=== PATIENT | female | born 1940 | race Caucasian/White ===

== ENCOUNTER 2016-10-17 13:23 | Emergency (ER) | payer MEDICARE, OTHER ==
[2016-10-17] MEDS ORDERED: RX INFO: IV CONTRAST WAS GIVEN 1 EACH MISC MISCELLANE PRN (13:43)
[2016-10-17] MEDS ORDERED: SODIUM CHLORIDE 0.9% 1,000 ML IV STA (13:43)
[2016-10-17] MEDS ORDERED: DIPH,PERTUS(ACELL)TETVAC-LF 0.5 ML VIAL IM ONE (13:45)
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
[2016-10-17 14:47] LABS: Basophils # (A) 0.1 k/uL (0-0.2); Basophils % (A) 0 %; CH 29.1; CHCM 31.1; Eosinophils # (A) 0.1 k/uL (0-0.7); Eosinophils % (A) 1 %; HCT 42.9 % (34.0-46.0); HDW 2.35; Hypochromasia Slight; Luc # (Auto) 0.22; Luc % (Auto) 2; Lymphocytes # (A) 0.8 k/uL (1.0-4.8); Lymphocytes % (A) 8 %; MCH 30.8 pg (25.0-35.0); MCHC 32.7 g/dL (31.0-37.0); MCV 94.1 fL (80.0-100.0); Mean Platelet Volume 8.3; Monocytes # (A) 0.6 k/uL (0-1.0); Monocytes % (A) 6 %; Neutrophils # (A) 8.4 k/uL (1.3-7.7); Neutrophils % (A) 82 %; RBC 4.56 m/uL (3.80-5.40); RDW 12.5 % (11.5-15.5); WBC 10.2 k/uL (3.8-10.6); WBC (Perox) 10.82
[2016-10-17 14:53] LABS: Anion Gap 12 mmol/L; Calcium 8.6 mg/dL (8.4-10.2); Carbon Dioxide 21 mmol/L (22-30); Chloride 106 mmol/L (98-107); Glucose 320 mg/dL (74-99); Non-African American GFR(MDRD) >60 (>60 ml/min/1.73 sqM); Sodium 139 mmol/L (137-145); Total Bilirubin 0.5 mg/dL (0.2-1.3); Total Protein 6.8 g/dL (6.3-8.2)
[2016-10-17 14:54] LABS: Blood Urea Nitrogen 18 mg/dL (7-17); Potassium 4.8 mmol/L (3.5-5.1)
[2016-10-17 14:55] LABS: ALT 37 U/L (9-52); AST 38 U/L (14-36); Alkaline Phosphatase 126 U/L (38-126)
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
[2016-10-17 15:59] VITALS: RESP 16; TEMP 97.7
[2016-10-17 16:06] LABS: Glucose,Whole Blood 219 mg/dL (75-99)
[2016-10-17] MEDS ORDERED: AMOXIC-POT CLAV 875MG STARTER 2 EACH TABLET PO STA (16:55)
[2016-10-17 17:04] VITALS: BP 142/60; PULSE 102
== END 2016-10-17 17:03 | disposition home or self-care (01) ==
LOC: EC 13:23
DX: S61.412A Laceration without foreign body of left hand, initial encounter (principal); S61.411A Laceration without foreign body of right hand, initial encounter; V89.2XXA Person injured in unspecified motor-vehicle accident, traffic, initial encounter; J18.9 Pneumonia, unspecified organism; J01.00 Acute maxillary sinusitis, unspecified; E11.9 Type 2 diabetes mellitus without complications; Z79.4 Long term (current) use of insulin; Z79.82 Long term (current) use of aspirin; Z79.899 Other long term (current) drug therapy; Z23 Encounter for immunization
CPT/HCPCS: 99285; 96360; 12011; 96361 ×2; 36415; 93005; 80053; 85025; 72125; 70486; 70450; 71260; 74177; 90715; Q9967; 90471

== ENCOUNTER → 2017-04-23 | Outpatient (CLI) | payer MEDICARE ==
[2017-04-23 10:33] LABS: ALT 22 U/L (9-52); AST 16 U/L (14-36); Alkaline Phosphatase 134 U/L (38-126); Anion Gap 8 mmol/L; Blood Urea Nitrogen 17 mg/dL (7-17); Carbon Dioxide 28 mmol/L (22-30); Chloride 103 mmol/L (98-107); Cholesterol 188 mg/dL (<200); Glucose 221 mg/dL (74-99); HDL Cholesterol 52 mg/dL (40-60); Non-African American GFR(MDRD) >60 (>60 ml/min/1.73 sqM); Potassium 4.9 mmol/L (3.5-5.1); Sodium 139 mmol/L (137-145); Total Bilirubin 0.6 mg/dL (0.2-1.3); Total Protein 6.8 g/dL (6.3-8.2); Triglycerides 172 mg/dL (<150)
[2017-04-23 17:15] LABS: Urine Creatinine 88.3 mg/dL
== END | disposition home or self-care (01) ==
LOC: LABWHC1 09:57
PROVIDERS: ATTEND Internal Medicine Endocrinology, Diabetes & Metabolism
DX: E11.65 Type 2 diabetes mellitus with hyperglycemia (principal)
CPT/HCPCS: 36415; 80053; 80061; 82043; 82570

== ENCOUNTER → 2017-09-12 | Outpatient (CLI) | payer MEDICARE ==
[2017-09-12 10:48] LABS: ALT 23 U/L (9-52); AST 17 U/L (14-36); Alkaline Phosphatase 109 U/L (38-126); Anion Gap 7 mmol/L; Blood Urea Nitrogen 17 mg/dL (7-17); Calcium 9.6 mg/dL (8.4-10.2); Carbon Dioxide 32 mmol/L (22-30); Chloride 105 mmol/L (98-107); Cholesterol 179 mg/dL (<200); Glucose 100 mg/dL (74-99); HDL Cholesterol 57 mg/dL (40-60); Non-African American GFR(MDRD) >60 (>60 ml/min/1.73 sqM); Sodium 144 mmol/L (137-145); Total Bilirubin 0.4 mg/dL (0.2-1.3); Total Protein 7.1 g/dL (6.3-8.2)
[2017-09-12 17:51] LABS: Urine Creatinine 135.8 mg/dL
== END | disposition home or self-care (01) ==
LOC: LABWHC1 09:55
PROVIDERS: ATTEND Internal Medicine Endocrinology, Diabetes & Metabolism
DX: E11.65 Type 2 diabetes mellitus with hyperglycemia (principal)
CPT/HCPCS: 36415; 80053; 80061; 82043; 82570; 83036

== ENCOUNTER → 2018-04-04 | Outpatient (CLI) | payer MEDICARE ==
[2018-04-04 09:54] LABS: Anion Gap 13 mmol/L; Calcium 9.7 mg/dL (8.4-10.2); Carbon Dioxide 28 mmol/L (22-30); Chloride 103 mmol/L (98-107); Cholesterol 162 mg/dL (<200); Glucose 94 mg/dL (74-99); HDL Cholesterol 54 mg/dL (40-60); LDL Cholesterol,Calculated 82 mg/dL (0-99); Sodium 144 mmol/L (137-145); Total Bilirubin 0.7 mg/dL (0.2-1.3); Total Protein 7.4 g/dL (6.3-8.2); Triglycerides 130 mg/dL (<150)
[2018-04-04 10:01] LABS: ALT 23 U/L (9-52); AST 29 U/L (14-36); Alkaline Phosphatase 134 U/L (38-126); Blood Urea Nitrogen 9 mg/dL (7-17)
[2018-04-04 17:33] LABS: Hemoglobin A1C 10.5 % (4.0-6.0)
== END | disposition home or self-care (01) ==
LOC: LABWHC1 08:38
PROVIDERS: ATTEND Internal Medicine Endocrinology, Diabetes & Metabolism
DX: E11.65 Type 2 diabetes mellitus with hyperglycemia (principal)
CPT/HCPCS: 36415; 80053; 80061; 82043; 82570; 83036

== ENCOUNTER 2018-12-01 12:18 | Inpatient (IN) | payer MEDICARE ==
[2018-12-01 12:42] LABS: Glucose,Whole Blood 278 mg/dL (75-99)
[2018-12-01 12:42] LABS: Glucose,Whole Blood 236 mg/dL (75-99)
--- NOTE | 2018-12-01 13:30 | XR ---
EXAMINATION TYPE: XR chest 1V DATE OF EXAM: 12/01/2018 COMPARISON: 04/09/2016 HISTORY: Preoperative evaluation for shoulder fracture TECHNIQUE: Single frontal view of the chest is obtained. FINDINGS: Cardiomediastinal silhouette is mildly enlarged. Minimal pulmonary vascular prominence is new from the prior. Mild retrocardiac left basilar linear atelectasis is also seen. No sizable pleura l effusion or pneumothorax. Right humeral fracture appears acute and displaced. IMPRESSION: Minimal pulmonary vascular congestion and left basilar subsegmental atelectasis. Partial ly visualized right humeral fracture.
--- NOTE | 2018-12-01 13:37 | XR ---
EXAMINATION TYPE: XR Hip RT and AP Pelvis DATE OF EXAM: 12/01/2018 COMPARISON: None HISTORY: Fall, pain TECHNIQUE: AP pelvis with 2 view right hip FINDINGS: There is a subtle nondisplaced fracture extending from the greater trochanter to the proxim al diaphysis of the femur just below the lesser trochanter. A fracture appears nondisplaced. Vascular calcifications present. Femoral head articulates with the acetabulum. Some joint space narro wing is present. No additional fractures are evident. IMPRESSION: 1. Subtle nondisplaced fracture from the distal portion of the greater trochanter to the distal port ion of the lesser trochanter and proximal diaphysis of the right femur.
[2018-12-01 13:38] LABS: Basophils % (A) 0 %; Eosinophils # (A) 0.2 k/uL (0-0.7); Eosinophils % (A) 2 %; HCT 45.3 % (34.0-46.0); HGB 14.6 gm/dL (11.4-16.0); Lymphocytes # (A) 1.2 k/uL (1.0-4.8); Lymphocytes % (A) 15 %; MCH 29.7 pg (25.0-35.0); MCHC 32.3 g/dL (31.0-37.0); MCV 92.1 fL (80.0-100.0); Mean Platelet Volume 8.6; Monocytes # (A) 0.5 k/uL (0-1.0); Monocytes % (A) 6 %; Neutrophils # (A) 6.3 k/uL (1.3-7.7); Neutrophils % (A) 74 %; Platelet Count 204 k/uL (150-450); RBC 4.92 m/uL (3.80-5.40); RDW 12.7 % (11.5-15.5); WBC 8.4 k/uL (3.8-10.6)
--- NOTE | 2018-12-01 13:40 | XR ---
EXAMINATION TYPE: XR shoulder limited RT DATE OF EXAM: 12/01/2018 COMPARISON: None HISTORY: Fall, pain TECHNIQUE: 2 view right humerus FINDINGS: There is a fracture of the right humeral neck. This is slightly displaced from the shaft. H umeral head articulates with the glenoid. No additional fractures are within the [id number]. IMPRESSION: 1. Fracture of the proximal right humerus.
[2018-12-01] MEDS ORDERED: ONDANSETRON 4 MG/2 ML VIAL IVP PRN (13:53)
[2018-12-01] MEDS ORDERED: NALOXONE 0.4 MG/ML 1 ML VIAL IV PRN (13:53)
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
[2018-12-01 13:55] LABS: ALT 22 U/L (9-52); AST 20 U/L (14-36); Albumin 3.6 g/dL (3.5-5.0); Alkaline Phosphatase 111 U/L (38-126); Anion Gap 7 mmol/L; Blood Urea Nitrogen 17 mg/dL (7-17); Calcium 9.1 mg/dL (8.4-10.2); Carbon Dioxide 27 mmol/L (22-30); Chloride 105 mmol/L (98-107); Glucose 315 mg/dL (74-99); Potassium 5.1 mmol/L (3.5-5.1); Sodium 139 mmol/L (137-145); Total Bilirubin 0.6 mg/dL (0.2-1.3)
[2018-12-01 14:03] LABS: INR 0.9 (<1.2); Prothrombin Time 10.1 sec (9.0-12.0)
[2018-12-01 14:06] LABS: Partial Thromboplastin Time 20.6 sec (22.0-30.0)
[2018-12-01] MEDS: MORPHINE SULFATE 4 MG/ML SYRINGE IV PRN ×2 (14:39→20:58)
[2018-12-01 14:54] LABS: Appearance,Urine Clear (Clear); Bacteria,Urine Many /hpf; Bilirubin,Urine Negative (Negative); Blood,Urine Negative (Negative); Color,Urine Light Yellow; Glucose,Urine (UA) 4+ (Negative); Ketones,Urine 1+ (Negative); Leukocyte Esterase,Urine Small (Negative); Nitrite,Urine Positive (Negative); Protein,Urine Trace (Negative); RBC,Urine 1 /hpf (0-5); Specific Gravity,Urine 1.022 (1.001-1.035); Squamous Epithelial Cell,Urine <1 /hpf (0-4); Urobilinogen,Urine <2.0 mg/dL (<2.0); WBC,Urine 70 /hpf (0-5)
[2018-12-01 15:03] VITALS: BMI 38.2
[2018-12-01] MEDS ORDERED: LEVOFLOXACIN 250 MG TAB PO STA (16:35)
--- NOTE | 2018-12-01 16:50 | P.PN ---
Subjective Progress Note Date: 12/01/18 Principal diagnosis: This is a history of physical and 78-year-old white female who essentially fell on the ice today fracturing proximal humerus and hip fracture. The patient is seemingly in fairly good spirits today with nominal pain control. The patient has an underlying history diabetes which has been fairly well controlled. No significant fever or chills stated. UTIs noted on initial urinalysis. She does have a left finger wound from a fall 3 weeks ago and it does seem somewhat cellulitic. Again, no diarrhea The patient is now stable in her bed with good family support. No significant nausea, vomiting or diarrhea. No fever or chills are stated. Objective - Vital Signs Vital signs: Vital Signs Temp 98.0 F 12/01/18 14:55 Pulse 77 12/01/18 15:26 Resp 18 12/01/18 14:55 BP 132/76 12/01/18 15:26 Pulse Ox 92 L 12/01/18 15:26 Intake & Output 11/30/18 12/01/18 12/01/18 18:59 06:59 18:59 Output Total 300 Balance -300 Weight 88.904 kg Output: Urine 300 Uretheral (Mustafa) 300 - Constitutional General appearance: Present: average body habitus - EENT Eyes: Absent: abnormal pupil - Neck Neck: Absent: lymphadenopathy - Respiratory Respiratory: bilateral: CTA - Cardiovascular Rhythm: regular Heart sounds: normal: S1, S2 Abnormal Heart Sounds: Present: systolic murmur. Absent: S3 Gallop - Gastrointestinal General gastrointestinal: Present: soft. Absent: tenderness - Integumentary Integumentary Comment(s): There is cellulitis element somewhat superficial cut which has had redness of the left dorsum of the fifth digit. Integumentary: Present: cellulitis - Neurologic Neurologic: Present: CNII-XII intact. Absent: focal deficits - Musculoskeletal Musculoskeletal: Present: right sided weakness - Psychiatric Psychiatric: Present: A&O x's 3. Absent: appropriate affect - Labs CBC & Chem 7: 12/01/18 12:39 12/01/18 12:39 Labs: Abnormal Lab Results - Last 24 Hours (Table) 12/01/18 12/01/18 12/01/18 Range/Units 12:37 12:38 12:39 APTT (22.0-30.0) sec Creatinine 0.50 L (0.52-1.04) mg/dL Glucose 315 H (74-99) mg/dL POC Glucose (mg/dL) 236 H 278 H (75-99) mg/dL Urine Protein (Negative) Urine Glucose (UA) (Negative) Urine Ketones (Negative) Urine Nitrite (Negative) Ur Leukocyte Esterase (Negative) Urine WBC (0-5) /hpf Urine WBC Clumps (None) /hpf Urine Bacteria (None) /hpf 12/01/18 12/01/18 Range/Units 12:39 14:44 APTT 20.6 L (22.0-30.0) sec Creatinine (0.52-1.04) mg/dL Glucose (74-99) mg/dL POC Glucose (mg/dL) (75-99) mg/dL Urine Protein Trace H (Negative) Urine Glucose (UA) 4+ H (Negative) Urine Ketones 1+ H (Negative) Urine Nitrite Positive H (Negative) Ur Leukocyte Esterase Small H (Negative) Urine WBC 70 H (0-5) /hpf Urine WBC Clumps Few H (None) /hpf Urine Bacteria Many H (None) /hpf Assessment and Plan (1) Diabetes Current Visit: Yes Status: Acute Code(s): E11.9 - TYPE 2 DIABETES MELLITUS WITHOUT COMPLICATIONS SNOMED Code(s): 94941028 (2) UTI (urinary tract infection) Current Visit: Yes Status: Acute Code(s): N39.0 - URINARY TRACT INFECTION, SITE NOT SPECIFIED SNOMED Code(s): 54373861 (3) Closed right hip fracture Current Visit: Yes Status: Acute Code(s): S72.001A - FRACTURE OF UNSP PART OF NECK OF RIGHT FEMUR, INIT SNOMED Code(s): 017332362 (4) Fall Current Visit: Yes Status: Acute Code(s): W19.XXXA - UNSPECIFIED FALL, INITIAL ENCOUNTER SNOMED Code(s): 8419230 (5) Right humeral fracture Current Visit: Yes Status: Acute Code(s): S42.301A - UNSP FRACTURE OF SHAFT OF HUMERUS, RIGHT ARM, INIT SNOMED Code(s): 82414338 (6) Cellulitis and abscess of finger, unspecified Current Visit: Yes Status: Acute Code(s): L03.019 - CELLULITIS OF UNSPECIFIED FINGER; L02.519 - CUTANEOUS ABSCESS OF UNSPECIFIED HAND SNOMED Code(s): 807267264 (7) Cellulitis of finger of left hand Current Visit: Yes Status: Acute Code(s): L03.012 - CELLULITIS OF LEFT FINGER SNOMED Code(s): 42992288 Plan: Urinary tract infection with cellulitis we will go ahead and start Antibiotics with Levaquin. Reconcile home medications. We'll give half the dose of her Levemir tonight as we will be keeping her nothing by mouth in a.m. for her surgery. Appreciate consultation. Check CBC and CMP in a.m. The patient is medically cleared for her surgery. Time with Patient: Greater than 30
[2018-12-01 17:04] LABS: Glucose,Whole Blood 269 mg/dL (75-99)
[2018-12-01] MEDS: INSULIN ASPART (NovoLOG) 100 UNIT/ML VIAL SQ SCH ×2 (17:22→20:58)
[2018-12-01] MEDS ORDERED: INSULIN LISPRO 10 UNIT SQ SCH (17:30)
[2018-12-01] MEDS: BACITRACIN 500 UNIT/GM OINT 28.4 GM TUBE TOPICAL SCH (18:18)
[2018-12-01 20:38] LABS: Glucose,Whole Blood 280 mg/dL (75-99)
[2018-12-01] MEDS: ATORVASTATIN 40 MG TAB PO SCH (20:58)
[2018-12-01] MEDS ORDERED: INSULIN DETEMIR (LEVEMIR) 100 UNIT/ML SYR SQ SCH (21:00)
[2018-12-02] MEDS: MORPHINE SULFATE 4 MG/ML SYRINGE IV PRN ×2 (03:24→16:32)
[2018-12-02 06:44] LABS: Glucose,Whole Blood 236 mg/dL (75-99)
--- NOTE | 2018-12-02 08:12 | P.HPOR ---
<Maria Elena Sidhu L - Last Filed: 12/02/18 08:07> History of Present Illness H&P Date: 12/02/18 This is an 78-year-old female who is admitted after a fall for right hip fracture. Patient states that on 12/01/2018 around 10:30 AM she slipped on ice and fell. Patient states that she was unable to get up and walk and was taken to the emergency room for evaluation. X-rays in the emergency room show evidence for subtrochanteric fracture of the right femur and a displaced right humeral neck fracture. Patient states that she also has a cut on the left little finger from a previous fall. Patient states that she cut the finger on a car door. 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 Patient states that her pain is under control today and she denies any neck pain, back pain, numbness, weakness or tingling. Review of Systems See HPI. Past Medical History Past Medical History: CVA/TIA, Diabetes Mellitus, Deep Vein Thrombosis (DVT) Additional Past Medical History / Comment(s): IDDM type II, CVA with some vision changes and difficulty swallowing, DVT to L arm with vein grafting, murmur, pt has had a couple falls lately and has a wound on L hand little finger that son is worried about. History of Any Multi-Drug Resistant Organisms: None Reported Past Surgical History: Tonsillectomy Additional Past Surgical History / Comment(s): Esophageal surgery 2003; Venous graft leg to left arm. Smoking Status: Never smoker - Past Family History Mother Family Medical History: No Reported History father Family Medical History: Diabetes Mellitus Medications and Allergies Home Medications Medication Instructions Recorded Confirmed Type Insulin Detemir [Levemir Flextouch] 24 units SQ QAM 04/09/16 12/01/18 History Aspirin EC [Ecotrin Low Dose] 81 mg PO DAILY 10/17/16 12/01/18 History Insulin Lispro [humaLOG Kwikpen] 10 unit SQ W/SUPPER 10/17/16 12/01/18 History Atorvastatin [Lipitor] 40 mg PO HS 12/01/18 12/01/18 History Allergies Allergy/AdvReac Type Severity Reaction Status Date / Time No Known Allergies Allergy Verified 12/01/18 13:04 Physical Examination On exam patient is alert and oriented 3. Patient is lying comfortably in bed in no acute distress. There is tenderness to palpation over the right hip. There is no deformity of the right lower extremity. There is no erythema or ecchymosis and skin is intact. Patient has full bilateral foot and ankle motion. Dorsalis pedis pulses 2+ bilaterally. Calves are soft and nontender to palpation. There is tenderness to palpation over the right shoulder along with moderate swelling. There is no erythema and skin is intact. Patient has full range of motion of the right wrist and hand. Radial pulse is 2+. Sensation is intact. There is a small superficial wound to the left little finger. The wound is located over the PIP joint. Patient has full extension of the left little finger but limited flexion due to pain. There is minimal surrounding erythema. No active drainage. Capillary refill is normal at less than 2 seconds. Sensation is intact. Neurovascular status and circulatory status are intact. Head is atraumatic and normocephalic. Patient has good range of motion of the neck. Results X-rays of the right hip and pelvis show a nondisplaced subtrochanteric fracture of the right femur. X-rays of the right shoulder show a displaced right humeral neck fracture. - Labs Labs: Abnormal Lab Results - Last 24 Hours (Table) 12/01/18 12/01/18 12/01/18 Range/Units 12:37 12:38 12:39 APTT (22.0-30.0) sec Creatinine 0.50 L (0.52-1.04) mg/dL Glucose 315 H (74-99) mg/dL POC Glucose (mg/dL) 236 H 278 H (75-99) mg/dL Urine Protein (Negative) Urine Glucose (UA) (Negative) Urine Ketones (Negative) Urine Nitrite (Negative) Ur Leukocyte Esterase (Negative) Urine WBC (0-5) /hpf Urine WBC Clumps (None) /hpf Urine Bacteria (None) /hpf 12/01/18 12/01/18 12/01/18 Range/Units 12:39 14:44 17:02 APTT 20.6 L (22.0-30.0) sec Creatinine (0.52-1.04) mg/dL Glucose (74-99) mg/dL POC Glucose (mg/dL) 269 H (75-99) mg/dL Urine Protein Trace H (Negative) Urine Glucose (UA) 4+ H (Negative) Urine Ketones 1+ H (Negative) Urine Nitrite Positive H (Negative) Ur Leukocyte Esterase Small H (Negative) Urine WBC 70 H (0-5) /hpf Urine WBC Clumps Few H (None) /hpf Urine Bacteria Many H (None) /hpf 12/01/18 12/02/18 Range/Units 20:37 06:42 APTT (22.0-30.0) sec Creatinine (0.52-1.04) mg/dL Glucose (74-99) mg/dL POC Glucose (mg/dL) 280 H 236 H (75-99) mg/dL Urine Protein (Negative) Urine Glucose (UA) (Negative) Urine Ketones (Negative) Urine Nitrite (Negative) Ur Leukocyte Esterase (Negative) Urine WBC (0-5) /hpf Urine WBC Clumps (None) /hpf Urine Bacteria (None) /hpf H & H 12/01/18 Range/Units 12:39 Hgb 14.6 (11.4-16.0) gm/dL Hct 45.3 (34.0-46.0) % Coagulation 12/01/18 Range/Units 12:39 INR 0.9 (<1.2) Result Diagrams: 12/01/18 12:39 12/01/18 12:39 Assessment and Plan Assessment: History of CVA History of left arm DVT Heart murmur (1) Abrasion of left little finger with infection Current Visit: Yes Status: Acute Code(s): S60.417A - ABRASION OF LEFT LITTLE FINGER, INITIAL ENCOUNTER; L08.9 - LOCAL INFECTION OF THE SKIN AND SUBCUTANEOUS TISSUE, UNSP SNOMED Code(s): 434941624 (2) Closed right hip fracture Current Visit: Yes Status: Acute Code(s): S72.001A - FRACTURE OF UNSP PART OF NECK OF RIGHT FEMUR, INIT SNOMED Code(s): 526507609 (3) Diabetes Current Visit: Yes Status: Acute Code(s): E11.9 - TYPE 2 DIABETES MELLITUS WITHOUT COMPLICATIONS SNOMED Code(s): 29073882 (4) Fall Current Visit: Yes Status: Acute Code(s): W19.XXXA - UNSPECIFIED FALL, INITIAL ENCOUNTER SNOMED Code(s): 1055534 (5) Right humeral fracture Current Visit: Yes Status: Acute Code(s): S42.301A - UNSP FRACTURE OF SHAFT OF HUMERUS, RIGHT ARM, INIT SNOMED Code(s): 33713759 (6) UTI (urinary tract infection) Current Visit: Yes Status: Acute Code(s): N39.0 - URINARY TRACT INFECTION, SITE NOT SPECIFIED SNOMED Code(s): 36289022 Plan: 1. Patient is NPO. 2. Continue pain control. 3. X-rays are reviewed and show evidence for subtrochanteric fracture of the right femur and displaced right humeral neck fracture. 4. Patient is to be nonweightbearing to the right lower extremity and right upper extremity. 5. Maintain sling to the right upper extremity. 6. Appreciate input from medicine. 7. Patient is scheduled for closed reduction and intramedullary hip screw fixation of the right hip by Dr. Graves, pending patient consent. Patient has been medically cleared. All patient questions have been answered to the best of my ability. No family was present in the room. <Carl Graves - Last Filed: 12/02/18 09:06> Results - Labs Labs: Abnormal Lab Results - Last 24 Hours (Table) 12/01/18 12/01/18 12/01/18 Range/Units 12:37 12:38 12:39 APTT (22.0-30.0) sec Creatinine 0.50 L (0.52-1.04) mg/dL Glucose 315 H (74-99) mg/dL POC Glucose (mg/dL) 236 H 278 H (75-99) mg/dL Urine Protein (Negative) Urine Glucose (UA) (Negative) Urine Ketones (Negative) Urine Nitrite (Negative) Ur Leukocyte Esterase (Negative) Urine WBC (0-5) /hpf Urine WBC Clumps (None) /hpf Urine Bacteria (None) /hpf 12/01/18 12/01/18 12/01/18 Range/Units 12:39 14:44 17:02 APTT 20.6 L (22.0-30.0) sec Creatinine (0.52-1.04) mg/dL Glucose (74-99) mg/dL POC Glucose (mg/dL) 269 H (75-99) mg/dL Urine Protein Trace H (Negative) Urine Glucose (UA) 4+ H (Negative) Urine Ketones 1+ H (Negative) Urine Nitrite Positive H (Negative) Ur Leukocyte Esterase Small H (Negative) Urine WBC 70 H (0-5) /hpf Urine WBC Clumps Few H (None) /hpf Urine Bacteria Many H (None) /hpf 12/01/18 12/02/18 Range/Units 20:37 06:42 APTT (22.0-30.0) sec Creatinine (0.52-1.04) mg/dL Glucose (74-99) mg/dL POC Glucose (mg/dL) 280 H 236 H (75-99) mg/dL Urine Protein (Negative) Urine Glucose (UA) (Negative) Urine Ketones (Negative) Urine Nitrite (Negative) Ur Leukocyte Esterase (Negative) Urine WBC (0-5) /hpf Urine WBC Clumps (None) /hpf Urine Bacteria (None) /hpf H & H 12/01/18 Range/Units 12:39 Hgb 14.6 (11.4-16.0) gm/dL Hct 45.3 (34.0-46.0) % Coagulation 12/01/18 Range/Units 12:39 INR 0.9 (<1.2) Result Diagrams: 12/01/18 12:39 12/01/18 12:39 Assessment and Plan Plan: This case was discussed with KRIS Sidhu. I reviewed the above findings and agree with the assessment and plan. The patient was seen and examined by myself as well. The patient slipped on the ice in her driveway yesterday morning and laid on the ground for a short time and found by her daughter. The patient local localizes the pain to her right hip and shoulder. X-rays revealed fractures of the proximal humerus and right proximal femur. She states she's had a previous fracture of the right shoulder. She normally ambulates without use of assistive devices. We discussed the hip fracture, the pertinent anatomy and need for surgery. Risks and benefits were reviewed including (but not limited to) the risks of infection, bleeding, blood clots and anesthesia related complications. She expressed understanding and wishes to proceed with surgery. Surgical site was marked. Plan will be for cephalo-medullary fixation of the right IT fracture. We will obtain additional images of the right shoulder postoperatively and then make a definitive treatment plan for the shoulder. Carl Graves D.O. [facility]
[2018-12-02] MEDS: BACITRACIN 500 UNIT/GM OINT 28.4 GM TUBE TOPICAL SCH ×2 (08:41→21:56)
[2018-12-02] MEDS: INSULIN ASPART (NovoLOG) 100 UNIT/ML VIAL SQ SCH ×4 (08:41→21:56)
[2018-12-02 08:57] LABS: HCT 43.6 % (34.0-46.0); HGB 13.8 gm/dL (11.4-16.0); Hypochromasia Slight; MCH 29.7 pg (25.0-35.0); MCHC 31.6 g/dL (31.0-37.0); MCV 93.9 fL (80.0-100.0); Platelet Count 192 k/uL (150-450); RBC 4.65 m/uL (3.80-5.40); RDW 12.8 % (11.5-15.5); WBC 9.9 k/uL (3.8-10.6)
[2018-12-02] MEDS ORDERED: PROPOFOL 10 MG/ML 20 ML VIAL IV ONE (08:59)
[2018-12-02] MEDS ORDERED: PHENYLEPHRINE-0.9% NACL SYG 1 MG/10 ML SYRINGE ONE (08:59)
[2018-12-02] MEDS ORDERED: KETAMINE 10 MG/ML 20 ML VIAL ONE (08:59)
[2018-12-02] MEDS ORDERED: MIDAZOLAM 2 MG/2 ML VIAL ONE (08:59)
[2018-12-02] MEDS ORDERED: fentaNYL (PF) 50 MCG/ML 2 ML AMP ONE (08:59)
[2018-12-02] MEDS ORDERED: ePHEDrine SULFATE/0.9% NACL/PF 50 MG/5 ML SYRINGE IV ONE (08:59)
[2018-12-02] MEDS ORDERED: IV FLUID CONTINUATION 1,000 ML IV ONE (09:02)
[2018-12-02 09:17] LABS: ALT 26 U/L (9-52); AST 16 U/L (14-36); Albumin 3.2 g/dL (3.5-5.0); Alkaline Phosphatase 103 U/L (38-126); Anion Gap 7 mmol/L; Blood Urea Nitrogen 18 mg/dL (7-17); Carbon Dioxide 26 mmol/L (22-30); Chloride 105 mmol/L (98-107); Glucose 262 mg/dL (74-99); Sodium 138 mmol/L (137-145); Total Bilirubin 0.7 mg/dL (0.2-1.3); Total Protein 6.5 g/dL (6.3-8.2)
[2018-12-02] MEDS ORDERED: LACTATED RINGERS 1,000 ML IV ONE ×3 (10:00→12:07)
[2018-12-02] MEDS ORDERED: SODIUM CHLORIDE 0.9% 50 ML with ceFAZolin 2,000 MG IV ONE ×2 (10:00)
[2018-12-02] MEDS ORDERED: BUPIVACAIN-EPI 0.5%-1:200,000 30 ML VIAL SQ ONE (10:53)
--- NOTE | 2018-12-02 11:15 | XR ---
Fluoroscopy History: RIGHT HIP IT NAIL 1 min 17 sec fluoro
[2018-12-02] MEDS ORDERED: HYDROmorphone 1 MG/ML 1 ML SYRINGE IVP ONE ×2 (12:00→12:10)
[2018-12-02 12:14] LABS: Glucose,Whole Blood 259 mg/dL (75-99)
--- NOTE | 2018-12-02 12:29 | XR ---
EXAMINATION TYPE: XR Hip Complete RT DATE OF EXAM: 12/02/2018 CLINICAL HISTORY: Right hip pain and osteoarthritis. TECHNIQUE: Single AP portable view of right hip is obtained immediately postoperatively. COMPARISON: None. FINDINGS: Metallic hardware from right hip arthroplasty is seen and appears satisfactory in alignment and position. There is evidence of recent surgery with subcutaneous gas noted laterally. IMPRESSION: Metallic hardware from right hip arthroplasty is satisfactory in position.
[2018-12-02 12:57] LABS: Glucose,Whole Blood 250 mg/dL (75-99)
[2018-12-02] MEDS ORDERED: INSULIN DETEMIR (LEVEMIR) 100 UNIT/ML SYR SQ ONE (14:28)
[2018-12-02 14:45] LABS: Basophils % (A) 0 %; Eosinophils % (A) 0 %; HCT 38.5 % (34.0-46.0); HGB 12.5 gm/dL (11.4-16.0); Lymphocytes # (A) 0.9 k/uL (1.0-4.8); Lymphocytes % (A) 7 %; MCH 30.1 pg (25.0-35.0); MCHC 32.6 g/dL (31.0-37.0); MCV 92.3 fL (80.0-100.0); Mean Platelet Volume 9.9; Monocytes # (A) 0.9 k/uL (0-1.0); Monocytes % (A) 7 %; Neutrophils # (A) 10.6 k/uL (1.3-7.7); Neutrophils % (A) 84 %; Platelet Count 121 k/uL (150-450); RBC 4.17 m/uL (3.80-5.40); RDW 12.8 % (11.5-15.5); WBC 12.6 k/uL (3.8-10.6)
--- NOTE | 2018-12-02 15:06 | XR ---
Left Little finger 3 views. History infection. Comparison none. Findings There is narrowing and spurring at the IP joints. I see no focal bone destruction. I see no fracture. There is no dislocation. IMPRESSION: Osteoarthritis. No evidence of osteomyelitis.
[2018-12-02 16:34] LABS: Glucose,Whole Blood 260 mg/dL (75-99)
[2018-12-02] MEDS: ceFAZolin IN SWFI 2 GM/20 ML SYRINGE IVP SCH (16:58)
--- NOTE | 2018-12-02 19:18 | P.PN ---
Subjective On-call hospitalist covering for Dr. Rodriguez over the weekend. Dr. Rodriguez will resume the care of the patient on Tuesday This is a pleasant 78 years old female with past medical history of diabetes mellitus, CVA/TIA, DVT, and recent one to her left little finger. She presents because of fall and fracture of her right hip and right shoulder antonio. She is status post closed reduction and intramedullary right hip screw fixation,. Patient is going to have another surgery to fix her right humeral fracture. Patient was lying in bed not in distress. She was already on cefazolin for today, we extended for 4 more days of cefazolin for wound with surrounding cellulitis for about half an inch in his left little finger. X-ray of the little finger shows no evidence of osteomyelitis. Objective - Vital Signs Vital signs: Vital Signs Temp 97.6 F 12/02/18 12:40 Pulse 103 H 12/02/18 16:00 Resp 16 12/02/18 16:00 BP 152/81 12/02/18 14:37 Pulse Ox 97 12/02/18 12:40 Intake & Output 12/02/18 12/02/18 12/03/18 06:59 18:59 06:59 Intake Total 1550 Output Total 850 775 Balance -850 775 Intake: IV 1550 Output: Urine 850 750 Estimated Blood Loss 25 Other: Voiding Method Indwelling Catheter Indwelling Catheter - Exam GENERAL: The patient is alert and oriented x3, not in any acute distress. Well developed, well nourished. HEENT: Pupils are round and equally reacting to light. EOMI. No scleral icterus. No conjunctival pallor. Normocephalic, atraumatic. No pharyngeal erythema. No thyromegaly. CARDIOVASCULAR: S1 and S2 present. No murmurs, rubs, or gallops. PULMONARY: Chest is clear to auscultation, no wheezing or crackles. ABDOMEN: Soft, nontender, nondistended, normoactive bowel sounds. No palpable organomegaly. MUSCULOSKELETAL: No joint swelling or deformity. EXTREMITIES: No cyanosis, clubbing, or pedal edema. Right hip wound looks a close and clean. Right upper extremity is tender and held close to the body and in semi-pronated position, with limitation of movement. Few millimeters of not completely closed wound in her left little finger with surrounding cellulitis NEUROLOGICAL: Gross neurological examination did not reveal any focal deficits. SKIN: No rashes. - Labs CBC & Chem 7: 12/02/18 13:59 12/02/18 07:47 Labs: Abnormal Lab Results - Last 24 Hours (Table) 12/01/18 12/02/18 12/02/18 Range/Units 20:37 06:42 07:47 WBC (3.8-10.6) k/uL Plt Count (150-450) k/uL Neutrophils # (1.3-7.7) k/uL Lymphocytes # (1.0-4.8) k/uL BUN 18 H (7-17) mg/dL Glucose 262 H (74-99) mg/dL POC Glucose (mg/dL) 280 H 236 H (75-99) mg/dL Albumin 3.2 L (3.5-5.0) g/dL 12/02/18 12/02/18 12/02/18 Range/Units 12:10 12:55 13:59 WBC 12.6 H (3.8-10.6) k/uL Plt Count 121 L (150-450) k/uL Neutrophils # 10.6 H (1.3-7.7) k/uL Lymphocytes # 0.9 L (1.0-4.8) k/uL BUN (7-17) mg/dL Glucose (74-99) mg/dL POC Glucose (mg/dL) 259 H 250 H (75-99) mg/dL Albumin (3.5-5.0) g/dL 12/02/18 Range/Units 16:32 WBC (3.8-10.6) k/uL Plt Count (150-450) k/uL Neutrophils # (1.3-7.7) k/uL Lymphocytes # (1.0-4.8) k/uL BUN (7-17) mg/dL Glucose (74-99) mg/dL POC Glucose (mg/dL) 260 H (75-99) mg/dL Albumin (3.5-5.0) g/dL Assessment and Plan Assessment: Fall, Right hip fracture, status post She is status post closed reduction and intramedullary right hip screw fixation Right shoulder fracture, Cellulitis and known completely healed within THE little finger Diabetes mellitus, History of DVT History of CVA/TIA Obesity Plan: This is a pleasant 78 years old female who presents because of right hip and shoulder fractures secondary to fall. She is a status post right hip fixation and closed reduction. The primary orthopedic team are following the patient and managing her DVT prophylaxis and pain management. Patient is not in distress. She'll need surgery for her right shoulder fracture. She has cellulitis of the left little finger, with continue with cefazolin for now.Labs and medication were reviewed.. Continue same treatment. Continue with symptomatic treatment. Resume home medication. Monitor lytes and vitals. DVT and GI prophylaxis. Further recommendations of the clinical course of the patient Prognosis is guarded
[2018-12-02 19:56] LABS: Glucose,Whole Blood 225 mg/dL (75-99)
--- NOTE | 2018-12-02 21:26 | P.OP ---
Date of Procedure: 12/02/18 Preoperative Diagnosis: Right intertrochanteric femur fracture Postoperative Diagnosis: Right intertrochanteric femur fracture Procedure(s) Performed: Surgical stabilization of right intertrochanteric femur fracture with cephalomedullary nail Implants: [employer] TTFN, 12 mm short nail, 130 degree with 85 mm spiral blade and 5.0 mm locking screw Anesthesia: spinal Surgeon: Carl Graves Estimated Blood Loss (ml): 25 Pathology: none sent Condition: stable Disposition: PACU Indications for Procedure: The patient is an 78 year-old female who experienced a ground-level fall on the ice and sustained a right IT fracture. We discussed the diagnosis, pertinent anatomy & fracture characteristics. Operative treatment was recommended. Risks & benefits were discussed including (but not limited to) the risk of infection, bleeding, injury to vessels/nerves/adjacent structures, blood clots and possible need for additional surgery. The patient expressed understanding and wished to proceed with surgery. The consents were signed. The operative site was confirmed and marked preoperatively. Description of Procedure: The patient was brought to the operative suite by the anesthesia team and spinal anesthesia was administered. The patient was transferred to a fracture table and positioned supine. The operative limb was placed in a well-padded boot , secured with coban; the contralateral limb was scissored/semi-extended and secured with padding to the frame of the table with coban and tape. All bony prominences were padded in the typical fashion. A time-out was performed to confirm patient identifiers, side, site and procedure. All team members expressed agreement. The fracture was visualized with intraoperative imaging. It was essentially nondisplaced and manual reduction was not necessary. Preoperative antibiotics were given. At this point, the right lower extremity was prepped and draped in a standard, sterile fashion. A small stab incision was made proximal to the greater trochanter and a guidewire was inserted. Fluoroscopy was used to localize the starting point at the tip of the greater trochanter and the wire was advanced into the proximal femur. The skin incision was extended to accommodate the entry reamer. Superficial bleeders were controlled with electrocautery. The reamer was inserted through a tissue protector and advanced to the level of the lesser trochanter under fluoroscopic guidance. The reamer and guidewire were removed. Based on the patient's anatomy and fracture pattern, an 12 mm short nail was selected. This was attached to the insertion handle and passed down the medullary canal. An incision was made laterally along the proximal thigh for placement of the cephalomedullary spiral blade. A drill sleeve was inserted down to the lateral femoral cortex. A guidewire was advanced through the nail and into the femoral head. Position of the wire was confirmed on orthogonal views and adjusted to a satisfactory position. Measuring off the guidewire, an 85 mm spiral blade was selected. A cannulated drill was used and the spiral blade was inserted over the guidewire to the appropriate depth. The set screw was tightened to lock the blade in place, then slightly loosened to allow for dynamic compression. The drill sleeve for the distal locking screw was inserted through the distal incision. This was advanced to the lateral femoral cortex. The bone was drilled, measured and 5 mm distal cortical screw was inserted. The jig was removed. Final x-rays were taken to confirm fracture reduction and implant position. All wounds were irrigated thoroughly. The wounds were closed in layers: the fascia and deep subcutaneous tissues with #1 Vicryl, the subcutaneous tissue with 2-0 Vicryl and the skin was closed interrupted and running subcuticular 3-0 Monocryl. The incision sites were injected with local anaesthetic with epinephrine for postoperative pain control and hemostasis. Sterile dressings were applied. All sponge & needle counts were correct at the end of the procedure. The patient tolerated the procedure well. She was transferred to a hospital bed and transported to the PACU in stable condition.
[2018-12-02] MEDS: ENOXAPARIN 40 MG/0.4 ML SYRINGE SQ SCH (21:56)
[2018-12-02] MEDS: INSULIN DETEMIR (LEVEMIR) 100 UNIT/ML SYR SQ SCH (21:56)
[2018-12-02] MEDS: ATORVASTATIN 40 MG TAB PO SCH (21:56)
[2018-12-03] MEDS: ceFAZolin IN SWFI 2 GM/20 ML SYRINGE IVP SCH (02:47)
[2018-12-03 06:37] LABS: Glucose,Whole Blood 219 mg/dL (75-99)
[2018-12-03] MEDS: INSULIN ASPART (NovoLOG) 100 UNIT/ML VIAL SQ SCH ×4 (07:58→20:45)
[2018-12-03] MEDS: ENOXAPARIN 40 MG/0.4 ML SYRINGE SQ SCH (07:58)
[2018-12-03] MEDS: ceFAZolin 1,000 MG in DEXTROSE/WATER 1 50ML.BAG IVPB SCH ×2 (07:58→20:45)
--- NOTE | 2018-12-03 08:13 | P.PN ---
<Maria Elena Sidhu L - Last Filed: 12/03/18 08:07> Subjective Progress Note Date: 12/03/18 This is an 78-year-old female who is status post ORIF of the right hip. This is postoperative day #1. Patient states that her pain is well controlled. Per nursing staff the patient has seemed a bit confused overnight. Otherwise no events overnight. Patient denies any new symptoms or complaints. Patient denies any fever/chills, numbness, weakness, tingling, abdominal pain, shortness of breath or chest pain. Objective - Vital Signs Vital signs: Vital Signs Temp 97.1 F L 12/03/18 01:01 Pulse 109 H 12/03/18 01:01 Resp 16 12/03/18 03:09 BP 111/69 12/03/18 01:01 Pulse Ox 93 L 12/03/18 01:01 Intake & Output 12/02/18 12/03/18 12/03/18 18:59 06:59 18:59 Intake Total 1550 590 Output Total 775 450 Balance 775 140 Intake: IV 1550 Oral 590 Output: Urine 750 450 Estimated Blood Loss 25 Other: Voiding Method Indwelling Catheter Indwelling Catheter - Exam On exam patient is sitting up comfortably in bed in no acute distress. Surgical dressing is clean, dry and intact. There is minimal soft tissue swelling. Calf is soft and nontender to palpation. Patient has full foot and ankle motion without pain or difficulty. Neurovascular status and circulatory status are intact. On exam of the right upper extremity there is swelling over the right shoulder. There is ecchymosis to the medial aspect of the right upper arm. Skin is intact. Patient has full range of motion of the right wrist and hand. Sensation is intact. Neurovascular status circulatory status are intact. - Labs CBC & Chem 7: 12/02/18 13:59 12/02/18 07:47 Labs: Abnormal Lab Results - Last 24 Hours (Table) 12/02/18 12/02/18 12/02/18 Range/Units 07:47 12:10 12:55 WBC (3.8-10.6) k/uL Plt Count (150-450) k/uL Neutrophils # (1.3-7.7) k/uL Lymphocytes # (1.0-4.8) k/uL BUN 18 H (7-17) mg/dL Glucose 262 H (74-99) mg/dL POC Glucose (mg/dL) 259 H 250 H (75-99) mg/dL Albumin 3.2 L (3.5-5.0) g/dL 12/02/18 12/02/18 12/02/18 Range/Units 13:59 16:32 19:54 WBC 12.6 H (3.8-10.6) k/uL Plt Count 121 L (150-450) k/uL Neutrophils # 10.6 H (1.3-7.7) k/uL Lymphocytes # 0.9 L (1.0-4.8) k/uL BUN (7-17) mg/dL Glucose (74-99) mg/dL POC Glucose (mg/dL) 260 H 225 H (75-99) mg/dL Albumin (3.5-5.0) g/dL 12/03/18 Range/Units 06:35 WBC (3.8-10.6) k/uL Plt Count (150-450) k/uL Neutrophils # (1.3-7.7) k/uL Lymphocytes # (1.0-4.8) k/uL BUN (7-17) mg/dL Glucose (74-99) mg/dL POC Glucose (mg/dL) 219 H (75-99) mg/dL Albumin (3.5-5.0) g/dL Assessment and Plan Assessment: History of CVA History of left arm DVT Heart murmur (1) Abrasion of left little finger with infection Current Visit: Yes Status: Acute Code(s): S60.417A - ABRASION OF LEFT LITTLE FINGER, INITIAL ENCOUNTER; L08.9 - LOCAL INFECTION OF THE SKIN AND SUBCUTANEOUS TISSUE, UNSP SNOMED Code(s): 119130797 (2) Closed right hip fracture Current Visit: Yes Status: Acute Code(s): S72.001A - FRACTURE OF UNSP PART OF NECK OF RIGHT FEMUR, INIT SNOMED Code(s): 673409139 (3) Diabetes Current Visit: Yes Status: Acute Code(s): E11.9 - TYPE 2 DIABETES MELLITUS WITHOUT COMPLICATIONS SNOMED Code(s): 59802118 (4) Fall Current Visit: Yes Status: Acute Code(s): W19.XXXA - UNSPECIFIED FALL, INITIAL ENCOUNTER SNOMED Code(s): 7115951 (5) Right humeral fracture Current Visit: Yes Status: Acute Code(s): S42.301A - UNSP FRACTURE OF SHAFT OF HUMERUS, RIGHT ARM, INIT SNOMED Code(s): 89616938 (6) UTI (urinary tract infection) Current Visit: Yes Status: Acute Code(s): N39.0 - URINARY TRACT INFECTION, SITE NOT SPECIFIED SNOMED Code(s): 06387145 Plan: 1. Continue routine postoperative care and pain control. 2. Lovenox for DVT prophylaxis. 3. Weightbearing as tolerated to the right lower extremity. Nonweightbearing to the right upper extremity. 4. Maintain sling to right upper extremity. May prop the right arm with pillows while in bed. 5. Physical therapy for mobilization with walker. 6. Appreciate input from medicine. 7. Likely discharge to rehab in the next 1-2 days. <Carl Graves - Last Filed: 12/03/18 13:35> Objective - Vital Signs Vital signs: Vital Signs Temp 98.4 F 12/03/18 07:37 Pulse 99 12/03/18 07:58 Resp 18 12/03/18 07:58 BP 101/64 12/03/18 07:37 Pulse Ox 92 L 12/03/18 07:37 Intake & Output 12/02/18 12/03/18 12/03/18 18:59 06:59 18:59 Intake Total 1550 590 50 Output Total 775 450 Balance 775 140 50 Intake: IV 1550 Intake, IV Titration 50 Amount ceFAZolin 1,000 mg In 50 Dextrose/Water 1 50ml.bag @ 100 mls/hr IVPB Q12HR [facility] Rx#:[id number] Oral 590 Output: Urine 750 450 Estimated Blood Loss 25 Other: Voiding Method Indwelling Catheter Indwelling Catheter Indwelling Catheter - Labs CBC & Chem 7: 12/02/18 13:59 12/03/18 08:07 Labs: Abnormal Lab Results - Last 24 Hours (Table) 12/02/18 12/02/18 12/02/18 Range/Units 13:59 16:32 19:54 WBC 12.6 H (3.8-10.6) k/uL Plt Count 121 L (150-450) k/uL Neutrophils # 10.6 H (1.3-7.7) k/uL Lymphocytes # 0.9 L (1.0-4.8) k/uL Sodium (137-145) mmol/L Creatinine (0.52-1.04) mg/dL Glucose (74-99) mg/dL POC Glucose (mg/dL) 260 H 225 H (75-99) mg/dL Calcium (8.4-10.2) mg/dL 12/03/18 12/03/18 12/03/18 Range/Units 06:35 08:07 11:12 WBC (3.8-10.6) k/uL Plt Count (150-450) k/uL Neutrophils # (1.3-7.7) k/uL Lymphocytes # (1.0-4.8) k/uL Sodium 136 L (137-145) mmol/L Creatinine 0.47 L (0.52-1.04) mg/dL Glucose 221 H (74-99) mg/dL POC Glucose (mg/dL) 219 H 271 H (75-99) mg/dL Calcium 8.3 L (8.4-10.2) mg/dL Microbiology - Last 24 Hours (Table) 12/03/18 05:00 Urine Culture - Preliminary Urine,Catheterized Assessment and Plan Plan: Reviewed and agree with above (amendments/corrections noted below). The patient was subsequently seen and examined by me as well. S: Recent events reviewed with RN. The patient states pain is well well- controlled. She seems mildly irritable. She was told she was in hospital but does not know in which city. Can recall year, month and . She recalls falling but not why she is here or having had surgery. O: Right hip: Dressings are clean, dry without shadowing. No pain with logroll. Intact sensation and gross motor distally. Right shoulder: Sling in place. No visible or palpable gross bony deformity. Mild and appropriate tenderness to palpation. Left hand: Transverse healing laceration over the dorsal aspect of the index finger middle phalanx. Mild surrounding hyperemia, appropriate for the stage of healing. No drainage. Not malodorous. No tenderness to palpation or pain with passive motion. A: POD #1 s/p IM nail - right IT fracture Altered mental status - postop delirium vs metabolic encephalopathy (secondary to UTI) vs opioid reaction or a combination of these Right humeral neck fracture Healing left index finger laceration - no infection P: Continue plan as outlined above. May loosen or remove sling while in bed or seated. We will obtain right shoulder x-rays when appropriate. Appreciate contributions from internal medicine We will monitor the patient's mental status and response to treatment of the UTI. Continue physical therapy as able. Carl Graves D.O. [facility]
[2018-12-03 08:50] LABS: Anion Gap 6 mmol/L; Blood Urea Nitrogen 14 mg/dL (7-17); Calcium 8.3 mg/dL (8.4-10.2); Carbon Dioxide 25 mmol/L (22-30); Chloride 105 mmol/L (98-107); Glucose 221 mg/dL (74-99); Potassium 4.3 mmol/L (3.5-5.1); Sodium 136 mmol/L (137-145)
[2018-12-03] MEDS ORDERED: ceFAZolin IN SWFI 2 GM/20 ML SYRINGE IVP SCH (09:00)
[2018-12-03 11:14] LABS: Glucose,Whole Blood 271 mg/dL (75-99)
[2018-12-03] MEDS: BACITRACIN 500 UNIT/GM OINT 28.4 GM TUBE TOPICAL SCH ×2 (11:51→20:45)
[2018-12-03] MEDS: HYDROcodone/APAP 5-325MG 1 EACH TAB PO PRN ×2 (12:01→16:30)
--- NOTE | 2018-12-03 13:19 | XR ---
EXAMINATION TYPE: XR shoulder complete RT DATE OF EXAM: 12/03/2018 COMPARISON: 12/01/2018 HISTORY: 78-year-old female evaluate humeral neck fracture. TECHNIQUE: 4 views FINDINGS: Redemonstrated surgical neck fracture of the proximal right humerus with medial and anterior displace ment of up to 1.6 cm. Overall similar appearance. Fracture is mildly impacted. Mild degenerative santana ge at the AC joint with capsular swelling and mild degenerative spurring. Glenohumeral joint appears intact. IMPRESSION: Unchanged appearance to the 2 part proximal humeral fracture involving the surgical neck with displac ement of up to 1.6 cm.
--- NOTE | 2018-12-03 15:59 | P.PN ---
Subjective On-call hospitalist covering for Dr. Rodriguez over the weekend. Dr. Rodriguez will resume the care of the patient on Tuesday This is a pleasant 78 years old female with past medical history of diabetes mellitus, CVA/TIA, DVT, and recent one to her left little finger. She presents because of fall and fracture of her right hip and right shoulder antonio. She is status post closed reduction and intramedullary right hip screw fixation,. Patient is going to have another surgery to fix her right humeral fracture. Patient was lying in bed not in distress. She was already on cefazolin for today, we extended for 4 more days of cefazolin for wound with surrounding cellulitis for about half an inch in his left little finger. X-ray of the little finger shows no evidence of osteomyelitis. 12/03/2018 Patient lying in bed, not in distress, clinically looks the same compared to yesterday, she status post close reduction of her right hip fracture. Possible will be evaluated tomorrow for right shoulder surgery and fixation of her humeral fracture. Her left little finger wound about 1 inch in diameter is improving with this. Discharge, x-ray shows no cellulitis, patient to continue on cefazolin. Urine analysis is abnormal, UA is suspicious for infection and patient is already on antibiotic. Urine culture is sent and the result is pending. Shoulder x-ray, and change in appearance. And 1.6 cm displacement, orthopedic surgery R following the case. And their input is appreciated. Follow-up WBC level Vitas is stable. Dr. Rodriguez will resume the care of the patient tomorrow Objective - Vital Signs Vital signs: Vital Signs Temp 98.5 F 12/03/18 14:17 Pulse 90 12/03/18 14:17 Resp 18 12/03/18 14:17 BP 122/73 12/03/18 14:17 Pulse Ox 92 L 12/03/18 14:17 Intake & Output 12/02/18 12/03/18 12/03/18 18:59 06:59 18:59 Intake Total 1550 590 50 Output Total 775 450 Balance 775 140 50 Intake: IV 1550 Intake, IV Titration 50 Amount ceFAZolin 1,000 mg In 50 Dextrose/Water 1 50ml.bag @ 100 mls/hr IVPB Q12HR [facility] Rx#:[id number] Oral 590 Output: Urine 750 450 Estimated Blood Loss 25 Other: Voiding Method Indwelling Catheter Indwelling Catheter Indwelling Catheter - Exam GENERAL: The patient is alert and oriented x3, not in any acute distress. Well developed, well nourished. HEENT: Pupils are round and equally reacting to light. EOMI. No scleral icterus. No conjunctival pallor. Normocephalic, atraumatic. No pharyngeal erythema. No thyromegaly. CARDIOVASCULAR: S1 and S2 present. No murmurs, rubs, or gallops. PULMONARY: Chest is clear to auscultation, no wheezing or crackles. ABDOMEN: Soft, nontender, nondistended, normoactive bowel sounds. No palpable organomegaly. MUSCULOSKELETAL: No joint swelling or deformity. EXTREMITIES: No cyanosis, clubbing, or pedal edema. Right hip wound looks a close and clean. Right upper extremity is tender and held close to the body and in semi-pronated position, with limitation of movement. Few millimeters of not completely closed wound in her left little finger with surrounding cellulitis NEUROLOGICAL: Gross neurological examination did not reveal any focal deficits. SKIN: No rashes. - Labs CBC & Chem 7: 12/02/18 13:59 12/03/18 08:07 Labs: Abnormal Lab Results - Last 24 Hours (Table) 12/02/18 12/02/18 12/03/18 Range/Units 16:32 19:54 06:35 Sodium (137-145) mmol/L Creatinine (0.52-1.04) mg/dL Glucose (74-99) mg/dL POC Glucose (mg/dL) 260 H 225 H 219 H (75-99) mg/dL Calcium (8.4-10.2) mg/dL 12/03/18 12/03/18 Range/Units 08:07 11:12 Sodium 136 L (137-145) mmol/L Creatinine 0.47 L (0.52-1.04) mg/dL Glucose 221 H (74-99) mg/dL POC Glucose (mg/dL) 271 H (75-99) mg/dL Calcium 8.3 L (8.4-10.2) mg/dL Microbiology - Last 24 Hours (Table) 12/03/18 05:00 Urine Culture - Preliminary Urine,Catheterized Assessment and Plan Assessment: Fall, Right hip fracture, status post She is status post closed reduction and intramedullary right hip screw fixation Right shoulder fracture, with 1.6 cm displaced fracture. Orthopedic team are following the case Possible urinary tract infection, please follow-up urine culture results. Cellulitis and known completely healed within THE little finger Diabetes mellitus, History of DVT History of CVA/TIA Obesity Plan: This is a pleasant 78 years old female who presents because of right hip and shoulder fractures secondary to fall. She is a status post right hip fixation and closed reduction. The primary orthopedic team are following the patient and managing her DVT prophylaxis and pain management. Patient is not in distress. She'll need surgery for her right shoulder fracture. She has cellulitis of the left little finger, with continue with cefazolin for now.patient possible has UTI, follow-up urine culture, in the meantime continue with antibiotic total final results. Labs and medication were reviewed.. Continue same treatment. Continue with symptomatic treatment. Resume home medication. Monitor lytes and vitals. DVT and GI prophylaxis. Further recommendations of the clinical course of the patient Dr. Rodriguez will resume the care of the patient on Tuesday, tomorrow Prognosis is guarded
[2018-12-03 16:33] LABS: Glucose,Whole Blood 276 mg/dL (75-99)
[2018-12-03 20:30] LABS: Glucose,Whole Blood 277 mg/dL (75-99)
[2018-12-03] MEDS: INSULIN DETEMIR (LEVEMIR) 100 UNIT/ML SYR SQ SCH (20:45)
[2018-12-03] MEDS: ATORVASTATIN 40 MG TAB PO SCH (20:45)
[2018-12-03 21:44] LABS: Glucose,Whole Blood 246 mg/dL (75-99)
[2018-12-04 07:00] LABS: Glucose,Whole Blood 104 mg/dL (75-99)
[2018-12-04] MEDS: INSULIN ASPART (NovoLOG) 100 UNIT/ML VIAL SQ SCH ×4 (07:25→20:13)
[2018-12-04 08:03] LABS: Anion Gap 3 mmol/L; Blood Urea Nitrogen 10 mg/dL (7-17); Calcium 8.5 mg/dL (8.4-10.2); Carbon Dioxide 29 mmol/L (22-30); Chloride 105 mmol/L (98-107); Glucose 115 mg/dL (74-99); Potassium 4.2 mmol/L (3.5-5.1); Sodium 137 mmol/L (137-145)
[2018-12-04] MEDS: HYDROcodone/APAP 5-325MG 1 EACH TAB PO PRN ×2 (08:46→20:46)
[2018-12-04] MEDS: ENOXAPARIN 40 MG/0.4 ML SYRINGE SQ SCH (08:46)
[2018-12-04 08:48] LABS: Basophils % (A) 0 %; Eosinophils # (A) 0.3 k/uL (0-0.7); Eosinophils % (A) 2 %; HCT 35.8 % (34.0-46.0); HGB 11.8 gm/dL (11.4-16.0); Lymphocytes # (A) 1.3 k/uL (1.0-4.8); Lymphocytes % (A) 11 %; MCHC 32.8 g/dL (31.0-37.0); MCV 91.5 fL (80.0-100.0); Mean Platelet Volume 8.7; Monocytes % (A) 9 %; Neutrophils # (A) 8.9 k/uL (1.3-7.7); Neutrophils % (A) 76 %; RBC 3.91 m/uL (3.80-5.40); RDW 12.7 % (11.5-15.5); WBC 11.6 k/uL (3.8-10.6)
[2018-12-04 08:50] LABS: Platelet Count 184 k/uL (150-450)
[2018-12-04] MEDS: BACITRACIN 500 UNIT/GM OINT 28.4 GM TUBE TOPICAL SCH ×2 (08:50→20:13)
--- NOTE | 2018-12-04 09:27 | P.PN ---
Subjective Principal diagnosis: This is a history of physical and 78-year-old white female who essentially fell on the ice today fracturing proximal humerus and hip fracture. The patient is seemingly in fairly good spirits today with nominal pain control. The patient has an underlying history diabetes which has been fairly well controlled. No significant fever or chills stated. UTIs noted on initial urinalysis. She does have a left finger wound from a fall 3 weeks ago and it does seem somewhat cellulitic. Again, no diarrhea The patient is was stepping #2 for right hip fracture. Status post fall with right shoulder fracture. X-rays pending of the right shoulder. Otherwise minimal pain is noted. No significant nausea, vomiting or diarrhea. Objective - Vital Signs Vital signs: Vital Signs Temp 99.0 F 12/04/18 07:23 Pulse 96 12/04/18 07:23 Resp 18 12/04/18 07:23 BP 124/74 12/04/18 07:23 Pulse Ox 93 L 12/04/18 07:23 Intake & Output 12/03/18 12/04/18 12/04/18 18:59 06:59 18:59 Intake Total 50 50 Output Total 950 Balance 50 -900 Intake: Intake, IV Titration 50 50 Amount ceFAZolin 1,000 mg In 50 50 Dextrose/Water 1 50ml.bag @ 100 mls/hr IVPB Q12HR [facility] Rx#:[id number] Output: Urine 950 Other: Voiding Method Indwelling Catheter Indwelling Catheter - Constitutional General appearance: Present: obese. Absent: no acute distress - EENT Eyes: Absent: abnormal pupil - Respiratory Respiratory: bilateral: CTA - Cardiovascular Rhythm: regular Heart sounds: normal: S1, S2 Abnormal Heart Sounds: Absent: S3 Gallop - Gastrointestinal General gastrointestinal: Present: soft. Absent: tenderness - Integumentary Integumentary: Present: normal turgor. Absent: cellulitis - Neurologic Neurologic: Present: CNII-XII intact - Psychiatric Psychiatric: Present: A&O x's 3 - Labs CBC & Chem 7: 12/04/18 06:51 12/04/18 06:51 Labs: Abnormal Lab Results - Last 24 Hours (Table) 12/03/18 12/03/18 12/03/18 Range/Units 11:12 16:31 20:28 WBC (3.8-10.6) k/uL Neutrophils # (1.3-7.7) k/uL Creatinine (0.52-1.04) mg/dL Glucose (74-99) mg/dL POC Glucose (mg/dL) 271 H 276 H 277 H (75-99) mg/dL 12/03/18 12/04/18 12/04/18 Range/Units 21:43 06:51 06:51 WBC 11.6 H (3.8-10.6) k/uL Neutrophils # 8.9 H (1.3-7.7) k/uL Creatinine 0.46 L (0.52-1.04) mg/dL Glucose 115 H (74-99) mg/dL POC Glucose (mg/dL) 246 H (75-99) mg/dL 12/04/18 Range/Units 06:58 WBC (3.8-10.6) k/uL Neutrophils # (1.3-7.7) k/uL Creatinine (0.52-1.04) mg/dL Glucose (74-99) mg/dL POC Glucose (mg/dL) 104 H (75-99) mg/dL Microbiology - Last 24 Hours (Table) 12/03/18 05:00 Urine Culture - Preliminary Urine,Catheterized Assessment and Plan (1) Diabetes Current Visit: Yes Status: Acute Code(s): E11.9 - TYPE 2 DIABETES MELLITUS WITHOUT COMPLICATIONS SNOMED Code(s): 67359548 (2) UTI (urinary tract infection) Current Visit: Yes Status: Acute Code(s): N39.0 - URINARY TRACT INFECTION, SITE NOT SPECIFIED SNOMED Code(s): 47662144 (3) Closed right hip fracture Current Visit: Yes Status: Acute Code(s): S72.001A - FRACTURE OF UNSP PART OF NECK OF RIGHT FEMUR, INIT SNOMED Code(s): 954807303 (4) Fall Current Visit: Yes Status: Acute Code(s): W19.XXXA - UNSPECIFIED FALL, INITIAL ENCOUNTER SNOMED Code(s): 2603113 (5) Right humeral fracture Current Visit: Yes Status: Acute Code(s): S42.301A - UNSP FRACTURE OF SHAFT OF HUMERUS, RIGHT ARM, INIT SNOMED Code(s): 89572274 (6) Cellulitis and abscess of finger, unspecified Current Visit: No Status: Acute Code(s): L03.019 - CELLULITIS OF UNSPECIFIED FINGER; L02.519 - CUTANEOUS ABSCESS OF UNSPECIFIED HAND SNOMED Code(s): 231827967 (7) Cellulitis of finger of left hand Current Visit: No Status: Acute Code(s): L03.012 - CELLULITIS OF LEFT FINGER SNOMED Code(s): 86141364 Plan: \ Continue current regimen of treatment. Await evaluation for right shoulder fracture also. Most likely transfer to rehab when stable for orthopedics. Continue pain control. See orders otherwise. Time with Patient: Less than 30
[2018-12-04] MEDS: ceFAZolin 1,000 MG in DEXTROSE/WATER 1 50ML.BAG IVPB SCH ×2 (11:00→20:15)
[2018-12-04 11:22] LABS: Glucose,Whole Blood 170 mg/dL (75-99)
--- NOTE | 2018-12-04 14:37 | CT ---
EXAMINATION TYPE: CT brain wo con DATE OF EXAM: 12/04/2018 COMPARISON: None INDICATION: blurred vision DLP: 1099.4 mGycm, Automated exposure control for dose reduction was used. CONTRAST: None CT of the brain is performed utilizing 3 mm thick sections through the posterior fossa and 3 mm thick sections through the remaining calvarium. Study is performed within 24 hours of arrival to the hosp ital. No abnormal hyperdensity is present to suggest an acute intracranial hemorrhage. No mass lesion is evident. No acute infarcts are evident. Periventricular white matter hypodensity is present, likely on the bas is of chronic white matter ischemic changes. Old occipital lobe infarcts are present bilaterally. Ventricles and sulci are appropriate for the patient age. Paranasal sinuses and mastoid air cells within the [id number] are clear. IMPRESSIONS: 1. Old occipital lobe infarcts.
[2018-12-04 16:28] LABS: Glucose,Whole Blood 154 mg/dL (75-99)
--- NOTE | 2018-12-04 17:24 | P.PN ---
Subjective Progress Note Date: 12/04/18 Ms. Arnold reports pain controlled at rest, tolerable with movement. Was able to participate with PT. More interactive today and better recall of recent events. She feels finger is improving. Denies new issues or concerns. Objective - Vital Signs Vital signs: Vital Signs Temp 98.2 F 12/04/18 15:14 Pulse 89 12/04/18 15:14 Resp 18 12/04/18 07:23 BP 156/67 12/04/18 15:14 Pulse Ox 93 L 12/04/18 15:14 Intake & Output 12/03/18 12/04/18 12/04/18 18:59 06:59 18:59 Intake Total 50 50 400 Output Total 950 400 Balance 50 -900 0 Intake: Intake, IV Titration 50 50 400 Amount Sodium Chloride 0.9% 50 400 ml @ 0 mls/hr IV .STK-MED ONE with ceFAZolin 2,000 mg Rx#:[id number] ceFAZolin 1,000 mg In 50 50 Dextrose/Water 1 50ml.bag @ 100 mls/hr IVPB Q12HR [facility] Rx#:[id number] Output: Urine 950 400 Other: Voiding Method Indwelling Catheter Indwelling Catheter Indwelling Catheter - Exam General: resting supine in bed. Answers questions and interacts appropriately. Right hip: Dressings are clean & dry - no strike through. Appropriate TTP around incisions. Intact sensation and gross motor distally. Calf soft/NT Right shoulder: Evolving ecchymosis along proximal third of humeral shaft. No gross deformity. Left hand: Laceration over dorsal small finger middle phalanx stable. Mild hyperemia at wound edges (appropriate for the stage of healing). No drainage - Labs CBC & Chem 7: 12/04/18 06:51 12/04/18 06:51 Labs: Abnormal Lab Results - Last 24 Hours (Table) 12/03/18 12/03/18 12/04/18 Range/Units 20:28 21:43 06:51 WBC 11.6 H (3.8-10.6) k/uL Neutrophils # 8.9 H (1.3-7.7) k/uL Creatinine (0.52-1.04) mg/dL Glucose (74-99) mg/dL POC Glucose (mg/dL) 277 H 246 H (75-99) mg/dL 12/04/18 12/04/18 12/04/18 Range/Units 06:51 06:58 11:19 WBC (3.8-10.6) k/uL Neutrophils # (1.3-7.7) k/uL Creatinine 0.46 L (0.52-1.04) mg/dL Glucose 115 H (74-99) mg/dL POC Glucose (mg/dL) 104 H 170 H (75-99) mg/dL 12/04/18 Range/Units 16:26 WBC (3.8-10.6) k/uL Neutrophils # (1.3-7.7) k/uL Creatinine (0.52-1.04) mg/dL Glucose (74-99) mg/dL POC Glucose (mg/dL) 154 H (75-99) mg/dL Microbiology - Last 24 Hours (Table) 12/03/18 05:00 Urine Culture - Final Urine,Catheterized Assessment and Plan Assessment: A: POD #2 s/p IM nail - right IT fracture Right 2-part proximal humerus (neck) fracture - nonoperative treatment Altered mental status - resolved UTI Healing left small finger laceration - no infection or cellulitis (1) Closed right hip fracture Current Visit: Yes Status: Acute Code(s): S72.001A - FRACTURE OF UNSP PART OF NECK OF RIGHT FEMUR, INIT SNOMED Code(s): 860413054 (2) Diabetes Current Visit: Yes Status: Acute Code(s): E11.9 - TYPE 2 DIABETES MELLITUS WITHOUT COMPLICATIONS SNOMED Code(s): 66539991 (3) Fall Current Visit: Yes Status: Acute Code(s): W19.XXXA - UNSPECIFIED FALL, INITIAL ENCOUNTER SNOMED Code(s): 8684005 (4) Right humeral fracture Current Visit: Yes Status: Acute Code(s): S42.301A - UNSP FRACTURE OF SHAFT OF HUMERUS, RIGHT ARM, INIT SNOMED Code(s): 12637197 (5) UTI (urinary tract infection) Current Visit: Yes Status: Acute Code(s): N39.0 - URINARY TRACT INFECTION, SITE NOT SPECIFIED SNOMED Code(s): 20893384 Plan: P: Discussed xray findings with pt and daughter - recommend nonsurgical treatment initially for right proximal humerus fracture. Sling for comfort - may DC at pt request. Begin gentle pendulums daily. Encourage elbow ROM with arm at side several times daily. Appreciate contributions from internal medicine Continue physical therapy as able - WBAT on RLE with rolling walker and assist. Stable for DC from ortho standpoint. If ok with medicine, we will transfer to rehab when arrangements finalized - likely tomorrow. Carl Graves D.O. [facility]
[2018-12-04 19:33] VITALS: RESP 16
[2018-12-04 20:01] LABS: Glucose,Whole Blood 158 mg/dL (75-99)
[2018-12-04] MEDS: ATORVASTATIN 40 MG TAB PO SCH (20:12)
[2018-12-04] MEDS: INSULIN DETEMIR (LEVEMIR) 100 UNIT/ML SYR SQ SCH (20:13)
[2018-12-05 06:57] LABS: Glucose,Whole Blood 51 mg/dL (75-99)
[2018-12-05 07:15] LABS: Glucose,Whole Blood 50 mg/dL (75-99)
--- NOTE | 2018-12-05 07:16 | P.DS ---
Providers Date of admission: 12/01/18 14:09 Expected date of discharge: 12/05/18 Attending physician: Carl Graves DO Consults: 12/01/18 13:53 Consult Physician Stat Consulting Provider: Mick Rodriguez Consult Reason/Comments: Surgical clearance, medical management Do you want consulting provider notified?: Yes Primary care physician: Mick Rodriguez - Discharge Diagnosis(es) (1) Diabetes Current Visit: Yes Status: Acute (2) UTI (urinary tract infection) Current Visit: Yes Status: Acute (3) Closed right hip fracture Current Visit: No Status: Acute (4) Fall Current Visit: Yes Status: Acute (5) Right humeral fracture Current Visit: No Status: Acute (6) Cellulitis and abscess of finger, unspecified Current Visit: No Status: Acute (7) Cellulitis of finger of left hand Current Visit: No Status: Acute Hospital Course: This discharge summary 78-year-old white female who had status post fall with resulting from shoulder fracture. Hip was repaired. The patient has an underlying history diabetes. She has been cleared from orthopedic standpoint shoulder will be treated nonsurgically at this time. She becomes a guarded rehab candidate due to this but will be discharged in stable condition and follow-up with me in about a week. Patient Condition at Discharge: Stable Plan - Discharge Summary Discharge Rx Participant: No New Discharge Prescriptions: New Bacitracin Oint 1 applic TOPICAL BID applic HYDROcodone/APAP 5-325MG [[place] 5-325] 1 each PO Q4HR PRN #120 tab PRN Reason: Moderate Pain Continue Insulin Detemir [Levemir Flextouch] 24 units SQ QAM Aspirin EC [Ecotrin Low Dose] 81 mg PO DAILY Insulin Lispro [humaLOG Kwikpen] 10 unit SQ W/SUPPER Atorvastatin [Lipitor] 40 mg PO HS Discharge Medication List Insulin Detemir [Levemir Flextouch] 24 units SQ QAM 04/09/16 [History] Aspirin EC [Ecotrin Low Dose] 81 mg PO DAILY 10/17/16 [History] Insulin Lispro [humaLOG Kwikpen] 10 unit SQ W/SUPPER 10/17/16 [History] Atorvastatin [Lipitor] 40 mg PO HS 12/01/18 [History] Bacitracin Oint 1 applic TOPICAL BID applic 12/05/18 [Rx] HYDROcodone/APAP 5-325MG [[place] 5-325] 1 each PO Q4HR PRN #120 tab 12/05/18 [Rx] Follow up Appointment(s)/Referral(s): Mick Rodriguez MD [Primary Care Provider] - 1 Week Discharge Disposition: TRANSFER TO SNF/ECF
[2018-12-05 07:33] LABS: HCT 36.3 % (34.0-46.0); HGB 11.8 gm/dL (11.4-16.0); MCHC 32.5 g/dL (31.0-37.0); MCV 92.3 fL (80.0-100.0); Mean Platelet Volume 8.5; Platelet Count 192 k/uL (150-450); RBC 3.93 m/uL (3.80-5.40); WBC 11.3 k/uL (3.8-10.6)
[2018-12-05 07:35] LABS: Glucose,Whole Blood 55 mg/dL (75-99)
[2018-12-05 07:38] VITALS: BP 154/96; PULSE 88; TEMP 97.6
[2018-12-05 07:47] LABS: ALT 18 U/L (9-52); AST 22 U/L (14-36); Albumin 2.5 g/dL (3.5-5.0); Alkaline Phosphatase 85 U/L (38-126); Anion Gap 5 mmol/L; Blood Urea Nitrogen 11 mg/dL (7-17); Calcium 8.5 mg/dL (8.4-10.2); Carbon Dioxide 29 mmol/L (22-30); Chloride 106 mmol/L (98-107); Potassium 3.8 mmol/L (3.5-5.1); Sodium 140 mmol/L (137-145); Total Bilirubin 0.7 mg/dL (0.2-1.3); Total Protein 5.5 g/dL (6.3-8.2)
[2018-12-05 07:52] LABS: Glucose 50 mg/dL (74-99)
[2018-12-05 08:06] LABS: Glucose,Whole Blood 65 mg/dL (75-99)
[2018-12-05] MEDS: INSULIN ASPART (NovoLOG) 100 UNIT/ML VIAL SQ SCH ×2 (08:16→12:15)
[2018-12-05] MEDS: ENOXAPARIN 40 MG/0.4 ML SYRINGE SQ SCH (09:20)
[2018-12-05] MEDS: ceFAZolin 1,000 MG in DEXTROSE/WATER 1 50ML.BAG IVPB SCH (09:20)
[2018-12-05 09:29] LABS: Glucose,Whole Blood 101 mg/dL (75-99)
[2018-12-05 11:58] LABS: Glucose,Whole Blood 181 mg/dL (75-99)
[2018-12-05] MEDS: HYDROcodone/APAP 5-325MG 1 EACH TAB PO PRN (13:40)
== END 2018-12-05 15:52 | DRG 481 ==
LOC: EC 12:18 → 4SSUR 14:09
PROVIDERS: ADMIT Orthopaedic Surgery; ATTEND Orthopaedic Surgery
PROC: 0QH634Z Insertion of Internal Fixation Device into Right Upper Femur, Percutaneous Approach (ICD-10-PCS; principal; 2018-12-02 09:00)
DX: S72.24XA Nondisplaced subtrochanteric fracture of right femur, initial encounter for closed fracture (principal); S42.211A Unspecified displaced fracture of surgical neck of right humerus, initial encounter for closed fracture; N39.0 Urinary tract infection, site not specified; R13.10 Dysphagia, unspecified; Z68.38 Body mass index [BMI] 38.0-38.9, adult; E11.9 Type 2 diabetes mellitus without complications; I69.391 Dysphagia following cerebral infarction; I69.398 Other sequelae of cerebral infarction; R01.1 Cardiac murmur, unspecified; S60.417A Abrasion of left little finger, initial encounter; L03.012 Cellulitis of left finger; R41.82 Altered mental status, unspecified; E66.9 Obesity, unspecified; H53.9 Unspecified visual disturbance; W00.0XXA Fall on same level due to ice and snow, initial encounter; Y93.89 Activity, other specified; Y92.017 Garden or yard in single-family (private) house as the place of occurrence of the external cause; Z79.4 Long term (current) use of insulin; Z79.82 Long term (current) use of aspirin; Z79.899 Other long term (current) drug therapy; Z86.718 Personal history of other venous thrombosis and embolism; Z91.81 History of falling; Z83.3 Family history of diabetes mellitus
CPT/HCPCS: 36415; 70450; 71045; 73502; 80048; 80053; 81001; 85025; 85027; 85610; 85730; 87086; 93005; 96374; 99285

== ENCOUNTER → 2019-04-27 | Outpatient (CLI) | payer MEDICARE ==
[2019-04-27 16:20] LABS: African American GFR (CKD) 94.2 (60.0-200.0); Albumin 3.8 g/dL (3.80-4.90); Albumin/Globulin Ratio 1.52 (1.60-3.17); Anion Gap 7.9 mmol/L (4.00-12.00); Calcium 9.3 mg/dL (8.7-10.3); Carbon Dioxide 29.1 mmol/L (21.6-31.8); Globulin 2.5 g/dL (1.6-3.3); LDL Cholesterol,Calculated 100.6 mg/dL (0.0-131.0); Total Bilirubin 0.3 mg/dL (0.2-1.2); Total Protein 6.3 g/dL (6.2-8.2); VLDL Calculation 20.4 mg/dL (5.00-40.00)
[2019-04-27 19:13] LABS: Hemoglobin A1C 8.6 % (4.0-6.0)
== END | disposition home or self-care (01) ==
LOC: LABWHC1 08:10
PROVIDERS: ATTEND Internal Medicine Endocrinology, Diabetes & Metabolism
DX: E11.65 Type 2 diabetes mellitus with hyperglycemia (principal)
CPT/HCPCS: 36415; 80053; 80061; 82043; 82570; 83036; 84443

== ENCOUNTER → 2020-03-21 | Outpatient (CLI) | payer MEDICARE ==
[2020-03-21 16:09] LABS: African American GFR (CKD) 93.5 (60.0-200.0); Albumin/Globulin Ratio 1.38 (1.60-3.17); Anion Gap 7.7 mmol/L (4.00-12.00); Calcium 9.2 mg/dL (8.7-10.3); Carbon Dioxide 29.3 mmol/L (21.6-31.8); Chol/HDL Ratio 2.65; Globulin 2.9 g/dL (1.6-3.3); LDL Cholesterol,Calculated 81.4 mg/dL (0.0-131.0); Non-African American GFR(CKD) 80.7 (60.0-200.0); Potassium 4.9 mmol/L (3.5-5.5); Total Bilirubin 0.5 mg/dL (0.2-1.2); Total Protein 6.9 g/dL (6.2-8.2); VLDL Calculation 17.6 mg/dL (5.00-40.00)
[2020-03-21 17:22] LABS: Urine Creatinine 61.9 mg/dL
[2020-03-21 20:41] LABS: Hemoglobin A1C 7.7 % (4.0-6.0)
== END | disposition home or self-care (01) ==
LOC: LABWHC1 08:06
PROVIDERS: ATTEND Internal Medicine Endocrinology, Diabetes & Metabolism
DX: E11.65 Type 2 diabetes mellitus with hyperglycemia (principal)
CPT/HCPCS: 36415; 80053; 80061; 82043; 82570; 83036; 84443

== ENCOUNTER 2020-04-13 22:38 | Emergency (ER) | payer MEDICARE ==
[2020-04-13] MEDS ORDERED: MORPHINE SULFATE 4 MG/ML SYRINGE IM STA (23:10)
--- NOTE | 2020-04-13 23:56 | ED ---
Fall HPI - General Chief Complaint: Fall Stated Complaint: Fall, wrist injury Time Seen by Provider: 04/13/20 22:49 Source: patient, EMS Mode of arrival: EMS - History of Present Illness Initial Comments: Patient is an 80-year-old female presenting to the emergency department via EMS with complaints of a fall that happened at approximately 10 hours prior to arrival. Patient states she was in her laundry room, lost her balance and fell towards her right side. Patient states she did not hit her head, no LOC. She is not take blood thinners. Complaining of right arm pain extending from her right shoulder down to her right wrist. EMS did place her in a splint. She refused any pain medicine while in the EMS. She denies any lower extremity pain, abdominal pain, neck pain, chest pain. She denies any nausea or vomiting. She states she has had a fracture to her right humerus recently. She has no further complaints at this time. Upon arrival to the ER, her vitals are stable. - Related Data Home Medications Medication Instructions Recorded Confirmed Insulin Detemir [Levemir Flextouch] 24 units SQ QAM 04/09/16 12/01/18 Aspirin EC [Ecotrin Low Dose] 81 mg PO DAILY 10/17/16 12/01/18 Insulin Lispro [humaLOG Kwikpen] 10 unit SQ W/SUPPER 10/17/16 12/01/18 Atorvastatin [Lipitor] 40 mg PO HS 12/01/18 12/01/18 Previous Rx's Medication Instructions Recorded Bacitracin Oint 1 applic TOPICAL BID applic 12/05/18 HYDROcodone/APAP 5-325MG [[place] 1 each PO Q4HR PRN #120 tab 12/05/18 5-325] Allergies Allergy/AdvReac Type Severity Reaction Status Date / Time No Known Allergies Allergy Verified 12/01/18 13:04 Review of Systems ROS Statement: Those systems with pertinent positive or pertinent negative responses have been documented in the HPI. ROS Other: All systems not noted in ROS Statement are negative. Past Medical History Past Medical History: CVA/TIA, Diabetes Mellitus, Deep Vein Thrombosis (DVT) Additional Past Medical History / Comment(s): IDDM type II, CVA with some vision changes and difficulty swallowing, DVT to L arm with vein grafting, murmur, pt has had a couple falls lately and has a wound on L hand little finger that son is worried about. History of Any Multi-Drug Resistant Organisms: None Reported Past Surgical History: Tonsillectomy Additional Past Surgical History / Comment(s): Esophageal surgery 2003; Venous graft leg to left arm. Past Psychological History: No Psychological Hx Reported Smoking Status: Never smoker Past Alcohol Use History: None Reported Past Drug Use History: Marijuana - Past Family History Mother Family Medical History: No Reported History father Family Medical History: Diabetes Mellitus General Exam - General Exam Comments Initial Comments: GENERAL: Well-appearing, well-nourished and in no acute distress. HEAD: Atraumatic, normocephalic. No hematomas felt or seen. EYES: Pupils equal round and reactive to light, extraocular movements intact, sclera anicteric, conjunctiva are normal. ENT: TMs normal, nares patent, oropharynx clear without exudates. Moist mucous membranes. NECK: Normal range of motion, supple without lymphadenopathy or JVD. No midline tenderness. LUNGS: Breath sounds clear to auscultation bilaterally and equal. No wheezes rales or rhonchi. HEART: Regular rate and rhythm without murmurs, rubs or gallops. ABDOMEN: Soft, nontender, normoactive bowel sounds. No guarding, no rebound. No masses appreciated. : Deferred EXTREMITIES: Patient has pain to palpation of her right shoulder, right lateral elbow as well as into her right wrist. She has pain with elbow extension. She has significant bruising to her right wrist, moderate swelling. She is neurovascular intact. No pain in her lower extremities. No clubbing or cya nosis. NEUROLOGICAL: Cranial nerves II through XII grossly intact. Normal speech, normal gait. PSYCH: Normal mood, normal affect. SKIN: Warm, Dry, normal turgor, no rashes or lesions noted. Limitations: no limitations Course Vital Signs 04/13/20 22:40 Temperature 97.1 F L Pulse Rate 92 Respiratory 16 Rate Blood Pressure 124/75 O2 Sat by Pulse 94 L Oximetry Procedures - Orthopedic Fracture Reduction Fracture #1 Consent Obtained: verbal consent Side: right Fracture Reduction Location: radius, ulna Analgesia: hematoma block, other (Morphine) Technique: direct manipulation Post-Reduction Neuro Exam: intact Post-Reduction Vascular Exam: intact Splint Applied: Yes Patient Tolerated Procedure: well - Orthopedic Splinting/Casting Injury #1 Side: right Upper Extremity Injury Location: wrist Upper Extremity Immobilizer: posterior splint, Keny wrap, synthetic pre-padded splint Medical Decision Making - Medical Decision Making Patient is an 80-year-old female here after a fall earlier today. She is complaining of right upper extremity pain, mostly in her right wrist. She does have a recent history of a right humerus fracture. She did not hit her head, no LOC. She is not thinners. X-rays of the right shoulder reveal an old healed humeral neck fracture that is unchanged from previous x-ray. X-ray of the right wrist reveals an impacted acute displaced distal radius fracture as well as a displaced distal ulnar fracture. There is no fracture seen in the elbow. Patient was given pain medicine, I did also a hematoma block. Patient was placed in a posterior splint along with direct manipulation/traction of the fracture site which has a better alignment. She remains neurovascularly intact. Patient tolerated procedure well. She will follow up with orthopedics tomorrow. She is in agreement with this plan of care. Return parameters were discussed with the patient and her son and they both verbalized understanding. We did discuss icing to the area as well as elevation. Case discussed with Dr. Herman. Disposition Clinical Impression: Closed fracture of right distal radius and ulna Disposition: HOME SELF-CARE Condition: Stable Instructions (If sedation given, give patient instructions): Wrist Fracture in Adults (ED) Additional Instructions: Please return to the Emergency Department if symptoms worsen or any other concerns. Keep splint in place until follow-up with orthopedics. May take Tylenol or Motrin for discomfort, elevate, ice the area. Is patient prescribed a controlled substance at d/c from ED?: No Referrals: Mick Rodriguez MD [Primary Care Provider] - 1-2 days Carl Graves DO [Medical Doctor] - 1-2 days
--- NOTE | 2020-04-14 00:19 | XR ---
EXAMINATION TYPE: XR shoulder complete RT DATE OF EXAM: 04/13/2020 COMPARISON: 12/03/2018 HISTORY: Fall. Pain. TECHNIQUE: 3 views FINDINGS: There is deformity of the right shoulder related to old humeral neck displaced fracture. Th ere is bridging callus. There is no dislocation. I see no acute fracture. The clavicle is intact. IMPRESSION: Old healed humeral neck fracture. No change in position compared to old exam. No evidence of acute fracture.
--- NOTE | 2020-04-14 00:21 | XR ---
EXAMINATION TYPE: XR wrist complete RT DATE OF EXAM: 04/13/2020 COMPARISON: NONE HISTORY: Pain TECHNIQUE: 3 views FINDINGS: There is acute impacted comminuted transverse fracture distal radial metaphysis. There is p osterior displacement of the distal major fragment 1.5 cm. There is approximate 2 cm of impaction. Th ere is displaced fracture of the shaft of the distal ulna. The carpal bones are intact. Metacarpals a re intact. IMPRESSION: Impacted acute displaced distal radius fracture. Displaced distal ulnar fracture.
--- NOTE | 2020-04-14 00:22 | XR ---
EXAMINATION TYPE: XR elbow limited RT DATE OF EXAM: 04/13/2020 COMPARISON: NONE HISTORY: Pain. Fall. TECHNIQUE: 2 views FINDINGS: I see no fracture nor dislocation. There is no sign of elbow joint effusion. Radial head ap pears intact. IMPRESSION: No fracture seen.
[2020-04-14] MEDS ORDERED: LIDOCAINE 1% INJ 10MG/ML (20 ML MDV) SQ ONE (00:36)
[2020-04-14] MEDS ORDERED: traMADol 50 MG STARTER PACK 3 TAB BTL PO STA (01:41)
[2020-04-14 01:59] VITALS: BP 105/54; PULSE 90; RESP 20; TEMP 97.7
== END 2020-04-14 02:00 | disposition home or self-care (01) ==
LOC: EC 22:38
DX: S52.501A Unspecified fracture of the lower end of right radius, initial encounter for closed fracture (principal); S52.601A Unspecified fracture of lower end of right ulna, initial encounter for closed fracture; E11.9 Type 2 diabetes mellitus without complications; Z79.82 Long term (current) use of aspirin; Z79.4 Long term (current) use of insulin; Z86.718 Personal history of other venous thrombosis and embolism; Z86.73 Personal history of transient ischemic attack (TIA), and cerebral infarction without residual deficits; W18.30XA Fall on same level, unspecified, initial encounter; Y92.009 Unspecified place in unspecified non-institutional (private) residence as the place of occurrence of the external cause
CPT/HCPCS: 73030; 73070; 73110; 99284; 25605; 96372; J2270

== ENCOUNTER → 2020-04-22 | Outpatient (CLI) | payer MEDICARE ==
[2020-04-22 12:48] LABS: African American GFR (CKD) >90 (>60 ml/min/1.73 sqM); Blood Urea Nitrogen 21 mg/dL (7-17); Non-African American GFR(CKD) 86 (>60 ml/min/1.73 sqM); Potassium 5.1 mmol/L (3.5-5.1)
== END | disposition home or self-care (01) ==
LOC: LABPAT 10:53
PROVIDERS: ATTEND Orthopaedic Surgery
DX: Z01.810 Encounter for preprocedural cardiovascular examination (principal); Z01.818 Encounter for other preprocedural examination
CPT/HCPCS: 36415; 82565; 84132; 84520; 93005

== ENCOUNTER 2020-04-25 12:31 | Day surgery (SDC) | payer MEDICARE ==
[2020-04-21 10:27] VITALS: BMI 37.0
[2020-04-25] MEDS ORDERED: DEXAMETHASONE SOD PHOSPHATE 10 MG/ML 1 ML VIAL IV ONE (12:37)
[2020-04-25] MEDS ORDERED: LACTATED RINGERS 1,000 ML IV SCH (12:37)
[2020-04-25] MEDS ORDERED: MIDAZOLAM 2 MG/2 ML VIAL IV PRN (12:37)
[2020-04-25] MEDS ORDERED: ONDANSETRON 4 MG/2 ML VIAL IVP ONE (12:37)
[2020-04-25] MEDS ORDERED: LIDOCAINE 1% (10MG/ML) FOR IV START INTRADERMA PRN (12:37)
[2020-04-25] MEDS ORDERED: HYDROmorphone 0.5 MG/0.5 ML SYRINGE IVP PRN (12:37)
[2020-04-25] MEDS ORDERED: fentaNYL (PF) 50 MCG/ML 2 ML AMP IV PRN (12:37)
[2020-04-25] MEDS ORDERED: ONDANSETRON 4 MG/2 ML VIAL ONE (13:17)
[2020-04-25] MEDS ORDERED: fentaNYL (PF) 50 MCG/ML 2 ML AMP IV ONE (13:21)
--- NOTE | 2020-04-25 13:43 | P.ANPRN ---
Procedure Note - Anesthesia - Nerve Block Performed Right Supraclavicular Single Time Out Performed: Yes Date of Procedure: 04/25/20 Procedure Start Time: : Procedure Stop Time: : Location of Patient: PreOp Indication: Acute Post-Operative Pain, Dx/Pain Location, Requested by Surgeon Sedation Type: Sedate with meaningful contact maintained Preparation: Sterile Prep Position: Sitting Catheter: Indwelling Needle Types: Pajunk Needle Gauge: 21 Ultrasound used to visualize needle placement: Yes Ultrasound used to observe medication spread: Yes Injectate: 0.5% Ropivacaine (see comment for volume) Blood Aspirated: No Pain Paresthesia on Injection Noted: No Resistance on Injection: Normal Image Stored and Saved: Yes Events: Uneventful and Well Tolerated
[2020-04-25] MEDS ORDERED: LIDOCAINE 1% INJ 10MG/ML (20 ML MDV) ONE (13:48)
[2020-04-25] MEDS ORDERED: fentaNYL (PF) 50 MCG/ML 2 ML AMP ONE (13:48)
[2020-04-25] MEDS ORDERED: PHENYLEPHRINE-0.9% NACL SYG 1 MG/10 ML SYRINGE ONE (13:48)
[2020-04-25] MEDS ORDERED: PROPOFOL 10 MG/ML 20 ML VIAL IV ONE (13:48)
[2020-04-25] MEDS ORDERED: ROPIVACAINE 5 MG/ML 30 ML VIAL ONE (13:48)
[2020-04-25 14:06] LABS: Glucose,Whole Blood 161 mg/dL (75-99)
[2020-04-25] MEDS ORDERED: LIDOCAINE 1%-EPI 1:100,000 20 ML VIAL SQ ONE ×3 (18:12)
[2020-04-25] MEDS ORDERED: ROPIVACAINE 5 MG/ML 30 ML VIAL MISCELLANE ONE (18:13)
[2020-04-25 19:20] LABS: Glucose,Whole Blood 206 mg/dL (75-99)
[2020-04-25 20:50] VITALS: BP 125/60; PULSE 79; RESP 18; TEMP 97.6
--- NOTE | 2020-04-26 07:23 | FL ---
Fluoroscopy History: RT RADIUS AND ULNA FX 2 min 22 sec fl
--- NOTE | 2020-05-05 13:09 | P.OP ---
Date of Procedure: 04/25/20 Preoperative Diagnosis: 1. Comminuted, displaced right distal radius (intra-articular) and distal ulna fractures 2. Healed right proximal humerus malunion 3. Morbid obesity 4. Insulin-dependent diabetes mellitus Postoperative Diagnosis: 1. Comminuted, displaced right distal radius (intra-articular) and distal ulna fractures 2. Healed right proximal humerus malunion 3. Morbid obesity 4. Insulin-dependent diabetes mellitus Procedure(s) Performed: 1. Open reduction and internal fixation of displaced intra-articular right distal radius fracture (>3 fragments) 2. Open reduction and internal fixation of displaced right distal ulna fracture Implants: Acumed Acu-Loc 2 volar distal radius plate (narrow, right) with standard locking, variable angle locking and cortical screws. Biomet Crosslock distal ulna plate with locking and cortical screws. K wires: Three 0.062 and one 0.054. Demineralized bone matrix (2-3 cc). Anesthesia: [facility], [facility] Surgeon: Carl Graves Industrial Ecology Technician #1: Kim Dennison (Skilled assistant womens volleyball coach required for patient positioning, surgical exposure and retraction, fracture reduction, wound closure and splint application) Estimated Blood Loss (ml): 30 Condition: stable Disposition: PACU Indications for Procedure: The patient is very pleasant 80-year-old female with a history of previous fragility fractures secondary to a fall. She experienced a ground-level fall, landing on an outstretched right wrist. X-rays revealed displaced fractures of the distal radius and ulna. Treatment options (and their associated risks and benefits) were discussed in the office. Given the unstable fracture pattern and amount of displacement, surgical stabilization was recommended in the form of open reduction and internal fixation of both fractures. The patient expressed understanding and agreed with operative intervention. In preop, additional questions were addressed and the patient wished to proceed with surgery. Consent forms were signed. The surgical sites were confirmed and marked preoperatively. Description of Procedure: The patient was administered a regional nerve block by the anesthesia team and was then brought to the operating suite and positioned supine with the operative limb on an arm board. All bony prominences were well-padded. General anesthesia and prophylactic antibiotics were administered uneventfully. A tourniquet was placed on the operative arm, which was then prepped and draped in standard, sterile fashion. A time-out was performed, confirming patient identifiers, the operative side, sites and the procedures to be performed: all team members expressed agreement. The fractures were initially evaluated with intraoperative fluoroscopy. The patients ipsilateral proximal humeral malunion resulted in significantly compromised shoulder abduction and external rotation, making it extremely challenging to obtain adequate imaging. The fracture patterns and location of the fracture fragments were confirmed with fluoroscopy. The limb was exsanguinated with an Esmarch and the tourniquet was inflated. The radius was addressed first. A volar FCR approach was utilized. The skin was incised sharply incised. The subcutaneous tissues were spread, coagulating superficial vessels as needed. The radial artery was identified and protected throughout the case. The FCR sheath was released and the tendon was mobilized. The floor of the sheath was incised. Blunt & spreading dissection was used to expose the pronator quadratus. The muscle belly was disrupted at the fracture site and was substantially traumatized. The remaining fibers were sharply released along the radial border & subperiosteally elevated ulnarly. The fracture site was visualized. There was extensive comminution and metaphyseal bone loss with multiple fracture fragments, including 3 separate articular fragments of the volar rim (styloid, scaphoid fossa and volar ulnar corner) as well as a large separate metaphyseal fragment proximal to the sigmoid notch. The radial styloid was also quite comminuted, with at least three large fragments. The fracture site was opened, irrigated and cleaned of hematoma and fibrous tissue. The fracture fragments were mobilized with a Johnson and dental pick. The dorsal impaction was carefully released through the fracture site with an elevator, taking care to protect the extensor tendons. A combination of axial traction, ulnar deviation and palmar translation was applied. A 0.062 K-wire was introduced percutaneously through the radial styloid and driven across the fracture site and into the metaphysis. A second wire was added for additional stability. Full amish of radial height was not achieved. The brachioradialis tendon insertion was released to alleviate its deforming force. Of note, the patient's body habitus with abundant subcutaneous fat around the wrist made exposure and fracture reduction even more difficult. The percutaneous K wires were backed out across the fracture site. Ulnar deviation was applied and a Johnson was inserted through the fracture site to manually elevate the styloid fragments. Held in this position, the K wires were readvanced. The metaphyseal fragment of the intermediate column was reduced with a dental pick and secured with a reduction clamp. A 0.054 K wire was inserted percutaneously through the radial styloid to provisionally stabilize this fragment. Multiple attempts to reduce the articular fragment of the lunate fossa/sigmoid notch proved unsuccessful. The decision was made to provisionally reduce and stabilize the ulna. The radial wound was irrigated and covered with a moist sponge. A longitudinal incision was marked over the distal ulna. The skin was sharply incised and subcutaneous tissue spread, taking care to protect the dorsal cutaneous branch which was identified crossing the distal aspect of the incision. The interval between the ECU and FCU was identified and developed. The periosteum of the distal ulna was incised and elevated to expose the fractur e site. The ulnar neck fracture was oblique with some metaphyseal comminution as well. Hematoma was removed with curettes and the fracture site was irrigated. The fracture was manually reduced and provisionally stabilized with a 0.062 K-wire advanced retrograde down the ulnar styloid. A locking distal ulna plate was selected and pinned in place, reestablishing ulnar length. Returning to the radius, interval loss of reduction was noted along the radial column. A plate was selected (based on the patients anatomy and fracture pattern) and positioned on the volar radius. It was provisionally secured with a reduction clamp. The percutaneous wires in the radial styloid were backed out. Using the plate as a reduction tool, the fracture was remanipulated and the wires were readvanced. Plate position was adjusted and confirmed on imaging; it was then provisionally secured K wires. A cortical screw was drilled, measured and inserted into the oblong hole of the shaft. The central distal locking screws were drilled, measured and inserted. Recurrent loss of reduction and rotation of the radial styloid fragments was noted. A large pointed reduction clamp was inserted through the wound and placed at the tip of the styloid and around the proximal metaphysis. It was difficulty to control the fragments, given the extensive metaphyseal comminution and her extremely poor bone quality. With the clamp held lightly and manually rotated, combined with levering on the percutaneous K-wires and additional reduction pressure with a dental pick, the styloid fragments were reduced. Held in this position, the styloid locking screws were drilled, measured and inserted, confirming length and trajectory on imaging. The remaining distal locking screws were sequentially inserted. The reduction clamps were removed. The percutaneous K wires were left in place for adjunct fixation. Returning to the ulna, fracture alignment and plate position were adjusted and confirmed on imaging. A cortical screw was drilled, measured and inserted to secure the plate proximally. Two locking screws were drilled, measured and inserted distally to secure the head fragment. An additional cortical screw was inserted to further secure the plate to the shaft. Though this afforded decent stability, given her poor bone quality, the K wire and the ulnar styloid was left in place for additional support. Final x-rays were obtained, including a 20 inclined lateral view, confirming extra-articular screw placement. The wrist was then ranged and stressed under live fluoroscopy: there was no gross motion of the fracture fragments or fixation construct. Passive flexion, extension and rotation of the wrist revealed a smooth articulation without crepitus or focal restriction. The K wires in both the radial and ulnar styloids were cut short and covered with Silvio balls. The tourniquet was released after 119 minutes at 200 mmHg and was not used for the remainder of the case. Hemostasis was obtained with manual pressure and electrocautery. The wounds were copiously irrigated with normal saline. Given the paucity of metaphyseal cancellous bone, demineralized bone matrix was inserted and packed into the radial metaphysis through residual cortical defects. The transitional fiber zone and distal portion of the pronator were repaired over the plate with interrupted 2-0 Vicryl sutures. The subcutaneous tissues were reapproximated with interrupted 2-0 and 3-0 Vicryl sutures. The periosteum and fascia were repaired over the ulnar plate with interrupted 2-0 Vicryl sutures. The subcutaneous tissues were reapproximated with interrupted 3-0 Vicryl sutures. The incisions were closed with alternating running horizontal mattress stitches using 4-0 nylon suture. Local anesthetic with epinephrine was injected into the perioperative subcutaneous tissues for adjunct postoperative pain control and hemostasis. Her tissue quality throughout was quite poor. In the process of manipulating and re ducing the fractures, two large degloving superficial skin tears occurred dorsally. These wounds were irrigated and the skin flaps were reduced in place and covered with petrolatum gauze. Sterile dressings were applied, followed by a well-padded resting volar plaster splint. All sponge, needle and instrument counts were correct at the end of the case. The patient tolerated the procedure well and was taken to the recovery room in stable condition.
== END 2020-04-25 21:55 | disposition home or self-care (01) ==
LOC: OR 12:31 → 1SOBS 19:07 → OR 21:55
PROVIDERS: ATTEND Orthopaedic Surgery
DX: S52.571A Other intraarticular fracture of lower end of right radius, initial encounter for closed fracture (principal); S52.691A Other fracture of lower end of right ulna, initial encounter for closed fracture; W18.30XA Fall on same level, unspecified, initial encounter; I25.10 Atherosclerotic heart disease of native coronary artery without angina pectoris; E11.9 Type 2 diabetes mellitus without complications; E78.5 Hyperlipidemia, unspecified; F17.200 Nicotine dependence, unspecified, uncomplicated; E66.01 Morbid (severe) obesity due to excess calories; Z86.73 Personal history of transient ischemic attack (TIA), and cerebral infarction without residual deficits; Z79.4 Long term (current) use of insulin; Z79.899 Other long term (current) drug therapy; Z97.3 Presence of spectacles and contact lenses; Z83.3 Family history of diabetes mellitus; Z68.39 Body mass index [BMI] 39.0-39.9, adult
CPT/HCPCS: 64415; 76942; 84132; 73110; 25609; 25652; C1713; J2250; J1100; J0690; J2405; J2001; J3010; J2795; J2370; J2704

== ENCOUNTER → 2020-08-28 | Outpatient (CLI) | payer MEDICARE | END | disposition home or self-care (01) | LOC: LABWHC1 13:55 | PROVIDERS: ATTEND Family Medicine | DX: R05 Cough (principal) | CPT/HCPCS: U0003; C9803 ==

== ENCOUNTER → 2020-11-05 | Outpatient (CLI) | payer MEDICARE ==
[2020-11-05 15:55] LABS: African American GFR (CKD) 79.6 (60.0-200.0); Albumin 3.9 g/dL (3.80-4.90); Albumin/Globulin Ratio 1.34 (1.60-3.17); Anion Gap 5.5 mmol/L (4.00-12.00); BUN/Creat Ratio 23.75 Ratio (12.00-20.00); Calcium 9.2 mg/dL (8.7-10.3); Carbon Dioxide 29.5 mmol/L (21.6-31.8); Chol/HDL Ratio 2.62; Globulin 2.9 g/dL (1.6-3.3); LDL Cholesterol,Calculated 83.2 mg/dL (0.0-131.0); Non-African American GFR(CKD) 68.7 (60.0-200.0); Potassium 4.4 mmol/L (3.5-5.5); Total Bilirubin 0.4 mg/dL (0.2-1.2); Total Protein 6.8 g/dL (6.2-8.2); VLDL Calculation 21.8 mg/dL (5.00-40.00)
[2020-11-05 17:56] LABS: Hemoglobin A1C 7.3 % (4.0-6.0)
[2020-11-05 23:44] LABS: Urine Creatinine 101.4 mg/dL
== END | disposition home or self-care (01) ==
LOC: LABWHC1 07:52
PROVIDERS: ATTEND Internal Medicine Endocrinology, Diabetes & Metabolism
DX: E11.65 Type 2 diabetes mellitus with hyperglycemia (principal)
CPT/HCPCS: 36415; 80053; 80061; 82043; 82570; 83036; 84443

== ENCOUNTER 2021-06-10 21:02 | Inpatient (IN) | payer MEDICARE ==
[2021-06-10 21:23] LABS: Glucose,Whole Blood 76 mg/dL (75-99)
[2021-06-10] MEDS ORDERED: DEXTROSE 50% SYRINGE 50 ML IVP STA (21:26)
--- NOTE | 2021-06-10 21:26 | ED ---
Recheck HPI - General Source: patient, EMS Mode of arrival: EMS <Johnathon Morrison - Last Filed: 06/10/21 22:53> <Marcos Herman - Last Filed: 06/11/21 00:17> - General Chief Complaint: Recheck/Abnormal Lab/Rx Stated Complaint: Diabetic Issue Time Seen by Provider: 06/10/21 21:08 - History of Present Illness Initial Comments: This is an 81-year-old female to history of diabetes on insulin who presents or urgency department for an episode of hypoglycemia. The patient does take Levemir 12 units at night and also insulin aspart 10 units at night. She states she checked her sugar this prior to giving herself both nighttime doses and it was 80. She went to drink some juice however then became nauseated and vomited and then became unresponsive. EMS was called and she was found have a sugar in the 40s. They gave her an amp of D50 and the patient returned back to normal. Patient is currently states that she feels fine and feels at her baseline. She states that she had no chest pain or shortness of breath prior to these episode s. She states that she's been eating and drinking normal amounts. Has not been ill. No nausea or vomiting prior to the episode. She denies any complaints (Johnathon Morrison) - Related Data Home Medications Medication Instructions Recorded Confirmed Insulin Detemir [Levemir Flextouch 12 units SQ AC-SUPPER 04/09/16 06/10/21 Pen] Insulin Aspart (Niacinamide) 8 units SQ AC-LUNCH 04/21/20 06/10/21 [Fiasp 100 Unit/ml Flextouch] Insulin Aspart (Niacinamide) 10 units SQ AC-BRKFST 04/21/20 06/10/21 [Fiasp 100 Unit/ml Flextouch] Insulin Aspart (Niacinamide) 10 units SQ AC-SUPPER 04/21/20 06/10/21 [Fiasp 100 Unit/ml Flextouch] Allergies Allergy/AdvReac Type Severity Reaction Status Date / Time No Known Allergies Allergy Verified 06/10/21 22:17 Review of Systems ROS Other: All systems not noted in ROS Statement are negative. <Johnathon Morrison - Last Filed: 06/10/21 22:53> ROS Other: All systems not noted in ROS Statement are negative. <Marcos Herman - Last Filed: 06/11/21 00:17> ROS Statement: Those systems with pertinent positive or pertinent negative responses have been documented in the HPI. Past Medical History Past Medical History: CVA/TIA, Diabetes Mellitus, Deep Vein Thrombosis (DVT) Additional Past Medical History / Comment(s): IDDM type II, CVA with some vision changes and difficulty swallowing (eat soft foods)., DVT to L arm with vein grafting, murmur., states fall April 13 with wrist fx & has splint on & arm sling. History of Any Multi-Drug Resistant Organisms: None Reported Past Surgical History: Orthopedic Surgery, Tonsillectomy Additional Past Surgical History / Comment(s): Esophageal surgery 2003 pt thinks this was dilation ; Venous graft leg to left arm., right hip fx surgery (11/2018) Past Anesthesia/Blood Transfusion Reactions: No Reported Reaction Past Psychological History: No Psychological Hx Reported Smoking Status: Never smoker Past Alcohol Use History: None Reported Past Drug Use History: None Reported - Past Family History Mother Family Medical History: No Reported History father Family Medical History: Diabetes Mellitus <Prince,Johnathon - Last Filed: 06/10/21 22:53> General Exam <PrinceJohnathon - Last Filed: 06/10/21 22:53> General appearance: alert, in no apparent distress Head exam: Present: atraumatic, normocephalic, normal inspection Eye exam: Present: normal appearance, PERRL, EOMI. Absent: scleral icterus, conjunctival injection, periorbital swelling ENT exam: Present: normal exam, mucous membranes moist Neck exam: Present: normal inspection. Absent: tenderness, meningismus, lymphadenopathy Respiratory exam: Present: normal lung sounds bilaterally. Absent: respiratory distress, wheezes, rales, rhonchi, stridor Cardiovascular Exam: Present: regular rate, normal rhythm, normal heart sounds. Absent: systolic murmur, diastolic murmur, rubs, gallop, clicks GI/Abdominal exam: Present: soft, normal bowel sounds. Absent: distended, tenderness, guarding, rebound, rigid Extremities exam: Present: normal inspection, full ROM, normal capillary refill. Absent: tenderness, pedal edema, joint swelling, calf tenderness Back exam: Present: normal inspection Neurological exam: Present: alert, oriented X3, CN II-XII intact Psychiatric exam: Present: normal affect, normal mood Skin exam: Present: warm, dry, intact, normal color. Absent: rash <Marcos Herman - Last Filed: 06/11/21 00:17> - General Exam Comments Initial Comments: Constitutional: Awake alert Appears comfortable Head: Normocephalic atraumatic Eyes: no conjunctival injection No scleral icterus EOMI Neck: No JVD Supple Heart: Regular rate rhythm normal S1-S2 no murmurs Lungs: Clear to auscultation bilaterally No wheezing No rales Abdomen: Soft nondistended nontender Extremities: Non edematous DP pulses intact Radial pulses intact Neuro: A&Ox3 No focal neurologic deficits Psych: Appropriate mood and affect (Johnathon Morrison) Course <Johnathon Morrison - Last Filed: 06/10/21 22:53> <Marcos Herman - Last Filed: 06/11/21 00:17> Vital Signs 06/10/21 06/10/21 06/10/21 21:05 21:31 23:00 Temperature 97.9 F Pulse Rate 83 99 101 H Respiratory 18 18 18 Rate Blood Pressure 120/65 115/68 108/57 O2 Sat by Pulse 94 L Oximetry 06/11/21 00:14 Temperature Pulse Rate 104 H Respiratory 18 Rate Blood Pressure 94/48 O2 Sat by Pulse 92 L Oximetry - Reevaluation(s) Reevaluation #1: 06/10/21 21:41 Pt was given juice and crackers. I was called shortly after that the patient had started to vomit and that her sugar had dropped to 67. Given another amp of d50 and her symptoms improved and she started drinking juice again. Unfortunately again vomited. Pt will be given zofran and see if she can tolerate PO. Will consider d545 if not improving and sugar keeps dropping. (Johnathon Morrison) Reevaluation #2: This is an 81-year-old female presents emergency department for hypoglycemic episode. She did have another episode here and went down to 67. She was given an amp of D50 here with improvement in her symptoms. The patient has been attempting to eat however having a little bit of difficulty. She states that she does not feel nauseated or have any abdominal pain however occasionally will gag and throw up a little bit. The patient adamantly states that she does not want to stay in the hospital. The last 3 blood sugars have been pretty steady. The patient has been keeping down to crackers and some applesauce currently. Plan is to continue to monitor sugars for a few more hours and make sure the patient is keeping down some food. Patient's care transition to Dr. Herman. 06/10/21 22:54 (Johnathon Morrison) Reevaluation #3: 06/11/21 00:17 Medical record is reviewed (Marcos Herman) Reevaluation #4: 06/11/21 00:17 Sugars trending upwards, patient encouraged not taken since ninth of is able tolerate eating (Marcos Herman) Medical Decision Making - Lab Data Result diagrams: 06/10/21 21:42 06/10/21 21:42 <Johnathon Morrison - Last Filed: 06/10/21 22:53> - Lab Data Result diagrams: 06/10/21 21:42 06/10/21 21:42 <Marcos Herman - Last Filed: 06/11/21 00:17> - Medical Decision Making 81 female to the ER for evaluation patient sounded patient persistent hypoglycemia but is able to eat not taking insulin, encouraged not to take anymore and/home blood sugar is increasing currently is having nausea vomiting that is improving. Patient can be discharged home (Marcos Herman) - Lab Data Lab Results 06/10/21 06/10/21 06/10/21 Range/Units 21:11 21:25 21:42 WBC 7.6 (3.8-10.6) k/uL RBC 4.17 (3.80-5.40) m/uL Hgb 12.4 (11.4-16.0) gm/dL Hct 42.4 (34.0-46.0) % MCV 101.6 H (80.0-100.0) fL MCH 29.8 (25.0-35.0) pg MCHC 29.3 L (31.0-37.0) g/dL RDW 13.3 (11.5-15.5) % Plt Count 173 (150-450) k/uL MPV 10.8 Neutrophils % 81 % Lymphocytes % 9 % Monocytes % 6 % Eosinophils % 1 % Basophils % 0 % Neutrophils # 6.2 (1.3-7.7) k/uL Lymphocytes # 0.7 L (1.0-4.8) k/uL Monocytes # 0.5 (0-1.0) k/uL Eosinophils # 0.1 (0-0.7) k/uL Basophils # 0.0 (0-0.2) k/uL Hypochromasia Marked Macrocytosis Slight Sodium (137-145) mmol/L Potassium (3.5-5.1) mmol/L Chloride (98-107) mmol/L Carbon Dioxide (22-30) mmol/L Anion Gap mmol/L BUN (7-17) mg/dL Creatinine (0.52-1.04) mg/dL Est GFR (CKD-EPI)AfAm (>60 ml/min/1.73 sqM) Est GFR (CKD-EPI)NonAf (>60 ml/min/1.73 sqM) Glucose (74-99) mg/dL POC Glucose (mg/dL) 76 67 L (75-99) mg/dL POC Glu Drilling Engineer ID Jesusita Khalil Samantha Calcium (8.4-10.2) mg/dL Total Bilirubin (0.2-1.3) mg/dL AST (14-36) U/L ALT (4-34) U/L Alkaline Phosphatase (38-126) U/L Total Protein (6.3-8.2) g/dL Albumin (3.5-5.0) g/dL 06/10/21 06/10/21 06/10/21 Range/Units 21:42 21:44 21:55 WBC (3.8-10.6) k/uL RBC (3.80-5.40) m/uL Hgb (11.4-16.0) gm/dL Hct (34.0-46.0) % MCV (80.0-100.0) fL MCH (25.0-35.0) pg MCHC (31.0-37.0) g/dL RDW (11.5-15.5) % Plt Count (150-450) k/uL MPV Neutrophils % % Lymphocytes % % Monocytes % % Eosinophils % % Basophils % % Neutrophils # (1.3-7.7) k/uL Lymphocytes # (1.0-4.8) k/uL Monocytes # (0-1.0) k/uL Eosinophils # (0-0.7) k/uL Basophils # (0-0.2) k/uL Hypochromasia Macrocytosis Sodium 137 (137-145) mmol/L Potassium 4.7 (3.5-5.1) mmol/L Chloride 105 (98-107) mmol/L Carbon Dioxide 24 (22-30) mmol/L Anion Gap 8 mmol/L BUN 16 (7-17) mg/dL Creatinine 0.57 (0.52-1.04) mg/dL Est GFR (CKD-EPI)AfAm >90 (>60 ml/min/1.73 sqM) Est GFR (CKD-EPI)NonAf 86 (>60 ml/min/1.73 sqM) Glucose (74-99) mg/dL POC Glucose (mg/dL) 151 H 139 H (75-99) mg/dL POC Glu Drilling Engineer ID Khalil, Jesusita Khalil, Jesusita Calcium 8.8 (8.4-10.2) mg/dL Total Bilirubin 0.5 (0.2-1.3) mg/dL AST 28 (14-36) U/L ALT 11 (4-34) U/L Alkaline Phosphatase 103 (38-126) U/L Total Protein 6.6 (6.3-8.2) g/dL Albumin 3.3 L (3.5-5.0) g/dL 06/10/21 06/10/21 06/10/21 Range/Units 22:16 22:35 22:52 WBC (3.8-10.6) k/uL RBC (3.80-5.40) m/uL Hgb (11.4-16.0) gm/dL Hct (34.0-46.0) % MCV (80.0-100.0) fL MCH (25.0-35.0) pg MCHC (31.0-37.0) g/dL RDW (11.5-15.5) % Plt Count (150-450) k/uL MPV Neutrophils % % Lymphocytes % % Monocytes % % Eosinophils % % Basophils % % Neutrophils # (1.3-7.7) k/uL Lymphocytes # (1.0-4.8) k/uL Monocytes # (0-1.0) k/uL Eosinophils # (0-0.7) k/uL Basophils # (0-0.2) k/uL Hypochromasia Macrocytosis Sodium (137-145) mmol/L Potassium (3.5-5.1) mmol/L Chloride (98-107) mmol/L Carbon Dioxide (22-30) mmol/L Anion Gap mmol/L BUN (7-17) mg/dL Creatinine (0.52-1.04) mg/dL Est GFR (CKD-EPI)AfAm (>60 ml/min/1.73 sqM) Est GFR (CKD-EPI)NonAf (>60 ml/min/1.73 sqM) Glucose (74-99) mg/dL POC Glucose (mg/dL) 126 H 115 H 116 H (75-99) mg/dL POC Glu Drilling Engineer ID Khalil, Jesusita Khalil, Jesusita Khalil, Jesusita Calcium (8.4-10.2) mg/dL Total Bilirubin (0.2-1.3) mg/dL AST (14-36) U/L ALT (4-34) U/L Alkaline Phosphatase (38-126) U/L Total Protein (6.3-8.2) g/dL Albumin (3.5-5.0) g/dL 06/10/21 06/10/21 06/11/21 Range/Units 23:12 23:43 00:12 WBC (3.8-10.6) k/uL RBC (3.80-5.40) m/uL Hgb (11.4-16.0) gm/dL Hct (34.0-46.0) % MCV (80.0-100.0) fL MCH (25.0-35.0) pg MCHC (31.0-37.0) g/dL RDW (11.5-15.5) % Plt Count (150-450) k/uL MPV Neutrophils % % Lymphocytes % % Monocytes % % Eosinophils % % Basophils % % Neutrophils # (1.3-7.7) k/uL Lymphocytes # (1.0-4.8) k/uL Monocytes # (0-1.0) k/uL Eosinophils # (0-0.7) k/uL Basophils # (0-0.2) k/uL Hypochromasia Macrocytosis Sodium (137-145) mmol/L Potassium (3.5-5.1) mmol/L Chloride (98-107) mmol/L Carbon Dioxide (22-30) mmol/L Anion Gap mmol/L BUN (7-17) mg/dL Creatinine (0.52-1.04) mg/dL Est GFR (CKD-EPI)AfAm (>60 ml/min/1.73 sqM) Est GFR (CKD-EPI)NonAf (>60 ml/min/1.73 sqM) Glucose (74-99) mg/dL POC Glucose (mg/dL) 107 H 106 H 93 (75-99) mg/dL POC Glu Drilling Engineer ID Khalil, Jesusita Khalil, Jesusita Khalil, Jesusita Calcium (8.4-10.2) mg/dL Total Bilirubin (0.2-1.3) mg/dL AST (14-36) U/L ALT (4-34) U/L Alkaline Phosphatase (38-126) U/L Total Protein (6.3-8.2) g/dL Albumin (3.5-5.0) g/dL Disposition <Johnathon Morrison - Last Filed: 06/10/21 22:53> Is patient prescribed a controlled substance at d/c from ED?: No <Marcos Herman - Last Filed: 06/11/21 00:17> Clinical Impression: Hypoglycemia, Nausea & vomiting Disposition: HOME SELF-CARE Condition: Good Instructions (If sedation given, give patient instructions): Non-diabetic Hypoglycemia (ED) Referrals: Mick Rodriguez MD [Primary Care Provider] - 1-2 days
[2021-06-10 21:33] LABS: Glucose,Whole Blood 67 mg/dL (75-99)
[2021-06-10] MEDS ORDERED: ONDANSETRON 4 MG/2 ML VIAL IVP STA (21:37)
[2021-06-10 21:55] LABS: Basophils % (A) 0 %; Eosinophils # (A) 0.1 k/uL (0-0.7); Eosinophils % (A) 1 %; HCT 42.4 % (34.0-46.0); HGB 12.4 gm/dL (11.4-16.0); Hypochromasia Marked; Lymphocytes # (A) 0.7 k/uL (1.0-4.8); Lymphocytes % (A) 9 %; MCH 29.8 pg (25.0-35.0); MCHC 29.3 g/dL (31.0-37.0); MCV 101.6 fL (80.0-100.0); Macrocytosis Slight; Mean Platelet Volume 10.8; Monocytes # (A) 0.5 k/uL (0-1.0); Monocytes % (A) 6 %; Neutrophils # (A) 6.2 k/uL (1.3-7.7); Neutrophils % (A) 81 %; Platelet Count 173 k/uL (150-450); RBC 4.17 m/uL (3.80-5.40); RDW 13.3 % (11.5-15.5); WBC 7.6 k/uL (3.8-10.6)
[2021-06-10 21:56] LABS: Glucose,Whole Blood 139 mg/dL (75-99)
[2021-06-10 21:56] LABS: Glucose,Whole Blood 151 mg/dL (75-99)
[2021-06-10 22:12] LABS: ALT 11 U/L (4-34); AST 28 U/L (14-36); African American GFR (CKD) >90 (>60 ml/min/1.73 sqM); Albumin 3.3 g/dL (3.5-5.0); Alkaline Phosphatase 103 U/L (38-126); Anion Gap 8 mmol/L; Blood Urea Nitrogen 16 mg/dL (7-17); Calcium 8.8 mg/dL (8.4-10.2); Carbon Dioxide 24 mmol/L (22-30); Chloride 105 mmol/L (98-107); Non-African American GFR(CKD) 86 (>60 ml/min/1.73 sqM); Potassium 4.7 mmol/L (3.5-5.1); Sodium 137 mmol/L (137-145); Total Bilirubin 0.5 mg/dL (0.2-1.3); Total Protein 6.6 g/dL (6.3-8.2)
[2021-06-10 22:17] LABS: Glucose,Whole Blood 126 mg/dL (75-99)
[2021-06-10 22:36] LABS: Glucose,Whole Blood 115 mg/dL (75-99)
[2021-06-10 22:53] LABS: Glucose,Whole Blood 116 mg/dL (75-99)
[2021-06-10 23:45] LABS: Glucose,Whole Blood 106 mg/dL (75-99)
[2021-06-10 23:45] LABS: Glucose,Whole Blood 107 mg/dL (75-99)
[2021-06-11 00:14] LABS: Glucose,Whole Blood 93 mg/dL (75-99)
[2021-06-11 01:08] LABS: Glucose,Whole Blood 87 mg/dL (75-99)
[2021-06-11] MEDS ORDERED: DEXTROSE 5%-0.45% NACL 1,000 ML IV ONE (01:10)
[2021-06-11] MEDS ORDERED: NALOXONE 0.4 MG/ML 1 ML VIAL IV PRN (01:10)
[2021-06-11] MEDS ORDERED: ONDANSETRON 4 MG/2 ML VIAL IVP PRN (01:10)
--- NOTE | 2021-06-11 01:13 | ED ---
Medical Decision Making - Medical Decision Making 81 female here in the emergency department, patient with persistent nausea vomiting unable to keep blood sugar elevated patient is unable to eat. At this point patient is felt about a 4 hour observation to improved blood sugar and will be admitted for intractable nausea vomiting and recurrent hypoglycemia - Lab Data Result diagrams: 06/10/21 21:42 06/10/21 21:42 Lab Results 06/10/21 06/10/21 06/10/21 Range/Units 21:11 21:25 21:42 WBC 7.6 (3.8-10.6) k/uL RBC 4.17 (3.80-5.40) m/uL Hgb 12.4 (11.4-16.0) gm/dL Hct 42.4 (34.0-46.0) % MCV 101.6 H (80.0-100.0) fL MCH 29.8 (25.0-35.0) pg MCHC 29.3 L (31.0-37.0) g/dL RDW 13.3 (11.5-15.5) % Plt Count 173 (150-450) k/uL MPV 10.8 Neutrophils % 81 % Lymphocytes % 9 % Monocytes % 6 % Eosinophils % 1 % Basophils % 0 % Neutrophils # 6.2 (1.3-7.7) k/uL Lymphocytes # 0.7 L (1.0-4.8) k/uL Monocytes # 0.5 (0-1.0) k/uL Eosinophils # 0.1 (0-0.7) k/uL Basophils # 0.0 (0-0.2) k/uL Hypochromasia Marked Macrocytosis Slight Sodium (137-145) mmol/L Potassium (3.5-5.1) mmol/L Chloride (98-107) mmol/L Carbon Dioxide (22-30) mmol/L Anion Gap mmol/L BUN (7-17) mg/dL Creatinine (0.52-1.04) mg/dL Est GFR (CKD-EPI)AfAm (>60 ml/min/1.73 sqM) Est GFR (CKD-EPI)NonAf (>60 ml/min/1.73 sqM) Glucose (74-99) mg/dL POC Glucose (mg/dL) 76 67 L (75-99) mg/dL POC Glu Porcelain Enamel Repairer ID Jesusita Khalil Samantha Calcium (8.4-10.2) mg/dL Total Bilirubin (0.2-1.3) mg/dL AST (14-36) U/L ALT (4-34) U/L Alkaline Phosphatase (38-126) U/L Total Protein (6.3-8.2) g/dL Albumin (3.5-5.0) g/dL 06/10/21 06/10/21 06/10/21 Range/Units 21:42 21:44 21:55 WBC (3.8-10.6) k/uL RBC (3.80-5.40) m/uL Hgb (11.4-16.0) gm/dL Hct (34.0-46.0) % MCV (80.0-100.0) fL MCH (25.0-35.0) pg MCHC (31.0-37.0) g/dL RDW (11.5-15.5) % Plt Count (150-450) k/uL MPV Neutrophils % % Lymphocytes % % Monocytes % % Eosinophils % % Basophils % % Neutrophils # (1.3-7.7) k/uL Lymphocytes # (1.0-4.8) k/uL Monocytes # (0-1.0) k/uL Eosinophils # (0-0.7) k/uL Basophils # (0-0.2) k/uL Hypochromasia Macrocytosis Sodium 137 (137-145) mmol/L Potassium 4.7 (3.5-5.1) mmol/L Chloride 105 (98-107) mmol/L Carbon Dioxide 24 (22-30) mmol/L Anion Gap 8 mmol/L BUN 16 (7-17) mg/dL Creatinine 0.57 (0.52-1.04) mg/dL Est GFR (CKD-EPI)AfAm >90 (>60 ml/min/1.73 sqM) Est GFR (CKD-EPI)NonAf 86 (>60 ml/min/1.73 sqM) Glucose (74-99) mg/dL POC Glucose (mg/dL) 151 H 139 H (75-99) mg/dL POC Glu Porcelain Enamel Repairer ID Jesusita Khalil Brittany Calcium 8.8 (8.4-10.2) mg/dL Total Bilirubin 0.5 (0.2-1.3) mg/dL AST 28 (14-36) U/L ALT 11 (4-34) U/L Alkaline Phosphatase 103 (38-126) U/L Total Protein 6.6 (6.3-8.2) g/dL Albumin 3.3 L (3.5-5.0) g/dL 06/10/21 06/10/21 06/10/21 Range/Units 22:16 22:35 22:52 WBC (3.8-10.6) k/uL RBC (3.80-5.40) m/uL Hgb (11.4-16.0) gm/dL Hct (34.0-46.0) % MCV (80.0-100.0) fL MCH (25.0-35.0) pg MCHC (31.0-37.0) g/dL RDW (11.5-15.5) % Plt Count (150-450) k/uL MPV Neutrophils % % Lymphocytes % % Monocytes % % Eosinophils % % Basophils % % Neutrophils # (1.3-7.7) k/uL Lymphocytes # (1.0-4.8) k/uL Monocytes # (0-1.0) k/uL Eosinophils # (0-0.7) k/uL Basophils # (0-0.2) k/uL Hypochromasia Macrocytosis Sodium (137-145) mmol/L Potassium (3.5-5.1) mmol/L Chloride (98-107) mmol/L Carbon Dioxide (22-30) mmol/L Anion Gap mmol/L BUN (7-17) mg/dL Creatinine (0.52-1.04) mg/dL Est GFR (CKD-EPI)AfAm (>60 ml/min/1.73 sqM) Est GFR (CKD-EPI)NonAf (>60 ml/min/1.73 sqM) Glucose (74-99) mg/dL POC Glucose (mg/dL) 126 H 115 H 116 H (75-99) mg/dL POC Glu Porcelain Enamel Repairer ID Khalil, Jesusita Khalil, Jesusita Khalil, Jesusita Calcium (8.4-10.2) mg/dL Total Bilirubin (0.2-1.3) mg/dL AST (14-36) U/L ALT (4-34) U/L Alkaline Phosphatase (38-126) U/L Total Protein (6.3-8.2) g/dL Albumin (3.5-5.0) g/dL 06/10/21 06/10/21 06/11/21 Range/Units 23:12 23:43 00:12 WBC (3.8-10.6) k/uL RBC (3.80-5.40) m/uL Hgb (11.4-16.0) gm/dL Hct (34.0-46.0) % MCV (80.0-100.0) fL MCH (25.0-35.0) pg MCHC (31.0-37.0) g/dL RDW (11.5-15.5) % Plt Count (150-450) k/uL MPV Neutrophils % % Lymphocytes % % Monocytes % % Eosinophils % % Basophils % % Neutrophils # (1.3-7.7) k/uL Lymphocytes # (1.0-4.8) k/uL Monocytes # (0-1.0) k/uL Eosinophils # (0-0.7) k/uL Basophils # (0-0.2) k/uL Hypochromasia Macrocytosis Sodium (137-145) mmol/L Potassium (3.5-5.1) mmol/L Chloride (98-107) mmol/L Carbon Dioxide (22-30) mmol/L Anion Gap mmol/L BUN (7-17) mg/dL Creatinine (0.52-1.04) mg/dL Est GFR (CKD-EPI)AfAm (>60 ml/min/1.73 sqM) Est GFR (CKD-EPI)NonAf (>60 ml/min/1.73 sqM) Glucose (74-99) mg/dL POC Glucose (mg/dL) 107 H 106 H 93 (75-99) mg/dL POC Glu Porcelain Enamel Repairer ID Khalil, Jesusita Khalil, Jesusita Khalil, Jesusita Calcium (8.4-10.2) mg/dL Total Bilirubin (0.2-1.3) mg/dL AST (14-36) U/L ALT (4-34) U/L Alkaline Phosphatase (38-126) U/L Total Protein (6.3-8.2) g/dL Albumin (3.5-5.0) g/dL 06/11/21 Range/Units 01:06 WBC (3.8-10.6) k/uL RBC (3.80-5.40) m/uL Hgb (11.4-16.0) gm/dL Hct (34.0-46.0) % MCV (80.0-100.0) fL MCH (25.0-35.0) pg MCHC (31.0-37.0) g/dL RDW (11.5-15.5) % Plt Count (150-450) k/uL MPV Neutrophils % % Lymphocytes % % Monocytes % % Eosinophils % % Basophils % % Neutrophils # (1.3-7.7) k/uL Lymphocytes # (1.0-4.8) k/uL Monocytes # (0-1.0) k/uL Eosinophils # (0-0.7) k/uL Basophils # (0-0.2) k/uL Hypochromasia Macrocytosis Sodium (137-145) mmol/L Potassium (3.5-5.1) mmol/L Chloride (98-107) mmol/L Carbon Dioxide (22-30) mmol/L Anion Gap mmol/L BUN (7-17) mg/dL Creatinine (0.52-1.04) mg/dL Est GFR (CKD-EPI)AfAm (>60 ml/min/1.73 sqM) Est GFR (CKD-EPI)NonAf (>60 ml/min/1.73 sqM) Glucose (74-99) mg/dL POC Glucose (mg/dL) 87 (75-99) mg/dL POC Glu Porcelain Enamel Repairer ID Jesusita Khalil Calcium (8.4-10.2) mg/dL Total Bilirubin (0.2-1.3) mg/dL AST (14-36) U/L ALT (4-34) U/L Alkaline Phosphatase (38-126) U/L Total Protein (6.3-8.2) g/dL Albumin (3.5-5.0) g/dL - Radiology Data Radiology results: report reviewed (X-ray abdominal series KUB pending pending radiologist evaluation and rate), image reviewed Disposition Clinical Impression: Hypoglycemia, Nausea & vomiting Disposition: ADMITTED IP TO THIS HOSP Condition: Good Instructions (If sedation given, give patient instructions): Non-diabetic Hypoglycemia (ED) Is patient prescribed a controlled substance at d/c from ED?: No Referrals: Mick Rodriguez MD [Primary Care Provider] - 1-2 days
--- NOTE | 2021-06-11 01:37 | XR ---
EXAMINATION TYPE: XR abdomen acute w cxr DATE OF EXAM: 06/11/2021 COMPARISON: Chest x-ray 12/01/2018 HISTORY: Nausea and vomiting TECHNIQUE: FINDINGS: Heart is enlarged. There is no gross heart failure. There is coarsening of the lung marking s. I see no definite pleural effusion. There is no sign of intestinal obstruction or pneumoperitoneum . Fecal pattern is normal. There is right hip surgery. Sacroiliac joints are intact. Exam limited by patient's size. There is no evidence of abdominal mass. IMPRESSION: Nonacute abdomen. Moderate cardiomegaly. Pulmonary fibrosis. No obvious heart failure. Lung markings increased compared to old exam.
[2021-06-11 02:49] LABS: Glucose,Whole Blood 85 mg/dL (75-99)
[2021-06-11 04:11] LABS: Glucose,Whole Blood 97 mg/dL (75-99)
[2021-06-11 05:30] LABS: Glucose,Whole Blood 116 mg/dL (75-99)
[2021-06-11 06:55] LABS: Glucose,Whole Blood 124 mg/dL (75-99)
--- NOTE | 2021-06-11 08:01 | P.HPIM ---
History of Present Illness H&P Date: 06/11/21 Chief Complaint: Hypoglycemia Patient's 81-year-old white female with known history of insulin dependent diabetes who has had significant nausea or vomiting. Blood sugar has been hypoglycemic is the patient has not been able to eat since taking her normal right some insulin. The patient typically does not have this issue. No fever or chills. No abnormal dietary intake. No travel outside the area. The patient states that she has felt poorly over the last 24 hours. Blood sugar has slowly been improving and the patient is now lucid. Review of Systems Constitutional: Denies chills, Denies fever Ears, nose, mouth and throat: Denies headache, Denies sore throat Cardiovascular: Denies chest pain, Denies shortness of breath Respiratory: Denies cough Gastrointestinal: Reports dyspepsia, Reports nausea, Reports vomiting, Denies constipation Genitourinary: Denies dysuria, Denies hematuria Integumentary: Denies pruritus, Denies rash Past Medical History Past Medical History: CVA/TIA, Diabetes Mellitus, Deep Vein Thrombosis (DVT) Additional Past Medical History / Comment(s): IDDM type II, CVA with some vision changes and difficulty swallowing (eat soft foods)., DVT to L arm with vein grafting, murmur., states fall April 13 with wrist fx & has splint on & arm sling. History of Any Multi-Drug Resistant Organisms: None Reported Past Surgical History: Orthopedic Surgery, Tonsillectomy Additional Past Surgical History / Comment(s): Esophageal surgery 2003 pt thinks this was dilation ; Venous graft leg to left arm., right hip fx surgery (11/2018) Past Anesthesia/Blood Transfusion Reactions: No Reported Reaction Past Psychological History: No Psychological Hx Reported Smoking Status: Never smoker Past Alcohol Use History: None Reported Past Drug Use History: None Reported - Past Family History Mother Family Medical History: No Reported History father Family Medical History: Diabetes Mellitus Medications and Allergies Home Medications Medication Instructions Recorded Confirmed Type Insulin Detemir [Levemir Flextouch 12 units SQ AC-SUPPER 04/09/16 06/10/21 Histo ry Pen] Insulin Aspart (Niacinamide) 8 units SQ AC-LUNCH 04/21/20 06/10/21 History [Fiasp 100 Unit/ml Flextouch] Insulin Aspart (Niacinamide) 10 units SQ AC-BRKFST 04/21/20 06/10/21 History [Fiasp 100 Unit/ml Flextouch] Insulin Aspart (Niacinamide) 10 units SQ AC-SUPPER 04/21/20 06/10/21 History [Fiasp 100 Unit/ml Flextouch] Allergies Allergy/AdvReac Type Severity Reaction Status Date / Time No Known Allergies Allergy Verified 06/10/21 22:17 Physical Exam Vitals: Vital Signs Temp Pulse Resp BP Pulse Ox 06/11/21 05:30 87 20 98 06/11/21 04:12 22 06/11/21 01:33 95 18 113/60 100 06/11/21 00:14 104 H 18 94/48 92 L 06/10/21 23:00 101 H 18 108/57 06/10/21 21:31 99 18 115/68 06/10/21 21:05 97.9 F 83 18 120/65 94 L Intake and Output 06/10/21 06/11/21 06/11/21 22:59 06:59 14:59 Other: Weight 81.647 kg - Constitutional General appearance: no acute distress - EENT Eyes: EOMI - Neck Neck: no lymphadenopathy - Respiratory Respiratory: bilateral: CTA - Cardiovascular Rhythm: regular Heart sounds: normal: S1, S2 Abnormal Heart Sounds: no S3 Gallop - Gastrointestinal General gastrointestinal: soft, no tenderness - Neurologic Neurologic: CNII-XII intact - Psychiatric Psychiatric: A&O x's 3, appropriate affect Results CBC & Chem 7: 06/10/21 21:42 06/10/21 21:42 Labs: Abnormal Lab Results - Last 24 Hours (Table) 06/10/21 06/10/21 06/10/21 Range/Units 21:25 21:42 21:42 MCV 101.6 H (80.0-100.0) fL MCHC 29.3 L (31.0-37.0) g/dL Lymphocytes # 0.7 L (1.0-4.8) k/uL POC Glucose (mg/dL) 67 L (75-99) mg/dL Albumin 3.3 L (3.5-5.0) g/dL 06/10/21 06/10/21 06/10/21 Range/Units 21:44 21:55 22:16 MCV (80.0-100.0) fL MCHC (31.0-37.0) g/dL Lymphocytes # (1.0-4.8) k/uL POC Glucose (mg/dL) 151 H 139 H 126 H (75-99) mg/dL Albumin (3.5-5.0) g/dL 06/10/21 06/10/21 06/10/21 Range/Units 22:35 22:52 23:12 MCV (80.0-100.0) fL MCHC (31.0-37.0) g/dL Lymphocytes # (1.0-4.8) k/uL POC Glucose (mg/dL) 115 H 116 H 107 H (75-99) mg/dL Albumin (3.5-5.0) g/dL 06/10/21 06/11/21 06/11/21 Range/Units 23:43 05:28 06:54 MCV (80.0-100.0) fL MCHC (31.0-37.0) g/dL Lymphocytes # (1.0-4.8) k/uL POC Glucose (mg/dL) 106 H 116 H 124 H (75-99) mg/dL Albumin (3.5-5.0) g/dL Assessment and Plan (1) Hypoglycemia Current Visit: Yes Status: Acute Code(s): E16.2 - HYPOGLYCEMIA, UNSPECIFIED SNOMED Code(s): 601014804 (2) Nausea & vomiting Current Visit: Yes Status: Acute Code(s): R11.2 - NAUSEA WITH VOMITING, UNSPECIFIED SNOMED Code(s): 50314644 Plan: Hold insulin. We will go ahead and supplement with dextrose. She has been slowly improving. Start appropriate diet. Check CMP in a.m.
[2021-06-11 08:03] LABS: Glucose,Whole Blood 113 mg/dL (75-99)
[2021-06-11 12:17] LABS: Glucose,Whole Blood 140 mg/dL (75-99)
[2021-06-11 17:25] LABS: Glucose,Whole Blood 204 mg/dL (75-99)
[2021-06-11] MEDS: INSULIN ASPART (NovoLOG) 100 UNIT/ML VIAL SQ SCH (17:43)
[2021-06-11] MEDS: PANTOPRAZOLE 40 MG/10 ML VIAL IV SCH (17:50)
[2021-06-11 20:26] LABS: Glucose,Whole Blood 179 mg/dL (75-99)
[2021-06-11] MEDS: INSULIN DETEMIR (LEVEMIR) 100 UNIT/ML SYR SQ SCH (21:08)
[2021-06-12 01:48] LABS: Glucose,Whole Blood 158 mg/dL (75-99)
[2021-06-12 07:36] LABS: Glucose,Whole Blood 112 mg/dL (75-99)
--- NOTE | 2021-06-12 08:21 | P.PN ---
Subjective Progress Note Date: 06/12/21 Principal diagnosis: This is an 81-year-old white female who this morning started having significant crackles and need to be placed on oxygen. Blood sugar has not been stabilized. Question element of fluid overload. She states she is voiding appropriately. Chest x-ray does show fluffy infiltrates official report is pending. No fever or chills stated. We'll go ahead and empirically treat for pneumonia given her hypoxia. No diarrhea tolerating diet No significant constipation otherwise stated. Objective - Vital Signs Vital signs: Vital Signs Temp 97.5 F L 06/12/21 02:00 Pulse 87 06/12/21 02:00 Resp 16 06/12/21 02:00 BP 96/59 06/12/21 02:00 Pulse Ox 94 L 06/12/21 02:00 Intake & Output 06/11/21 06/12/21 06/12/21 18:59 06:59 18:59 Other: Voiding Method Toilet # Voids 2 - Constitutional General appearance: Present: obese - EENT Eyes: Absent: abnormal pupil - Neck Neck: Absent: lymphadenopathy - Respiratory Respiratory: bilateral: rales - Cardiovascular Rhythm: regular Heart sounds: normal: S1, S2 Abnormal Heart Sounds: Absent: S3 Gallop - Gastrointestinal General gastrointestinal: Present: soft. Absent: tenderness - Integumentary Integumentary: Absent: cellulitis - Labs CBC & Chem 7: 06/10/21 21:42 06/10/21 21:42 Labs: Abnormal Lab Results - Last 24 Hours (Table) 06/11/21 06/11/21 06/11/21 Range/Units 12:14 17:23 20:25 POC Glucose (mg/dL) 140 H 204 H 179 H (75-99) mg/dL 06/12/21 06/12/21 Range/Units 01:47 06:55 POC Glucose (mg/dL) 158 H 112 H (75-99) mg/dL Assessment and Plan (1) Hypoglycemia Current Visit: Yes Status: Acute Code(s): E16.2 - HYPOGLYCEMIA, UNSPECIFIED SNOMED Code(s): 440287011 (2) Nausea & vomiting Current Visit: Yes Status: Acute Code(s): R11.2 - NAUSEA WITH VOMITING, UNSPECIFIED SNOMED Code(s): 79757052 Plan: Insulin has been restarted. Blood sugar has been improving. However, chest x-ray shows possible pneumonia versus heart failure. About treatment with BNP. Check CBC and CMP in a.m.
--- NOTE | 2021-06-12 08:23 | XR ---
EXAMINATION TYPE: XR chest 1V portable DATE OF EXAM: 06/12/2021 Comparison: 12/01/2018 Clinical History: 81-year-old female shortness of breath, Findings: The heart is enlarged. Rightward patient rotation alters the normal cardiomediastinal contours. In th e increased interstitial density. Possible small right effusion with right basilar patchy opacity. Impression: 1. Cardiomegaly and interstitial changes. Correlate for CHF with pulmonary vascular congestion. 2. Possible trace right effusion with adjacent atelectasis and/or consolidation.
[2021-06-12 09:24] LABS: Basophils # (A) 0.06 X 10*3/uL (0.00-0.10); Basophils % (A) 0.8 %; Eosinophils % (A) 3.9 %; HCT 36.7 % (37.2-46.3); HGB 11.1 g/dL (12.0-15.0); Lymphocytes # (A) 1.05 X 10*3/uL (0.90-5.00); Lymphocytes % (A) 13.8 %; MCH 29.5 pg (27.0-32.0); MCHC 30.2 g/dL (32.0-37.0); MCV 97.6 fL (80.0-97.0); Mean Platelet Volume 12.4 fL (9.5-12.2); Monocytes # (A) 0.96 X 10*3/uL (0.20-1.00); Monocytes % (A) 12.6 %; Neutrophils # (A) 5.23 X 10*3/uL (1.80-7.70); Neutrophils % (A) 68.6 %; Platelet Count 204 X 10*3/uL (140-440); RBC 3.76 X 10*6/uL (4.10-5.20); RDW 13.8 % (11.5-14.5); WBC 7.62 X 10*3/uL (4.50-10.00)
[2021-06-12] MEDS: AZITHROMYCIN 500 MG TAB PO SCH (09:36)
[2021-06-12] MEDS: PANTOPRAZOLE 40 MG/10 ML VIAL IV SCH (09:36)
[2021-06-12] MEDS: INSULIN ASPART (NovoLOG) 100 UNIT/ML VIAL SQ SCH ×3 (09:37→18:11)
[2021-06-12 10:17] LABS: African American GFR (CKD) 92.9 (60.0-200.0); Anion Gap 3.9 mmol/L (4.00-12.00); BUN/Creat Ratio 22.86 Ratio (12.00-20.00); Calcium 8.4 mg/dL (8.7-10.3); Carbon Dioxide 29.1 mmol/L (21.6-31.8); Non-African American GFR(CKD) 80.1 (60.0-200.0); Phosphorus 3.1 mg/dL (2.4-5.1); Potassium 4.8 mmol/L (3.5-5.5)
[2021-06-12] MEDS: ALBUTEROL NEBULIZED 2.5 MG/3 ML INHALATION SCH ×3 (12:16→19:51)
[2021-06-12 12:22] LABS: Glucose,Whole Blood 152 mg/dL (75-99)
[2021-06-12 17:27] LABS: Glucose,Whole Blood 226 mg/dL (75-99)
[2021-06-12 20:22] LABS: Glucose,Whole Blood 224 mg/dL (75-99)
[2021-06-12] MEDS: INSULIN DETEMIR (LEVEMIR) 100 UNIT/ML SYR SQ SCH (21:06)
[2021-06-13 02:12] LABS: Glucose,Whole Blood 142 mg/dL (75-99)
[2021-06-13 07:08] LABS: Glucose,Whole Blood 163 mg/dL (75-99)
[2021-06-13 07:26] LABS: ALT 12 U/L (4-34); African American GFR (CKD) >90 (>60 ml/min/1.73 sqM); Albumin 3.5 g/dL (3.5-5.0); Anion Gap 8 mmol/L; Blood Urea Nitrogen 22 mg/dL (7-17); Carbon Dioxide 25 mmol/L (22-30); Chloride 105 mmol/L (98-107); Globulin 3.4 g/dL; Glucose 176 mg/dL (74-99); Non-African American GFR(CKD) 81 (>60 ml/min/1.73 sqM); Sodium 138 mmol/L (137-145); Total Bilirubin 0.5 mg/dL (0.2-1.3); Total Protein 6.9 g/dL (6.3-8.2)
[2021-06-13 07:44] LABS: Potassium 5.6 mmol/L (3.5-5.1)
[2021-06-13 07:45] LABS: AST 37 U/L (14-36); Alkaline Phosphatase 97 U/L (38-126)
[2021-06-13] MEDS: INSULIN ASPART (NovoLOG) 100 UNIT/ML VIAL SQ SCH ×3 (08:02→18:04)
[2021-06-13] MEDS: PANTOPRAZOLE 40 MG/10 ML VIAL IV SCH (08:02)
[2021-06-13] MEDS: AZITHROMYCIN 500 MG TAB PO SCH (08:02)
[2021-06-13] MEDS: ALBUTEROL NEBULIZED 2.5 MG/3 ML INHALATION SCH ×4 (08:33→19:10)
[2021-06-13 08:56] LABS: HCT 36.8 % (37.2-46.3); HGB 11.1 g/dL (12.0-15.0); MCH 29.2 pg (27.0-32.0); MCHC 30.2 g/dL (32.0-37.0); MCV 96.8 fL (80.0-97.0); Mean Platelet Volume 12.7 fL (9.5-12.2); Platelet Count 196 X 10*3/uL (140-440); WBC 8.77 X 10*3/uL (4.50-10.00)
[2021-06-13 11:10] LABS: Potassium 4.9 mmol/L (3.5-5.1)
[2021-06-13 12:22] LABS: Glucose,Whole Blood 48 mg/dL (75-99)
--- NOTE | 2021-06-13 12:29 | CONS ---
CONSULTATION CHIEF COMPLAINT: Shortness of breath. HISTORY: This is an 81-year-old lady with history of insulin-requiring diabetes, who presented to the hospital with shortness of breath and dizziness. Was found to be hypoglycemic. A chest x-ray showed pulmonary congestion. Physical exam shows a heart murmur. I have been consulted for heart failure. BNP is elevated at 3180, troponin is mildly elevated at 0.248. I do not have an EKG and I am going to get hold of an EKG on her. PAST MEDICAL HISTORY: Significant for insulin-requiring diabetes. MEDICATIONS: Insulin. ALLERGIES: No known drug allergies. FAMILY HISTORY: Negative for premature coronary artery disease. SOCIAL HISTORY: Negative for current smoking, EtOH abuse, or drug abuse. REVIEW OF SYSTEMS: HEENT: Unremarkable. CARDIAC: As described above. RESPIRATORY: As described above. GI: Negative. ENT: Negative. ALLERGY: Negative. SKIN: Negative. MUSCULOSKELETAL: Arthritis. PSYCHOSOCIAL: Negative. CONSTITUTIONAL: Negative. ONCOLOGICAL: Negative. COSMETIC MANAGER: Negative. Rest of the system review is not relevant. EXAM: Comfortable at rest, afebrile, heart rate is 87 beats per minute. Blood pressure is 108/60 respirations 18. There is no jugular venous distention. Carotid upstroke is diminished. There is no bruit. Chest exam reveals diminished air entry at the bases. I do not hear any crackles or rhonchi. Heart exam reveals first and second heart sounds. Grade 4/6 ejection systolic murmur in the aortic area. Abdomen is soft. Exam of extremities reveals mild edema. Peripheral pulses are felt. ASSESSMENT: 1. Acute onset congestive heart failure probably diastolic. 2. Insulin-requiring diabetes with hypoglycemia, mild troponin elevation probably related to the heart failure. PLAN: I will start the patient on Lasix. Obtain a 2D echo to assess LV function and the aortic stenosis that we have noted clinically. I will decide on further course of action based on the echo findings. MMODL / IJN: [id number] /
[2021-06-13 12:43] LABS: Glucose,Whole Blood 42 mg/dL (75-99)
[2021-06-13] MEDS ORDERED: ASPIRIN 81 MG PO STA (12:46)
[2021-06-13] MEDS ORDERED: DEXTROSE 50% SYRINGE 50 ML IVP STA (12:51)
[2021-06-13 13:10] LABS: Glucose,Whole Blood 59 mg/dL (75-99)
[2021-06-13 13:28] LABS: Glucose,Whole Blood 198 mg/dL (75-99)
--- NOTE | 2021-06-13 13:36 | ECHOF ---
Referral Reason:Rule out heart disease MEASUREMENTS -------- HEIGHT: 152.4 cm WEIGHT: 81.7 kg BP: 108/60 RVIDd: 3.3 cm (< 3.3) IVSd: 1.4 cm (0.6 - 1.1) LVIDd: 4.1 cm (3.9 - 5.3) LVPWd: 1.1 cm (0.6 - 1.1) IVSs: 1.7 cm LVIDs: 3.3 cm LVPWs: 1.8 cm LAESV Index (A-L): 44.94 ml/m Ao Diam: 2.7 cm (2.0 - 3.7) AV Cusp: 1.5 cm (1.5 - 2.6) MV EXCURSION: 12.148 mm (> 18.000) MV EF SLOPE: 56 mm/s (70 - 150) EPSS: 0.9 cm MV E Ryder: 1.32 m/s MV DecT: 156 ms MV A Ryder: 1.24 m/s MV E/A Ratio: 1.07 AV maxP.10 mmHg AV meanP.34 mmHg RAP: 5.00 mmHg RVSP: 46.77 mmHg FINDINGS -------- This was a technically difficult study with suboptimal apical views. The left ventricular size is normal. There is moderate concentric left ventricular hypertrophy. O verall left ventricular systolic function is mildly impaired with, an EF between 45 - 50 %. The right ventricle is mildly enlarged. LA is severely dilated >40 ml/m2 The right atrium was not well visualized. Atempted Lumason, failed IV. Interatrial and interventricular septum intact. There is no evidence of aortic regurgitation. There is severe aortic stenosis present. Peak/mean gradient across the Aortic Valve is 70.10mmHg / 46.34mmHg. Moderate mitral regurgitation is present. Moderate tricuspid regurgitation present. There is moderate pulmonary hypertension. The right keesha tricular systolic pressure, as measured by Doppler, is 46.77mmHg. There is no pulmonic regurgitation present. The aortic root size is normal. IVC Not well visulized. There is no pericardial effusion. CONCLUSIONS -------- 1. The left ventricular size is normal. 2. There is moderate concentric left ventricular hypertrophy. 3. Overall left ventricular systolic function is mildly impaired with, an EF between 45 - 50 %. 4. The right ventricle is mildly enlarged. 5. LA is severely dilated >40 ml/m2 6. There is severe aortic stenosis present. 7. Peak/mean gradient across the Aortic Valve is 70.10mmHg / 46.34mmHg. 8. Moderate mitral regurgitation is present. 9. Moderate tricuspid regurgitation present. 10. There is moderate pulmonary hypertension. 11. The right ventricular systolic pressure, as measured by Doppler, is 46.77mmHg. ZIGZAGGER: Melissa Sim RDCS
[2021-06-13 16:39] LABS: Hemoglobin A1C 5.8 % (4.0-6.0)
[2021-06-13 17:29] LABS: Glucose,Whole Blood 312 mg/dL (75-99)
--- NOTE | 2021-06-13 20:40 | P.PN ---
Subjective This is a pleasant 81 years old female with past medical history of diabetes mellitus, CVA, deep venous thrombosis. Presents because of hypoglycemia, chooses Levemir 12 units daily as well as NovoLog 10 units with breakfast and 8 units with dinner and lunch, however she is developing hypoglycemia especially in the morning, morning her sugar was 40 3 in the AM, so give her D50 and orange juice and her sugar is corrected and 300+. Particular Levemir to 8 units and morning dose of NovoLog from 10 down to 5 mg Also patient noted Some Basal Crepitation and like Edema so Cardiology Team Were Consulted, chest x-ray showing CHF and she was started on oral Lasix by mouth 20 mg daily. Echocardiogram showing severe aortic stenosis with ejection fraction of 45-50%. With increased proBNP 3180. Poor calcitonin is normal at 0.06 and TSH normal at 2.9. Is hemodynamically stable. Hypertension 15.6 rechecked is 4.9 Also we ordered PT/OT. And fluid restriction 1200 mL per day Objective - Vital Signs Vital signs: Vital Signs Temp 97.9 F 06/13/21 08:06 Pulse 87 06/13/21 12:11 Resp 18 06/13/21 08:06 BP 108/60 06/13/21 08:06 Pulse Ox 95 06/13/21 08:06 Intake & Output 06/12/21 06/13/21 06/13/21 18:59 06:59 18:59 Intake Total 490 Balance 490 Intake: IV 50 cefTRIAXone 1 gm In 50 Sodium Chloride 0.9% 50 ml @ 100 mls/hr IVPB Q24HR [facility] Rx#:[id number] Oral 440 Other: Voiding Method Toilet Toilet Toilet # Voids 1 1 1 # Bowel Movements 1 1 - Exam GENERAL: The patient is alert and oriented x3, not in any acute distress. Well developed, well nourished. HEENT: Pupils are round and equally reacting to light. EOMI. No scleral icterus. No conjunctival pallor. Normocephalic, atraumatic. No pharyngeal erythema. No thyromegaly. CARDIOVASCULAR: S1 and S2 present. No murmurs, rubs, or gallops. -PULMONARY: Chest is clear to auscultation, no wheezing . Bilateral basal crepitation ABDOMEN: Soft, nontender, nondistended, normoactive bowel sounds. No palpable organomegaly. MUSCULOSKELETAL: No joint swelling or deformity. -EXTREMITIES: No cyanosis, clubbing,. Bilateral pitting leg edema NEUROLOGICAL: Gross neurological examination did not reveal any focal deficits. SKIN: No rashes. no petechiae. - Labs CBC & Chem 7: 06/13/21 06:09 06/13/21 10:21 Labs: Abnormal Lab Results - Last 24 Hours (Table) 06/12/21 06/12/21 06/13/21 Range/Units 17:25 20:20 02:07 RBC (4.10-5.20) X 10*6/uL Hgb (12.0-15.0) g/dL Hct (37.2-46.3) % MCHC (32.0-37.0) g/dL MPV (9.5-12.2) fL Potassium (3.5-5.1) mmol/L BUN (7-17) mg/dL Glucose (74-99) mg/dL POC Glucose (mg/dL) 226 H 224 H 142 H (75-99) mg/dL AST (14-36) U/L Troponin I (0.000-0.034) ng/mL 06/13/21 06/13/21 06/13/21 Range/Units 06:09 06:09 07:06 RBC 3.80 L (4.10-5.20) X 10*6/uL Hgb 11.1 L (12.0-15.0) g/dL Hct 36.8 L (37.2-46.3) % MCHC 30.2 L (32.0-37.0) g/dL MPV 12.7 H (9.5-12.2) fL Potassium 5.6 H (3.5-5.1) mmol/L BUN 22 H (7-17) mg/dL Glucose 176 H (74-99) mg/dL POC Glucose (mg/dL) 163 H (75-99) mg/dL AST 37 H (14-36) U/L Troponin I (0.000-0.034) ng/mL 06/13/21 06/13/21 06/13/21 Range/Units 10:21 12:21 12:42 RBC (4.10-5.20) X 10*6/uL Hgb (12.0-15.0) g/dL Hct (37.2-46.3) % MCHC (32.0-37.0) g/dL MPV (9.5-12.2) fL Potassium (3.5-5.1) mmol/L BUN (7-17) mg/dL Glucose (74-99) mg/dL POC Glucose (mg/dL) 48 L 42 L (75-99) mg/dL AST (14-36) U/L Troponin I 0.248 H* (0.000-0.034) ng/mL 06/13/21 06/13/21 Range/Units 13:09 13:26 RBC (4.10-5.20) X 10*6/uL Hgb (12.0-15.0) g/dL Hct (37.2-46.3) % MCHC (32.0-37.0) g/dL MPV (9.5-12.2) fL Potassium (3.5-5.1) mmol/L BUN (7-17) mg/dL Glucose (74-99) mg/dL POC Glucose (mg/dL) 59 L 198 H (75-99) mg/dL AST (14-36) U/L Troponin I (0.000-0.034) ng/mL Assessment and Plan Assessment: Diabetes mellitus with hyperglycemia, 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 Continue same treatment. Continue with symptomatic treatment. Resume home medication. Monitor lytes and vitals. DVT and GI prophylaxis. Further recommendations as per clinical course of the patient DVT prophylaxis: Subcutaneous heparin GI Prophylaxis: Pepcid PT/OT: Pending Prognosis is guarded
[2021-06-13 21:06] LABS: Glucose,Whole Blood 210 mg/dL (75-99)
[2021-06-13] MEDS: FUROSEMIDE 20 MG TAB PO SCH (21:10)
[2021-06-13] MEDS: HEPARIN SODIUM,PORCINE/PF 5,000 UNIT/0.5 ML SYRINGE SQ SCH (21:10)
[2021-06-13] MEDS: INSULIN DETEMIR (LEVEMIR) 100 UNIT/ML SYR SQ SCH (21:10)
[2021-06-14 01:54] LABS: Glucose,Whole Blood 170 mg/dL (75-99)
[2021-06-14 06:11] LABS: Basophils % (A) 0 %; Eosinophils # (A) 0.2 k/uL (0-0.7); Eosinophils % (A) 2 %; HCT 37.5 % (34.0-46.0); HGB 11.9 gm/dL (11.4-16.0); Hypochromasia Moderate; Lymphocytes # (A) 0.7 k/uL (1.0-4.8); Lymphocytes % (A) 9 %; MCH 30.5 pg (25.0-35.0); MCHC 31.8 g/dL (31.0-37.0); Mean Platelet Volume 10.4; Monocytes # (A) 0.7 k/uL (0-1.0); Monocytes % (A) 8 %; Neutrophils # (A) 6.5 k/uL (1.3-7.7); Neutrophils % (A) 78 %; Platelet Count 180 k/uL (150-450); RDW 13.6 % (11.5-15.5); WBC 8.4 k/uL (3.8-10.6)
[2021-06-14 06:29] LABS: MCV 96.1 fL (80.0-100.0)
[2021-06-14 06:44] LABS: African American GFR (CKD) >90 (>60 ml/min/1.73 sqM); Anion Gap 6 mmol/L; Blood Urea Nitrogen 18 mg/dL (7-17); Calcium 9.3 mg/dL (8.4-10.2); Carbon Dioxide 28 mmol/L (22-30); Chloride 103 mmol/L (98-107); Glucose 164 mg/dL (74-99); Magnesium 2.2 mg/dL (1.6-2.3); Non-African American GFR(CKD) 86 (>60 ml/min/1.73 sqM); Potassium 5.4 mmol/L (3.5-5.1); Sodium 137 mmol/L (137-145)
[2021-06-14 07:26] LABS: Glucose,Whole Blood 147 mg/dL (75-99)
[2021-06-14] MEDS: FUROSEMIDE 20 MG TAB PO SCH (07:28)
[2021-06-14] MEDS: PANTOPRAZOLE 40 MG/10 ML VIAL IV SCH (07:28)
[2021-06-14] MEDS: INSULIN ASPART (NovoLOG) 100 UNIT/ML VIAL SQ SCH ×3 (07:29→17:25)
[2021-06-14] MEDS: HEPARIN SODIUM,PORCINE/PF 5,000 UNIT/0.5 ML SYRINGE SQ SCH ×2 (07:29→21:03)
[2021-06-14] MEDS: AZITHROMYCIN 500 MG TAB PO SCH (07:32)
[2021-06-14] MEDS: ALBUTEROL NEBULIZED 2.5 MG/3 ML INHALATION SCH ×4 (07:51→20:33)
--- NOTE | 2021-06-14 11:38 | P.PN ---
Subjective Progress Note Date: 06/14/21 This pleasant 81-year-old female patient with a history of diabetes. Presented to the emergency department with shortness of breath and dizziness and was found to be hypoglycemic. Chest x-ray showed pulmonary congestion and her BNP was elevated. We were consulted for congestive heart failure. On physical exam she was noted to have a heart murmur which has not previously been diagnosed. Echocardiogram with Doppler study showed mildly impaired LV systolic function with an ejection fraction between 45-50%, mildly enlarged RV, severely dilated LA, and severe aortic stenosis with a peak gradient of 70 mmHg and a mean gradient of 46 mmHg, moderate MR, moderate pulmonary hypertension and moderate TR. She has not previously been diagnosed with aortic stenosis. Her vital signs have been stable. She's been initiated on the small dose of oral Lasix. She's had some improvement in her breathing. She denies any shortness of breath this time but when talking to the patient she does appear somewhat labored. Objective - Vital Signs Vital signs: Vital Signs Temp 97.7 F 06/14/21 08:02 Pulse 95 06/14/21 08:02 Resp 18 06/14/21 08:02 BP 135/76 06/14/21 08:02 Pulse Ox 94 L 06/14/21 07:52 Intake & Output 06/13/21 06/14/21 06/14/21 18:59 06:59 18:59 Other: Voiding Method Toilet Toilet Toilet # Voids 3 1 - Exam PHYSICAL EXAMINATION: HEENT: Head is atraumatic, normocephalic. Pupils equal, round. Neck is supple. There is no elevated jugular venous pressure. HEART EXAMINATION: Heart sounds regular, S1 and S2 normal. Grade 3/6 systolic ejection murmur murmur at the base radiating to the neck. CHEST EXAMINATION: Reveal diminished air entry bilaterally with faint bibasilar crackles. No chest wall tenderness is noted on palpation or with deep breathing. ABDOMEN: Soft, obese, nontender. Bowel sounds are heard. No organomegaly noted. EXTREMITIES: 2+ peripheral pulses with no evidence of peripheral edema and no calf tenderness noted. NEUROLOGIC patient is awake, alert and oriented x3. . - Labs CBC & Chem 7: 06/14/21 05:40 06/14/21 05:40 Labs: Abnormal Lab Results - Last 24 Hours (Table) 06/13/21 06/13/21 06/13/21 Range/Units 10:21 12:21 12:42 Lymphocytes # (1.0-4.8) k/uL Potassium (3.5-5.1) mmol/L BUN (7-17) mg/dL Glucose (74-99) mg/dL POC Glucose (mg/dL) 48 L 42 L (75-99) mg/dL Troponin I 0.248 H* (0.000-0.034) ng/mL 06/13/21 06/13/21 06/13/21 Range/Units 13:09 13:26 17:29 Lymphocytes # (1.0-4.8) k/uL Potassium (3.5-5.1) mmol/L BUN (7-17) mg/dL Glucose (74-99) mg/dL POC Glucose (mg/dL) 59 L 198 H 312 H (75-99) mg/dL Troponin I (0.000-0.034) ng/mL 06/13/21 06/14/21 06/14/21 Range/Units 20:59 01:52 05:40 Lymphocytes # 0.7 L (1.0-4.8) k/uL Potassium (3.5-5.1) mmol/L BUN (7-17) mg/dL Glucose (74-99) mg/dL POC Glucose (mg/dL) 210 H 170 H (75-99) mg/dL Troponin I (0.000-0.034) ng/mL 06/14/21 06/14/21 Range/Units 05:40 07:01 Lymphocytes # (1.0-4.8) k/uL Potassium 5.4 H (3.5-5.1) mmol/L BUN 18 H (7-17) mg/dL Glucose 164 H (74-99) mg/dL POC Glucose (mg/dL) 147 H (75-99) mg/dL Troponin I (0.000-0.034) ng/mL Assessment and Plan Assessment: #1 acute diastolic congestive heart failure #2 severe aortic stenosis #3 diabetes mellitus Plan: 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 The patient would like to discuss this with family before making her decision. We will keep her nothing by mouth after midnight for BELKYS to be possibly be done tomorrow. Further recommendations to follow. The above dictated assessment and findings were discussed with signing physician. The impression and plan of care have been directed as dictated. Nasreen Manley, Nurse Practitioner, acting as scribe for signing physician.
[2021-06-14 12:09] LABS: Glucose,Whole Blood 103 mg/dL (75-99)
[2021-06-14 17:05] LABS: Glucose,Whole Blood 194 mg/dL (75-99)
[2021-06-14 20:23] LABS: Glucose,Whole Blood 130 mg/dL (75-99)
[2021-06-14] MEDS: INSULIN DETEMIR (LEVEMIR) 100 UNIT/ML SYR SQ SCH (21:04)
[2021-06-15 01:43] LABS: Glucose,Whole Blood 209 mg/dL (75-99)
[2021-06-15 07:13] LABS: Glucose,Whole Blood 144 mg/dL (75-99)
[2021-06-15] MEDS: PANTOPRAZOLE 40 MG/10 ML VIAL IV SCH (07:58)
--- NOTE | 2021-06-15 08:21 | P.PN ---
Subjective Principal diagnosis: This is an 81-year-old female essentially meant for hypoglycemia found to have heart failure. No significant constipation otherwise stated. Echocardiogram showed aortic stenosis. She is scheduled for BELKYS today. She is resting comfortably. I had a long discussion with her family and she is moving in with her son because of her debility. She seems lucid and calm. No significant new complaints. No voiding difficulties otherwise stated. Objective - Vital Signs Vital signs: Vital Signs Temp 97.6 F 06/15/21 07:00 Pulse 89 06/15/21 07:00 Resp 16 06/15/21 07:00 BP 126/69 06/15/21 07:00 Pulse Ox 92 L 06/15/21 07:00 Intake & Output 06/14/21 06/15/21 06/15/21 18:59 06:59 18:59 Other: Voiding Method Toilet Toilet # Voids 3 1 - Constitutional General appearance: Present: morbidly obese, obese - EENT Eyes: Absent: abnormal pupil - Neck Neck: Absent: lymphadenopathy - Respiratory Respiratory: bilateral: diminished - Cardiovascular Rhythm: regular Heart sounds: normal: S1, S2 Abnormal Heart Sounds: Present: systolic murmur. Absent: S3 Gallop - Gastrointestinal General gastrointestinal: Present: soft. Absent: tenderness - Psychiatric Psychiatric: Present: A&O x's 3 - Labs CBC & Chem 7: 06/14/21 05:40 06/14/21 05:40 Labs: Abnormal Lab Results - Last 24 Hours (Table) 06/14/21 06/14/21 06/14/21 Range/Units 12:08 17:03 20:19 POC Glucose (mg/dL) 103 H 194 H 130 H (75-99) mg/dL 06/15/21 06/15/21 Range/Units 01:41 07:05 POC Glucose (mg/dL) 209 H 144 H (75-99) mg/dL Assessment and Plan (1) Hypoglycemia Current Visit: Yes Status: Acute Code(s): E16.2 - HYPOGLYCEMIA, UNSPECIFIED SNOMED Code(s): 717819444 (2) Nausea & vomiting Current Visit: Yes Status: Acute Code(s): R11.2 - NAUSEA WITH VOMITING, UNSPECIFIED SNOMED Code(s): 52263851 Plan: Hypoglycemia is resolving. Diastolic congestive heart failure with aortic stenosis has been diagnosed. Transesophageal echocardiogram will be done today. We'll continue to follow. Time with Patient: Greater than 30
[2021-06-15] MEDS ORDERED: ALPRAZolam 0.25 MG TAB PO PRN (08:58)
[2021-06-15] MEDS ORDERED: ALPRAZolam 0.5 MG TAB PO PRN (08:58)
[2021-06-15] MEDS ORDERED: ATORVASTATIN 80 MG TAB PO STA (08:58)
[2021-06-15] MEDS ORDERED: NITROGLYCERIN SL TABS 0.4 MG TAB SUBLINGUAL PRN (08:58)
[2021-06-15] MEDS ORDERED: ASPIRIN 325 MG TAB PO STA (08:58)
[2021-06-15] MEDS ORDERED: SODIUM CHLORIDE 0.9% 1,000 ML in EMPTY BAG 1 BAG IV ONE ×2 (08:58→23:59)
[2021-06-15 09:24] LABS: African American GFR (CKD) >90 (>60 ml/min/1.73 sqM); Anion Gap 7 mmol/L; Blood Urea Nitrogen 18 mg/dL (7-17); Calcium 9.3 mg/dL (8.4-10.2); Carbon Dioxide 29 mmol/L (22-30); Chloride 102 mmol/L (98-107); Glucose 149 mg/dL (74-99); Non-African American GFR(CKD) 84 (>60 ml/min/1.73 sqM); Potassium 5.2 mmol/L (3.5-5.1); Sodium 138 mmol/L (137-145)
[2021-06-15] MEDS: ALBUTEROL NEBULIZED 2.5 MG/3 ML INHALATION SCH ×4 (09:30→19:20)
--- NOTE | 2021-06-15 09:39 | P.PN ---
Subjective This is a pleasant 81 years old female with past medical history of diabetes mellitus, CVA, deep venous thrombosis. Presents because of hypoglycemia, chooses Levemir 12 units daily as well as NovoLog 10 units with breakfast and 8 units with dinner and lunch, however she is developing hypoglycemia especially in the morning, morning her sugar was 40 3 in the AM, so give her D50 and orange juice and her sugar is corrected and 300+. Particular Levemir to 8 units and morning dose of NovoLog from 10 down to 5 mg Also patient noted Some Basal Crepitation and like Edema so Cardiology Team Were Consulted, chest x-ray showing CHF and she was started on oral Lasix by mouth 20 mg daily. Echocardiogram showing severe aortic stenosis with ejection fraction of 45-50%. With increased proBNP 3180. Poor calcitonin is normal at 0.06 and TSH normal at 2.9. Is hemodynamically stable. Hypertension 15.6 rechecked is 4.9 Also we ordered PT/OT. And fluid restriction 1200 mL per day 06/14/2021 Patient today admits with some difficulty when walking because of her dyspnea. She has basal crepitation and leg edema and systolic murmur in the aortic area Echocardiogram showed severe aortic stenosis with combined systolic and diastolic dysfunction with ejection fraction of 40-50%. Also she has moderate mitral regurgitation and tricuspid regurgitation Her sugar is better controlled after on her Levemir 8 units and morning dose of NovoLog 10 down to 5 units Objective - Vital Signs Vital signs: Vital Signs Temp 97.7 F 06/14/21 08:02 Pulse 95 06/14/21 11:33 Resp 18 06/14/21 11:33 BP 135/76 06/14/21 08:02 Pulse Ox 94 L 06/14/21 07:52 Intake & Output 06/13/21 06/14/21 06/14/21 18:59 06:59 18:59 Other: Voiding Method Toilet Toilet Toilet # Voids 3 1 3 - Exam GENERAL: The patient is alert and oriented x3, not in any acute distress. Well developed, well nourished. HEENT: Pupils are round and equally reacting to light. EOMI. No scleral icterus. No conjunctival pallor. Normocephalic, atraumatic. No pharyngeal erythema. No thyromegaly. CARDIOVASCULAR: S1 and S2 present. No murmurs, rubs, or gallops. -PULMONARY: Chest is clear to auscultation, no wheezing . Bilateral basal crepitation ABDOMEN: Soft, nontender, nondistended, normoactive bowel sounds. No palpable organomegaly. MUSCULOSKELETAL: No joint swelling or deformity. -EXTREMITIES: No cyanosis, clubbing,. Bilateral pitting leg edema NEUROLOGICAL: Gross neurological examination did not reveal any focal deficits. SKIN: No rashes. no petechiae. - Labs CBC & Chem 7: 06/14/21 05:40 06/15/21 08:27 Labs: Abnormal Lab Results - Last 24 Hours (Table) 06/13/21 06/13/21 06/13/21 Range/Units 10:21 12:21 12:42 Lymphocytes # (1.0-4.8) k/uL Potassium (3.5-5.1) mmol/L BUN (7-17) mg/dL Glucose (74-99) mg/dL POC Glucose (mg/dL) 48 L 42 L (75-99) mg/dL Troponin I 0.248 H* (0.000-0.034) ng/mL 06/13/21 06/13/21 06/13/21 Range/Units 13:09 13:26 17:29 Lymphocytes # (1.0-4.8) k/uL Potassium (3.5-5.1) mmol/L BUN (7-17) mg/dL Glucose (74-99) mg/dL POC Glucose (mg/dL) 59 L 198 H 312 H (75-99) mg/dL Troponin I (0.000-0.034) ng/mL 06/13/21 06/14/21 06/14/21 Range/Units 20:59 01:52 05:40 Lymphocytes # 0.7 L (1.0-4.8) k/uL Potassium (3.5-5.1) mmol/L BUN (7-17) mg/dL Glucose (74-99) mg/dL POC Glucose (mg/dL) 210 H 170 H (75-99) mg/dL Troponin I (0.000-0.034) ng/mL 06/14/21 06/14/21 Range/Units 05:40 07:01 Lymphocytes # (1.0-4.8) k/uL Potassium 5.4 H (3.5-5.1) mmol/L BUN 18 H (7-17) mg/dL Glucose 164 H (74-99) mg/dL POC Glucose (mg/dL) 147 H (75-99) mg/dL Troponin I (0.000-0.034) ng/mL Assessment and Plan Assessment: Severe aortic stenosis Acute on chronic combined systolic and diastolic dysfunction with ejection fraction 45-50% Diabetes mellitus with hyperglycemia, resolved Mitral regurgitation and tricuspid regurgitation Pulmonary hypertension Mildly elevated troponin is a due to and CHF Plan: This is a pleasant 81 years old female who presents with hyperglycemia and CHF Continue with oral Lasix Follow-up with inspector bullet slugs regarding further recommendation for her aortic stenosis . Cardiology is recommending BELKYS Lower dose of Levemir to 8 units and morning dose of NovoLog to 5 units and monitor glucose discontinue ceftriaxone as there is no fever, no leukocytosis, no evidence of infection Labs and medication were reviewed.. Continue same treatment. Continue with symptomatic treatment. Resume home medication. Monitor lytes and vitals. DVT and GI prophylaxis. Further recommendations as per clinical course of the patient DVT prophylaxis: Subcutaneous heparin GI Prophylaxis: Pepcid PT/OT: Pending Prognosis is guarded
--- NOTE | 2021-06-15 09:50 | P.PN ---
Subjective This is a pleasant 81-year-old female past medical history significant for diabetes mellitus. She is seen and examined sitting up from a recliner chair with daughter at the bedside. She denies symptoms of shortness of breath, chest pain, dizziness or palpitations. Blood pressure 126/69 heart rate 89 afebrile maintaining oxygen saturation on nasal cannula. Laboratory data reviewed, sodium 138, potassium 5.2, creatinine 0.62. Currently maintained on aspirin 81 mg daily and Lasix 20 mg by mouth daily. GENERAL: Well-appearing, well-nourished and in no acute distress. NECK: Supple without JVD or thyromegaly. LUNGS: Breath sounds clear to auscultation bilaterally. Respiration equal and unlabored. No wheezes, rales or rhonchi. HEART: Regular rate and rhythm with systolic ejection murmur at the base, no rubs or gallops. S1 and S2 heard. EXTREMITIES: Normal range of motion, no edema. No clubbing or cyanosis. Peripheral pulses intact. ASSESSMENT Acute diastolic heart failure Severe aortic stenosis Troponin leak, likely related to Diabetes mellitus Obesity, BMI 35 PLAN Repeat troponin level to assess trend. Check baseline lipid panel. Initiate atorvastatin 40 mg daily. She will be set-up for BELKYS and left heart catheterization tomorrow with Dr. Stratton. I have discussed the risks, benefits and alternative therapies for the above- mentioned procedure and for both sedation/analgesia as well as necessary blood product administration, if indicated, as they pertain to this patient. The patient has indicated understanding and acceptance of the risks and procedures discussed. Questions have been answered appropriately to the patient and her daughter. She is agreeable to move forward with the above stated procedure. Further recommendations to follow based upon clinical course. Nurse Practitioner note has been reviewed, I agree with a documented findings and plan of care. Patient was seen and examined. Objective - Vital Signs Vital signs: Vital Signs Temp 97.6 F 06/15/21 07:00 Pulse 89 06/15/21 07:00 Resp 16 06/15/21 08:00 BP 126/69 06/15/21 07:00 Pulse Ox 92 L 06/15/21 07:00 Intake & Output 06/14/21 06/15/21 06/15/21 18:59 06:59 18:59 Other: Voiding Method Toilet Toilet # Voids 3 1 - Labs CBC & Chem 7: 06/14/21 05:40 06/15/21 08:27 Labs: Abnormal Lab Results - Last 24 Hours (Table) 06/14/21 06/14/21 06/14/21 Range/Units 12:08 17:03 20:19 Potassium (3.5-5.1) mmol/L BUN (7-17) mg/dL Glucose (74-99) mg/dL POC Glucose (mg/dL) 103 H 194 H 130 H (75-99) mg/dL 06/15/21 06/15/21 06/15/21 Range/Units 01:41 07:05 08:27 Potassium 5.2 H (3.5-5.1) mmol/L BUN 18 H (7-17) mg/dL Glucose 149 H (74-99) mg/dL POC Glucose (mg/dL) 209 H 144 H (75-99) mg/dL
[2021-06-15] MEDS: HEPARIN SODIUM,PORCINE/PF 5,000 UNIT/0.5 ML SYRINGE SQ SCH ×2 (10:47→21:23)
[2021-06-15] MEDS: INSULIN ASPART (NovoLOG) 100 UNIT/ML VIAL SQ SCH ×4 (10:48→21:23)
[2021-06-15] MEDS: ATORVASTATIN 40 MG TAB PO SCH (10:48)
[2021-06-15] MEDS: FUROSEMIDE 20 MG TAB PO SCH (10:48)
[2021-06-15] MEDS: ASPIRIN 81 MG PO SCH (10:48)
[2021-06-15] MEDS: AZITHROMYCIN 500 MG TAB PO SCH (10:48)
[2021-06-15 12:07] LABS: Glucose,Whole Blood 163 mg/dL (75-99)
[2021-06-15 16:39] LABS: Chol/HDL Ratio 2.09; Cholesterol 134 mg/dL (0-200)
[2021-06-15 16:43] LABS: Glucose,Whole Blood 29 mg/dL (75-99)
[2021-06-15 16:43] LABS: Glucose,Whole Blood 28 mg/dL (75-99)
[2021-06-15] MEDS ORDERED: DEXTROSE 50% SYRINGE 50 ML IVP ONE (16:43)
[2021-06-15] MEDS ORDERED: DEXTROSE 50% SYRINGE 50 ML IVP STA (16:55)
[2021-06-15 17:03] LABS: Glucose,Whole Blood 151 mg/dL (75-99)
[2021-06-15 20:23] LABS: Glucose,Whole Blood 183 mg/dL (75-99)
[2021-06-16 01:15] LABS: Glucose,Whole Blood 221 mg/dL (75-99)
[2021-06-16] MEDS ORDERED: ASPIRIN 325 MG TAB PO ONE (06:00)
[2021-06-16] MEDS ORDERED: ATORVASTATIN 80 MG TAB PO ONE (06:00)
[2021-06-16 06:13] LABS: Glucose,Whole Blood 174 mg/dL (75-99)
[2021-06-16] MEDS: INSULIN ASPART (NovoLOG) 100 UNIT/ML VIAL SQ SCH ×5 (06:27→21:11)
[2021-06-16] MEDS ORDERED: HEPARIN SODIUM,PORCINE 2,500 UNIT in SODIUM CHLORIDE 0.9% 250 ML IRRIGATION PRN (07:00)
[2021-06-16] MEDS ORDERED: HEPARIN SODIUM,PORCINE 10,000 UNIT in SODIUM CHLORIDE 0.9% 1,000 ML IRRIGATION PRN (07:00)
--- NOTE | 2021-06-16 07:44 | P.PN ---
Subjective Principal diagnosis: This is an 81-year-old female essentially meant for hypoglycemia found to have heart failure. No significant constipation otherwise stated. Echocardiogram showed aortic stenosis. She is scheduled for BELKYS today. She is resting comfortably. I had a long discussion with her family and she is moving in with her son because of her debility. She seems lucid and calm. No significant new complaints. No voiding difficulties otherwise stated. Element of hypoglycemia episode yesterday. We will titrate basal insulin to see how she does. No fever or chills. Voiding difficulties. Patient states that she is an voiding to the bathroom appropriately Objective - Vital Signs Vital signs: Vital Signs Temp 97.8 F 06/15/21 20:00 Pulse 97 06/16/21 02:00 Resp 20 06/16/21 02:00 BP 128/74 06/16/21 02:00 Pulse Ox 95 06/16/21 02:00 Intake & Output 06/15/21 06/16/21 06/16/21 18:59 06:59 18:59 Weight 97.6 kg Other: # Voids 2 1 - Constitutional General appearance: Present: obese - EENT Eyes: Absent: abnormal pupil - Neck Neck: Absent: lymphadenopathy - Cardiovascular Rhythm: regular Heart sounds: abnormal: S1, S2 Abnormal Heart Sounds: Absent: S3 Gallop - Gastrointestinal General gastrointestinal: Present: soft. Absent: tenderness - Psychiatric Psychiatric: Present: A&O x's 3 - Labs CBC & Chem 7: 06/14/21 05:40 06/15/21 08:27 Labs: Abnormal Lab Results - Last 24 Hours (Table) 06/15/21 06/15/21 06/15/21 Range/Units 08:27 08:27 11:54 Potassium 5.2 H (3.5-5.1) mmol/L BUN 18 H (7-17) mg/dL Glucose 149 H (74-99) mg/dL POC Glucose (mg/dL) 163 H (75-99) mg/dL Troponin I 0.690 H* (0.000-0.034) ng/mL HDL Cholesterol 64.0 H (40.0-60.0) mg/dL 06/15/21 06/15/21 06/15/21 Range/Units 16:40 16:41 16:54 Potassium (3.5-5.1) mmol/L BUN (7-17) mg/dL Glucose (74-99) mg/dL POC Glucose (mg/dL) 29 L 28 L 151 H (75-99) mg/dL Troponin I (0.000-0.034) ng/mL HDL Cholesterol (40.0-60.0) mg/dL 06/15/21 06/16/21 06/16/21 Range/Units 20:21 01:13 06:11 Potassium (3.5-5.1) mmol/L BUN (7-17) mg/dL Glucose (74-99) mg/dL POC Glucose (mg/dL) 183 H 221 H 174 H (75-99) mg/dL Troponin I (0.000-0.034) ng/mL HDL Cholesterol (40.0-60.0) mg/dL Assessment and Plan (1) Hypoglycemia Current Visit: Yes Status: Acute Code(s): E16.2 - HYPOGLYCEMIA, UNSPECIFIED SNOMED Code(s): 067833316 (2) Nausea & vomiting Current Visit: Yes Status: Acute Code(s): R11.2 - NAUSEA WITH VOMITING, UNSPECIFIED SNOMED Code(s): 05630475 Plan: Hypoglycemia episode is noted. Down titrate insulin. Diastolic congestive heart failure with aortic stenosis has been diagnosed. Transesophageal echocardiogram will be done today. With cardiac catheterization. We'll continue to follow.
[2021-06-16] MEDS: ASPIRIN 81 MG PO SCH (08:00)
[2021-06-16] MEDS: ATORVASTATIN 40 MG TAB PO SCH (08:00)
[2021-06-16 08:36] LABS: Glucose,Whole Blood 228 mg/dL (75-99)
[2021-06-16] MEDS: ALBUTEROL NEBULIZED 2.5 MG/3 ML INHALATION SCH ×4 (08:38→20:20)
[2021-06-16] MEDS: FUROSEMIDE 20 MG TAB PO SCH (09:00)
[2021-06-16] MEDS: HEPARIN SODIUM,PORCINE/PF 5,000 UNIT/0.5 ML SYRINGE SQ SCH ×2 (09:07→21:11)
[2021-06-16] MEDS: PANTOPRAZOLE 40 MG/10 ML VIAL IV SCH (09:08)
[2021-06-16] MEDS ORDERED: fentaNYL (PF) 50 MCG/ML 2 ML AMP ONE (09:51)
[2021-06-16] MEDS ORDERED: SODIUM CHLORIDE 0.9% 500 ML 500 ML IV ONE (10:30)
[2021-06-16] MEDS ORDERED: BENZOCAINE SPRAY 1 CAN MUCOUS MEM ONE (10:38)
[2021-06-16] MEDS ORDERED: fentaNYL (PF) 50 MCG/ML 2 ML AMP IV ONE (10:41)
[2021-06-16] MEDS ORDERED: MIDAZOLAM 2 MG/2 ML VIAL IV ONE (10:42)
[2021-06-16] MEDS ORDERED: LIDOCAINE 1% INJ 10MG/ML (20 ML MDV) SQ ONE (11:27)
[2021-06-16] MEDS ORDERED: IOPAMIDOL-370 125ML BTL INJ ONE ×2 (11:46)
[2021-06-16] MEDS ORDERED: IOPAMIDOL-370 50ML BTL INJ ONE (11:47)
[2021-06-16] MEDS ORDERED: IV FLUID CONTINUATION 450 ML IV ONE (11:48)
[2021-06-16] MEDS ORDERED: HEPARIN SODIUM 1,000 UN/ML (10ML VL) ONE (11:56)
[2021-06-16] MEDS ORDERED: HEPARIN SODIUM 1,000 UN/ML (10ML VL) IV ONE (11:58)
--- NOTE | 2021-06-16 12:54 | P.CARDCATH ---
Description of Procedure: PROCEDURES PERFORMED: Left coronary angiography, iFR of LAD INDICATION: Non-STEMI, congestive heart failure, severe aortic stenosis HISTORY: Patient is a pleasant 81-year-old female who presented with shortness breath and was found to be in heart failure. She had mildly elevated troponins as well as echo showing severe aortic stenosis. She had a diagnostic heart catheterization performed by Dr. Stratton earlier today showing moderate to severe LAD disease and therefore recommendations were to perform iFR to further evaluate degree of stenosis. CONSENT:I have discussed the risks, benefits and alternative therapies for the above-mentioned procedure and for both sedation/analgesia as well as necessary blood product administration, if indicated, as they pertain to this patient. The patient has indicated understanding and acceptance of the risks and procedures discussed. PROCEDURE: After the risks, benefits and alternatives of the above mentioned procedure explained in detail with the patient, informed consent was obtained. Patient had already been taken to the catheterization lab and prepped and draped in usual fashion. A 6-American right femoral sheath had artery in place. Heparin was given. A 6- American CLS 3.0 guide catheter was inserted in the left main. A 0.014 pressure wire was advanced in the left main and normalized. The wire was advanced into the mid LAD approximately 1 cm distal to the LAD lesion. iFR measurements were performed and were abnormal at 0.69. The guide and wire were then removed. Right femoral angiography revealed anatomy somewhat unsuitable for closure and therefore the sheath was pulled and manual pressure was held with hemostasis achieved. The patient tolerated the procedure well. Patient was transported back to the post catheterization holding area in stable condition. Conscious Sedation: Patient was monitored under the direct supervision of vision of myself for conscious sedation using Versed and fentanyl for a total duration of 16 minutes FINAL IMPRESSION: 1. Abnormal iFR of heavily calcified proximal LAD at 0.69 2. Severe aortic stenosis PLAN: 1. Aggressive risk factor modification per most recent ACC/AHA guidelines. 2. Discussed case with primary supervisor opening and picking, Dr. Stratton. LAD is significant however most of symptoms appear heart failure related. Would advise multidisciplinary evaluation by structural heart team, cardiothoracic surgeons for best options regarding aortic valve replacement. May consider medical treatment of LAD however further recommendations pending valve replacement workup.
[2021-06-16] MEDS ORDERED: ATROPINE SULFATE 0.1 MG/ML 10ML SYRINGE ONE (13:31)
[2021-06-16 13:33] LABS: Glucose,Whole Blood 208 mg/dL (75-99)
--- NOTE | 2021-06-16 14:50 | ECHOT ---
TRANSESOPHAGEAL ECHOCARDIOGRAM PERFORMING PHYSICIAN: Ace Stratton M.D. INDICATIONS: Aortic stenosis. This is an 81-year-old lady who presented to the hospital with new onset heart failure and had severe aortic stenosis and a 2D echo and was advised to undergo transesophageal echo for further evaluation. She has been explained the risks, benefits and alternatives. PROCEDURE NOTE: After obtaining informed consent, transesophageal echocardiogram was performed in left lateral position using an Omniplane probe. Local and IV sedation were obtained using xylocaine spray, 1 mg of Versed and 50 mcg of fentanyl. The patient tolerated the procedure well without any obvious immediate complications. 2D color, M-mode and Doppler evaluation was performed. FINDINGS: 1. Aortic valve is a 3-leaflet valve, appears heavily calcified and shows severe restriction in leaflet mobility with a by planimetry the valve area is 0.73 cm. There is no aortic regurgitation noted. Aortic root measures within normal limits. 2. Mitral valve shows mitral annular calcification with mild mitral regurgitation. 3. Tricuspid valve shows moderate tricuspid regurgitation with moderate to severe pulmonary hypertension. 4. Left atrium appears mildly enlarged. 5. Right atrium and right ventricle seen within normal limits. 6. Left ventricle has normal size and systolic function. 7. ( ) shows [id number] atherosclerotic changes. 8. Interatrial septum: There is no evidence of plha-ct-uljgy shunt by color-flow Doppler and xlhdr-yb-[id number] shunt by agitated saline contrast study. CONCLUSION: Severe aortic stenosis involving a 3-leaflet valve that is heavily calcified and shows severe restriction in leaflet mobility. PLAN: 1. Patient will undergo cardiac catheterization and referred for possible TAVR. MMODL / IJN: [id number] /
--- NOTE | 2021-06-16 15:24 | CC ---
CARDIAC CATHETERIZATION REPORT INDICATIONS: 1. Severe aortic stenosis. 2. Non ST-segment elevation HI. PROCEDURE NOTE: After obtaining informed consent, left heart catheterization, coronary angiogram are performed via right femoral artery using standard Yvonne catheters. The patient tolerated the procedure well without any obvious immediate complications. A femoral angiogram was performed and Angio-Seal will be deployed. Femoral artery is quite calcified. The patient received moderate conscious sedation. Total sedation time was 20 minutes. FINDINGS: 1. Hemodynamics: Central aortic pressure is 138/70 mm. 2. Left ventriculogram: Left ventriculogram was not performed. 3. Aortogram: Aortogram was performed to assess the aortic root. She does not have aortic aneurysm or significant aortic regurgitation. ANGIOGRAPHIC DATA: Left main coronary artery: Left main coronary artery appears calcified but is free of significant stenosis. Divides into left anterior descending coronary artery and circumflex coronary artery. Circumflex coronary artery is a nondominant vessel and is free of significant disease. The LAD appears heavily calcified and shows moderate to severe stenosis in the proximal to midportion. Right coronary artery is a dominant vessel that appears calcified with a moderate area of stenosis involving the mid RCA with catheter induced spasm at the ostium. CONCLUSIONS: 1. Severe aortic stenosis by transesophageal echo. 2. Normal aortogram. 3. Moderate to severe stenosis involving the LAD and right coronary artery. PLAN: I reviewed angiographic data with Dr. Harris, the on-call tire stripper, who will perform an FFR of the LAD and decide on further course of action. The patient given her advanced probably should undergo TAVR and we can consider catheter based revascularization of the LAD if necessary. MMODL / IJN: [id number] /
[2021-06-16 17:17] LABS: Glucose,Whole Blood 186 mg/dL (75-99)
[2021-06-16 20:25] LABS: Glucose,Whole Blood 187 mg/dL (75-99)
[2021-06-17 01:54] LABS: Glucose,Whole Blood 214 mg/dL (75-99)
[2021-06-17 06:06] LABS: Glucose,Whole Blood 232 mg/dL (75-99)
[2021-06-17] MEDS: INSULIN ASPART (NovoLOG) 100 UNIT/ML VIAL SQ SCH ×4 (06:31→20:50)
[2021-06-17 07:53] LABS: ALT 12 U/L (4-34); AST 24 U/L (14-36); African American GFR (CKD) >90 (>60 ml/min/1.73 sqM); Albumin 3.3 g/dL (3.5-5.0); Alkaline Phosphatase 107 U/L (38-126); Anion Gap 6 mmol/L; Blood Urea Nitrogen 18 mg/dL (7-17); Calcium 8.8 mg/dL (8.4-10.2); Carbon Dioxide 28 mmol/L (22-30); Chloride 103 mmol/L (98-107); Glucose 228 mg/dL (74-99); Non-African American GFR(CKD) 87 (>60 ml/min/1.73 sqM); Potassium 5.1 mmol/L (3.5-5.1); Sodium 137 mmol/L (137-145); Total Bilirubin 0.7 mg/dL (0.2-1.3); Total Protein 6.5 g/dL (6.3-8.2)
--- NOTE | 2021-06-17 08:05 | P.PN ---
Subjective Principal diagnosis: This is an 81-year-old female essentially meant for hypoglycemia found to have heart failure. No significant constipation otherwise stated. Echocardiogram showed aortic stenosis. TAVR is being instituted. I had a long discussion with her family and she is moving in with her son because of her debility. She seems lucid and calm. No significant new complaints. No voiding difficulties otherwise stated. Element of hypoglycemia episode yesterday. We will titrate basal insulin to see how she does. No fever or chills. Voiding difficulties. Patient states that she is an voiding to the bathroom appropriately Objective - Vital Signs Vital signs: Vital Signs Temp 97.7 F 06/17/21 07:38 Pulse 85 06/17/21 07:38 Resp 17 06/17/21 07:38 BP 106/68 06/17/21 07:38 Pulse Ox 95 06/17/21 07:38 Intake & Output 06/16/21 06/17/21 06/17/21 18:59 06:59 18:59 Intake Total 225 Output Total 500 Balance 225 -500 Weight 98 kg Intake: IV 200 Oral 25 Output: Urine 500 Other: Voiding Method Toilet Toilet # Voids 2 - Constitutional General appearance: Present: morbidly obese - EENT Eyes: Absent: abnormal pupil - Neck Neck: Absent: lymphadenopathy - Respiratory Respiratory: bilateral: CTA - Cardiovascular Heart sounds: normal: S1, S2 Abnormal Heart Sounds: Present: systolic murmur. Absent: S3 Gallop - Gastrointestinal General gastrointestinal: Present: soft. Absent: tenderness - Musculoskeletal Musculoskeletal: Present: generalized weakness - Psychiatric Psychiatric: Present: A&O x's 3, appropriate affect - Labs CBC & Chem 7: 06/14/21 05:40 06/17/21 06:52 Labs: Abnormal Lab Results - Last 24 Hours (Table) 06/16/21 06/16/21 06/16/21 Range/Units 08:35 13:31 17:07 BUN (7-17) mg/dL Glucose (74-99) mg/dL POC Glucose (mg/dL) 228 H 208 H 186 H (75-99) mg/dL Albumin (3.5-5.0) g/dL 06/16/21 06/17/21 06/17/21 Range/Units 20:23 01:52 06:04 BUN (7-17) mg/dL Glucose (74-99) mg/dL POC Glucose (mg/dL) 187 H 214 H 232 H (75-99) mg/dL Albumin (3.5-5.0) g/dL 06/17/21 Range/Units 06:52 BUN 18 H (7-17) mg/dL Glucose 228 H (74-99) mg/dL POC Glucose (mg/dL) (75-99) mg/dL Albumin 3.3 L (3.5-5.0) g/dL Assessment and Plan (1) Hypoglycemia Current Visit: Yes Status: Acute Code(s): E16.2 - HYPOGLYCEMIA, UNSPECIFIED SNOMED Code(s): 895756807 (2) Nausea & vomiting Current Visit: Yes Status: Acute Code(s): R11.2 - NAUSEA WITH VOMITING, UNSPECIFIED SNOMED Code(s): 88224087 (3) Aortic stenosis Current Visit: Yes Status: Acute Code(s): I35.0 - NONRHEUMATIC AORTIC (VALVE) STENOSIS SNOMED Code(s): 13580847 (4) Diabetes Current Visit: No Status: Acute Code(s): E11.9 - TYPE 2 DIABETES MELLITUS WITHOUT COMPLICATIONS SNOMED Code(s): 86097848 Plan: Hypoglycemia episode is noted. Down titrate insulin. Diastolic congestive heart failure with aortic stenosis has been diagnosed. TAVR is being instituted. We'll continue to follow.
[2021-06-17] MEDS: ASPIRIN 81 MG PO SCH (08:23)
[2021-06-17] MEDS: FUROSEMIDE 20 MG TAB PO SCH (08:23)
[2021-06-17] MEDS: PANTOPRAZOLE 40 MG TABLET PO SCH (08:23)
[2021-06-17] MEDS: HEPARIN SODIUM,PORCINE/PF 5,000 UNIT/0.5 ML SYRINGE SQ SCH ×2 (08:23→20:52)
[2021-06-17] MEDS: ATORVASTATIN 40 MG TAB PO SCH (08:23)
--- NOTE | 2021-06-17 10:03 | US ---
EXAMINATION TYPE: US carotid duplex BILAT DATE OF EXAM: 06/17/2021 COMPARISON: NONE CLINICAL HISTORY: pre TAVR. Exam done portable. EXAM MEASUREMENTS: RIGHT: Peak Systolic Velocity (PSV) cm/sec ----- Right CCA: 73.2 ----- Right ICA: 121.0 ----- Right ECA: 135.7 ICA/CCA ratio: 1.7 RIGHT: End Diastole cm/sec ----- Right CCA: 18.2 ----- Right ICA: 20.2 ----- Right ECA: 11.9 LEFT: Peak Systolic Velocity (PSV) cm/sec ----- Left CCA: 56.8 ----- Left ICA: 93.2 ----- Left ECA: 97.7 ICA/CCA ratio: 1.6 LEFT: End Diastole cm/sec ----- Left CCA: 9.5 ----- Left ICA: 22.1 ----- Left ECA: 12.0 VERTEBRALS (direction of flow): Right Vertebral: Antegrade Left Vertebral: Antegrade Rhythm: Normal Technically difficult study due to patient motion and heavy bleeding, exam done with patient sittin g up in chair Elevated velocity: right proximal ECA No significant stenosis, some notable narrowing of the right external carotid artery is evident. IMPRESSION: 1. Atheromatous plaquing without significant flow-limiting stenosis. NASCET criteria was used in interpretation of this exam? Criteria for Assigning % of Stenosis / Diameter reduction (Estimation based on the indirect measurements of the internal carotid artery velocities (ICA PSV). 1. Normal (no stenosis)=ICA PSV < 125 cm/s: ratio < 2.0: ICA EDV<40 cm/s. 2. Less than 50% stenosis=ICA PSV < 125 cm/s: ratio < 2.0: ICA EDV<40 cm/s. 3. 50 to 69% stenosis=ICA PSV of 125 to 230 cm/s: ration 2.0 ? 4.0: ICA EDV 40-100 cm/s. 4. Greater than 70% stenosis to near occlusion= ICA PSV > 230 cm/s: ratio > 4.0: ICA EDV > 100 cm/s. 5. Near occlusion= ICA PSV velocities may be low or undetectable: variable ratio and ICA EDV. 6. Total occlusion=unable to detect flow.
[2021-06-17] MEDS: ALBUTEROL NEBULIZED 2.5 MG/3 ML INHALATION SCH ×4 (10:10→19:39)
[2021-06-17 11:41] LABS: Glucose,Whole Blood 186 mg/dL (75-99)
[2021-06-17 14:24] LABS: Glucose,Whole Blood 209 mg/dL (75-99)
--- NOTE | 2021-06-17 14:46 | P.GSCN ---
History of Present Illness Consult date: 06/17/21 Reason for Consult: Aortic stenosis, request for TAVR workup Requesting physician: Alli Harris History of present illness: This is an 81-year-old inactive, obese female who follows on an outpatient basis with Dr. Rodriguez for primary care. She has a history of insulin-dependent diabetes, CVA, recent fall, right hip surgery in 2019, esophageal dilatation in 2003 and overall general debility. She presented to [facility] emergency room 06/10/2021 with complaints of hypoglycemia, nausea, vomiting. Her blood sugar was as low as 40 when checked by EMS. She denied any chest pain or shortness of breath. In the emergency room she was eventually able to tolerate oral intake and blood sugar declined and remained stable. Initially the plan was for her to go home and to follow-up with her primary care physician as the patient did not want to stay in the hospital, however she was admitted for intractable nausea and vomiting with hypoglycemia for close monitoring. Over the next couple of days she started to develop shortness of breath and needed to be placed on oxygen. Chest x-ray was completed demonstrating pulmonary vascular congestion and cardiomegaly. She was noted to have a heart murmur on physical exam. Cardiology was consulted. Transthoracic echocardiogram was completed demonstrating mildly impaired left ventricular systolic function with EF 45-50%, mildly enlarged right ventricle, severely dilated left atrium, severe aortic stenosis with peak/mean gradient 70/46 mmHg, moderate mitral regurgitation, moderate tricuspid regurgitation with moderate pulmonary hypertension and RVSP 46.77 mmHg. BNP was 3180. Troponins were drawn, first troponin 0.248, second troponin 0.69. The patient denied any knowledge of heart failure, valvular disorder, or coronary artery disease. The patient was recommended to undergo BELKYS and heart catheterization. BELKYS confirmed heavily calcified trileaflet aortic valve with severe restriction and valve area 0.73 cm by plane imagery, mild mitral regurgitation, moderate tricuspid regurgitation with moderate to severe pulmonary hypertension, with normal systolic LV function. Heart catheterization demonstrated moderate to severe stenosis involving the LAD and right coronary artery. For further evaluation iFr was completed on the LAD and was abnormal at 0.69. Consultation was placed to cardiothoracic surgery for TAVR workup with decision yet to be made regarding LAD stenosis. Review of Systems Review of systems was completed with the patient and daughter at the bedside and was negative except as noted - Constitutional Reports as per HPI, Reports lethargy, Reports malaise - Respiratory Reports as per HPI, Reports dyspnea - Gastrointestinal Reports as per HPI, Reports nausea, Reports vomiting - Endocrine Reports as per HPI, Reports low blood sugars Past Medical History Past Medical History: CVA/TIA, Diabetes Mellitus Additional Past Medical History / Comment(s): IDDM type II, CVA with some vision changes and difficulty swallowing (eat soft foods)., murmur., states fallApril 13 History of Any Multi-Drug Resistant Organisms: None Reported Past Surgical History: Orthopedic Surgery, Tonsillectomy Additional Past Surgical History / Comment(s): Esophageal surgery 2003 pt thinks this was dilation ; Venous graft leg to left arm., right hip fx surgery (11/2018) Past Anesthesia/Blood Transfusion Reactions: No Reported Reaction Past Psychological History: No Psychological Hx Reported Smoking Status: Never smoker Past Alcohol Use History: None Reported Past Drug Use History: None Reported - Past Family History Mother Family Medical History: Cancer Additional Family Medical History / Comment(s): "Female cancer" father Family Medical History: Diabetes Mellitus Medications and Allergies Home Medications Medication Instructions Recorded Confirmed Type Insulin Detemir [Levemir Flextouch 12 units SQ AC-SUPPER 04/09/16 06/10/21 History Pen] Insulin Aspart (Niacinamide) 8 units SQ AC-LUNCH 04/21/20 06/10/21 History [Fiasp 100 Unit/ml Flextouch] Insulin Aspart (Niacinamide) 10 units SQ AC-BRKFST 04/21/20 06/10/21 History [Fiasp 100 Unit/ml Flextouch] Insulin Aspart (Niacinamide) 10 units SQ AC-SUPPER 04/21/20 06/10/21 History [Fiasp 100 Unit/ml Flextouch] Allergies Allergy/AdvReac Type Severity Reaction Status Date / Time No Known Allergies Allergy Verified 06/10/21 22:17 Surgical - Exam Vital Signs Temp Pulse Resp BP Pulse Ox 97.9 F 83 18 120/65 94 L 06/10/21 21:05 06/10/21 21:05 06/10/21 21:05 06/10/21 21:05 06/10/21 21:05 CONSTITUTIONAL: Awake and alert, appears comfortable, cooperative, obese, no pain, no acute distress EYES: Pupils equal, round, reactive to light, normal ocular movement ENT: Moist mucous membranes without oral lesions present, edentulous, has full dentures NECK: No masses, no bruits, trachea midline RESPIRATORY: Lungs sounds diminished to auscultation bilaterally. Respirations even, nonlabored. Currently on 2 L nasal cannula with oxygen saturation 98%. CARDIOVASCULAR: S1, S2 present, positive systolic murmur present. Regular rate and rhythm, sinus rhythm on telemetry. Palpable peripheral pulses bilaterally. Trace lower extremity edema present. GASTROINTESTINAL: Abdomen soft, nontender, nondistended without masses or organomegaly noted. There is no rebound or guarding present. Active bowel sounds present 4 quadrants. GENITOURINARY: Deferred INTEGUMENTARY: Skin is warm and dry with evidence of good perfusion. NEUROLOGIC: Cranial nerves II through XII intact, normal coordination, no obvious motor or sensory deficits, speech is normal MUSKULOSKELETAL: Able to move all extremities, strength equal bilaterally, normal posture PSYCHIATRIC: Alert and oriented to person place and time, appropriate affect, intact judgment and insight Results - Labs 06/14/21 05:40 06/17/21 06:52 Abnormal Lab Results - Last 24 Hours (Table) 06/16/21 06/16/21 06/17/21 Range/Units 17:07 20:23 01:52 BUN (7-17) mg/dL Glucose (74-99) mg/dL POC Glucose (mg/dL) 186 H 187 H 214 H (75-99) mg/dL Albumin (3.5-5.0) g/dL 06/17/21 06/17/21 06/17/21 Range/Units 06:04 06:52 11:39 BUN 18 H (7-17) mg/dL Glucose 228 H (74-99) mg/dL POC Glucose (mg/dL) 232 H 186 H (75-99) mg/dL Albumin 3.3 L (3.5-5.0) g/dL Diabetes panel 06/17/21 Range/Units 06:52 Sodium 137 (137-145) mmol/L Potassium 5.1 (3.5-5.1) mmol/L Chloride 103 (98-107) mmol/L Carbon Dioxide 28 (22-30) mmol/L BUN 18 H (7-17) mg/dL Creatinine 0.56 (0.52-1.04) mg/dL Glucose 228 H (74-99) mg/dL Calcium 8.8 (8.4-10.2) mg/dL AST 24 (14-36) U/L ALT 12 (4-34) U/L Alkaline Phosphatase 107 (38-126) U/L Total Protein 6.5 (6.3-8.2) g/dL Albumin 3.3 L (3.5-5.0) g/dL Calcium panel 06/17/21 Range/Units 06:52 Calcium 8.8 (8.4-10.2) mg/dL Albumin 3.3 L (3.5-5.0) g/dL Pituitary panel 06/17/21 Range/Units 06:52 Sodium 137 (137-145) mmol/L Potassium 5.1 (3.5-5.1) mmol/L Chloride 103 (98-107) mmol/L Carbon Dioxide 28 (22-30) mmol/L BUN 18 H (7-17) mg/dL Creatinine 0.56 (0.52-1.04) mg/dL Glucose 228 H (74-99) mg/dL Calcium 8.8 (8.4-10.2) mg/dL Adrenal panel 06/17/21 Range/Units 06:52 Sodium 137 (137-145) mmol/L Potassium 5.1 (3.5-5.1) mmol/L Chloride 103 (98-107) mmol/L Carbon Dioxide 28 (22-30) mmol/L BUN 18 H (7-17) mg/dL Creatinine 0.56 (0.52-1.04) mg/dL Glucose 228 H (74-99) mg/dL Calcium 8.8 (8.4-10.2) mg/dL Total Bilirubin 0.7 (0.2-1.3) mg/dL AST 24 (14-36) U/L ALT 12 (4-34) U/L Alkaline Phosphatase 107 (38-126) U/L Total Protein 6.5 (6.3-8.2) g/dL Albumin 3.3 L (3.5-5.0) g/dL - Imaging Chest x-ray: report reviewed, image reviewed EKG: image reviewed Additional studies: Heart catheterization and echocardiogram films reviewed with Dr. Porter Assessment and Plan Assessment: 1. Coronary artery disease of the LAD and RCA, iFr of the LAD 0.69 2. Severe aortic stenosis, aortic valve area 0.73 on BELKYS, mean gradient 46 on TTE 3. Mild mitral regurgitation, moderate tricuspid regurgitation with moderate to severe pulmonary hypertension on BELKYS 4. Hypoglycemia, nausea, vomiting on admission, resolved 5. Insulin-dependent diabetes 6. History of CVA 7. Recent fall, March 2021 8. Right hip surgery in 2018 9. Esophageal dilatation in 2003 10. Overall general debility Plan: The patient was seen and examined at the bedside with Dr. Porter. Chart/d iagnostics were reviewed. The usual course of TAVR was discussed in detail with the patient and her daughter, risks and benefits were reviewed, all questions were answered. Our contact information was given to the patient. Carotid Dopplers were completed. Patient will still need pulmonary function test and gated CT which can be completed as an outpatient once patient recovers from acute illness. Decision regarding LAD stenosis to be made by cardiology. We will contact the patient upon discharge for further TAVR workup with subsequent structural heart clinic meeting for shared decision-making regarding outpatient TAVR procedure. Continued medical management per primary care, cardiology. Thank you for this consult. We look forward to working with you in the care of your patient. Please call us with any further questions. Time with Patient: Greater than 30
[2021-06-17 16:24] LABS: Glucose,Whole Blood 222 mg/dL (75-99)
[2021-06-17] MEDS ORDERED: CLOPIDOGREL 75 MG TAB PO STA (18:07)
[2021-06-17 19:42] LABS: Glucose,Whole Blood 201 mg/dL (75-99)
[2021-06-18] MEDS ORDERED: SODIUM CHLORIDE 0.9% 1,000 ML in EMPTY BAG 1 BAG IV ONE
[2021-06-18 01:50] LABS: Glucose,Whole Blood 190 mg/dL (75-99)
[2021-06-18 05:50] LABS: Glucose,Whole Blood 175 mg/dL (75-99)
[2021-06-18] MEDS ORDERED: ATORVASTATIN 80 MG TAB PO ONE (06:00)
[2021-06-18] MEDS ORDERED: ASPIRIN 325 MG TAB PO ONE (06:00)
[2021-06-18] MEDS: INSULIN ASPART (NovoLOG) 100 UNIT/ML VIAL SQ SCH ×4 (06:26→22:03)
[2021-06-18] MEDS: ATORVASTATIN 40 MG TAB PO SCH (06:31)
[2021-06-18] MEDS: ASPIRIN 81 MG PO SCH (06:31)
[2021-06-18] MEDS: CLOPIDOGREL 75 MG TAB PO SCH (07:11)
[2021-06-18] MEDS: ALBUTEROL NEBULIZED 2.5 MG/3 ML INHALATION SCH ×4 (07:19→20:15)
[2021-06-18] MEDS ORDERED: fentaNYL (PF) 50 MCG/ML 2 ML AMP ONE (07:45)
--- NOTE | 2021-06-18 07:48 | P.PN ---
Subjective Principal diagnosis: This is an 81-year-old female essentially meant for hypoglycemia found to have heart failure. No significant constipation otherwise stated. Echocardiogram showed aortic stenosis. TAVR is being instituted. I had a long discussion with her family and she is moving in with her son because of her debility. She seems lucid and calm. No significant new complaints. No voiding difficulties otherwise stated. No hypoglycemia noted since yesterday No fever or chills. Voiding difficulties. Patient states that she is an voiding to the bathroom appropriately. Objective - Vital Signs Vital signs: Vital Signs Temp 98.5 F 06/18/21 04:00 Pulse 100 06/18/21 04:00 Resp 16 06/18/21 04:00 BP 116/56 06/18/21 04:00 Pulse Ox 95 06/18/21 04:00 Intake & Output 06/17/21 06/18/21 06/18/21 18:59 06:59 18:59 Intake Total 237 Balance 237 Weight 97 kg Intake: Oral 237 Other: Voiding Method Toilet # Voids 2 1 1 - Constitutional General appearance: Present: obese - EENT Eyes: Absent: abnormal pupil - Neck Neck: Absent: lymphadenopathy - Respiratory Respiratory: bilateral: CTA - Cardiovascular Rhythm: regular Heart sounds: normal: S1, S2 Abnormal Heart Sounds: Present: systolic murmur. Absent: S3 Gallop - Gastrointestinal General gastrointestinal: Present: soft. Absent: tenderness - Psychiatric Psychiatric: Present: A&O x's 3 - Labs CBC & Chem 7: 06/14/21 05:40 06/17/21 06:52 Labs: Abnormal Lab Results - Last 24 Hours (Table) 06/17/21 06/17/21 06/17/21 Range/Units 06:52 11:39 14:22 BUN 18 H (7-17) mg/dL Glucose 228 H (74-99) mg/dL POC Glucose (mg/dL) 186 H 209 H (75-99) mg/dL Albumin 3.3 L (3.5-5.0) g/dL 06/17/21 06/17/21 06/18/21 Range/Units 16:22 19:40 01:49 BUN (7-17) mg/dL Glucose (74-99) mg/dL POC Glucose (mg/dL) 222 H 201 H 190 H (75-99) mg/dL Albumin (3.5-5.0) g/dL 06/18/21 Range/Units 05:36 BUN (7-17) mg/dL Glucose (74-99) mg/dL POC Glucose (mg/dL) 175 H (75-99) mg/dL Albumin (3.5-5.0) g/dL Assessment and Plan (1) Hypoglycemia Current Visit: Yes Status: Acute Code(s): E16.2 - HYPOGLYCEMIA, UNSPECIFIED SNOMED Code(s): 223295168 (2) Nausea & vomiting Current Visit: Yes Status: Acute Code(s): R11.2 - NAUSEA WITH VOMITING, UNSPECIFIED SNOMED Code(s): 02636969 (3) Aortic stenosis Current Visit: Yes Status: Acute Code(s): I35.0 - NONRHEUMATIC AORTIC (VALVE) STENOSIS SNOMED Code(s): 67314285 (4) Diabetes Current Visit: No Status: Acute Code(s): E11.9 - TYPE 2 DIABETES MELLITUS WITHOUT COMPLICATIONS SNOMED Code(s): 74916883 Plan: Still with no hypoglycemia since yesterday. Sugar is slightly elevated Diastolic congestive heart failure with aortic stenosis has been diagnosed. TAVR is on the table We'll continue to follow.
[2021-06-18] MEDS ORDERED: HEPARIN SODIUM 1,000 UN/ML (10ML VL) ONE ×2 (07:50→08:50)
[2021-06-18] MEDS: LIDOCAINE 1% INJ 10MG/ML (20 ML MDV) SQ ONE ×2 (07:50→08:21)
[2021-06-18] MEDS ORDERED: VERAPAMIL SYRINGE (5 MG/10 ML) INTRAARTER ONE (07:55)
[2021-06-18] MEDS ORDERED: MIDAZOLAM 2 MG/2 ML VIAL IV ONE (07:57)
[2021-06-18] MEDS ORDERED: fentaNYL (PF) 50 MCG/ML 2 ML AMP IV ONE ×2 (07:57)
[2021-06-18] MEDS ORDERED: IV FLUID CONTINUATION 100 ML IV ONE (07:58)
[2021-06-18] MEDS ORDERED: IOPAMIDOL-370 125ML BTL INJ ONE (09:04)
[2021-06-18] MEDS ORDERED: SODIUM CHLORIDE 0.9% 1,000 ML IV ONE (09:17)
[2021-06-18] MEDS ORDERED: IOPAMIDOL-370 100ML BTL INJ ONE (09:34)
[2021-06-18] MEDS: HEPARIN SODIUM,PORCINE/PF 5,000 UNIT/0.5 ML SYRINGE SQ SCH ×2 (10:00→22:07)
[2021-06-18 10:55] VITALS: BMI 41.8
[2021-06-18 11:44] LABS: Glucose,Whole Blood 152 mg/dL (75-99)
[2021-06-18] MEDS: FUROSEMIDE 20 MG TAB PO SCH (11:47)
[2021-06-18] MEDS: PANTOPRAZOLE 40 MG TABLET PO SCH (11:48)
--- NOTE | 2021-06-18 13:48 | P.PRCINT ---
Percutaneous Coronary Int. - Percutaneous Coronary Intervention Percutaneous Coronary Intervention: PROCEDURES PERFORMED: Left coronary angiography, CSI rotational atherectomy LAD, IVUS LAD, PCI proximal to mid LAD with overlapping 3.25 x 12mm and 2.25 x 12mm Xience KAYLYN, post dilated the 2.25 stent with a 2.75 NC balloon, PTCA diagonal 1 branch with a 2.25 x 12mm balloon, Angioseal INDICATION: Non-STEMI HISTORY: Patient is a pleasant 81-year-old female who presented with hypoglycemia however developed heart failure symptoms and was found to have elevated troponins. Echocardiogram showed mildly reduced ejection fraction, severe aortic stenosis. She had diagnostic heart catheterization which showed obstructive, calcified proximal to mid LAD stenosis. Patient was seen by surgeons and follow higher risk for surgery and therefore recommendations for PCI of LAD and possible TAVR. CONSENT:I have discussed the risks, benefits and alternative therapies for the above-mentioned procedure and for both sedation/analgesia as well as necessary blood product administration, if indicated, as they pertain to this patient. The patient has indicated understanding and acceptance of the risks and procedures discussed. PROCEDURE: After the risks, benefits and alternatives of the above mentioned procedure explained in detail with the patient, informed consent was obtained. Patient was taken to the catheterization lab and prepped and draped in usual fashion. 1% lidocaine was used to anesthetize the right radial artery. A 6- Wallisian sheath was placed in the right radial artery using modified Seldinger technique. Patient had severe tortuosity and take off of the innominate with difficulty engaging the left coronary cusp and inability to have any guide catheter seated in the left main. Therefore femoral approach was undertaken. A 6-Wallisian sheath was placed the left femoral artery using ultrasound guidance. A 6-Wallisian CLS 3.0 guide disease engage the left main. A 0.014 Viper wire was advanced into this LAD. Rotational atherectomy was performed with CSI for 4 passes at low speed. Heparin was given for ACT greater than 250. Next balloon angioplasty was performed with a 2.75 noncompliant balloon. There is still some waist with inability to dilate the proximal portion and therefore CSI rotational atherectomy was again performed at high speed for another 4 passes. The 0.014 Viper wire was exchanged for a 0.014 BMW wire. IVUS was performed which showed LAD approximately 3.25-3.5 vessel proximally, heavily calcified 360. Next a 3.25 x 12 mm Xience KAYLYN was placed in the proximal LAD. The distal portion of the stent was not fully expanded and there was diffuse more distal disease with 60-70% stenosis at the mid LAD lesion and therefore decision was made to place another stent. A second 0.014 BMW wire was advanced into the diagonal 1 branch. Secondary to significant approximately 60% stenosis and heavy calcification of the proximal diagonal branch, is felt best to perform balloon angioplasty of the diagonal branch. Therefore prolonged balloon angioplasty was performed of the diagonal branch with a 2.25 x 12 mm balloon. Next a second 2.25 x 12 mm Xience KAYLYN was placed overlapping the proximal stent. The diagonal wire was pulled. The midportion of the stent was postdilated with a 2.75 noncompliant balloon. Preintervention there was 80% stenosis with WINSTON 3 flow and postintervention there was severe percent stenosis, more distal diffuse 20% LAD stenosis, WINSTON 3 flow and no dissection. The right radial sheath was removed and a TR band was placed with hemostasis achieved. A left femoral angiogram showed anatomy adequate for closure and a 6- Wallisian Angio-Seal was placed. The patient tolerated the procedure well. Patient was transported back to the post catheterization holding area in stable condition. Conscious Sedation: Patient was monitored under the direct supervision of vision of myself for conscious sedation using Versed and fentanyl for a total duration of 110 minutes HEMODYNAMICS: Aorta: 126/78 FINAL IMPRESSION: 1. Status post successful CSI rotational atherectomy, PCI proximal to mid LAD with overlapping 3.25 x 12mm and 2.25 x 12mm Xience KAYLYN PLAN: 1. Aggressive risk factor modification per most recent ACC/AHA guidelines. 2. Continue dual antiplatelets for 12 months.
[2021-06-18 16:56] LABS: Glucose,Whole Blood 126 mg/dL (75-99)
[2021-06-18 20:08] LABS: Glucose,Whole Blood 188 mg/dL (75-99)
[2021-06-19 02:04] LABS: Glucose,Whole Blood 275 mg/dL (75-99)
[2021-06-19 06:28] LABS: Glucose,Whole Blood 224 mg/dL (75-99)
[2021-06-19] MEDS: INSULIN ASPART (NovoLOG) 100 UNIT/ML VIAL SQ SCH ×4 (06:37→22:03)
[2021-06-19] MEDS: ALBUTEROL NEBULIZED 2.5 MG/3 ML INHALATION SCH ×4 (07:22→19:33)
--- NOTE | 2021-06-19 08:01 | P.PN ---
Subjective Principal diagnosis: This is an 81-year-old female essentially meant for hypoglycemia found to have heart failure. No significant constipation otherwise stated. Echocardiogram showed aortic stenosis. TAVR is being instituted most likely after discharge. I had a long discussion with her family and she is moving in with her son because of her debility. She seems lucid and calm. No significant new complaints. No voiding difficulties otherwise stated. No hypoglycemia noted since yesterday No fever or chills. Voiding difficulties. Patient states that she is an voiding to the bathroom appropriately. The patient has significant dyspnea today. There is tachypnea noted at rest. PTCA was done to yesterday and the patient seemed to tolerate that procedure properly. Objective - Vital Signs Vital signs: Vital Signs Temp 97.7 F 06/19/21 07:45 Pulse 101 H 06/19/21 07:45 Resp 24 06/19/21 07:45 BP 106/62 06/19/21 07:45 Pulse Ox 95 06/19/21 07:45 Intake & Output 06/18/21 06/19/21 06/19/21 18:59 06:59 18:59 Intake Total 455 Output Total 400 Balance 55 Weight 97 kg 98.7 kg Intake: IV 275 Oral 180 Output: Urine 400 Other: Voiding Method Toilet # Voids 1 1 - Constitutional General appearance: Present: obese - EENT Eyes: Absent: abnormal pupil - Neck Neck: Absent: lymphadenopathy - Respiratory Respiratory: bilateral: CTA - Cardiovascular Rhythm: regular Heart sounds: normal: S1, S2 Abnormal Heart Sounds: Present: systolic murmur. Absent: S3 Gallop - Gastrointestinal General gastrointestinal: Present: soft. Absent: tenderness - Labs CBC & Chem 7: 06/14/21 05:40 06/17/21 06:52 Labs: Abnormal Lab Results - Last 24 Hours (Table) 06/18/21 06/18/21 06/18/21 Range/Units 11:42 16:55 20:05 POC Glucose (mg/dL) 152 H 126 H 188 H (75-99) mg/dL 06/19/21 06/19/21 Range/Units 02:03 06:19 POC Glucose (mg/dL) 275 H 224 H (75-99) mg/dL Assessment and Plan (1) Hypoglycemia Current Visit: Yes Status: Acute Code(s): E16.2 - HYPOGLYCEMIA, UNSPECIFIED SNOMED Code(s): 431297568 (2) Nausea & vomiting Current Visit: Yes Status: Acute Code(s): R11.2 - NAUSEA WITH VOMITING, UNSPECIFIED SNOMED Code(s): 27987479 (3) Aortic stenosis Current Visit: Yes Status: Acute Code(s): I35.0 - NONRHEUMATIC AORTIC (VALVE) STENOSIS SNOMED Code(s): 80369967 (4) Diabetes Current Visit: No Status: Acute Code(s): E11.9 - TYPE 2 DIABETES MELLITUS WITHOUT COMPLICATIONS SNOMED Code(s): 68627850 (5) Stented coronary artery Current Visit: Yes Status: Acute Code(s): Z95.5 - PRESENCE OF CORONARY ANGIOPLASTY IMPLANT AND GRAFT SNOMED Code(s): 737483935 Plan: She has significant aortic stenosis causing dyspnea. She is at this point co mplete care. Minimal ADLs are capable of. TVR most likely soon after outpatient workup. We'll DC to ECF once cleared by cardiology. However, I suspect she'll need another day or so for titration of medication. Significant dyspnea is noted.
[2021-06-19] MEDS: ASPIRIN 81 MG PO SCH (08:47)
[2021-06-19] MEDS: CLOPIDOGREL 75 MG TAB PO SCH (08:47)
[2021-06-19] MEDS: FUROSEMIDE 20 MG TAB PO SCH (08:47)
[2021-06-19] MEDS: PANTOPRAZOLE 40 MG TABLET PO SCH (08:47)
[2021-06-19] MEDS: ATORVASTATIN 40 MG TAB PO SCH (08:48)
[2021-06-19] MEDS: HEPARIN SODIUM,PORCINE/PF 5,000 UNIT/0.5 ML SYRINGE SQ SCH ×2 (08:48→22:03)
[2021-06-19 11:35] LABS: Glucose,Whole Blood 244 mg/dL (75-99)
[2021-06-19 11:46] LABS: HCT 32.7 % (34.0-46.0); HGB 10.5 gm/dL (11.4-16.0); Hypochromasia Moderate; MCH 31.1 pg (25.0-35.0); MCHC 32.2 g/dL (31.0-37.0); MCV 96.5 fL (80.0-100.0); Mean Platelet Volume 10.2; Platelet Count 175 k/uL (150-450); RBC 3.39 m/uL (3.80-5.40); RDW 13.8 % (11.5-15.5); WBC 7.9 k/uL (3.8-10.6)
[2021-06-19 12:03] LABS: African American GFR (CKD) >90 (>60 ml/min/1.73 sqM); Anion Gap 8 mmol/L; Blood Urea Nitrogen 19 mg/dL (7-17); Calcium 8.9 mg/dL (8.4-10.2); Carbon Dioxide 26 mmol/L (22-30); Chloride 103 mmol/L (98-107); Glucose 236 mg/dL (74-99); Non-African American GFR(CKD) 85 (>60 ml/min/1.73 sqM); Sodium 137 mmol/L (137-145)
--- NOTE | 2021-06-19 12:21 | P.PN ---
Subjective Progress Note Date: 06/19/21 Principal diagnosis: Coronary artery disease/valvular heart disease This is a pleasant 81-year-old female patient who sees Dr. Stratton in the office was diagnosis and he was severe symptomatic aortic stenosis and underwent a heart catheterization and was found to have severe disease involving the LAD. She underwent successful stenting of the LAD yesterday. The patient was seen this morning. She continues to be short of breath even with minimal exertion. On examination she does have diminished breathing sounds bilaterally and bilateral rhonchi. I'm going to DC the Lasix by mouth on start the patient on Lasix IV. I would continue monitor the kidney function and electrolytes. Objective - Vital Signs Vital signs: Vital Signs Temp 97.6 F 06/19/21 11:24 Pulse 85 06/19/21 11:24 Resp 17 06/19/21 11:24 BP 125/72 06/19/21 11:24 Pulse Ox 99 06/19/21 11:24 Intake & Output 06/18/21 06/19/21 06/19/21 18:59 06:59 18:59 Intake Total 455 180 Output Total 400 200 Balance 55 -20 Weight 97 kg 98.7 kg Intake: IV 275 Oral 180 180 Output: Urine 400 200 Other: Voiding Method Toilet # Voids 1 1 - Constitutional General appearance: Present: no acute distress - Respiratory Respiratory: bilateral: diminished, rhonchi - Cardiovascular Rhythm: regular Heart sounds: normal: S1, S2 Abnormal Heart Sounds: Present: systolic murmur - Labs CBC & Chem 7: 06/19/21 11:28 06/19/21 11:28 Labs: Abnormal Lab Results - Last 24 Hours (Table) 06/18/21 06/18/21 06/19/21 Range/Units 16:55 20:05 02:03 RBC (3.80-5.40) m/uL Hgb (11.4-16.0) gm/dL Hct (34.0-46.0) % BUN (7-17) mg/dL Glucose (74-99) mg/dL POC Glucose (mg/dL) 126 H 188 H 275 H (75-99) mg/dL 06/19/21 06/19/21 06/19/21 Range/Units 06:19 11:28 11:28 RBC 3.39 L (3.80-5.40) m/uL Hgb 10.5 L (11.4-16.0) gm/dL Hct 32.7 L (34.0-46.0) % BUN 19 H (7-17) mg/dL Glucose 236 H (74-99) mg/dL POC Glucose (mg/dL) 224 H (75-99) mg/dL 06/19/21 Range/Units 11:33 RBC (3.80-5.40) m/uL Hgb (11.4-16.0) gm/dL Hct (34.0-46.0) % BUN (7-17) mg/dL Glucose (74-99) mg/dL POC Glucose (mg/dL) 244 H (75-99) mg/dL Assessment and Plan Assessment: Assessment #1 severe aortic stenosis #2 coronary artery disease next #3 volume overload #4 multiple comorbid conditions Plan #1 DC Lasix by mouth and start the patient on Lasix IV #2 continue the current medical regimen #3 monitor the kidney function and electrolytes #4 follow-up with the patient
[2021-06-19 16:45] LABS: Glucose,Whole Blood 261 mg/dL (75-99)
[2021-06-19 19:36] LABS: Glucose,Whole Blood 196 mg/dL (75-99)
[2021-06-19] MEDS: FUROSEMIDE 10 MG/ML 4 ML VIAL IV SCH (22:04)
[2021-06-20 02:04] LABS: Glucose,Whole Blood 211 mg/dL (75-99)
[2021-06-20 06:19] LABS: Glucose,Whole Blood 213 mg/dL (75-99)
[2021-06-20] MEDS: INSULIN ASPART (NovoLOG) 100 UNIT/ML VIAL SQ SCH ×4 (06:54→21:27)
[2021-06-20] MEDS: CLOPIDOGREL 75 MG TAB PO SCH (08:33)
[2021-06-20] MEDS: ASPIRIN 81 MG PO SCH (08:33)
[2021-06-20] MEDS: ATORVASTATIN 40 MG TAB PO SCH (08:33)
[2021-06-20] MEDS: HEPARIN SODIUM,PORCINE/PF 5,000 UNIT/0.5 ML SYRINGE SQ SCH ×2 (08:33→21:26)
[2021-06-20] MEDS: FUROSEMIDE 10 MG/ML 4 ML VIAL IV SCH (08:33)
[2021-06-20] MEDS: PANTOPRAZOLE 40 MG TABLET PO SCH (08:33)
[2021-06-20] MEDS: ALBUTEROL NEBULIZED 2.5 MG/3 ML INHALATION SCH ×4 (08:50→19:47)
--- NOTE | 2021-06-20 10:42 | P.PN ---
Subjective Progress Note Date: 06/20/21 Principal diagnosis: Coronary artery disease/valvular heart disease This is a pleasant 81-year-old female patient who sees Dr. Stratton in the office was diagnosis and he was severe symptomatic aortic stenosis and underwent a heart catheterization and was found to have severe disease involving the LAD. She underwent successful stenting of the LAD yesterday. She was started on L asix yesterday because she was diagnosed with heart failure. The patient was seen this morning [place] she stated that the shortness of breath is slightly better but she continues to have diminished breathing sounds bilaterally in the lower extremities edema. She still short of breath walking to her bathroom. Beside that she has not been making good urine. I'm going to increase the dose of Lasix to 80 mg by mouth twice a day and continue monitor the kidney function as well as electrolytes. We did scan the bladder and that showed no residual urine. Objective - Vital Signs Vital signs: Vital Signs Temp 97.4 F L 06/20/21 08:00 Pulse 85 06/20/21 09:03 Resp 18 06/20/21 08:00 BP 96/58 06/20/21 08:00 Pulse Ox 97 06/20/21 08:50 Intake & Output 06/19/21 06/20/21 06/20/21 18:59 06:59 18:59 Intake Total 417 340 Output Total 600 200 Balance -183 140 Weight 97.5 kg Intake: Oral 417 340 Output: Urine 600 200 Other: Voiding Method Toilet # Voids 2 - Constitutional General appearance: Present: no acute distress - Respiratory Respiratory: bilateral: diminished - Cardiovascular Rhythm: regular Heart sounds: normal: S1, S2 Abnormal Heart Sounds: Present: systolic murmur - Labs CBC & Chem 7: 06/19/21 11:28 06/19/21 11:28 Labs: Abnormal Lab Results - Last 24 Hours (Table) 06/19/21 06/19/21 06/19/21 Range/Units 11:28 11:28 11:33 RBC 3.39 L (3.80-5.40) m/uL Hgb 10.5 L (11.4-16.0) gm/dL Hct 32.7 L (34.0-46.0) % BUN 19 H (7-17) mg/dL Glucose 236 H (74-99) mg/dL POC Glucose (mg/dL) 244 H (75-99) mg/dL 06/19/21 06/19/21 06/20/21 Range/Units 16:44 19:34 02:02 RBC (3.80-5.40) m/uL Hgb (11.4-16.0) gm/dL Hct (34.0-46.0) % BUN (7-17) mg/dL Glucose (74-99) mg/dL POC Glucose (mg/dL) 261 H 196 H 211 H (75-99) mg/dL 06/20/21 Range/Units 06:14 RBC (3.80-5.40) m/uL Hgb (11.4-16.0) gm/dL Hct (34.0-46.0) % BUN (7-17) mg/dL Glucose (74-99) mg/dL POC Glucose (mg/dL) 213 H (75-99) mg/dL Assessment and Plan Assessment: Assessment #1 severe aortic stenosis #2 coronary artery disease next #3 volume overload #4 multiple comorbid conditions Plan #1 increase the dose of Lasix #2 continue monitoring her kidney function and electrolytes #3 follow-up with the patient
[2021-06-20 11:49] LABS: Glucose,Whole Blood 240 mg/dL (75-99)
[2021-06-20 16:43] LABS: Glucose,Whole Blood 240 mg/dL (75-99)
[2021-06-20 21:22] LABS: Glucose,Whole Blood 208 mg/dL (75-99)
[2021-06-20] MEDS: FUROSEMIDE 10 MG/ML 10 ML VIAL IV SCH (21:26)
--- NOTE | 2021-06-20 23:22 | P.PN ---
Subjective Progress Note Date: 06/20/21 Principal diagnosis: Acute CHF thoracic dysfunction Severe aortic stenosis Coronary artery disease status post stent placement This is an 81-year-old female essentially meant for hypoglycemia found to have heart failure. No significant constipation otherwise stated. Echocardiogram showed aortic stenosis. TAVR is being instituted most likely after discharge. I had a long discussion with her family and she is moving in with her son because of her debility. She seems lucid and calm. No significant new complaints. No voiding difficulties otherwise stated. No hypoglycemia noted since yesterday No fever or chills. Voiding difficulties. Patient states that she is an voiding to the bathroom appropriately. 06/20/2021 Patient is currently sitting her chair. No complaints of chest pain. Shortness of breath is better compared to yesterday. Still having exertional dyspnea. Patient underwent cardiac catheterization found to have severe disease involving LAD. Patient underwent successful stenting of LAD yesterday. Patient is being continued on IV Lasix. Cardiology is on board. Patient does have history of severe aortic stenosis. Laboratory data reviewed. Active Medications Generic Name Dose Route Start Last Admin Trade Name Freq PRN Reason Stop Dose Admin Albuterol Sulfate 2.5 mg 06/12/21 12:00 06/20/21 19:47 Albuterol Nebulized 2.5 Mg/3 Ml INHALATION 2.5 mg RT-QID NANCY Administration Alprazolam 0.25 mg 06/15/21 08:58 Alprazolam 0.25 Mg Tab PO Q6HR PRN Mild Anxiety Alprazolam 0.5 mg 06/15/21 08:58 Alprazolam 0.5 Mg Tab PO Q6HR PRN Moderate Anxiety Aspirin 81 mg 06/15/21 09:00 06/20/21 08:33 Aspirin 81 Mg PO 81 mg DAILY NANCY Administration Atorvastatin Calcium 40 mg 06/15/21 09:00 06/20/21 08:33 Atorvastatin 40 Mg Tab PO 40 mg DAILY NANCY Administration Clopidogrel Bisulfate 75 mg 06/18/21 09:00 06/20/21 08:33 Clopidogrel 75 Mg Tab PO 75 mg DAILY NANCY Administration Furosemide 80 mg 06/20/21 21:00 06/20/21 21:26 Furosemide 10 Mg/Ml 10 Ml Vial IV 80 mg Q12HR NANCY Administration Heparin Sodium (Porcine) 5,000 unit 06/13/21 21:00 06/20/21 21:26 Heparin Sodium,Porcine/Pf 5,000 Unit/0.5 Ml Syringe SQ 5,000 unit Q12HR NANCY Administration Insulin Aspart 0 unit 06/15/21 17:30 06/20/21 21:27 Insulin Aspart (Novolog) 100 Unit/Ml Vial SQ 3 unit ACHS NANCY Administration Protocol Insulin Detemir 12 unit 06/20/21 23:40 Insulin Detemir (Levemir) 100 Unit/Ml Syr SQ AC-SUPPER NANCY Naloxone HCl 0.2 mg 06/11/21 01:10 Naloxone 0.4 Mg/Ml 1 Ml Vial IV Q2M PRN Opioid Reversal Nitroglycerin 0.4 mg 06/15/21 08:58 Nitroglycerin Sl Tabs 0.4 Mg Tab SUBLINGUAL Q5M PRN Chest Pain Ondansetron HCl 4 mg 06/11/21 01:10 Ondansetron 4 Mg/2 Ml Vial IVP Q8HR PRN Nausea And Vomiting Pantoprazole Sodium 40 mg 06/17/21 09:00 06/20/21 08:33 Pantoprazole 40 Mg Tablet PO 40 mg DAILY [facility] Administration Objective - Vital Signs Vital signs: Vital Signs Temp 97.4 F L 06/20/21 21:00 Pulse 103 H 06/20/21 21:00 Resp 22 06/20/21 21:00 BP 104/65 06/20/21 21:00 Pulse Ox 97 06/20/21 21:00 Intake & Output 06/20/21 06/20/21 06/21/21 06:59 18:59 06:59 Intake Total 700 Output Total 400 Balance 300 Weight 97.5 kg Intake: Oral 700 Output: Urine 400 Other: Voiding Method Toilet Toilet # Voids 2 1 # Bowel Movements 1 - Exam PHYSICAL EXAMINATION: Patient is lying in the bed comfortably, no acute distress, awake alert and oriented.. HEENT: Normocephalic. Neck is supple. Pupils reactive. Nostrils clear. Oral cavity is moist. Neck reveals no JVD, carotid bruits, or thyromegaly. CHEST EXAMINATION: Trachea is central. Symmetrical expansion. Lung pulido clear to auscultation and percussion. CARDIAC: Normal S1, S2 with no gallops. Ejection systolic murmur present ABDOMEN: Soft. Bowel sounds normal. No organomegaly. No abdominal bruits. Extremities: Bilateral lower extremity 2+ edema. No clubbing or cyanosis Neurologically awake, alert, oriented x3 with well-coordinated movements. No focal deficits noted Skin: No rash or skin lesions. Psychiatric: Coperative. Nonsuicidal Musculoskeletal: No joint swelling or deformity. Normal range of motion. - Labs CBC & Chem 7: 06/19/21 11:28 06/19/21 11:28 Labs: Abnormal Lab Results - Last 24 Hours (Table) 06/20/21 06/20/21 06/20/21 Range/Units 02:02 06:14 11:47 POC Glucose (mg/dL) 211 H 213 H 240 H (75-99) mg/dL 06/20/21 06/20/21 Range/Units 16:41 21:20 POC Glucose (mg/dL) 240 H 208 H (75-99) mg/dL Assessment and Plan Assessment: Coronary artery disease. Status post encouragement LAD. Severe aortic stenosis. Acute CHF with diastolic dysfunction. Diabetes type 2 insulin-dependent. Morbid obesity with BMI 42.0 DVT prophylaxis with heparin subcu Plan: Patient will be continued Lasix increased to 80 mg twice daily. Continue with aspirin, Plavix and statins and continue with telemetry monitoring. Cardiology on board. Patient will be started back on home dose of Levemir and will continue with insulin sliding scale. Monitor blood sugars closely. Follow-up renal function. Continue to follow closely. Time with Patient: Greater than 30
[2021-06-20 23:58] LABS: Glucose,Whole Blood 162 mg/dL (75-99)
[2021-06-20] MEDS: INSULIN DETEMIR (LEVEMIR) 100 UNIT/ML SYR SQ SCH (23:59)
[2021-06-21 02:03] LABS: Glucose,Whole Blood 196 mg/dL (75-99)
[2021-06-21] MEDS ORDERED: MAGNESIUM HYDROXIDE 2,400 MG/10 ML CUP PO PRN (04:28)
[2021-06-21 06:14] LABS: Glucose,Whole Blood 212 mg/dL (75-99)
[2021-06-21] MEDS: INSULIN ASPART (NovoLOG) 100 UNIT/ML VIAL SQ SCH ×4 (06:49→21:03)
[2021-06-21] MEDS: ALBUTEROL NEBULIZED 2.5 MG/3 ML INHALATION SCH ×4 (08:10→20:11)
--- NOTE | 2021-06-21 08:49 | P.PN ---
Subjective Progress Note Date: 06/21/21 Principal diagnosis: Coronary artery disease/valvular heart disease This is a pleasant 81-year-old female patient who sees Dr. Stratton in the office was diagnosis and he was severe symptomatic aortic stenosis and underwent a heart catheterization and was found to have severe disease involving the LAD. She underwent successful stenting of the LAD yesterday. She was started on L asix yesterday because she was diagnosed with heart failure. The patient was seen earlier today. She feels slightly better today after she started diuresing more. Yesterday we increased the dose of Lasix to 80 mg by mouth twice a day. I would continue the patient on the current dose of Lasix for additional 24 hours and continue monitor the kidney function and electrolytes Objective - Vital Signs Vital signs: Vital Signs Temp 97.9 F 06/21/21 04:00 Pulse 84 06/21/21 04:00 Resp 20 06/21/21 04:00 BP 123/61 06/21/21 04:00 Pulse Ox 97 06/21/21 04:00 Intake & Output 06/20/21 06/21/21 06/21/21 18:59 06:59 18:59 Intake Total 700 240 Output Total 400 200 Balance 300 40 Weight 97.1 kg Intake: Oral 700 240 Output: Urine 400 200 Other: Voiding Method Toilet # Voids 1 # Bowel Movements 1 - Constitutional General appearance: Present: no acute distress - Respiratory Respiratory: bilateral: diminished - Cardiovascular Heart sounds: normal: S1, S2 Abnormal Heart Sounds: Present: systolic murmur - Labs CBC & Chem 7: 06/19/21 11:28 06/19/21 11:28 Labs: Abnormal Lab Results - Last 24 Hours (Table) 06/20/21 06/20/21 06/20/21 Range/Units 11:47 16:41 21:20 POC Glucose (mg/dL) 240 H 240 H 208 H (75-99) mg/dL 06/20/21 06/21/21 06/21/21 Range/Units 23:56 02:01 06:12 POC Glucose (mg/dL) 162 H 196 H 212 H (75-99) mg/dL Assessment and Plan Assessment: Assessment #1 severe aortic stenosis #2 coronary artery disease next #3 volume overload #4 multiple comorbid conditions Plan #1 continue the current dose of Lasix which is 80 mg IV twice a day #2 continue monitoring her kidney function and electrolytes #3 follow-up with the patient
[2021-06-21 08:57] LABS: Basophils % (A) 0 %; Eosinophils # (A) 0.4 k/uL (0-0.7); Eosinophils % (A) 6 %; HCT 32.8 % (34.0-46.0); HGB 10.7 gm/dL (11.4-16.0); Hypochromasia Slight; Lymphocytes # (A) 1.1 k/uL (1.0-4.8); Lymphocytes % (A) 16 %; MCH 30.7 pg (25.0-35.0); MCHC 32.5 g/dL (31.0-37.0); MCV 94.4 fL (80.0-100.0); Mean Platelet Volume 10.5; Monocytes # (A) 0.4 k/uL (0-1.0); Monocytes % (A) 7 %; Neutrophils # (A) 4.5 k/uL (1.3-7.7); Neutrophils % (A) 69 %; Platelet Count 214 k/uL (150-450); RBC 3.48 m/uL (3.80-5.40); RDW 13.7 % (11.5-15.5); WBC 6.6 k/uL (3.8-10.6)
[2021-06-21 09:04] LABS: Calcium 9.1 mg/dL (8.4-10.2); Potassium 4.7 mmol/L (3.5-5.1)
[2021-06-21] MEDS: ASPIRIN 81 MG PO SCH (09:04)
[2021-06-21] MEDS: PANTOPRAZOLE 40 MG TABLET PO SCH (09:04)
[2021-06-21] MEDS: FUROSEMIDE 10 MG/ML 10 ML VIAL IV SCH ×2 (09:04→21:03)
[2021-06-21] MEDS: ATORVASTATIN 40 MG TAB PO SCH (09:04)
[2021-06-21] MEDS: CLOPIDOGREL 75 MG TAB PO SCH (09:04)
[2021-06-21] MEDS: HEPARIN SODIUM,PORCINE/PF 5,000 UNIT/0.5 ML SYRINGE SQ SCH ×2 (09:05→21:02)
[2021-06-21 11:38] LABS: Glucose,Whole Blood 141 mg/dL (75-99)
[2021-06-21 16:52] LABS: Glucose,Whole Blood 172 mg/dL (75-99)
[2021-06-21] MEDS: INSULIN DETEMIR (LEVEMIR) 100 UNIT/ML SYR SQ SCH (17:27)
[2021-06-21 20:10] LABS: Glucose,Whole Blood 202 mg/dL (75-99)
[2021-06-21] MEDS ORDERED: ACETAMINOPHEN TAB 325 MG TAB PO PRN (20:40)
--- NOTE | 2021-06-21 23:59 | P.PN ---
Subjective Progress Note Date: 06/21/21 Principal diagnosis: Acute CHF thoracic dysfunction Severe aortic stenosis Coronary artery disease status post stent placement This is an 81-year-old female essentially meant for hypoglycemia found to have heart failure. No significant constipation otherwise stated. Echocardiogram showed aortic stenosis. TAVR is being instituted most likely after discharge. I had a long discussion with her family and she is moving in with her son because of her debility. She seems lucid and calm. No significant new complaints. No voiding difficulties otherwise stated. No hypoglycemia noted since yesterday No fever or chills. Voiding difficulties. Patient states that she is an voiding to the bathroom appropriately. 06/20/2021 Patient is currently sitting her chair. No complaints of chest pain. Shortness of breath is better compared to yesterday. Still having exertional dyspnea. Patient underwent cardiac catheterization found to have severe disease involving LAD. Patient underwent successful stenting of LAD yesterday. Patient is being continued on IV Lasix. Cardiology is on board. Patient does have history of severe aortic stenosis. 06/21/2021 Patient is currently sitting on the chair. Breathing status is better today. No complaints of chest pain. Still having exertional shortness of breath. Currently being continued on Lasix 80 mg every 12. Laboratory data showed WBC 6.6 hemoglobin 10.7 and platelets 214 BUN 20 and creatinine 0.76 and blood sugar is 176 and bicarb level is 32. Denied any complaints of dizziness or lightheadedness. Cardiology is on board. Laboratory data reviewed. Active Medications Generic Name Dose Route Start Last Admin Trade Name Freq PRN Reason Stop Dose Admin Albuterol Sulfate 2.5 mg 06/12/21 12:00 06/20/21 19:47 Albuterol Nebulized 2.5 Mg/3 Ml INHALATION 2.5 mg RT-QID NANCY Administration Alprazolam 0.25 mg 06/15/21 08:58 Alprazolam 0.25 Mg Tab PO Q6HR PRN Mild Anxiety Alprazolam 0.5 mg 06/15/21 08:58 Alprazolam 0.5 Mg Tab PO Q6HR PRN Moderate Anxiety Aspirin 81 mg 06/15/21 09:00 06/20/21 08:33 Aspirin 81 Mg PO 81 mg DAILY NANCY Administration Atorvastatin Calcium 40 mg 06/15/21 09:00 06/20/21 08:33 Atorvastatin 40 Mg Tab PO 40 mg DAILY NANCY Administration Clopidogrel Bisulfate 75 mg 06/18/21 09:00 06/20/21 08:33 Clopidogrel 75 Mg Tab PO 75 mg DAILY NANCY Administration Furosemide 80 mg 06/20/21 21:00 06/20/21 21:26 Furosemide 10 Mg/Ml 10 Ml Vial IV 80 mg Q12HR NANCY Administration Heparin Sodium (Porcine) 5,000 unit 06/13/21 21:00 06/20/21 21:26 Heparin Sodium,Porcine/Pf 5,000 Unit/0.5 Ml Syringe SQ 5,000 unit Q12HR NANCY Administration Insulin Aspart 0 unit 06/15/21 17:30 06/20/21 21:27 Insulin Aspart (Novolog) 100 Unit/Ml Vial SQ 3 unit ACHS NANCY Administration Protocol Insulin Detemir 12 unit 06/20/21 23:40 Insulin Detemir (Levemir) 100 Unit/Ml Syr SQ AC-SUPPER NANCY Naloxone HCl 0.2 mg 06/11/21 01:10 Naloxone 0.4 Mg/Ml 1 Ml Vial IV Q2M PRN Opioid Reversal Nitroglycerin 0.4 mg 06/15/21 08:58 Nitroglycerin Sl Tabs 0.4 Mg Tab SUBLINGUAL Q5M PRN Chest Pain Ondansetron HCl 4 mg 06/11/21 01:10 Ondansetron 4 Mg/2 Ml Vial IVP Q8HR PRN Nausea And Vomiting Pantoprazole Sodium 40 mg 06/17/21 09:00 06/20/21 08:33 Pantoprazole 40 Mg Tablet PO 40 mg DAILY NANCY Administration Objective - Vital Signs Vital signs: Vital Signs Temp 97.5 F L 06/21/21 08:00 Pulse 84 06/21/21 15:41 Resp 18 06/21/21 15:31 BP 119/68 06/21/21 15:31 Pulse Ox 100 06/21/21 15:31 Intake & Output 06/20/21 06/21/21 06/21/21 18:59 06:59 18:59 Intake Total 700 478 Output Total 400 800 Balance 300 -322 Weight 97.1 kg Intake: Oral 700 478 Output: Urine 400 800 Other: Voiding Method Toilet # Voids 1 # Bowel Movements 1 1 - Exam PHYSICAL EXAMINATION: Patient is lying in the bed comfortably, no acute distress, awake alert and oriented.. HEENT: Normocephalic. Neck is supple. Pupils reactive. Nostrils clear. Oral cavity is moist. Neck reveals no JVD, carotid bruits, or thyromegaly. CHEST EXAMINATION: Trachea is central. Symmetrical expansion. Lung pulido clear to auscultation and percussion. CARDIAC: Normal S1, S2 with no gallops. Ejection systolic murmur present ABDOMEN: Soft. Bowel sounds normal. No organomegaly. No abdominal bruits. Extremities: Bilateral lower extremity 2+ edema. No clubbing or cyanosis Neurologically awake, alert, oriented x3 with well-coordinated movements. No focal deficits noted Skin: No rash or skin lesions. Psychiatric: Coperative. Nonsuicidal Musculoskeletal: No joint swelling or deformity. Normal range of motion. - Labs CBC & Chem 7: 06/21/21 07:58 06/21/21 07:58 Labs: Abnormal Lab Results - Last 24 Hours (Table) 06/20/21 06/20/21 06/21/21 Range/Units 21:20 23:56 02:01 RBC (3.80-5.40) m/uL Hgb (11.4-16.0) gm/dL Hct (34.0-46.0) % Carbon Dioxide (22-30) mmol/L BUN (7-17) mg/dL Glucose (74-99) mg/dL POC Glucose (mg/dL) 208 H 162 H 196 H (75-99) mg/dL 06/21/21 06/21/21 06/21/21 Range/Units 06:12 07:58 07:58 RBC 3.48 L (3.80-5.40) m/uL Hgb 10.7 L (11.4-16.0) gm/dL Hct 32.8 L (34.0-46.0) % Carbon Dioxide 32 H (22-30) mmol/L BUN 20 H (7-17) mg/dL Glucose 176 H (74-99) mg/dL POC Glucose (mg/dL) 212 H (75-99) mg/dL 06/21/21 06/21/21 Range/Units 11:37 16:51 RBC (3.80-5.40) m/uL Hgb (11.4-16.0) gm/dL Hct (34.0-46.0) % Carbon Dioxide (22-30) mmol/L BUN (7-17) mg/dL Glucose (74-99) mg/dL POC Glucose (mg/dL) 141 H 172 H (75-99) mg/dL Assessment and Plan Assessment: Coronary artery disease. Status post encouragement LAD. Severe aortic stenosis. Acute CHF with diastolic dysfunction. Diabetes type 2 insulin-dependent. Morbid obesity with BMI 42.0 DVT prophylaxis with heparin subcu Plan: Patient will be continued Lasix increased to 80 mg twice daily. Continue with aspirin, Plavix and statins and continue with telemetry monitoring. Cardiology on board. Patient will be started back on home dose of Levemir and will continue with insulin sliding scale. Monitor blood sugars closely. Follow-up renal function. Continue to follow closely. Time with Patient: Greater than 30
[2021-06-22 02:04] LABS: Glucose,Whole Blood 173 mg/dL (75-99)
[2021-06-22 06:08] LABS: Glucose,Whole Blood 140 mg/dL (75-99)
[2021-06-22] MEDS: INSULIN ASPART (NovoLOG) 100 UNIT/ML VIAL SQ SCH ×4 (06:25→20:35)
[2021-06-22] MEDS: ALBUTEROL NEBULIZED 2.5 MG/3 ML INHALATION SCH ×4 (07:48→19:36)
[2021-06-22 07:58] LABS: Basophils % (A) 0 %; Eosinophils # (A) 0.4 k/uL (0-0.7); Eosinophils % (A) 6 %; HCT 32.2 % (34.0-46.0); HGB 10.4 gm/dL (11.4-16.0); Lymphocytes # (A) 1.1 k/uL (1.0-4.8); Lymphocytes % (A) 19 %; MCH 30.1 pg (25.0-35.0); MCHC 32.1 g/dL (31.0-37.0); MCV 93.9 fL (80.0-100.0); Mean Platelet Volume 10.2; Monocytes # (A) 0.5 k/uL (0-1.0); Monocytes % (A) 8 %; Neutrophils # (A) 3.8 k/uL (1.3-7.7); Neutrophils % (A) 64 %; Platelet Count 196 k/uL (150-450); RBC 3.43 m/uL (3.80-5.40); RDW 13.8 % (11.5-15.5)
[2021-06-22 08:19] LABS: Calcium 8.9 mg/dL (8.4-10.2); Potassium 4.7 mmol/L (3.5-5.1)
[2021-06-22] MEDS: ATORVASTATIN 40 MG TAB PO SCH (08:50)
[2021-06-22] MEDS: PANTOPRAZOLE 40 MG TABLET PO SCH (08:50)
[2021-06-22] MEDS: CLOPIDOGREL 75 MG TAB PO SCH (08:51)
[2021-06-22] MEDS: HEPARIN SODIUM,PORCINE/PF 5,000 UNIT/0.5 ML SYRINGE SQ SCH ×2 (08:51→20:06)
[2021-06-22] MEDS: FUROSEMIDE 10 MG/ML 10 ML VIAL IV SCH ×2 (08:51→20:06)
[2021-06-22] MEDS: ASPIRIN 81 MG PO SCH (08:51)
--- NOTE | 2021-06-22 11:09 | P.PN ---
Subjective Progress Note Date: 06/22/21 Principal diagnosis: Coronary artery disease/valvular heart disease The patient was seen this morning. She is feeling better indeterminable shortness of breath. She continues there is very well. Currently she is on Lasix at 80 mg IV twice a day. Creatinine continues to be stable. She denies any symptoms of chest pain or chest discomfort. She is known to have coronary artery disease and prior stenting of the LAD and also severe aortic stenosis. I would continue the current dose of Lasix IV and continue monitor the kidney function and electrolytes. Objective - Vital Signs Vital signs: Vital Signs Temp 98.5 F 06/22/21 08:00 Pulse 101 H 06/22/21 08:00 Resp 16 06/22/21 08:00 BP 122/73 06/22/21 08:00 Pulse Ox 97 06/22/21 08:00 Intake & Output 06/21/21 06/22/21 06/22/21 18:59 06:59 18:59 Intake Total 478 Output Total 800 Balance -322 Weight 95 kg Intake: Oral 478 Output: Urine 800 Other: Voiding Method Toilet Toilet # Voids 1 # Bowel Movements 1 - Constitutional General appearance: Present: no acute distress - Respiratory Respiratory: bilateral: diminished - Cardiovascular Heart sounds: normal: S1, S2 Abnormal Heart Sounds: Present: systolic murmur - Labs CBC & Chem 7: 06/22/21 07:41 06/22/21 07:41 Labs: Abnormal Lab Results - Last 24 Hours (Table) 06/21/21 06/21/21 06/21/21 Range/Units 11:37 16:51 20:09 RBC (3.80-5.40) m/uL Hgb (11.4-16.0) gm/dL Hct (34.0-46.0) % Chloride (98-107) mmol/L Carbon Dioxide (22-30) mmol/L BUN (7-17) mg/dL Glucose (74-99) mg/dL POC Glucose (mg/dL) 141 H 172 H 202 H (75-99) mg/dL 06/22/21 06/22/21 06/22/21 Range/Units 02:03 06:07 07:41 RBC 3.43 L (3.80-5.40) m/uL Hgb 10.4 L (11.4-16.0) gm/dL Hct 32.2 L (34.0-46.0) % Chloride (98-107) mmol/L Carbon Dioxide (22-30) mmol/L BUN (7-17) mg/dL Glucose (74-99) mg/dL POC Glucose (mg/dL) 173 H 140 H (75-99) mg/dL 06/22/21 Range/Units 07:41 RBC (3.80-5.40) m/uL Hgb (11.4-16.0) gm/dL Hct (34.0-46.0) % Chloride 96 L (98-107) mmol/L Carbon Dioxide 37 H (22-30) mmol/L BUN 23 H (7-17) mg/dL Glucose 125 H (74-99) mg/dL POC Glucose (mg/dL) (75-99) mg/dL Assessment and Plan Assessment: Assessment #1 severe aortic stenosis #2 coronary artery disease next #3 volume overload #4 multiple comorbid conditions Plan #1 continue the current dose of Lasix which is 80 mg IV twice a day #2 continue monitoring her kidney function and electrolytes #3 follow-up with the patient
[2021-06-22 12:11] LABS: Glucose,Whole Blood 207 mg/dL (75-99)
[2021-06-22 16:55] LABS: Glucose,Whole Blood 199 mg/dL (75-99)
[2021-06-22] MEDS: INSULIN DETEMIR (LEVEMIR) 100 UNIT/ML SYR SQ SCH (16:56)
[2021-06-22 20:27] LABS: Glucose,Whole Blood 280 mg/dL (75-99)
--- NOTE | 2021-06-22 23:54 | P.PN ---
Subjective Progress Note Date: 06/22/21 Principal diagnosis: Acute CHF systolic dysfunction Severe aortic stenosis Coronary artery disease status post stent placement This is an 81-year-old female essentially meant for hypoglycemia found to have heart failure. No significant constipation otherwise stated. Echocardiogram showed aortic stenosis. TAVR is being instituted most likely after discharge. I had a long discussion with her family and she is moving in with her son because of her debility. She seems lucid and calm. No significant new complaints. No voiding difficulties otherwise stated. No hypoglycemia noted since yesterday No fever or chills. Voiding difficulties. Patient states that she is an voiding to the bathroom appropriately. 06/20/2021 Patient is currently sitting her chair. No complaints of chest pain. Shortness of breath is better compared to yesterday. Still having exertional dyspnea. Patient underwent cardiac catheterization found to have severe disease involving LAD. Patient underwent successful stenting of LAD yesterday. Patient is being continued on IV Lasix. Cardiology is on board. Patient does have history of severe aortic stenosis. 06/21/2021 Patient is currently sitting on the chair. Breathing status is better today. No complaints of chest pain. Still having exertional shortness of breath. Currently being continued on Lasix 80 mg every 12. Laboratory data showed WBC 6.6 hemoglobin 10.7 and platelets 214 BUN 20 and creatinine 0.76 and blood sugar is 176 and bicarb level is 32. Denied any complaints of dizziness or lightheadedness. Cardiology is on board. 06/22/2021 Patient is currently resting in the bed comfortably. Shortness of breath is much improved. Still having bilateral lower extremity swelling. Continued on IV diuresis with a Lasix 80 mg twice daily. Patient has been afebrile. Blood pressure is 92/58 and pulse oximetry 97% on 2 L. Laboratory pressure BUN 23 and creatinine 0.81, bicarb 37 WBC 6.0 hemoglobin 10.4 and platelets 196. Laboratory data reviewed. Active Medications Generic Name Dose Route Start Last Admin Trade Name Freq PRN Reason Stop Dose Admin Albuterol Sulfate 2.5 mg 06/12/21 12:00 06/20/21 19:47 Albuterol Nebulized 2.5 Mg/3 Ml INHALATION 2.5 mg RT-QID NANCY Administration Alprazolam 0.25 mg 06/15/21 08:58 Alprazolam 0.25 Mg Tab PO Q6HR PRN Mild Anxiety Alprazolam 0.5 mg 06/15/21 08:58 Alprazolam 0.5 Mg Tab PO Q6HR PRN Moderate Anxiety Aspirin 81 mg 06/15/21 09:00 06/20/21 08:33 Aspirin 81 Mg PO 81 mg DAILY NANCY Administration Atorvastatin Calcium 40 mg 06/15/21 09:00 06/20/21 08:33 Atorvastatin 40 Mg Tab PO 40 mg DAILY NANCY Administration Clopidogrel Bisulfate 75 mg 06/18/21 09:00 06/20/21 08:33 Clopidogrel 75 Mg Tab PO 75 mg DAILY NANCY Administration Furosemide 80 mg 06/20/21 21:00 06/20/21 21:26 Furosemide 10 Mg/Ml 10 Ml Vial IV 80 mg Q12HR [facility] Administration Heparin Sodium (Porcine) 5,000 unit 06/13/21 21:00 06/20/21 21:26 Heparin Sodium,Porcine/Pf 5,000 Unit/0.5 Ml Syringe SQ 5,000 unit Q12HR [facility] Administration Insulin Aspart 0 unit 06/15/21 17:30 06/20/21 21:27 Insulin Aspart (Novolog) 100 Unit/Ml Vial SQ 3 unit ACHS [facility] Administration Protocol Insulin Detemir 12 unit 06/20/21 23:40 Insulin Detemir (Levemir) 100 Unit/Ml Syr SQ AC-SUPPER [facility] Naloxone HCl 0.2 mg 06/11/21 01:10 Naloxone 0.4 Mg/Ml 1 Ml Vial IV Q2M PRN Opioid Reversal Nitroglycerin 0.4 mg 06/15/21 08:58 Nitroglycerin Sl Tabs 0.4 Mg Tab SUBLINGUAL Q5M PRN Chest Pain Ondansetron HCl 4 mg 06/11/21 01:10 Ondansetron 4 Mg/2 Ml Vial IVP Q8HR PRN Nausea And Vomiting Pantoprazole Sodium 40 mg 06/17/21 09:00 06/20/21 08:33 Pantoprazole 40 Mg Tablet PO 40 mg DAILY [facility] Administration Objective - Vital Signs Vital signs: Vital Signs Temp 98.3 F 06/22/21 16:00 Pulse 84 06/22/21 19:51 Resp 16 06/22/21 16:00 BP 92/58 06/22/21 16:00 Pulse Ox 97 06/22/21 16:00 Intake & Output 09/0606/22/21 06/23/21 06:59 18:59 06:59 Intake Total 840 Balance 840 Weight 95 kg Intake: Oral 840 Other: Voiding Method Toilet Toilet # Voids 1 1 1 - Exam PHYSICAL EXAMINATION: Patient is lying in the bed comfortably, no acute distress, awake alert and oriented.. HEENT: Normocephalic. Neck is supple. Pupils reactive. Nostrils clear. Oral cavity is moist. Neck reveals no JVD, carotid bruits, or thyromegaly. CHEST EXAMINATION: Trachea is central. Symmetrical expansion. Lung pulido clear to auscultation and percussion. CARDIAC: Normal S1, S2 with no gallops. Ejection systolic murmur present ABDOMEN: Soft. Bowel sounds normal. No organomegaly. No abdominal bruits. Extremities: Bilateral lower extremity 2+ edema. No clubbing or cyanosis Neurologically awake, alert, oriented x3 with well-coordinated movements. No focal deficits noted Skin: No rash or skin lesions. Psychiatric: Coperative. Nonsuicidal Musculoskeletal: No joint swelling or deformity. Normal range of motion. - Labs CBC & Chem 7: 06/23/21 08:23 06/24/21 10:28 Labs: Abnormal Lab Results - Last 24 Hours (Table) 06/22/21 06/22/21 06/22/21 Range/Units 02:03 06:07 07:41 RBC 3.43 L (3.80-5.40) m/uL Hgb 10.4 L (11.4-16.0) gm/dL Hct 32.2 L (34.0-46.0) % Chloride (98-107) mmol/L Carbon Dioxide (22-30) mmol/L BUN (7-17) mg/dL Glucose (74-99) mg/dL POC Glucose (mg/dL) 173 H 140 H (75-99) mg/dL 06/22/21 06/22/21 06/22/21 Range/Units 07:41 11:53 16:35 RBC (3.80-5.40) m/uL Hgb (11.4-16.0) gm/dL Hct (34.0-46.0) % Chloride 96 L (98-107) mmol/L Carbon Dioxide 37 H (22-30) mmol/L BUN 23 H (7-17) mg/dL Glucose 125 H (74-99) mg/dL POC Glucose (mg/dL) 207 H 199 H (75-99) mg/dL 06/22/21 Range/Units 20:26 RBC (3.80-5.40) m/uL Hgb (11.4-16.0) gm/dL Hct (34.0-46.0) % Chloride (98-107) mmol/L Carbon Dioxide (22-30) mmol/L BUN (7-17) mg/dL Glucose (74-99) mg/dL POC Glucose (mg/dL) 280 H (75-99) mg/dL Assessment and Plan Assessment: Coronary artery disease. Status post Stent placement to LAD. Severe aortic stenosis. Acute CHF with diastolic dysfunction. Diabetes type 2 insulin-dependent. Morbid obesity with BMI 42.0 DVT prophylaxis with heparin subcu Plan: Patient will be continued Lasix increased to 80 mg twice daily. Continue with aspirin, Plavix and statins and continue with telemetry monitoring. Cardiology on board. Patient was started back on home dose of Levemir and will continue with insulin sliding scale. Monitor blood sugars closely. Follow-up renal function. Continue to follow closely. Time with Patient: Greater than 30
[2021-06-23 01:48] LABS: Glucose,Whole Blood 62 mg/dL (75-99)
[2021-06-23 02:01] LABS: Glucose,Whole Blood 80 mg/dL (75-99)
[2021-06-23 06:08] LABS: Glucose,Whole Blood 116 mg/dL (75-99)
[2021-06-23] MEDS: INSULIN ASPART (NovoLOG) 100 UNIT/ML VIAL SQ SCH ×4 (06:14→21:56)
[2021-06-23] MEDS: ALBUTEROL NEBULIZED 2.5 MG/3 ML INHALATION SCH ×4 (07:33→20:01)
[2021-06-23] MEDS: HEPARIN SODIUM,PORCINE/PF 5,000 UNIT/0.5 ML SYRINGE SQ SCH ×2 (08:37→21:56)
[2021-06-23] MEDS: FUROSEMIDE 10 MG/ML 10 ML VIAL IV SCH (08:37)
[2021-06-23] MEDS: CLOPIDOGREL 75 MG TAB PO SCH (08:38)
[2021-06-23] MEDS: PANTOPRAZOLE 40 MG TABLET PO SCH (08:38)
[2021-06-23] MEDS: ATORVASTATIN 40 MG TAB PO SCH (08:38)
[2021-06-23] MEDS: ASPIRIN 81 MG PO SCH (08:38)
--- NOTE | 2021-06-23 08:44 | P.PN ---
Subjective Principal diagnosis: This is an 81-year-old female essentially meant for hypoglycemia found to have heart failure. Clinically the patient is improved. She is on IV Lasix. I suspect anticipate changing to by mouth. No voiding difficulties. Stamina is improving. She has severe aortic stenosis. Objective - Vital Signs Vital signs: Vital Signs Temp 97.7 F 06/23/21 07:24 Pulse 99 06/23/21 08:09 Resp 18 06/23/21 07:42 BP 102/61 06/23/21 07:24 Pulse Ox 86 L 06/23/21 08:09 Intake & Output 06/22/21 06/23/21 06/23/21 18:59 06:59 18:59 Intake Total 840 Balance 840 Weight 92.7 kg Intake: Oral 840 Other: Voiding Method Toilet Toilet Toilet # Voids 1 2 # Bowel Movements 2 - Constitutional General appearance: Present: obese - EENT Eyes: Absent: abnormal pupil - Neck Neck: Absent: lymphadenopathy - Respiratory Respiratory: bilateral: diminished - Cardiovascular Rhythm: regular Heart sounds: normal: S1, S2 Abnormal Heart Sounds: Present: systolic murmur. Absent: S3 Gallop - Gastrointestinal General gastrointestinal: Present: soft. Absent: tenderness - Psychiatric Psychiatric: Present: A&O x's 3 - Labs CBC & Chem 7: 06/22/21 07:41 06/22/21 07:41 Labs: Abnormal Lab Results - Last 24 Hours (Table) 06/22/21 06/22/21 06/22/21 Range/Units 11:53 16:35 20:26 POC Glucose (mg/dL) 207 H 199 H 280 H (75-99) mg/dL 06/23/21 06/23/21 Range/Units 01:46 06:07 POC Glucose (mg/dL) 62 L 116 H (75-99) mg/dL Assessment and Plan (1) Hypoglycemia Current Visit: Yes Status: Acute Code(s): E16.2 - HYPOGLYCEMIA, UNSPECIFIED SNOMED Code(s): 908795093 (2) Nausea & vomiting Current Visit: Yes Status: Acute Code(s): R11.2 - NAUSEA WITH VOMITING, UNSPECIFIED SNOMED Code(s): 68389631 (3) Aortic stenosis Current Visit: Yes Status: Acute Code(s): I35.0 - NONRHEUMATIC AORTIC (VALVE) STENOSIS SNOMED Code(s): 81165823 (4) Diabetes Current Visit: No Status: Acute Code(s): E11.9 - TYPE 2 DIABETES MELLITUS WITHOUT COMPLICATIONS SNOMED Code(s): 65433895 (5) Stented coronary artery Current Visit: Yes Status: Acute Code(s): Z95.5 - PRESENCE OF CORONARY ANGIOPLASTY IMPLANT AND GRAFT SNOMED Code(s): 000402181 Plan: Again, I suspect we can transition to by mouth Lasix per cardiology. Check CMP in a.m. Anticipate discharge in next 24-48 hours if this continues stability. In the future, she will need TAVR Time with Patient: Greater than 30
[2021-06-23 09:12] LABS: Basophils % (A) 0 %; Eosinophils # (A) 0.4 k/uL (0-0.7); Eosinophils % (A) 6 %; HGB 11.4 gm/dL (11.4-16.0); Lymphocytes # (A) 1.2 k/uL (1.0-4.8); Lymphocytes % (A) 17 %; MCH 29.7 pg (25.0-35.0); MCHC 31.5 g/dL (31.0-37.0); Mean Platelet Volume 9.9; Monocytes # (A) 0.5 k/uL (0-1.0); Monocytes % (A) 8 %; Neutrophils # (A) 4.4 k/uL (1.3-7.7); Neutrophils % (A) 65 %; Platelet Count 231 k/uL (150-450); RBC 3.83 m/uL (3.80-5.40); RDW 13.7 % (11.5-15.5); WBC 6.7 k/uL (3.8-10.6)
[2021-06-23 09:28] LABS: Calcium 9.5 mg/dL (8.4-10.2); Potassium 4.5 mmol/L (3.5-5.1)
[2021-06-23 11:24] LABS: Glucose,Whole Blood 151 mg/dL (75-99)
--- NOTE | 2021-06-23 12:31 | P.PN ---
Subjective This is a pleasant 81-year-old female past medical history significant for diabetes mellitus. She is seen and examined sitting up from a recliner chair with daughter at the bedside. She denies symptoms of shortness of breath, chest pain, dizziness or palpitations. Blood pressure 126/69 heart rate 89 afebrile maintaining oxygen saturation on nasal cannula. Laboratory data reviewed, sodium 138, potassium 5.2, creatinine 0.62. Currently maintained on aspirin 81 mg daily and Lasix 20 mg by mouth daily. 06/23/2021 Patient seen and examined sitting up in recliner chair eating breakfast in no acute distress. She denies symptoms of chest pain, shortness of breath, dizziness or palpitations. Blood pressure 102/61 heart rate 85 afebrile maintaining oxygen saturation on room air. Daily labs pending. Currently maintained on aspirin 81 mg daily, atorvastatin 40 mg daily, Plavix 75 mg daily, Lasix 80 mg IV twice a day. GENERAL: Well-appearing, well-nourished and in no acute distress. NECK: Supple without JVD or thyromegaly. LUNGS: Faint expiratory wheezes noted throughout. No rhonchi or rales. Respiration equal and unlabored. HEART: Regular rate and rhythm with systolic ejection murmur at the base, no rubs or gallops. S1 and S2 heard. EXTREMITIES: Normal range of motion, trace bilateral lower extremity edema. No clubbing or cyanosis. Peripheral pulses intact. ASSESSMENT Acute diastolic heart failure Severe aortic stenosis Troponin leak, likely related to Coronary artery disease status post PCI to the LAD Diabetes mellitus Obesity, BMI 35 PLAN Transition to oral diuretics. Continue dual anti-platelet therapy. Add lopressor 25 mg BID to her daily regimen. She will be further evaluated in the outpatient setting for possible TAVR. Ongoing observation for another 24 hours, likely discharge tomorrow if she continues to improve. Increase activity as tolerated. Nurse Practitioner note has been reviewed, I agree with a documented findings and plan of care. Patient was seen and examined. Objective - Vital Signs Vital signs: Vital Signs Temp 97.7 F 06/23/21 07:24 Pulse 82 06/23/21 07:42 Resp 18 06/23/21 07:42 BP 102/61 06/23/21 07:24 Pulse Ox 92 L 06/23/21 07:34 Intake & Output 06/22/21 06/23/21 06/23/21 18:59 06:59 18:59 Intake Total 840 Balance 840 Weight 92.7 kg Intake: Oral 840 Other: Voiding Method Toilet Toilet Toilet # Voids 1 2 # Bowel Movements 2 - Labs CBC & Chem 7: 06/23/21 08:23 06/23/21 08:23 Labs: Abnormal Lab Results - Last 24 Hours (Table) 06/22/21 06/22/21 06/22/21 Range/Units 07:41 07:41 11:53 RBC 3.43 L (3.80-5.40) m/uL Hgb 10.4 L (11.4-16.0) gm/dL Hct 32.2 L (34.0-46.0) % Chloride 96 L (98-107) mmol/L Carbon Dioxide 37 H (22-30) mmol/L BUN 23 H (7-17) mg/dL Glucose 125 H (74-99) mg/dL POC Glucose (mg/dL) 207 H (75-99) mg/dL 06/22/21 06/22/21 06/23/21 Range/Units 16:35 20:26 01:46 RBC (3.80-5.40) m/uL Hgb (11.4-16.0) gm/dL Hct (34.0-46.0) % Chloride (98-107) mmol/L Carbon Dioxide (22-30) mmol/L BUN (7-17) mg/dL Glucose (74-99) mg/dL POC Glucose (mg/dL) 199 H 280 H 62 L (75-99) mg/dL 06/23/21 Range/Units 06:07 RBC (3.80-5.40) m/uL Hgb (11.4-16.0) gm/dL Hct (34.0-46.0) % Chloride (98-107) mmol/L Carbon Dioxide (22-30) mmol/L BUN (7-17) mg/dL Glucose (74-99) mg/dL POC Glucose (mg/dL) 116 H (75-99) mg/dL
[2021-06-23 16:51] LABS: Glucose,Whole Blood 238 mg/dL (75-99)
[2021-06-23] MEDS: INSULIN DETEMIR (LEVEMIR) 100 UNIT/ML SYR SQ SCH (18:55)
[2021-06-23 19:51] LABS: Glucose,Whole Blood 254 mg/dL (75-99)
[2021-06-23] MEDS: METOPROLOL TARTRATE 25 MG TAB PO SCH (21:57)
[2021-06-24 02:01] LABS: Glucose,Whole Blood 150 mg/dL (75-99)
[2021-06-24 03:31] VITALS: TEMP 97.9
[2021-06-24 06:20] LABS: Glucose,Whole Blood 114 mg/dL (75-99)
[2021-06-24] MEDS: INSULIN ASPART (NovoLOG) 100 UNIT/ML VIAL SQ SCH ×2 (06:25→12:35)
[2021-06-24] MEDS: ALBUTEROL NEBULIZED 2.5 MG/3 ML INHALATION SCH ×3 (07:25→15:38)
--- NOTE | 2021-06-24 08:28 | P.DS ---
Providers Date of admission: 06/13/21 14:53 Attending physician: Mick Rodriguez Consults: 06/16/21 16:36 Consult Physician Routine Consulting Provider: Vazquez Porter Consult Reason/Comments: consideration for TAVR Do you want consulting provider notified?: Yes 06/18/21 13:33 Consult Physician Routine Consulting Provider: Kumar Stratton Consult Reason/Comments: re: CHF, S/p PCI Do you want consulting provider notified?: Already Contacted Primary care physician: Mick Rodriguez - Discharge Diagnosis(es) (1) Hypoglycemia Current Visit: Yes Status: Acute (2) Nausea & vomiting Current Visit: Yes Status: Acute (3) Aortic stenosis Current Visit: Yes Status: Acute (4) Diabetes Current Visit: No Status: Acute (5) Stented coronary artery Current Visit: Yes Status: Acute Hospital Course: This is a discharge summary 81-year-old white female who is essentially admitted for hypoglycemia but several days later after that was mainly controlled she developed woman or edema. Worsening aortic stenosis was diagnosed and she ended up having cardiac catheterization with stent placement. She is now going to have TVR evaluation as an outpatient. She'll follow-up with me about 3-5 days for appropriate treatment. The patient is now stable after 1011 day hospitalization tolerating diet and ambulating properly. She will discharge with her family as she is a high risk for fall at home with her aortic stenosis and her significant weakness which is now resolving. Patient Condition at Discharge: Good Plan - Discharge Summary Discharge Rx Participant: No New Discharge Prescriptions: New Aspirin 81 mg PO DAILY #90 Furosemide [Lasix] 20 mg PO DAILY #30 tab Nitroglycerin Sl Tabs [Nitrostat] 0.4 mg SUBLINGUAL Q5M PRN #60 tab PRN Reason: Chest Pain Clopidogrel [Plavix] 75 mg PO DAILY #30 tab Pantoprazole [Protonix] 40 mg PO DAILY #30 tab Atorvastatin [Lipitor] 40 mg PO DAILY #30 tab Metoprolol Tartrate [Lopressor] 25 mg PO BID #60 tab Acetaminophen Tab [Tylenol] 650 mg PO Q6HR PRN tab PRN Reason: Fever And/ Or Pain Continue Insulin Detemir [Levemir Flextouch Pen] 12 units SQ AC-SUPPER Insulin Aspart (Niacinamide) [Fiasp 100 Unit/ml Flextouch Pen] 10 units SQ AC-BRKFST Insulin Aspart (Niacinamide) [Fiasp 100 Unit/ml Flextouch Pen] 8 units SQ AC- LUNCH Insulin Aspart (Niacinamide) [Fiasp 100 Unit/ml Flextouch Pen] 10 units SQ AC-SUPPER Discharge Medication List Insulin Detemir [Levemir Flextouch Pen] 12 units SQ AC-SUPPER 04/09/16 [History] Insulin Aspart (Niacinamide) [Fiasp 100 Unit/ml Flextouch Pen] 8 units SQ AC- LUNCH 04/21/20 [History] Insulin Aspart (Niacinamide) [Fiasp 100 Unit/ml Flextouch Pen] 10 units SQ AC- BRKFST 04/21/20 [History] Insulin Aspart (Niacinamide) [Fiasp 100 Unit/ml Flextouch Pen] 10 units SQ AC- SUPPER 04/21/20 [History] Acetaminophen Tab [Tylenol] 650 mg PO Q6HR PRN tab 06/24/21 [Rx] Aspirin 81 mg PO DAILY #90 06/24/21 [Rx] Atorvastatin [Lipitor] 40 mg PO DAILY #30 tab 06/24/21 [Rx] Clopidogrel [Plavix] 75 mg PO DAILY #30 tab 06/24/21 [Rx] Furosemide [Lasix] 20 mg PO DAILY #30 tab 06/24/21 [Rx] Metoprolol Tartrate [Lopressor] 25 mg PO BID #60 tab 06/24/21 [Rx] Nitroglycerin Sl Tabs [Nitrostat] 0.4 mg SUBLINGUAL Q5M PRN #60 tab 06/24/21 [Rx] Pantoprazole [Protonix] 40 mg PO DAILY #30 tab 06/24/21 [Rx] Follow up Appointment(s)/Referral(s): Mick Rodriguez MD [Primary Care Provider] - 1-2 days Vazquez Porter MD [STAFF PHYSICIAN] - As Needed (Please call our structural heart clinic at [phone] to schedule appointment for continued TAVR planning once discharged from the hospital) [facility], [NON-STAFF] - Kumar Stratton MD [STAFF PHYSICIAN] - 1 Week Patient Instructions/Handouts: Non-diabetic Hypoglycemia (ED)
[2021-06-24] MEDS ORDERED: FUROSEMIDE 20 MG TAB PO SCH (09:00)
[2021-06-24] MEDS: ASPIRIN 81 MG PO SCH (09:33)
[2021-06-24] MEDS: ATORVASTATIN 40 MG TAB PO SCH (09:33)
[2021-06-24] MEDS: CLOPIDOGREL 75 MG TAB PO SCH (09:33)
[2021-06-24] MEDS: METOPROLOL TARTRATE 25 MG TAB PO SCH (09:33)
[2021-06-24] MEDS: HEPARIN SODIUM,PORCINE/PF 5,000 UNIT/0.5 ML SYRINGE SQ SCH (09:34)
[2021-06-24] MEDS: PANTOPRAZOLE 40 MG TABLET PO SCH (09:34)
[2021-06-24 11:14] LABS: Calcium 9.1 mg/dL (8.4-10.2); Total Bilirubin 0.7 mg/dL (0.2-1.3)
[2021-06-24 11:19] LABS: Albumin 3.5 g/dL (3.5-5.0); Potassium 5.1 mmol/L (3.5-5.1); Total Protein 7.3 g/dL (6.3-8.2)
--- NOTE | 2021-06-24 11:36 | P.PN ---
Subjective This is a pleasant 81-year-old female past medical history significant for diabetes mellitus. 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 We are following the patient for severe aortic stenosis, and congestive heart failure. Echocardiogram revealed EF 45-50%, RV is mildly enlarged, LA is severely dilated, severe aortic stenosis peak/mean gradient 70mmHg/46mmHg, moderate mitral regurgitation, moderate tricuspid regurgitation, moderate pulmonary hypertension RVSP 46mmHg. Patient underwent BELKYS on 06/16 with severe aortic stenosis involving a 3 leaflet valve, heavily calcified and severe restriction in leaflet mobility. She underwent cardiac catheterization with PCI to proximal to mid LAD and CSI rotational atherectomy on 06/18. She is seen and examined this morning sitting up from a recliner chair with grand-daughter at the bedside. She denies symptoms of shortness of breath, chest pain, dizziness or palpitations. Blood pressure 97/56 heart rate 67 afebrile maintaining oxygen saturation on 2L nasal cannula. Laboratory data not resulted today. Currently maintained on aspirin 81 mg daily, atorvastatin 40 mg daily, Plavix 75 mg daily, Lasix 20 PO daily, metoprolol tartrate 25mg BID. GENERAL: Well-appearing, well-nourished and in no acute distress. NECK: Supple without JVD or thyromegaly. LUNGS: Faint expiratory wheezes noted throughout. No rhonchi or rales. Respiration equal and unlabored. HEART: Regular rate and rhythm with systolic ejection murmur at the base, no rubs or gallops. S1 and S2 heard. EXTREMITIES: Normal range of motion, 1+ bilateral lower extremity edema. No clubbing or cyanosis. Peripheral pulses intact. ASSESSMENT Acute diastolic heart failure Severe aortic stenosis Troponin leak, likely related to aortic stenosis Coronary artery disease status post PCI to the LAD Diabetes mellitus, Type 2 Obesity, BMI 35 PLAN Continue oral diuretics Continue dual anti-platelet therapy with aspirin and plavix and continue statin Continue lopressor 25 mg BID She will be further evaluated in the outpatient setting for possible TAVR. Increase activity as tolerated. From cardiology perspective, ok to discharge today and have close follow up with Dr. Stratton. Nurse Practitioner note has been reviewed, I agree with a documented findings and plan of care. Patient was seen and examined. Objective - Vital Signs Vital signs: Vital Signs Temp 97.9 F 06/24/21 03:30 Pulse 82 06/24/21 07:36 Resp 17 06/24/21 03:30 BP 97/56 06/24/21 03:30 Pulse Ox 97 06/24/21 03:30 Intake & Output 06/23/21 06/24/21 06/24/21 18:59 06:59 18:59 Intake Total 240 220 240 Output Total 1500 300 Balance -1260 -80 240 Weight 91.5 kg Intake: Oral 240 220 240 Output: Urine 1500 300 Other: Voiding Method Toilet Toilet # Voids 1 - Labs CBC & Chem 7: 06/23/21 08:23 06/24/21 10:28 Labs: Abnormal Lab Results - Last 24 Hours (Table) 06/23/21 06/23/21 06/23/21 Range/Units 11:22 16:49 19:49 POC Glucose (mg/dL) 151 H 238 H 254 H (75-99) mg/dL 06/24/21 06/24/21 Range/Units 01:59 06:19 POC Glucose (mg/dL) 150 H 114 H (75-99) mg/dL
[2021-06-24 11:53] LABS: Glucose,Whole Blood 165 mg/dL (75-99)
[2021-06-24 13:36] VITALS: BP 106/48; RESP 18
[2021-06-24 15:44] VITALS: PULSE 86
--- NOTE | 2021-06-26 08:58 | CDI ---
Documentation Clarification Form Date: 06/26/21 From: Mirna Alatorre Admit Date: 06/13/2021 02:53:00 PM Patient Name: Sandee Arnold Visit Number: [id number] Discharge Date: 06/24/2021 05:10:00 PM ATTENTION: The Clinical Documentation Specialists (CDI) and [facility] Coding Staff appreciate your assistance in clarifying documentation. Please respond to the clarification below the line at the bottom and electronically sign. The CDI & [facility] Coding staff will review the response and follow-up if needed. Please note: Queries are made part of the Legal Health Record. If you have any questions, please contact the author of this message via ITS. Dr. Kumar Stratton, Conflicting documentation has been found in the medical record. As attending physician, please provide clarification. Non- ST-segment myocardial infarction ([place]) is documented in your heart cath report on 06/16. Dr Downs documents "mildly elevated troponin is a due to and CHF" in 06/[address] Conway documents "Troponin leak, likely related to " in 06/23 PN. History/Risk Factors: HTN, DM, morbid obesity Clinical Indicators: and CHF. Troponin: 0.248. 0.690. EKG Results: Normal sinus rhythm. ST & T wave abnormality, consider lateral ischemia. Treatment: Heart cath, PTCA with artherectomy, BELKYS, heparin, Plavix Please clarify which diagnosis is most appropriate: [ ] [id number] [place] [ x ] Type II [place] due to and CHF [ ] Unable to determine MTDD
== END 2021-06-24 17:10 | disposition home health service (06) | DRG 246 ==
LOC: EC 21:02 → 6NMEDSUR 06-11 01:11 → OBSVTOIN 06-13 14:53 → 3SCARD 06-15 14:35
PROVIDERS: ADMIT Family Medicine; ATTEND Family Medicine
PROC: B24BZZ4 Ultrasonography of Heart with Aorta, Transesophageal (ICD-10-PCS; 2021-06-16)
PROC: 4A033BC Measurement of Arterial Pressure, Coronary, Percutaneous Approach (ICD-10-PCS; 2021-06-16 10:30)
PROC: B4101ZZ Fluoroscopy of Abdominal Aorta using Low Osmolar Contrast (ICD-10-PCS; 2021-06-16 10:30)
PROC: B2111ZZ Fluoroscopy of Multiple Coronary Arteries using Low Osmolar Contrast (ICD-10-PCS; 2021-06-16 10:30)
PROC: 4A023N7 Measurement of Cardiac Sampling and Pressure, Left Heart, Percutaneous Approach (ICD-10-PCS; 2021-06-16 10:30)
PROC: 02C03ZZ Extirpation of Matter from Coronary Artery, One Artery, Percutaneous Approach (ICD-10-PCS; principal; 2021-06-18 08:35)
PROC: 027035Z Dilation of Coronary Artery, One Artery with Two Drug-eluting Intraluminal Devices, Percutaneous Approach (ICD-10-PCS; principal; 2021-06-18 08:35)
DX: I11.0 Hypertensive heart disease with heart failure (principal); I50.31 Acute diastolic (congestive) heart failure; I21.A1 Myocardial infarction type 2; J18.9 Pneumonia, unspecified organism; Z68.41 Body mass index [BMI] 40.0-44.9, adult; E11.649 Type 2 diabetes mellitus with hypoglycemia without coma; I27.20 Pulmonary hypertension, unspecified; E11.65 Type 2 diabetes mellitus with hyperglycemia; Z79.4 Long term (current) use of insulin; E66.01 Morbid (severe) obesity due to excess calories; Z20.822 Contact with and (suspected) exposure to COVID-19; I25.10 Atherosclerotic heart disease of native coronary artery without angina pectoris; I08.3 Combined rheumatic disorders of mitral, aortic and tricuspid valves; I69.398 Other sequelae of cerebral infarction; I69.391 Dysphagia following cerebral infarction; F41.9 Anxiety disorder, unspecified; R09.02 Hypoxemia; H53.9 Unspecified visual disturbance; R13.10 Dysphagia, unspecified; Z86.718 Personal history of other venous thrombosis and embolism; Z87.81 Personal history of (healed) traumatic fracture; Z90.89 Acquired absence of other organs; Z87.19 Personal history of other diseases of the digestive system; Z91.81 History of falling; Z98.890 Other specified postprocedural states; Z71.3 Dietary counseling and surveillance; Z83.3 Family history of diabetes mellitus; Z80.49 Family history of malignant neoplasm of other genital organs
CPT/HCPCS: 36415; 71045; 74022; 80048; 80053; 80061; 83036; 83735; 83880; 84100; 84132; 84145; 84443; 84484; 85025; 85027; 87635; 92921; 92978; 93306; 93312; 93320; 93325; 93458; 93571; 93880; 94640; 94660; 94760; 96374; 99285

== ENCOUNTER → 2021-07-08 | Outpatient (CLI) | payer MEDICARE ==
--- NOTE | 2021-07-08 15:35 | XR ---
EXAMINATION TYPE: XR chest 2V DATE OF EXAM: 07/08/2021 COMPARISON: Chest x-ray June 12, 2021 HISTORY: Cough. TECHNIQUE: Frontal and lateral views of the chest are obtained. FINDINGS: There is persistent bilateral reticular interstitial prominence with new left midlung line ar atelectasis and small to tiny bilateral pleural effusions redemonstrated. Persistent cardiomegaly. The osseous structures remain demineralized. Old fracture right proximal humerus suspected only pa rtially imaged. IMPRESSION: Correlate for CHF exacerbation as there is cardiomegaly with small to tiny bilateral ple ural effusions and mild interstitial edema suspected on background chronic parenchymal changes.
[2021-07-08 16:54] LABS: Basophils % (A) 0 %; Eosinophils # (A) 0.2 k/uL (0-0.7); Eosinophils % (A) 2 %; HCT 39.3 % (34.0-46.0); HGB 12.9 gm/dL (11.4-16.0); Lymphocytes # (A) 0.9 k/uL (1.0-4.8); Lymphocytes % (A) 9 %; MCH 30.8 pg (25.0-35.0); MCHC 32.7 g/dL (31.0-37.0); MCV 94.1 fL (80.0-100.0); Mean Platelet Volume 12.2; Monocytes # (A) 0.6 k/uL (0-1.0); Monocytes % (A) 6 %; Neutrophils # (A) 7.4 k/uL (1.3-7.7); Neutrophils % (A) 79 %; Platelet Count 145 k/uL (150-450); RBC 4.18 m/uL (3.80-5.40); RDW 13.9 % (11.5-15.5); WBC 9.4 k/uL (3.8-10.6)
[2021-07-08 16:56] LABS: Appearance,Urine Cloudy (Clear); Bacteria,Urine Rare /hpf; Bilirubin,Urine Negative (Negative); Blood,Urine Negative (Negative); Color,Urine Yellow; Glucose,Urine (UA) Trace (Negative); Hyaline Casts,Urine 13 /lpf (0-2); Ketones,Urine Negative (Negative); Leukocyte Esterase,Urine Moderate (Negative); Mucus,Urine Occasional /hpf; Nitrite,Urine Negative (Negative); PH, Urine 5.5 (5.0-8.0); Protein,Urine Trace (Negative); RBC,Urine 3 /hpf (0-5); Specific Gravity,Urine 1.018 (1.001-1.035); Squamous Epithelial Cell,Urine 8 /hpf (0-4); WBC,Urine 16 /hpf (0-5)
[2021-07-08 16:58] LABS: ALT 16 U/L (4-34); AST 33 U/L (14-36); African American GFR (CKD) >90 (>60 ml/min/1.73 sqM); Albumin 3.7 g/dL (3.5-5.0); Alkaline Phosphatase 189 U/L (38-126); Anion Gap 8 mmol/L; Blood Urea Nitrogen 20 mg/dL (7-17); Calcium 9.7 mg/dL (8.4-10.2); Carbon Dioxide 32 mmol/L (22-30); Chloride 98 mmol/L (98-107); Glucose 219 mg/dL (74-99); Non-African American GFR(CKD) 85 (>60 ml/min/1.73 sqM); Sodium 138 mmol/L (137-145); Total Bilirubin 1.1 mg/dL (0.2-1.3); Total Protein 7.8 g/dL (6.3-8.2)
[2021-07-08 17:01] LABS: Potassium 5.4 mmol/L (3.5-5.1)
== END | disposition home or self-care (01) ==
LOC: RADXRMAIN 15:09
PROVIDERS: ATTEND Family Medicine
DX: I50.9 Heart failure, unspecified (principal); J90 Pleural effusion, not elsewhere classified; R60.9 Edema, unspecified
CPT/HCPCS: 71046; 80053; 81001; 85025; 87086

== ENCOUNTER 2021-07-09 11:11 | Inpatient (IN) | payer MEDICARE ==
[2021-07-09] MEDS ORDERED: SODIUM CHLORIDE 0.9% 500 ML 500 ML IV STA (11:35)
[2021-07-09 12:49] LABS: ALT 14 U/L (4-34); AST 25 U/L (14-36); African American GFR (CKD) >90 (>60 ml/min/1.73 sqM); Alkaline Phosphatase 164 U/L (38-126); Anion Gap 4 mmol/L; Blood Urea Nitrogen 18 mg/dL (7-17); Calcium 8.8 mg/dL (8.4-10.2); Carbon Dioxide 36 mmol/L (22-30); Chloride 98 mmol/L (98-107); Creatine Kinase 27 U/L (30-135); Glucose 223 mg/dL (74-99); Magnesium 2.1 mg/dL (1.6-2.3); Non-African American GFR(CKD) 88 (>60 ml/min/1.73 sqM); Potassium 4.3 mmol/L (3.5-5.1); Sodium 138 mmol/L (137-145); Total Bilirubin 0.8 mg/dL (0.2-1.3); Total Protein 6.5 g/dL (6.3-8.2)
[2021-07-09 12:50] LABS: Basophils % (A) 0 %; Eosinophils # (A) 0.2 k/uL (0-0.7); Eosinophils % (A) 3 %; HCT 34.5 % (34.0-46.0); HGB 11.2 gm/dL (11.4-16.0); Lymphocytes # (A) 0.8 k/uL (1.0-4.8); Lymphocytes % (A) 10 %; MCH 30.1 pg (25.0-35.0); MCHC 32.4 g/dL (31.0-37.0); MCV 92.8 fL (80.0-100.0); Mean Platelet Volume 11.7; Monocytes # (A) 0.5 k/uL (0-1.0); Monocytes % (A) 6 %; Neutrophils # (A) 6.3 k/uL (1.3-7.7); Neutrophils % (A) 79 %; Platelet Count 151 k/uL (150-450); RBC 3.72 m/uL (3.80-5.40); WBC 7.9 k/uL (3.8-10.6)
--- NOTE | 2021-07-09 12:53 | XR ---
EXAMINATION TYPE: XR chest 2V DATE OF EXAM: 07/09/2021 COMPARISON: 07/08/2021 HISTORY: Shortness of breath TECHNIQUE: Frontal and lateral views of the chest are obtained. FINDINGS: Scattered senescent parenchymal changes noted. Hyperinflation compatible with COPD. Continued cardiomegaly with pulmonary venous congestion scattered infiltrates. No significant change appreciated. Mediastinal structures are stable and grossly unremarkable. No evidence for hilar prominence. Degenerative changes dorsal spine. IMPRESSION: 1. Stable chest. Correlate for CHF.
[2021-07-09 13:01] LABS: Prothrombin Time 10.9 sec (9.0-12.0)
[2021-07-09 13:10] LABS: Partial Thromboplastin Time 18.4 sec (22.0-30.0)
[2021-07-09 13:44] LABS: Large Platelets Present
--- NOTE | 2021-07-09 13:45 | ED ---
Weakness HPI - General Chief complaint: Weakness Stated complaint: Altered Mental Status Time Seen by Provider: 07/09/21 11:22 Source: EMS Mode of arrival: EMS Limitations: altered mental status - History of Present Illness Initial comments: Patient is an 81-year-old female with history of CVA, diabetes, heart disease, presenting to the emergency department via EMS with concerns for increased weakness and altered mental status. Patient arrives and O 2, this is been her baseline over the past week. According to family, patient was in the hospital a few weeks ago, it was determined she has a "faulty valve" and needs it replaced. They are seen Dr. Porter for this. Patient has been staying with her son over the past couple weeks, she seems to be having increased weakness over the past week, seems to be more confused than usual. Her appetite has been really well as well. The Patient and family denies any falls or trauma. She denies having any pain today including no chest pain, no shortness of breath. She does wear home O2 at 2 L. She denies any abdominal pain, no nausea or vomiting, no diarrhea. She denies any dysuria. She denies any recent fevers or chills. There are no further complaints at this time. Upon arrival to the ER, her vitals are stable. - Related Data Home Medications Medication Instructions Recorded Confirmed Insulin Detemir [Levemir Flextouch 12 units SQ AC-SUPPER 04/09/16 07/09/21 Pen] Insulin Aspart (Niacinamide) 8 units SQ AC-LUNCH 04/21/20 07/09/21 [Fiasp 100 Unit/ml Flextouch Pen] Insulin Aspart (Niacinamide) 10 units SQ AC-BRKFST 04/21/20 07/09/21 [Fiasp 100 Unit/ml Flextouch Pen] Insulin Aspart (Niacinamide) 10 units SQ AC-SUPPER 04/21/20 07/09/21 [Fiasp 100 Unit/ml Flextouch Pen] Diphenoxylate HCl/Atropine 1 tab PO QID PRN 07/09/21 07/09/21 [Lomotil 2.5-0.025 mg Tablet] Escitalopram [Lexapro] 10 mg PO DAILY 07/09/21 07/09/21 Previous Rx's Medication Instructions Recorded Acetaminophen Tab [Tylenol] 650 mg PO Q6HR PRN tab 06/24/21 Aspirin 81 mg PO DAILY #90 06/24/21 Atorvastatin [Lipitor] 40 mg PO DAILY #30 tab 06/24/21 Clopidogrel [Plavix] 75 mg PO DAILY #30 tab 06/24/21 Furosemide [Lasix] 20 mg PO DAILY #30 tab 06/24/21 Metoprolol Tartrate [Lopressor] 25 mg PO BID #60 tab 06/24/21 Nitroglycerin Sl Tabs [Nitrostat] 0.4 mg SUBLINGUAL Q5M PRN #60 tab 06/24/21 Pantoprazole [Protonix] 40 mg PO DAILY #30 tab 06/24/21 Allergies Allergy/AdvReac Type Severity Reaction Status Date / Time No Known Allergies Allergy Verified 07/09/21 13:43 Review of Systems ROS Statement: Those systems with pertinent positive or pertinent negative responses have been documented in the HPI. ROS Other: All systems not noted in ROS Statement are negative. Past Medical History Past Medical History: CVA/TIA, Diabetes Mellitus Additional Past Medical History / Comment(s): IDDM type II, CVA with some vision changes and difficulty swallowing (eat soft foods)., murmur., states fall April 13 History of Any Multi-Drug Resistant Organisms: None Reported Past Surgical History: Orthopedic Surgery, Tonsillectomy Additional Past Surgical History / Comment(s): Esophageal surgery 2003 pt thinks this was dilation ; Venous graft leg to left arm., right hip fx surgery (11/2018) Past Anesthesia/Blood Transfusion Reactions: No Reported Reaction Past Psychological History: No Psychological Hx Reported Smoking Status: Never smoker Past Alcohol Use History: None Reported Past Drug Use History: None Reported - Past Family History Mother Family Medical History: Cancer Additional Family Medical History / Comment(s): "Female cancer" father Family Medical History: Diabetes Mellitus General Exam - General Exam Comments Initial Comments: GENERAL: Patient is well-developed and well-nourished. Patient is nontoxic and in no acute distress. HEAD: Atraumatic, normocephalic. EYES: Pupils equal round and reactive to light, extraocular movements intact, sclera anicteric, conjunctiva are normal. Eyelids were unremarkable. ENT: TMs normal, nares patent, oropharynx clear without exudates. Moist mucous membranes. NECK: Normal range of motion, supple without lymphadenopathy or JVD. LUNGS: Unlabored respirations. Breath sounds clear to auscultation bilaterally and equal. No wheezes rales or rhonchi. HEART: Regular rate and rhythm without murmurs, rubs or gallops. ABDOMEN: Soft, nontender, normoactive bowel sounds. No guarding, no rebound. No masses appreciated. : Deferred MUSCULOSKELETAL: Normal extremities with adequate strength and normal range of motion, no pitting or edema. No clubbing or cyanosis. NEUROLOGICAL: Patient is alert and oriented x 2, does know her name, birthdate, and location. She knew her family in the room. Motor and sensory are also intact. Cranial nerves II through XII grossly intact. Symmetrical smile. PSYCH: Normal mood, normal affect. SKIN: Warm, Dry, normal turgor, no rashes or lesions noted. Limitations: altered mental status Course Vital Signs 07/09/21 11:20 Temperature 98.6 F Pulse Rate 86 Respiratory 20 Rate Blood Pressure 123/81 O2 Sat by Pulse 87 L Oximetry EKG Findings - EKG Comments: EKG Findings:: EKG shows atrial flutter with variable AV block, ST and T-wave abnormalities, no signs of acute ST segment elevation. Ventricular rate 95, QRS duration 82, QT 374. This is a change from her previous on 06/13/2021 which showed normal sinus rhythm. This was reviewed with Dr. Reyna. Medical Decision Making - Medical Decision Making Patient is an 81-year-old female with history of CVA, heart disease, COPD, presenting via EMS for weakness, altered mental status. Patient was here a few weeks ago for hypoglycemia, is in need of a valve replacement. Patient's vital signs are stable. She has no specific complaints. She seems to be alert and oriented 2, is answering questions appropriately. Family states that patient has changed over the past week, is not eating and seems to be altered. Labs are showing a normal white count, stable hemoglobin, kidney function is stable, glucose is 223. Troponin is elevated at 0.043 BNP is elevated from baseline of 11,000. Patient did have an outpatient urine sample yesterday, no significant signs of a UTI, urine culture is pending. Chest x-ray shows a stable chest, correlate for CHF. EKG is showing atrial flutter. CT of the brain shows no acute process. Patient will be admitted for CHF, altered mental status. Patient received dose of Lasix. Her vital signs remained stable here in the ER, on 3L O2 instead of 2. Dr. Rodriguez is accepting, we'll put cardiology on consult. Case discussed with Dr. Reyna. Patient's family is in agreement with this plan of care. - Lab Data Result diagrams: 07/09/21 12:02 07/09/21 12:02 Lab Results 07/09/21 07/09/21 07/09/21 Range/Units 12:02 12:02 12:02 WBC 7.9 (3.8-10.6) k/uL RBC 3.72 L (3.80-5.40) m/uL Hgb 11.2 L (11.4-16.0) gm/dL Hct 34.5 (34.0-46.0) % MCV 92.8 (80.0-100.0) fL MCH 30.1 (25.0-35.0) pg MCHC 32.4 (31.0-37.0) g/dL RDW 14.0 (11.5-15.5) % Plt Count 151 (150-450) k/uL MPV 11.7 Neutrophils % 79 % Lymphocytes % 10 % Monocytes % 6 % Eosinophils % 3 % Basophils % 0 % Neutrophils # 6.3 (1.3-7.7) k/uL Lymphocytes # 0.8 L (1.0-4.8) k/uL Monocytes # 0.5 (0-1.0) k/uL Eosinophils # 0.2 (0-0.7) k/uL Basophils # 0.0 (0-0.2) k/uL Manual Slide Review Performed Large Platelets Present PT 10.9 (9.0-12.0) sec INR 1.0 (<1.2) APTT 18.4 L (22.0-30.0) sec Sodium 138 (137-145) mmol/L Potassium 4.3 (3.5-5.1) mmol/L Chloride 98 (98-107) mmol/L Carbon Dioxide 36 H (22-30) mmol/L Anion Gap 4 mmol/L BUN 18 H (7-17) mg/dL Creatinine 0.53 (0.52-1.04) mg/dL Est GFR (CKD-EPI)AfAm >90 (>60 ml/min/1.73 sqM) Est GFR (CKD-EPI)NonAf 88 (>60 ml/min/1.73 sqM) Glucose 223 H (74-99) mg/dL Plasma Lactic Acid Richard (0.7-2.0) mmol/L Calcium 8.8 (8.4-10.2) mg/dL Magnesium 2.1 (1.6-2.3) mg/dL Total Bilirubin 0.8 (0.2-1.3) mg/dL AST 25 (14-36) U/L ALT 14 (4-34) U/L Alkaline Phosphatase 164 H (38-126) U/L Creatine Kinase 27 L (30-135) U/L Troponin I (0.000-0.034) ng/mL NT-Pro-B Natriuret Pep pg/mL Total Protein 6.5 (6.3-8.2) g/dL Albumin 3.0 L (3.5-5.0) g/dL 07/09/21 07/09/21 07/09/21 Range/Units 12:02 12:02 12:02 WBC (3.8-10.6) k/uL RBC (3.80-5.40) m/uL Hgb (11.4-16.0) gm/dL Hct (34.0-46.0) % MCV (80.0-100.0) fL MCH (25.0-35.0) pg MCHC (31.0-37.0) g/dL RDW (11.5-15.5) % Plt Count (150-450) k/uL MPV Neutrophils % % Lymphocytes % % Monocytes % % Eosinophils % % Basophils % % Neutrophils # (1.3-7.7) k/uL Lymphocytes # (1.0-4.8) k/uL Monocytes # (0-1.0) k/uL Eosinophils # (0-0.7) k/uL Basophils # (0-0.2) k/uL Manual Slide Review Large Platelets PT (9.0-12.0) sec INR (<1.2) APTT (22.0-30.0) sec Sodium (137-145) mmol/L Potassium (3.5-5.1) mmol/L Chloride (98-107) mmol/L Carbon Dioxide (22-30) mmol/L Anion Gap mmol/L BUN (7-17) mg/dL Creatinine (0.52-1.04) mg/dL Est GFR (CKD-EPI)AfAm (>60 ml/min/1.73 sqM) Est GFR (CKD-EPI)NonAf (>60 ml/min/1.73 sqM) Glucose (74-99) mg/dL Plasma Lactic Acid Richard 0.7 (0.7-2.0) mmol/L Calcium (8.4-10.2) mg/dL Magnesium (1.6-2.3) mg/dL Total Bilirubin (0.2-1.3) mg/dL AST (14-36) U/L ALT (4-34) U/L Alkaline Phosphatase (38-126) U/L Creatine Kinase (30-135) U/L Troponin I 0.043 H* (0.000-0.034) ng/mL NT-Pro-B Natriuret Pep 09855 pg/mL Total Protein (6.3-8.2) g/dL Albumin (3.5-5.0) g/dL Disposition Clinical Impression: CHF (congestive heart failure), Altered mental status, Hypoxia Disposition: ADMITTED IP TO THIS [facility] Condition: Fair Referrals: Mick Rodriguez MD [Primary Care Provider] - 1-2 days Decision Date: 07/09/21 Decision Time: 14:45
--- NOTE | 2021-07-09 13:53 | CT ---
EXAMINATION TYPE: CT brain wo con DATE OF EXAM: 07/09/2021 COMPARISON: 12/04/2018 HISTORY: Altered mental status CT DLP: [address] of the brain was performed. The ventricles, basal cisterns and sulci overlying the cerebral convexities demonstrate mild enlargem ent. Large areas of remote occipital insults noted bilaterally. Remote insult small in size superior left cerebellum. There is no evidence for intracranial hemorrhage or sulcal effacement. There is decreased attenuation about the periventricular white matter and deep white matter of both c erebral hemispheres, compatible with chronic small vessel ischemia. Differential diagnosis does inclu de demyelination. No mass effects are seen.No midline shift. Osseous calvarium is intact. If symptoms persist consider MRI. IMPRESSION: 1. Age related atrophic and chronic small vessel ischemic change without acute intracranial process s een at this time.
[2021-07-09] MEDS ORDERED: FUROSEMIDE 10 MG/ML 4 ML VIAL IV STA (14:33)
[2021-07-09 17:07] LABS: Appearance,Urine Cloudy (Clear); Bacteria,Urine Occasional /hpf; Bilirubin,Urine Negative (Negative); Blood,Urine Negative (Negative); Color,Urine Yellow; Glucose,Urine (UA) 1+ (Negative); Ketones,Urine Negative (Negative); Leukocyte Esterase,Urine Small (Negative); Mucus,Urine Occasional /hpf; Nitrite,Urine Negative (Negative); PH, Urine 5.5 (5.0-8.0); Protein,Urine Trace (Negative); RBC,Urine 2 /hpf (0-5); Specific Gravity,Urine 1.015 (1.001-1.035); Squamous Epithelial Cell,Urine 4 /hpf (0-4); Urobilinogen,Urine <2.0 mg/dL (<2.0); WBC,Urine 3 /hpf (0-5)
[2021-07-09] MEDS ORDERED: DIPHENOX-ATROP 2.5-0.025 MG 1 EACH TAB PO PRN (19:13)
[2021-07-09] MEDS ORDERED: ACETAMINOPHEN TAB 325 MG TAB PO PRN (19:13)
[2021-07-09] MEDS ORDERED: NITROGLYCERIN SL TABS 0.4 MG TAB SUBLINGUAL PRN (19:13)
[2021-07-09] MEDS: METOPROLOL TARTRATE 25 MG TAB PO SCH (21:06)
[2021-07-09 21:21] LABS: Glucose,Whole Blood 192 mg/dL (75-99)
[2021-07-10 06:59] LABS: Glucose,Whole Blood 163 mg/dL (75-99)
[2021-07-10] MEDS: PANTOPRAZOLE 40 MG TABLET PO SCH (07:02)
[2021-07-10] MEDS: METOPROLOL TARTRATE 25 MG TAB PO SCH (08:24)
[2021-07-10] MEDS: ATORVASTATIN 40 MG TAB PO SCH (08:24)
[2021-07-10] MEDS: CLOPIDOGREL 75 MG TAB PO SCH (08:24)
[2021-07-10] MEDS: FUROSEMIDE 20 MG TAB PO SCH (08:24)
[2021-07-10] MEDS: INSULIN ASPART (NovoLOG) 100 UNIT/ML VIAL SQ SCH ×3 (08:24→17:31)
[2021-07-10] MEDS: ESCITALOPRAM 10 MG TAB PO SCH (08:24)
--- NOTE | 2021-07-10 08:51 | P.HPIM ---
History of Present Illness H&P Date: 07/10/21 Chief Complaint: Aortic stenosis with CHF. This is a history and physical an 81-year-old white female with known history of severe aortic stenosis who presented in the hospital ER with significant weakness and altered mental status. The patient was recently evaluated for hy poglycemia and found to have severe aortic stenosis. TVR is on the table for her in the future. However, she comes in now with significant CHF elements. She's been compliant with her medication and seemed to be stable at her hospital follow-up last week. Review of Systems Constitutional: Denies chills, Denies fever Eyes: denies blurred vision, denies pain Ears, nose, mouth and throat: Denies headache, Denies sore throat Cardiovascular: Denies chest pain, Denies shortness of breath Respiratory: Denies cough Gastrointestinal: Denies abdominal pain, Denies diarrhea, Denies nausea, Denies vomiting Genitourinary: Denies dysuria, Denies hematuria Musculoskeletal: Denies myalgias Neurological: Reports as per HPI, Reports change in mentation Psychiatric: Denies anxiety, Denies depression Past Medical History Past Medical History: Coronary Artery Disease (CAD), Heart Failure, CVA/TIA, Sophy betes Mellitus Additional Past Medical History / Comment(s): IDDM type II, CVA with some vision changes and difficulty swallowing (eat soft foods)., murmur., states fall April 13, "heart valve issues" History of Any Multi-Drug Resistant Organisms: None Reported Past Surgical History: Heart Catheterization With Stent, Orthopedic Surgery, Tonsillectomy Additional Past Surgical History / Comment(s): Esophageal surgery 2003 pt thinks this was dilation ; Venous graft leg to left arm., right hip fx surgery (11/2018) Past Anesthesia/Blood Transfusion Reactions: No Reported Reaction Date of Last Stent Placement:: 06/2021 Past Psychological History: No Psychological Hx Reported Additional Psychological History / Comment(s): . Smoking Status: Never smoker Past Alcohol Use History: None Reported Past Drug Use History: None Reported - Past Family History Mother Family Medical History: Cancer Additional Family Medical History / Comment(s): "Female cancer" father Family Medical History: Diabetes Mellitus Medications and Allergies Home Medications Medication Instructions Recorded Confirmed Type Insulin Detemir [Levemir Flextouch 12 units SQ AC-SUPPER 04/09/16 07/09/21 History Pen] Insulin Aspart (Niacinamide) 8 units SQ AC-LUNCH 04/21/20 07/09/21 History [Fiasp 100 Unit/ml Flextouch Pen] Insulin Aspart (Niacinamide) 10 units SQ AC-BRKFST 04/21/20 07/09/21 History [Fiasp 100 Unit/ml Flextouch Pen] Insulin Aspart (Niacinamide) 10 units SQ AC-SUPPER 04/21/20 07/09/21 History [Fiasp 100 Unit/ml Flextouch Pen] Acetaminophen Tab [Tylenol] 650 mg PO Q6HR PRN tab 06/24/21 07/09/21 Rx Aspirin 81 mg PO DAILY #90 06/24/21 07/09/21 Rx Atorvastatin [Lipitor] 40 mg PO DAILY #30 tab 06/24/21 07/09/21 Rx Clopidogrel [Plavix] 75 mg PO DAILY #30 tab 06/24/21 07/09/21 Rx Furosemide [Lasix] 20 mg PO DAILY #30 tab 06/24/21 07/09/21 Rx Metoprolol Tartrate [Lopressor] 25 mg PO BID #60 tab 06/24/21 07/09/21 Rx Nitroglycerin Sl Tabs [Nitrostat] 0.4 mg SUBLINGUAL Q5M PRN #60 tab 06/24/21 07/09/21 Rx Pantoprazole [Protonix] 40 mg PO DAILY #30 tab 06/24/21 07/09/21 Rx Diphenoxylate HCl/Atropine 1 tab PO QID PRN 07/09/21 07/09/21 History [Lomotil 2.5-0.025 mg Tablet] Escitalopram [Lexapro] 10 mg PO DAILY 07/09/21 07/09/21 History Allergies Allergy/AdvReac Type Severity Reaction Status Date / Time No Known Allergies Allergy Verified 07/09/21 13:43 Physical Exam Vitals: Vital Signs Temp Pulse Pulse Resp BP BP Pulse Ox 07/10/21 04:00 89 16 112/53 98 07/10/21 02:00 92 16 07/10/21 00:00 92 16 123/56 96 07/09/21 20:00 97.8 F 92 16 131/57 97 07/09/21 17:30 97.8 F 71 20 114/54 99 07/09/21 17:06 72 18 132/72 98 07/09/21 15:54 62 16 122/46 99 07/09/21 14:30 62 18 98/44 99 07/09/21 11:20 98.6 F 86 20 123/81 87 L Intake and Output 07/09/21 07/10/21 07/10/21 22:59 06:59 14:59 Intake Total 240 Balance 240 Intake: Oral 240 Other: Voiding Method Toilet Toilet Diaper Diaper # Voids 1 # Bowel Movements 1 Weight 99.79 kg 98.5 kg - Constitutional General appearance: obese - EENT Eyes: EOMI - Neck Neck: no lymphadenopathy - Respiratory Respiratory: bilateral: CTA - Cardiovascular Rhythm: regular Heart sounds: normal: S1, S2 Abnormal Heart Sounds: systolic murmur - Gastrointestinal General gastrointestinal: soft, no tenderness - Integumentary Integumentary: no cellulitis Results CBC & Chem 7: 07/09/21 12:02 07/09/21 12:02 Labs: Abnormal Lab Results - Last 24 Hours (Table) 07/09/21 07/09/21 07/09/21 Range/Units 12:02 12:02 12:02 RBC 3.72 L (3.80-5.40) m/uL Hgb 11.2 L (11.4-16.0) gm/dL Lymphocytes # 0.8 L (1.0-4.8) k/uL APTT 18.4 L (22.0-30.0) sec Carbon Dioxide (22-30) mmol/L BUN (7-17) mg/dL Glucose (74-99) mg/dL POC Glucose (mg/dL) (75-99) mg/dL Alkaline Phosphatase (38-126) U/L Creatine Kinase (30-135) U/L Troponin I (0.000-0.034) ng/mL Albumin (3.5-5.0) g/dL Urine Appearance Cloudy H (Clear) Urine Protein Trace H (Negative) Urine Glucose (UA) 1+ H (Negative) Ur Leukocyte Esterase Small H (Negative) Urine Bacteria Occasional H (None) /hpf Urine Mucus Occasional H (None) /hpf 07/09/21 07/09/21 07/09/21 Range/Units 12:02 12:02 20:50 RBC (3.80-5.40) m/uL Hgb (11.4-16.0) gm/dL Lymphocytes # (1.0-4.8) k/uL APTT (22.0-30.0) sec Carbon Dioxide 36 H (22-30) mmol/L BUN 18 H (7-17) mg/dL Glucose 223 H (74-99) mg/dL POC Glucose (mg/dL) 192 H (75-99) mg/dL Alkaline Phosphatase 164 H (38-126) U/L Creatine Kinase 27 L (30-135) U/L Troponin I 0.043 H* (0.000-0.034) ng/mL Albumin 3.0 L (3.5-5.0) g/dL Urine Appearance (Clear) Urine Protein (Negative) Urine Glucose (UA) (Negative) Ur Leukocyte Esterase (Negative) Urine Bacteria (None) /hpf Urine Mucus (None) /hpf 07/10/21 Range/Units 06:53 RBC (3.80-5.40) m/uL Hgb (11.4-16.0) gm/dL Lymphocytes # (1.0-4.8) k/uL APTT (22.0-30.0) sec Carbon Dioxide (22-30) mmol/L BUN (7-17) mg/dL Glucose (74-99) mg/dL POC Glucose (mg/dL) 163 H (75-99) mg/dL Alkaline Phosphatase (38-126) U/L Creatine Kinase (30-135) U/L Troponin I (0.000-0.034) ng/mL Albumin (3.5-5.0) g/dL Urine Appearance (Clear) Urine Protein (Negative) Urine Glucose (UA) (Negative) Ur Leukocyte Esterase (Negative) Urine Bacteria (None) /hpf Urine Mucus (None) /hpf Thrombosis Risk Factor Assmnt - Choose All That Apply Each Factor Represents 1 point: Heart failure (<1month), Obesity (BMI >25) Each Risk Factor Represents 3 Points: Age 75 years or older Thrombosis Risk Factor Assessment Total Risk Factor Score: 5 Thrombosis Risk Factor Assessment Level: High Risk Assessment and Plan (1) CHF (congestive heart failure) Current Visit: Yes Status: Acute Code(s): I50.9 - HEART FAILURE, UNSPECIFIED SNOMED Code(s): 92642479 (2) Aortic stenosis Current Visit: No Status: Acute Code(s): I35.0 - NONRHEUMATIC AORTIC (VALVE) STENOSIS SNOMED Code(s): 76047888 (3) Diabetes Current Visit: No Status: Acute Code(s): E11.9 - TYPE 2 DIABETES MELLITUS WITHOUT COMPLICATIONS SNOMED Code(s): 23565279 (4) Stented coronary artery Current Visit: No Status: Acute Code(s): Z95.5 - PRESENCE OF CORONARY ANGIOPLASTY IMPLANT AND GRAFT SNOMED Code(s): 234996564 Plan: Follow closely for neurologic changes. I do suspect this is more related to her aortic stenosis. Continue current regimen of anticoagulation. Appreciate cardiology input. Check CBC and CMP in a.m. Dr. Scruggs's group will be covering for the weekend.
[2021-07-10] MEDS ORDERED: ASPIRIN 81 MG PO SCH (09:00)
[2021-07-10] MEDS ORDERED: APIXABAN 5 MG TAB PO SCH (11:00)
--- NOTE | 2021-07-10 11:00 | ECHOF ---
Referral Reason:sob, recent pci, elev trop MEASUREMENTS -------- HEIGHT: 157.5 cm WEIGHT: 98.4 kg BP: 112/53 IVSd: 1.4 cm (0.6 - 1.1) LVIDd: 4.3 cm (3.9 - 5.3) LVPWd: 1.3 cm (0.6 - 1.1) IVSs: 1.7 cm LVIDs: 3.2 cm LVPWs: 1.6 cm IVSd: 1.3 cm (0.6 - 1.1) LVIDd: 5.4 cm (3.9 - 5.3) LVPWd: 1.3 cm (0.6 - 1.1) IVSs: 1.3 cm LVIDs: 4.3 cm LVPWs: 1.5 cm EDV(Teich): 140 ml ESV(Teich): 82 ml EF(Teich): 41 % %FS: 20 % SV(Teich): 57 ml AV maxP.05 mmHg AV meanP.25 mmHg FINDINGS -------- Sinus rhythm. This was a technically difficult study with suboptimal views. Limited Study The left ventricular size is normal. There is moderate concentric left ventricular hypertrophy. O verall left ventricular systolic function is mildly impaired with, an EF between 45 - 50 %. 5.0mg of Lumason was utilized for enhancement of images There is [id number] aortic stenosis present. Peak/mean gradient across the Aortic Valve is 62.05mmHg / 38.25mmHg. Moderate mitral annular calcification present. There is no pericardial effusion. CONCLUSIONS -------- 1. There is moderate concentric left ventricular hypertrophy. 2. Overall left ventricular systolic function is mildly impaired with, an EF between 45 - 50 %. 3. There is [id number]-guflrr aortic stenosis present. 4. Peak/mean gradient across the Aortic Valve is 62.05mmHg / 38.25mmHg. 5. Moderate mitral annular calcification present. 6. There is no pericardial effusion. SERVICE CONSULTANT: Melissa Sim, [facility]
[2021-07-10 11:40] LABS: Glucose,Whole Blood 110 mg/dL (75-99)
[2021-07-10] MEDS: AMIODARONE 200 MG TAB PO SCH ×2 (12:21→20:45)
--- NOTE | 2021-07-10 12:41 | P.CRDCN ---
History of Present Illness History of present illness: HISTORY OF PRESENTING ILLNESS This is a pleasant 81-year-old female past medical history significant for coronary artery disease status post recent PCI to the LAD, severe aortic st enosis awaiting surgical evaluation, diabetes mellitus, dyslipidemia and hypertension. She follows in the office with Dr. Stratton. We have been asked to see in consultation for heart failure. She was brought to the hospital by her family for increased weakness and inability to arouse the patient yesterday. According to her daughter she was at home with her son and he could not wake her up. She is seen and examined sleeping in bed in no acute distress. She wakes up easily. She states she feels tired and weak. She has no symptoms of chest pain or shortness of breath. On arrival EKG revealed atrial flutter/fibrillation. She is currently in SR now. She is supposed to see CT surgery in the office in July for further evaluation of her aortic valve. Chest x-ray reveals hyperinflation compatible with COPD, pulmonary venous congestion and scattered infiltrates. CT of the brain is negative for acute intracranial process. Limited echocardiogram reveals mildly impaired LV systolic function with ejection fraction 45-50% with moderate to severe aortic stenosis and a mean gradient across the valve of 38 mmHg. Consistent with previous echocardiogram. Laboratory data reviewed, WBC 7.9, hemoglobin 11.2, platelets 151, sodium 138, potassium 4.3, creatinine 0.53, troponin 0.0 43, 0.0 31, and T proBNP 11,500 and TSH 1.31. Daily cardiac medications include aspirin 81 mg daily, Plavix 75 mg daily, atorvastatin 40 mg daily, Lasix 20 mg daily and Lopressor 25 mg twice a day. REVIEW OF SYSTEMS At the time of my exam: CONSTITUTIONAL: Complains of generalized weakness and fatigue. Denies fever or chills. CARDIOVASCULAR: Denies chest pain, shortness of breath, orthopnea, PND or palpitations. RESPIRATORY: Denies cough. GASTROINTESTINAL: Denies abdominal pain, diarrhea, constipation, nausea or vomiting. MUSCULOSKELETAL: Denies myalgias. NEUROLOGIC: Denies numbness, tingling, headache or weakness. ENDOCRINE: Denies fatigue, weight change, polydipsia or polyurina. GENITOURINARY: Denies burning, hematuria or urgency with micturation. HEMATOLOGIC: Denies history of anemia or bleeding. PHYSICAL EXAMINATION Blood pressure 112/57 heart rate 89 afebrile and maintaining oxygen saturation on nasal cannula. CONSTITUTIONAL: No apparent distress. HEENT: Head is normocephalic. Pupils are equal, round. Sclerae anicteric. Mucous membranes of the mouth are moist. No JVD. No carotid bruit. CHEST EXAMINATION: Lungs are clear to auscultation. No chest wall tenderness is noted on palpation or with deep breathing. Diminished bilaterally. HEART EXAMINATION: Regular rate and rhythm. S1, S2 heard. Systolic ejection murmur at the base, no gallops or rub. ABDOMEN: Soft, nontender. EXTREMITIES: 2+ peripheral pulses, no lower extremity edema and no calf tenderness. Dry appearing skin changes. NEUROLOGIC EXAMINATION: Patient is awake, alert and oriented x3. ASSESSMENT New-onset atrial fibrillation Coronary artery disease status post recent PCI Aortic stenosis Diabetes mellitus Dyslipidemia Hypertension PLAN Initiate Eliquis 2.5 mg twice a day along with aspirin and Plavix for a total of 6 weeks status post PCI performed on 06/18. Add amiodarone 400 mg twice a day. Request CT surgery evaluation while the patient is here, family is concerned about overall health deterioration. Further recommendations to follow based upon clinical course. Thank you kindly for this consultation. Nurse Practitioner note has been reviewed, I agree with a documented findings and plan of care. Patient was seen and examined. Past Medical History Past Medical History: Coronary Artery Disease (CAD), Heart Failure, CVA/TIA, Diabetes Mellitus Additional Past Medical History / Comment(s): IDDM type II, CVA with some vision changes and difficulty swallowing (eat soft foods)., murmur., states fallApril 13, "heart valve issues" History of Any Multi-Drug Resistant Organisms: None Reported Past Surgical History: Heart Catheterization With Stent, Orthopedic Surgery, Tonsillectomy Additional Past Surgical History / Comment(s): Esophageal surgery 2003 pt thinks this was dilation ; Venous graft leg to left arm., right hip fx surgery (11/2018) Past Anesthesia/Blood Transfusion Reactions: No Reported Reaction Date of Last Stent Placement:: 06/2021 Past Psychological History: No Psychological Hx Reported Additional Psychological History / Comment(s): . Smoking Status: Never smoker Past Alcohol Use History: None Reported Past Drug Use History: None Reported - Past Family History Mother Family Medical History: Cancer Additional Family Medical History / Comment(s): "Female cancer" father Family Medical History: Diabetes Mellitus Medications and Allergies Home Medications Medication Instructions Recorded Confirmed Type Insulin Detemir [Levemir Flextouch 12 units SQ AC-SUPPER 04/09/16 07/09/21 History Pen] Insulin Aspart (Niacinamide) 8 units SQ AC-LUNCH 04/21/20 07/09/21 History [Fiasp 100 Unit/ml Flextouch Pen] Insulin Aspart (Niacinamide) 10 units SQ AC-BRKFST 04/21/20 07/09/21 History [Fiasp 100 Unit/ml Flextouch Pen] Insulin Aspart (Niacinamide) 10 units SQ AC-SUPPER 04/21/20 07/09/21 History [Fiasp 100 Unit/ml Flextouch Pen] Acetaminophen Tab [Tylenol] 650 mg PO Q6HR PRN tab 06/24/21 07/09/21 Rx Aspirin 81 mg PO DAILY #90 06/24/21 07/09/21 Rx Atorvastatin [Lipitor] 40 mg PO DAILY #30 tab 06/24/21 07/09/21 Rx Clopidogrel [Plavix] 75 mg PO DAILY #30 tab 06/24/21 07/09/21 Rx Furosemide [Lasix] 20 mg PO DAILY #30 tab 06/24/21 07/09/21 Rx Metoprolol Tartrate [Lopressor] 25 mg PO BID #60 tab 06/24/21 07/09/21 Rx Nitroglycerin Sl Tabs [Nitrostat] 0.4 mg SUBLINGUAL Q5M PRN #60 tab 06/24/21 07/09/21 Rx Pantoprazole [Protonix] 40 mg PO DAILY #30 tab 06/24/21 07/09/21 Rx Diphenoxylate HCl/Atropine 1 tab PO QID PRN 07/09/21 07/09/21 History [Lomotil 2.5-0.025 mg Tablet] Escitalopram [Lexapro] 10 mg PO DAILY 07/09/21 07/09/21 History Allergies Allergy/AdvReac Type Severity Reaction Status Date / Time No Known Allergies Allergy Verified 07/09/21 13:43 Physical Exam Vitals: Vital Signs Temp Pulse Pulse Pulse Resp BP BP 07/10/21 08:00 97.7 F 89 89 18 112/57 07/10/21 04:00 89 16 112/53 07/10/21 02:00 92 16 07/10/21 00:00 92 16 123/56 07/09/21 20:00 97.8 F 92 16 131/57 07/09/21 17:30 97.8 F 71 20 114/54 07/09/21 17:06 72 18 132/72 07/09/21 15:54 62 16 122/46 07/09/21 14:30 62 18 98/44 Pulse Ox 07/10/21 08:00 97 07/10/21 04:00 98 07/10/21 02:00 07/10/21 00:00 96 07/09/21 20:00 97 07/09/21 17:30 99 07/09/21 17:06 98 07/09/21 15:54 99 07/09/21 14:30 99 Intake and Output 07/09/21 07/10/21 07/10/21 22:59 06:59 14:59 Intake Total 240 Balance 240 Intake: Oral 240 Other: Voiding Method Toilet Toilet Toilet Diaper Diaper Diaper # Voids 1 # Bowel Movements 1 1 Weight 99.79 kg 98.5 kg Results 07/09/21 12:02 07/09/21 12:02 Cardiac Enzymes 07/09/21 07/09/21 07/10/21 Range/Units 12:02 12:02 09:24 AST 25 (14-36) U/L Troponin I 0.043 H* 0.031 (0.000-0.034) ng/mL Coagulation 07/09/21 Range/Units 12:02 PT 10.9 (9.0-12.0) sec APTT 18.4 L (22.0-30.0) sec CBC 07/09/21 Range/Units 12:02 WBC 7.9 (3.8-10.6) k/uL RBC 3.72 L (3.80-5.40) m/uL Hgb 11.2 L (11.4-16.0) gm/dL Hct 34.5 (34.0-46.0) % Plt Count 151 (150-450) k/uL Comprehensive Metabolic Panel 07/09/21 Range/Units 12:02 Sodium 138 (137-145) mmol/L Potassium 4.3 (3.5-5.1) mmol/L Chloride 98 (98-107) mmol/L Carbon Dioxide 36 H (22-30) mmol/L BUN 18 H (7-17) mg/dL Creatinine 0.53 (0.52-1.04) mg/dL Glucose 223 H (74-99) mg/dL Calcium 8.8 (8.4-10.2) mg/dL AST 25 (14-36) U/L ALT 14 (4-34) U/L Alkaline Phosphatase 164 H (38-126) U/L Total Protein 6.5 (6.3-8.2) g/dL Albumin 3.0 L (3.5-5.0) g/dL Current Medications Generic Name Dose Route Start Last Admin Trade Name Freq PRN Reason Stop Dose Admin Acetaminophen 650 mg 07/09/21 19:13 Acetaminophen Tab 325 Mg Tab PO Q6HR PRN Fever and/ or Pain Amiodarone HCl 400 mg 07/10/21 11:15 Amiodarone 200 Mg Tab PO BID [facility] Apixaban 5 mg 07/10/21 11:00 Apixaban 5 Mg Tab PO BID [facility] Protocol Atorvastatin Calcium 40 mg 07/10/21 09:00 07/10/21 08:24 Atorvastatin 40 Mg Tab PO 40 mg DAILY NANCY Administration Clopidogrel Bisulfate 75 mg 07/10/21 09:00 07/10/21 08:24 Clopidogrel 75 Mg Tab PO 75 mg DAILY [facility] Administration Diphenoxylate HCl/Atropine 1 each 07/09/21 19:13 Diphenox-Atrop 2.5-0.025 Mg 1 Each Tab PO QID PRN Diarrhea Escitalopram Oxalate 10 mg 07/10/21 09:00 07/10/21 08:24 Escitalopram 10 Mg Tab PO 10 mg DAILY NANCY Administration Furosemide 20 mg 07/10/21 09:00 07/10/21 08:24 Furosemide 20 Mg Tab PO 20 mg DAILY NANCY Administration Insulin Aspart 8 unit 07/10/21 12:30 Insulin Aspart (Novolog) 100 Unit/Ml Vial SQ AC-LUNCH [facility] Insulin Aspart 10 unit 07/10/21 07:30 07/10/21 08:24 Insulin Aspart (Novolog) 100 Unit/Ml Vial SQ 10 unit AC-BRKFST [facility] Administration Insulin Aspart 10 unit 07/10/21 17:30 Insulin Aspart (Novolog) 100 Unit/Ml Vial SQ AC-SUPPER [facility] Insulin Detemir 12 unit 07/10/21 17:30 Insulin Detemir (Levemir) 100 Unit/Ml Syr SQ AC-SUPPER [facility] Metoprolol Tartrate 12.5 mg 07/10/21 21:00 Metoprolol Tartrate 12.5 Mg Tab PO BID [facility] Nitroglycerin 0.4 mg 07/09/21 19:13 Nitroglycerin Sl Tabs 0.4 Mg Tab SUBLINGUAL Q5M PRN Chest Pain Pantoprazole Sodium 40 mg 07/10/21 07:30 07/10/21 07:02 Pantoprazole 40 Mg Tablet PO 40 mg DAILY@0730 [facility] Administration Intake and Output 07/09/21 07/10/21 07/10/21 22:59 06:59 14:59 Intake Total 240 Balance 240 Intake: Oral 240 Other: Voiding Method Toilet Toilet Toilet Diaper Diaper Diaper # Voids 1 # Bowel Movements 1 1 Weight 99.79 kg 98.5 kg 07/09/21 12:02 07/09/21 12:02
[2021-07-10 13:47] VITALS: BMI 39.6
--- NOTE | 2021-07-10 14:34 | P.GSCN ---
History of Present Illness Consult date: 07/10/21 Reason for Consult: Aortic stenosis Requesting physician: Kaitlyn Mckenzie History of present illness: This is an 81-year-old inactive, obese female who follows on an outpatient basis with Dr. Rodriguez for primary care. She has a history of coronary artery disease and non-STEMI status post drug-eluting stent to the mid LAD 06/18/2021, aortic stenosis, insulin dependent diabetes, CVA, fall history, right hip surgery in 2018, esophageal dilatation in 2003, and overall general debility. She was recently hospitalized at [facility] for hypoglycemia with nausea and vomiting. During that admission she was noted to have a heart murmur and transthoracic echocardiogram revealed mildly impaired left ventricular systolic dysfunction with EF 45-50%, severe aortic stenosis with peak/mean gradient of 70/46 mmHg, moderate mitral regurgitation, moderate tricuspid regurgitation, with moderate pulmonary hypertension and RVSP 46.77 mmHg. ProBNP at that time was 3180. She was recommended to undergo BELKYS and heart catheterization. BELKYS confirmed heavily calcified trileaflet aortic valve with severe restriction and valve area 0.73 cm by planimetry, mild mitral regurgitation, moderate tricuspid regurgitation with moderate to severe pulmonary hypertension, and normal systolic left ventricular function. Heart catheterization demonstrated moderate to severe stenosis involving the LAD and right coronary artery and she subsequently underwent atherectomy and tightness of the LAD with drug-eluting stent placed to the proximal to mid LAD. Due to the finding of aortic stenosis consultation was placed to Dr. Porter from cardiothoracic surgery for recommendations regarding valve replacement. Dr. Porter recommended treatment of her acute ailments with subsequent outpatient workup for TAVR. She she was treated and discharged to home 06/24/2021, and continued to recover at home uneventfully initially. She was supposed to have gated CT for TAVR and pulmonary function test 07/07/2021, followed by initial clinic meeting 07/17/2021 with subsequent structural heart clinic meeting with cardiothoracic surgeon and customer operations specialist for shared decision-making and planning for TAVR. Unfortunately, the patient did not show for her TAVR testing on 07/07/2021. The son whom she was staying with stated he was not aware that she had an appointment on this day. She presented black to [facility] emergency room yesterday with family concerns regarding weakness, altered mental status as she has been very sleepy and unresponsive as well as confused with lack of appetite over the last week. They denied that she had complained of any chest pain, shortness of breath, syncope, abdominal pain, recent fever or chills or any other symptomatology. In the ER chest x-rays completed demonstrating car diomegaly with pulmonary vascular congestion. Brain CT demonstrated no acute intracranial process. EKG demonstrated atrial flutter. Lab work demonstrated proBNP 11,500, her weight is up 8 kg from prior discharge, and the patient was admitted for evaluation and treatment with diagnosis acute heart failure. Of note the patient did have an x-ray completed on July 08 demonstrating CHF exacerbation, and a urine sample demonstrating 16 WBCs, moderate leukocyte esterase, and rare bacteria with urine culture growing group D enterococcus. A limited transthoracic echocardiogram was completed this morning demonstrating mildly impaired left ventricular systolic function with EF 45-50%, moderate to severe aortic stenosis with peak/mean gradient 62/38 mmHg, and moderate mitral annular calcification. Consultation was placed to cardiothoracic surgery for recommendations regarding aortic stenosis. Review of Systems Review of systems was completed with the family as the patient states she feels fine - Constitutional Reports daytime sleepiness, Reports fatigue - Respiratory Reports home oxygen - Neurological Reports as per HPI, Reports change in mentation, Reports weakness Past Medical History Past Medical History: Coronary Artery Disease (CAD), Heart Failure, CVA/TIA, Diabetes Mellitus Additional Past Medical History / Comment(s): IDDM type II, CVA with some vision changes and difficulty swallowing (eat soft foods)., murmur., states fall April 13, aortic stenosis History of Any Multi-Drug Resistant Organisms: None Reported Past Surgical History: Heart Catheterization With Stent, Orthopedic Surgery, Tonsillectomy Additional Past Surgical History / Comment(s): Esophageal surgery 2003 pt thinks this was dilation ; Venous graft leg to left arm., right hip fx surgery (11/2018) Past Anesthesia/Blood Transfusion Reactions: No Reported Reaction Date of Last Stent Placement:: 06/2021 Past Psychological History: No Psychological Hx Reported Additional Psychological History / Comment(s): . Smoking Status: Never smoker Past Alcohol Use History: None Reported Past Drug Use History: None Reported - Past Family History Mother Family Medical History: Cancer Additional Family Medical History / Comment(s): "Female cancer" father Family Medical History: Diabetes Mellitus Medications and Allergies Home Medications Medication Instructions Recorded Confirmed Type Insulin Detemir [Levemir Flextouch 12 units SQ AC-SUPPER 04/09/16 07/09/21 History Pen] Insulin Aspart (Niacinamide) 8 units SQ AC-LUNCH 04/21/20 07/09/21 History [Fiasp 100 Unit/ml Flextouch Pen] Insulin Aspart (Niacinamide) 10 units SQ AC-BRKFST 04/21/20 07/09/21 History [Fiasp 100 Unit/ml Flextouch Pen] Insulin Aspart (Niacinamide) 10 units SQ AC-SUPPER 04/21/20 07/09/21 History [Fiasp 100 Unit/ml Flextouch Pen] Acetaminophen Tab [Tylenol] 650 mg PO Q6HR PRN tab 06/24/21 07/09/21 Rx Aspirin 81 mg PO DAILY #90 06/24/21 07/09/21 Rx Atorvastatin [Lipitor] 40 mg PO DAILY #30 tab 06/24/21 07/09/21 Rx Clopidogrel [Plavix] 75 mg PO DAILY #30 tab 06/24/21 07/09/21 Rx Furosemide [Lasix] 20 mg PO DAILY #30 tab 06/24/21 07/09/21 Rx Metoprolol Tartrate [Lopressor] 25 mg PO BID #60 tab 06/24/21 07/09/21 Rx Nitroglycerin Sl Tabs [Nitrostat] 0.4 mg SUBLINGUAL Q5M PRN #60 tab 06/24/21 07/09/21 Rx Pantoprazole [Protonix] 40 mg PO DAILY #30 tab 06/24/21 07/09/21 Rx Diphenoxylate HCl/Atropine 1 tab PO QID PRN 07/09/21 07/09/21 History [Lomotil 2.5-0.025 mg Tablet] Escitalopram [Lexapro] 10 mg PO DAILY 07/09/21 07/09/21 History Allergies Allergy/AdvReac Type Severity Reaction Status Date / Time No Known Allergies Allergy Verified 07/09/21 13:43 Surgical - Exam Vital Signs Temp Pulse Resp BP Pulse Ox 98.6 F 86 20 123/81 87 L 07/09/21 11:20 07/09/21 11:20 07/09/21 11:20 07/09/21 11:20 07/09/21 11:20 CONSTITUTIONAL: Awake and alert, appears comfortable, cooperative, well- developed, well-nourished, no pain, no acute distress EYES: Pupils equal, round, reactive to light, normal ocular movement ENT: Moist mucous membranes without oral lesions present NECK: No masses, no bruits, trachea midline RESPIRATORY: Lungs sounds clear to auscultation bilaterally. Respirations even, nonlabored. Currently on 2 L nasal cannula which is her home dose with oxygen saturation 97%. Strong cough. No chest wall deformities. No clubbing or cyanosis present CARDIOVASCULAR: S1, S2 present, loud systolic murmur present. Regular rate and rhythm, sinus rhythm on telemetry. Palpable peripheral pulses bilaterally. Minimal lower extremity edema present. No calf pain or tenderness noted. No significant lower extremity varicosities noted. GASTROINTESTINAL: Abdomen soft, nontender, nondistended without masses or organomegaly noted. There is no rebound or guarding present. Active bowel sounds present 4 quadrants. GENITOURINARY: Deferred INTEGUMENTARY: Skin is warm and dry NEUROLOGIC: Cranial nerves II through XII intact, normal coordination, no obvious motor or sensory deficits, speech is normal MUSKULOSKELETAL: Able to move all extremities, strength equal bilaterally, normal posture PSYCHIATRIC: Alert and oriented to person and place, appropriate affect Results - Labs 07/09/21 12:02 07/09/21 12:02 Abnormal Lab Results - Last 24 Hours (Table) 07/09/21 07/09/21 07/09/21 Range/Units 12:02 12:02 12:02 Lymphocytes # 0.8 L (1.0-4.8) k/uL POC Glucose (mg/dL) (75-99) mg/dL Troponin I 0.043 H* (0.000-0.034) ng/mL Urine Appearance Cloudy H (Clear) Urine Protein Trace H (Negative) Urine Glucose (UA) 1+ H (Negative) Ur Leukocyte Esterase Small H (Negative) Urine Bacteria Occasional H (None) /hpf Urine Mucus Occasional H (None) /hpf 07/09/21 07/10/21 07/10/21 Range/Units 20:50 06:53 11:39 Lymphocytes # (1.0-4.8) k/uL POC Glucose (mg/dL) 192 H 163 H 110 H (75-99) mg/dL Troponin I (0.000-0.034) ng/mL Urine Appearance (Clear) Urine Protein (Negative) Urine Glucose (UA) (Negative) Ur Leukocyte Esterase (Negative) Urine Bacteria (None) /hpf Urine Mucus (None) /hpf Thyroid panel 07/10/21 Range/Units 09:24 TSH 1.310 (0.465-4.680) mIU/L Pituitary panel 07/10/21 Range/Units 09:24 TSH 1.310 (0.465-4.680) mIU/L - Imaging Chest x-ray: report reviewed, image reviewed EKG: image reviewed Assessment and Plan Assessment: 1. New onset atrial flutter 2. Altered mental status present on admission 3. History of coronary artery disease and non-STEMI status post drug-eluting stent to the mid LAD 06/18/2021 4. History of aortic stenosis,mildly impaired left ventricular systolic dysfunction with EF 45-50%, severe aortic stenosis with peak/mean gradient of 70/46 mmHg on TTE 06/13/21; heavily calcified trileaflet aortic valve with severe restriction and valve area 0.73 cm by planimetry on BELKYS 06/16/21; mildly impaired left ventricular systolic function with EF 45-50%, moderate to severe aortic stenosis with peak/mean gradient 62/38 mmHg on TTE 07/10/21 5. Insulin dependent diabetes with recent hemoglobin A1c 5.8% 6. History of CVA 7. Recent fall history 8. Overall general debility Plan: The patient was seen and examined at the bedside. Chart/diagnostics were reviewed. The case was discussed with Dr. Beach who is on-call for cardiothoracic surgery. We will order gated CT which is normally done outpatient, as well as pulmonary function test. Once patient recovers from acute heart failure we will see her in the structural heart clinic with the full structural heart team for shared decision making and planning for TAVR procedure. This was discussed in detail with the patient's 2 daughters who were at the bedside. Acute heart failure, atrial flutter management per cardiology. Management of other medical comorbidities per primary care service. Will continue to see while in the hospital. More recommendations to follow. Thank you for this consult, we look forward to working with you in the care of your patient. Time with Patient: Greater than 30
[2021-07-10 16:48] LABS: Glucose,Whole Blood 46 mg/dL (75-99)
[2021-07-10 17:14] LABS: Glucose,Whole Blood 74 mg/dL (75-99)
[2021-07-10] MEDS ORDERED: INSULIN DETEMIR (LEVEMIR) 100 UNIT/ML SYR SQ SCH (17:30)
[2021-07-10 20:33] LABS: Glucose,Whole Blood 147 mg/dL (75-99)
[2021-07-10] MEDS: APIXABAN 2.5 MG TABLET PO SCH (20:45)
[2021-07-10] MEDS: METOPROLOL TARTRATE 12.5 MG TAB PO SCH (20:45)
[2021-07-11] MEDS: INSULIN DETEMIR (LEVEMIR) 100 UNIT/ML SYR SQ SCH ×2 (01:59→17:23)
[2021-07-11 05:51] LABS: Glucose,Whole Blood 160 mg/dL (75-99)
[2021-07-11] MEDS: INSULIN ASPART (NovoLOG) 100 UNIT/ML VIAL SQ SCH ×3 (06:31→17:23)
[2021-07-11] MEDS: PANTOPRAZOLE 40 MG TABLET PO SCH (06:59)
[2021-07-11] MEDS: AMIODARONE 200 MG TAB PO SCH ×2 (08:28→20:10)
[2021-07-11] MEDS: CLOPIDOGREL 75 MG TAB PO SCH (08:29)
[2021-07-11] MEDS: ESCITALOPRAM 10 MG TAB PO SCH (08:29)
[2021-07-11] MEDS: FUROSEMIDE 20 MG TAB PO SCH ×3 (08:29→14:48)
[2021-07-11] MEDS: ATORVASTATIN 40 MG TAB PO SCH (08:29)
[2021-07-11] MEDS: METOPROLOL TARTRATE 12.5 MG TAB PO SCH ×2 (08:29→20:10)
[2021-07-11] MEDS: ASPIRIN 81 MG PO SCH (08:29)
[2021-07-11] MEDS: APIXABAN 2.5 MG TABLET PO SCH ×2 (08:29→20:10)
--- NOTE | 2021-07-11 08:37 | P.PN ---
Subjective Progress Note Date: 07/11/21 Principal diagnosis: New onset atrial flutter this admission, altered mental status present on admission. Previous medical history of coronary artery disease and non-STEMI status post drug-eluting stent to the mid LAD 06/18/2021, aortic stenosis, insulin dependent diabetes, CVA, recent fall history, overall general debility The patient was seen and examined this morning on the cardiac stepdown unit. She is in no acute distress and is sitting up in bed eating her breakfast. She denies any chest pain or shortness of breath. Remains on 2 L nasal cannula with oxygen saturation in the mid to high 90s. Remains in sinus rhythm and hemodynamically stable. Gated CT for TAVR was completed yesterday. Also bedside spirometry was completed with FEV1 19% of predicted demonstrating very severe restriction, although ATS criteria was not met. No other new concerns. Objective - Vital Signs Vital signs: Vital Signs Temp 97.8 F 07/11/21 00:00 Pulse 96 07/11/21 04:00 Resp 18 07/11/21 04:00 BP 144/60 07/11/21 04:00 Pulse Ox 97 07/11/21 04:00 Intake & Output 07/10/21 07/11/21 07/11/21 18:59 06:59 18:59 Intake Total 876 Balance 876 Weight 98.5 kg 98 kg Intake: Oral 876 Other: Voiding Method Toilet Toilet Diaper Diaper # Voids 1 1 # Bowel Movements 1 - Exam CONSTITUTIONAL: Appears comfortable, cooperative, no acute distress RESPIRATORY: Lungs sounds diminished bilaterally. Respirations even, nonlabored. Currently on 2 L nasal cannula with oxygen saturation 97%. Able to achieve 500 mL on incentive spirometry CARDIOVASCULAR: S1, S2 present. Regular rate and rhythm, sinus rhythm on telemetry. Palpable peripheral pulses bilaterally. Trace bilateral lower extremity edema present. No calf pain or tenderness noted. GASTROINTESTINAL: Abdomen soft, nontender, nondistended. Active bowel sounds present 4 quadrants. Tolerating diet. Positive bowel movement. GENITOURINARY: Continues to void but is incontinent INTEGUMENTARY: Skin is warm and dry NEUROLOGIC: Cranial nerves II through XII intact MUSKULOSKELETAL: Able to move all extremities, strength equal bilaterally PSYCHIATRIC: Alert and oriented to person and place, appropriate affect - Allied health notes Allied health notes reviewed: nursing - Labs CBC & Chem 7: 07/09/21 12:02 07/09/21 12:02 Labs: Abnormal Lab Results - Last 24 Hours (Table) 07/10/21 07/10/21 07/10/21 Range/Units 11:39 16:46 17:11 POC Glucose (mg/dL) 110 H 46 L 74 L (75-99) mg/dL 07/10/21 07/11/21 Range/Units 20:12 05:37 POC Glucose (mg/dL) 147 H 160 H (75-99) mg/dL - Imaging and Cardiology CT scan - chest: image reviewed Bedside spirometry reviewed Assessment and Plan Assessment: 1. New onset atrial flutter 2. Altered mental status present on admission 3. History of coronary artery disease and non-STEMI status post drug-eluting stent to the mid LAD 06/18/2021 4. History of aortic stenosis,mildly impaired left ventricular systolic dysfunction with EF 45-50%, severe aortic stenosis with peak/mean gradient of 70/46 mmHg on TTE 06/13/21; heavily calcified trileaflet aortic valve with severe restriction and valve area 0.73 cm by planimetry on BELKYS 06/16/21; mildly impaired left ventricular systolic function with EF 45-50%, moderate to severe aortic stenosis with peak/mean gradient 62/38 mmHg on TTE 07/10/21 5. Insulin dependent diabetes with recent hemoglobin A1c 5.8% 6. History of CVA 7. Recent fall history 8. Overall general debility 9. Severe restriction based on bedside spirometry with FEV1 19% of predicted, ATS criteria not met Plan: 1. Continue to maximize medical therapy including low dose aspirin, statin, Plavix, beta armand therapy 2. Acute heart failure, atrial flutter management per cardiology. Continue amiodarone, Eliquis, Lasix 3. Patient will likely need repeat full pulmonary function test once she has recovered from acute heart failure 4. Once patient recovers from acute heart failure we will see her in the structural heart clinic with the full structural heart team for shared decision making and planning for TAVR procedure 5. Management of other medical comorbidities per primary care service 6. More recommendations to follow Time with Patient: Greater than 30
[2021-07-11 08:53] LABS: HCT 35.8 % (34.0-46.0); Hypochromasia Slight; MCH 29.6 pg (25.0-35.0); MCHC 30.8 g/dL (31.0-37.0); MCV 96.3 fL (80.0-100.0); Mean Platelet Volume 11.4; Platelet Count 116 k/uL (150-450); RBC 3.71 m/uL (3.80-5.40); RDW 13.5 % (11.5-15.5); WBC 6.9 k/uL (3.8-10.6)
--- NOTE | 2021-07-11 09:01 | CT ---
EXAMINATION TYPE: CT TAVR Planning DATE OF EXAM: 07/10/2021 HISTORY: Pre OP valve CT DLP: 2002 mGycm Automated Exposure Control for Dose Reduction was Utilized. CONTRAST: CT scan of the chest, abdomen and pelvis is performed with IV Contrast, patient injected with 125 mL of Isovue 370. COMPARISON: None TECHNIQUE: Helical imaging obtained through the chest, abdomen and pelvis during arterial phase tom kellee administration of radiographic contrast intravenously. FINDINGS: See report from [facility] regarding preprocedural planning CHEST: Lower Neck and Thyroid: No significant findings Lungs: Basilar parenchymal scarring and compressive atelectasis. Pulmonary venous congestion with int erstitial edema. Central Airway: No significant findings Pleura: Bilateral pleural effusions noted measuring 4.4 cm AP dimension on the right and approximatel y 3.8 cm on the left. Pulmonary Arteries: No significant findings Heart and Pericardium: The heart is enlarged. Mitral valve prosthesis in place. Coronary artery calci fications. Lymph Nodes: No significant findings Mediastinum & Esophagus: Moderate fixed hiatal hernia with dilatation of the esophagus. ABDOMEN/PELVIS: Please note arterial phase of the imaging limits detailed evaluation of the solid abdominal organs. Liver: No significant findings Spleen: No significant findings Kidneys: No significant findings Adrenal Glands: No significant findings Pancreas: No significant findings Gallbladder: No significant findings Bowel and Mesentery: No significant findings Lymph Nodes: No significant findings Urinary Bladder: No significant findings Pelvic Organs: No significant findings Other: Moderate degenerative change of the lumbar spine. Atheromatous nonaneurysmal change of the abd ominal aorta. Other Lines/Tubes/Devices/Hardware: Surgical orthopedic pinning right hip. IMPRESSION: 1. Findings suspicious for congestive failure. 2. Fixed hiatal hernia with dilatation of the esophagus.
[2021-07-11 09:20] LABS: ALT 11 U/L (4-34); AST 23 U/L (14-36); African American GFR (CKD) >90 (>60 ml/min/1.73 sqM); Alkaline Phosphatase 151 U/L (38-126); Anion Gap 6 mmol/L; Blood Urea Nitrogen 16 mg/dL (7-17); Carbon Dioxide 34 mmol/L (22-30); Chloride 98 mmol/L (98-107); Glucose 168 mg/dL (74-99); Non-African American GFR(CKD) 83 (>60 ml/min/1.73 sqM); Potassium 4.1 mmol/L (3.5-5.1); Sodium 138 mmol/L (137-145); Total Bilirubin 0.7 mg/dL (0.2-1.3); Total Protein 6.4 g/dL (6.3-8.2)
[2021-07-11 11:38] LABS: Glucose,Whole Blood 251 mg/dL (75-99)
--- NOTE | 2021-07-11 15:23 | P.PN ---
Subjective Progress Note Date: 07/11/21 HISTORY OF PRESENTING ILLNESS This is a pleasant 81-year-old female past medical history significant for coronary artery disease status post recent PCI to the LAD, severe aortic stenosis awaiting surgical evaluation, diabetes mellitus, dyslipidemia and hypertension. She follows in the office with Dr. Stratton. We have been asked to see in consultation for heart failure. She was brought to the hospital by her family for increased weakness and inability to arouse the patient yesterday. According to her daughter she was at home with her son and he could not wake her up. She is seen and examined sleeping in bed in no acute distress. She wakes up easily. She states she feels tired and weak. She has no symptoms of chest pain or shortness of breath. On arrival EKG revealed atrial flutter/fibrillation. She is currently in SR now. She is supposed to see CT surgery in the office in July for further evaluation of her aortic valve. Chest x-ray reveals hyperinflation compatible with COPD, pulmonary venous congestion and scattered infiltrates. CT of the brain is negative for acute intracranial process. Limited echocardiogram reveals mildly impaired LV systolic function with ejection fraction 45-50% with moderate to severe aortic stenosis and a mean gradient across the valve of 38 mmHg. Consistent with previous echocardiogram. Laboratory data reviewed, WBC 7.9, hemoglobin 11.2, platelets 151, sodium 138, potassium 4.3, creatinine 0.53, troponin 0.0 43, 0.0 31, and T proBNP 11,500 and TSH 1.31. Daily cardiac medications include aspirin 81 mg daily, Plavix 75 mg daily, atorvastatin 40 mg daily, Lasix 20 mg daily and Lopressor 25 mg twice a day. 07/11/2021 Hemoglobin 11, platelet, or 16. Potassium 4.1, creatinine 0.64. Alkaline phosphatase 151. Patient feels that she has had good urine output, she is incontinent. We'll plan to increase Lasix to twice daily. CTA of the chest/abdomen,/pelvis revealed findings suspicious for heart failure. Fixed hiatal hernia with dilatation of the esophagus. REVIEW OF SYSTEMS At the time of my exam: CONSTITUTIONAL: Complains of generalized weakness and fatigue. Denies fever or chills. CARDIOVASCULAR: Denies chest pain, shortness of breath, orthopnea, PND or palpitations. RESPIRATORY: Denies cough. GASTROINTESTINAL: Denies abdominal pain, diarrhea, constipation, nausea or vomiting. MUSCULOSKELETAL: Denies myalgias. NEUROLOGIC: Denies numbness, tingling, headache or weakness. ENDOCRINE: Denies fatigue, weight change, polydipsia or polyurina. GENITOURINARY: Denies burning, hematuria or urgency with micturation. HEMATOLOGIC: Denies history of anemia or bleeding. PHYSICAL EXAMINATION Blood pressure 101/59 heart rate 63 afebrile and maintaining oxygen saturation on 2 L nasal cannula. CONSTITUTIONAL: No apparent distress. HEENT: Head is normocephalic. Pupils are equal, round. Sclerae anicteric. Mucous membranes of the mouth are moist. No JVD. No carotid bruit. CHEST EXAMINATION: Lungs are clear to auscultation. No chest wall tenderness is noted on palpation or with deep breathing. Diminished bilaterally. HEART EXAMINATION: Regular rate and rhythm. S1, S2 heard. Systolic ejection murmur at the base, no gallops or rub. ABDOMEN: Soft, nontender. EXTREMITIES: 2+ peripheral pulses, no lower extremity edema and no calf tenderness. Dry appearing skin changes. NEUROLOGIC EXAMINATION: Patient is awake, alert and oriented x3. ASSESSMENT New-onset atrial fibrillation, paroxysmal atrial fibrillation Coronary artery disease status post recent PCI Aortic stenosis Diabetes mellitus Dyslipidemia Hypertension PLAN Continue Eliquis 2.5 mg twice a day, aspirin and Plavix for a total of 6 weeks status post PCI performed on 06/18. Continue amiodarone 400 mg twice a day. Continue Lasix [address] surgery following while the patient is here re TAVR. Further recommendations to follow based upon clinical course. Thank you kindly for this consultation. Nurse Practitioner note has been reviewed, I agree with a documented findings and plan of care. Patient was seen and examined. Objective - Vital Signs Vital signs: Vital Signs Temp 97.7 F 07/11/21 11:57 Pulse 65 07/11/21 11:57 Resp 16 07/11/21 11:57 BP 94/55 07/11/21 11:57 Pulse Ox 98 07/11/21 11:57 Intake & Output 07/10/21 07/11/21 07/11/21 18:59 06:59 18:59 Intake Total 876 118 Balance 876 118 Weight 98.5 kg 98 kg Intake: Oral 876 118 Other: Voiding Method Toilet Toilet Toilet Diaper Diaper Diaper # Voids 1 1 # Bowel Movements 1 - Labs CBC & Chem 7: 07/11/21 08:05 07/11/21 08:05 Labs: Abnormal Lab Results - Last 24 Hours (Table) 07/10/21 07/10/21 07/10/21 Range/Units 16:46 17:11 20:12 RBC (3.80-5.40) m/uL Hgb (11.4-16.0) gm/dL MCHC (31.0-37.0) g/dL Plt Count (150-450) k/uL Carbon Dioxide (22-30) mmol/L Glucose (74-99) mg/dL POC Glucose (mg/dL) 46 L 74 L 147 H (75-99) mg/dL Alkaline Phosphatase (38-126) U/L Albumin (3.5-5.0) g/dL 07/11/21 07/11/21 07/11/21 Range/Units 05:37 08:05 08:05 RBC 3.71 L (3.80-5.40) m/uL Hgb 11.0 L (11.4-16.0) gm/dL MCHC 30.8 L (31.0-37.0) g/dL Plt Count 116 L (150-450) k/uL Carbon Dioxide 34 H (22-30) mmol/L Glucose 168 H (74-99) mg/dL POC Glucose (mg/dL) 160 H (75-99) mg/dL Alkaline Phosphatase 151 H (38-126) U/L Albumin 3.0 L (3.5-5.0) g/dL 07/11/21 Range/Units 11:34 RBC (3.80-5.40) m/uL Hgb (11.4-16.0) gm/dL MCHC (31.0-37.0) g/dL Plt Count (150-450) k/uL Carbon Dioxide (22-30) mmol/L Glucose (74-99) mg/dL POC Glucose (mg/dL) 251 H (75-99) mg/dL Alkaline Phosphatase (38-126) U/L Albumin (3.5-5.0) g/dL
[2021-07-11 17:09] LABS: Glucose,Whole Blood 183 mg/dL (75-99)
--- NOTE | 2021-07-11 19:53 | XR ---
EXAMINATION TYPE: XR chest 1V portable DATE OF EXAM: 07/11/2021 COMPARISON: 07/09/2021 HISTORY: Short of breath TECHNIQUE: FINDINGS: Heart is enlarged. There is some pulmonary interstitial edema. There is mild blunting of th e costophrenic angles. There are no hilar masses. IMPRESSION: There is evidence for some mild congestive heart failure that is probably improved compar ed to recent exam. Cardiomegaly unchanged.
--- NOTE | 2021-07-11 20:42 | PN ---
PROGRESS NOTE I am covering for Dr. Rodriguez. DATE OF SERVICE: 07/11/2021. This 81-year-old woman who was admitted with new-onset atrial fibrillation also had multiple other medical problems. The patient also has aortic stenosis and is being planned for TAVR. The patient also had change in mental status and weakness. Past medical history reviewed. REVIEW OF SYSTEMS: CARDIOVASCULAR SYSTEM: As mentioned earlier. RESPIRATION: As mentioned earlier. GI: As mentioned earlier. : No dysuria. NERVOUS SYSTEM: No numbness, weakness. CURRENT MEDICATIONS: Reviewed. They include Tylenol, Cordarone, Eliquis, aspirin, Lipitor, Plavix, Lomotil. Doses are reviewed. Other medications are reviewed. PHYSICAL EXAMINATION: Patient alert and oriented x2. Pulse 65, blood pressure 94/55, respiration 10, temperature 97.7, pulse ox 98% on 2 L. HEENT: Conjunctivae normal. NECK: No jugular venous distention. CARDIOVASCULAR: S1, S2 muffled. Ejection systolic murmur. RESPIRATION: Breath sounds diminished at the bases. A few scattered rhonchi. ABDOMEN: Soft. NERVOUS SYSTEM: No focal deficit. LABS: Hemoglobin 11, platelets 116, Accu-Cheks 168. ASSESSMENT: 1. New-onset paroxysmal atrial fibrillation. 2. Coronary artery disease, status post recent PCI and stent. 3. Aortic stenosis for TAVR. 4. Diabetes mellitus, type 2. 5. Hyperlipidemia. 6. Hypertension. 7. Anemia. 8. Mild thrombocytopenia. 9. Mild hypoalbuminemia. 10.Obesity with body mass index of 39.5. 11.History of coronary artery disease. 12.History of cerebrovascular accident, transient ischemic attack. 13.History of degenerative joint disease. 14.Esophageal surgery. 15.FULL CODE. RECOMMENDATIONS AND DISCUSSION: In this 81-year-old woman who presented with multiple complex medical issues, we will monitor the patient closely, continue the current medications. Continue symptomatic treatment. Repeat labs. Monitor platelets closely. Monitor blood sugars closely. Guarded prognosis because of multiple complex medical issues. Further recommendations to follow. See orders for further details. Cardiothoracic input appreciated. MMODL / JACKN: [id number] /
[2021-07-11 21:00] LABS: Glucose,Whole Blood 142 mg/dL (75-99)
[2021-07-12 05:48] LABS: Glucose,Whole Blood 121 mg/dL (75-99)
[2021-07-12] MEDS: INSULIN ASPART (NovoLOG) 100 UNIT/ML VIAL SQ SCH ×3 (06:14→17:16)
[2021-07-12] MEDS: PANTOPRAZOLE 40 MG TABLET PO SCH (06:28)
[2021-07-12] MEDS: APIXABAN 2.5 MG TABLET PO SCH ×2 (08:23→20:21)
[2021-07-12] MEDS: AMIODARONE 200 MG TAB PO SCH ×2 (08:24→20:21)
[2021-07-12] MEDS: METOPROLOL TARTRATE 12.5 MG TAB PO SCH ×2 (08:24→20:21)
[2021-07-12] MEDS: ESCITALOPRAM 10 MG TAB PO SCH (08:24)
[2021-07-12] MEDS: CLOPIDOGREL 75 MG TAB PO SCH (08:24)
[2021-07-12] MEDS: ATORVASTATIN 40 MG TAB PO SCH (08:24)
[2021-07-12] MEDS: ASPIRIN 81 MG PO SCH (08:24)
[2021-07-12] MEDS: FUROSEMIDE 20 MG TAB PO SCH ×2 (08:26→17:16)
[2021-07-12 09:41] LABS: Basophils % (A) 1 %; Eosinophils # (A) 0.4 k/uL (0-0.7); Eosinophils % (A) 6 %; HCT 37.9 % (34.0-46.0); HGB 12.1 gm/dL (11.4-16.0); Hypochromasia Slight; Lymphocytes # (A) 0.7 k/uL (1.0-4.8); Lymphocytes % (A) 10 %; MCH 30.1 pg (25.0-35.0); MCV 93.9 fL (80.0-100.0); Mean Platelet Volume 11.5; Monocytes # (A) 0.5 k/uL (0-1.0); Monocytes % (A) 7 %; Neutrophils # (A) 5.3 k/uL (1.3-7.7); Neutrophils % (A) 74 %; Platelet Count 145 k/uL (150-450); RBC 4.03 m/uL (3.80-5.40); RDW 13.8 % (11.5-15.5); WBC 7.1 k/uL (3.8-10.6)
--- NOTE | 2021-07-12 09:45 | P.PN ---
Subjective Progress Note Date: 07/12/21 Principal diagnosis: New onset atrial flutter this admission, altered mental status present on admission. Previous medical history of coronary artery disease and non-STEMI status post drug-eluting stent to the mid LAD 06/18/2021, aortic stenosis, insulin dependent diabetes, CVA, recent fall history, overall general debility The patient was seen and examined this morning on the cardiac stepdown unit with Dr. Beach. She is in no acute distress and is sitting up in a recliner. She denies any chest pain or shortness of breath. Remains on 2 L nasal cannula with oxygen saturation in the mid to high 90s. Remains in sinus rhythm and hemodynamically stable. Gated CT for TAVR was completed. Also bedside spirometry was completed with FEV1 19% of predicted demonstrating very severe restriction, although ATS criteria was not met. 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 Objective - Vital Signs Vital signs: Vital Signs Temp 98.1 F 07/12/21 08:00 Pulse 55 L 07/12/21 08:00 Resp 16 07/12/21 08:00 BP 92/46 07/12/21 08:00 Pulse Ox 93 L 07/12/21 08:00 Intake & Output 07/11/21 07/12/21 07/12/21 18:59 06:59 18:59 Intake Total 118 Balance 118 Weight 90.1 kg Intake: Oral 118 Other: Voiding Method Toilet Toilet Toilet Diaper Diaper Diaper # Voids 1 1 1 # Bowel Movements 1 1 - Exam CONSTITUTIONAL: Appears comfortable, cooperative, no acute distress RESPIRATORY: Lungs sounds diminished bilaterally. Respirations even, nonlabored. Currently on 2 L nasal cannula with oxygen saturation 93%. Able to achieve less than 500 mL on incentive spirometry CARDIOVASCULAR: S1, S2 present. Regular rate and rhythm, sinus rhythm on telemetry. Palpable peripheral pulses bilaterally. Trace bilateral lower extremity edema present. No calf pain or tenderness noted. GASTROINTESTINAL: Abdomen soft, nontender, nondistended. Active bowel sounds present 4 quadrants. Tolerating diet. Positive bowel movement. GENITOURINARY: Continues to void but is incontinent INTEGUMENTARY: Skin is warm and dry NEUROLOGIC: Cranial nerves II through XII intact MUSKULOSKELETAL: Able to move all extremities, strength equal bilaterally but generalized weakness present PSYCHIATRIC: Alert and oriented to person and place, poor memory - Allied health notes Allied health notes reviewed: nursing - Labs CBC & Chem 7: 07/11/21 08:05 07/11/21 08:05 Labs: Abnormal Lab Results - Last 24 Hours (Table) 07/11/21 07/11/21 07/11/21 Range/Units 11:34 17:07 20:49 POC Glucose (mg/dL) 251 H 183 H 142 H (75-99) mg/dL 07/12/21 Range/Units 05:45 POC Glucose (mg/dL) 121 H (75-99) mg/dL - Imaging and Cardiology Chest x-ray: report reviewed, image reviewed Assessment and Plan Assessment: 1. New onset atrial flutter 2. Altered mental status present on admission 3. History of coronary artery disease and non-STEMI status post drug-eluting stent to the mid LAD 06/18/2021 4. History of aortic stenosis,mildly impaired left ventricular systolic dysfunction with EF 45-50%, severe aortic stenosis with peak/mean gradient of 70/46 mmHg on TTE 06/13/21; heavily calcified trileaflet aortic valve with severe restriction and valve area 0.73 cm by planimetry on BELKYS 06/16/21; mildly impaired left ventricular systolic function with EF 45-50%, moderate to severe aortic stenosis with peak/mean gradient 62/38 mmHg on TTE 07/10/21 5. Insulin dependent diabetes with recent hemoglobin A1c 5.8% 6. History of CVA 7. Recent fall history 8. Overall general debility 9. Severe restriction based on bedside spirometry with FEV1 19% of predicted, ATS criteria not met Plan: 1. Continue to maximize medical therapy including low dose aspirin, statin, Plavix, beta armand therapy 2. Acute heart failure, atrial flutter management per cardiology. Continue amiodarone, Eliquis, Lasix 3. Patient will likely need repeat full pulmonary function test once she has recovered from acute heart failure 4. Will attempt 5 meter walk test as well as frailty testing when appropriate, which may be completed outpatient in valve clinic 5. Once patient recovers from acute heart failure we will see her outpatient in the structural heart clinic with the full structural heart team for shared decision making and planning for TAVR procedure 6. Management of other medical comorbidities per primary care service 7. More recommendations to follow Time with Patient: Greater than 30
[2021-07-12 10:00] LABS: Calcium 9.2 mg/dL (8.4-10.2); Potassium 4.5 mmol/L (3.5-5.1)
[2021-07-12 11:38] LABS: Glucose,Whole Blood 210 mg/dL (75-99)
--- NOTE | 2021-07-12 13:40 | P.PN ---
Subjective Progress Note Date: 07/12/21 HISTORY OF PRESENTING ILLNESS This is a pleasant 81-year-old female past medical history significant for coronary artery disease status post recent PCI to the LAD, severe aortic stenosis awaiting surgical evaluation, diabetes mellitus, dyslipidemia and hypertension. She follows in the office with Dr. Stratton. We have been asked to see in consultation for heart failure. She was brought to the hospital by her family for increased weakness and inability to arouse the patient yesterday. According to her daughter she was at home with her son and he could not wake her up. She is seen and examined sleeping in bed in no acute distress. She wakes up easily. She states she feels tired and weak. She has no symptoms of chest pain or shortness of breath. On arrival EKG revealed atrial flutter/fibrillation. She is currently in SR now. She is supposed to see CT surgery in the office in July for further evaluation of her aortic valve. Chest x-ray reveals hyperinflation compatible with COPD, pulmonary venous congestion and scattered infiltrates. CT of the brain is negative for acute intracranial process. Limited echocardiogram reveals mildly impaired LV systolic function with ejection fraction 45-50% with moderate to severe aortic stenosis and a mean gradient across the valve of 38 mmHg. Consistent with previous echocardiogram. Laboratory data reviewed, WBC 7.9, hemoglobin 11.2, platelets 151, sodium 138, potassium 4.3, creatinine 0.53, troponin 0.0 43, 0.0 31, and T proBNP 11,500 and TSH 1.31. Daily cardiac medications include aspirin 81 mg daily, Plavix 75 mg daily, atorvastatin 40 mg daily, Lasix 20 mg daily and Lopressor 25 mg twice a day. 07/11/2021 Hemoglobin 11, platelet, or 16. Potassium 4.1, creatinine 0.64. Alkaline phosphatase 151. Patient feels that she has had good urine output, she is incontinent. We'll plan to increase Lasix to twice daily. CTA of the chest/abdomen,/pelvis revealed findings suspicious for heart failure. Fixed hiatal hernia with dilatation of the esophagus. 07/12/2021 Patient denies any complaints. She is found sleeping and recliner but awakens easily. Heart monitor has been a sinus rhythm in the 50s with amiodarone at 400 mg twice daily and metoprolol was decreased to 12.5 mg twice daily. Recommend continuing beta armand at the lower dose at the time of discharge. PHYSICAL EXAMINATION Blood pressure 92/46 heart rate 55 afebrile and maintaining oxygen saturation on 2 L nasal cannula. CONSTITUTIONAL: No apparent distress. HEENT: Head is normocephalic. Pupils are equal, round. Sclerae anicteric. Mucous membranes of the mouth are moist. No JVD. No carotid bruit. CHEST EXAMINATION: Lungs are clear to auscultation. No chest wall tenderness is noted on palpation or with deep breathing. Diminished bilaterally. HEART EXAMINATION: Regular rate and rhythm. S1, S2 heard. Systolic ejection murmur at the base, no gallops or rub. ABDOMEN: Soft, nontender. EXTREMITIES: 2+ peripheral pulses, no lower extremity edema and no calf tenderness. Dry appearing skin changes. NEUROLOGIC EXAMINATION: Patient is awake, alert and oriented x3. ASSESSMENT New-onset atrial fibrillation, paroxysmal atrial fibrillation Coronary artery disease status post recent PCI Aortic stenosis Diabetes mellitus Dyslipidemia Hypertension PLAN Continue Eliquis 2.5 mg twice a day, aspirin and Plavix for a total of 6 weeks status post PCI performed on 06/18. Continue amiodarone 400 mg twice a day. Continue metipranolol lower dose of 12.5 mg twice daily Continue Lasix [address] surgery following while the patient is here re TAVR. Further recommendations to follow based upon clinical course. Thank you kindly for this consultation. Nurse Practitioner note has been reviewed, I agree with a documented findings and plan of care. Patient was seen and examined. Objective - Vital Signs Vital signs: Vital Signs Temp 98.1 F 07/12/21 08:00 Pulse 55 L 07/12/21 08:00 Resp 16 07/12/21 08:00 BP 92/46 07/12/21 08:00 Pulse Ox 93 L 07/12/21 08:00 Intake & Output 07/11/21 07/12/21 07/12/21 18:59 06:59 18:59 Intake Total 118 Balance 118 Weight 90.1 kg Intake: Oral 118 Other: Voiding Method Toilet Toilet Toilet Diaper Diaper Diaper # Voids 1 1 1 # Bowel Movements 1 1 - Labs CBC & Chem 7: 07/12/21 08:55 07/12/21 08:55 Labs: Abnormal Lab Results - Last 24 Hours (Table) 07/11/21 07/11/21 07/12/21 Range/Units 17:07 20:49 05:45 Plt Count (150-450) k/uL Lymphocytes # (1.0-4.8) k/uL Chloride (98-107) mmol/L Carbon Dioxide (22-30) mmol/L BUN (7-17) mg/dL Glucose (74-99) mg/dL POC Glucose (mg/dL) 183 H 142 H 121 H (75-99) mg/dL 07/12/21 07/12/21 07/12/21 Range/Units 08:55 08:55 11:37 Plt Count 145 L (150-450) k/uL Lymphocytes # 0.7 L (1.0-4.8) k/uL Chloride 96 L (98-107) mmol/L Carbon Dioxide 35 H (22-30) mmol/L BUN 19 H (7-17) mg/dL Glucose 179 H (74-99) mg/dL POC Glucose (mg/dL) 210 H (75-99) mg/dL
[2021-07-12 16:18] LABS: Glucose,Whole Blood 112 mg/dL (75-99)
[2021-07-12] MEDS: INSULIN DETEMIR (LEVEMIR) 100 UNIT/ML SYR SQ SCH (18:54)
--- NOTE | 2021-07-12 20:49 | PN ---
PROGRESS NOTE DATE OF SERVICE: 07/12/2021 I am covering for Dr. Rodriguez. This 81-year-old woman who was admitted with new onset paroxysmal atrial fibrillation is being closely monitored. The patient also has some mild change in mental status. No chest pain. No palpitations. No fever. PHYSICAL EXAMINATION: Alert and oriented x2. Pulse 61, blood pressure 98/52, respirations 16, temperature 98.2, pulse ox 98% on 2 L. HEENT: Conjunctivae normal. Oral mucosa moist. NECK: No jugular venous distention. No lymph node enlargement. CARDIOVASCULAR: S1, S2, muffled. No S3, no S4, RESPIRATORY: Diminished breath sounds at the bases. A few scattered rhonchi. ABDOMEN: Soft, nontender. LEGS: No edema, no swelling. NERVOUS SYSTEM: No focal deficits. LABS: Platelets 145, glucose noted. ASSESSMENT: 1. New onset paroxysmal atrial fibrillation. 2. Coronary artery disease, stent status post recent PCI and stent. 3. Change in mental status, acute metabolic encephalopathy. 4. Aortic stenosis for TAVR. 5. Diabetes type 2. 6. Hyperlipidemia. 7. Hypertension. 8. History anemia. 9. History of mild thrombocytopenia. 10.Mild hypoalbuminemia. 11.Obesity with body mass index of 39.5. 12.History of coronary artery disease. 13.History of CVA, TIA. 14.History of degenerative joint disease. 15.Esophageal surgery. 16.FULL CODE. RECOMMENDATIONS: Recommend to continue current management and symptomatic treatment. Otherwise, at this time I recommend continue with current medications. Otherwise, the rest of medication. Dr. Rodriguez will follow. MMODL / IJN: [id number] /
[2021-07-12 20:51] LABS: Glucose,Whole Blood 39 mg/dL (75-99)
[2021-07-12 20:51] LABS: Glucose,Whole Blood 45 mg/dL (75-99)
[2021-07-12 21:05] LABS: Glucose,Whole Blood 60 mg/dL (75-99)
[2021-07-12 21:41] LABS: Glucose,Whole Blood 89 mg/dL (75-99)
[2021-07-13 06:18] LABS: Glucose,Whole Blood 206 mg/dL (75-99)
[2021-07-13] MEDS: INSULIN ASPART (NovoLOG) 100 UNIT/ML VIAL SQ SCH ×3 (06:57→17:23)
[2021-07-13] MEDS: PANTOPRAZOLE 40 MG TABLET PO SCH (06:57)
--- NOTE | 2021-07-13 07:46 | P.PN ---
Subjective Progress Note Date: 07/13/21 Principal diagnosis: New onset atrial flutter this admission, altered mental status present on admission. Previous medical history of coronary artery disease and non-STEMI status post drug-eluting stent to the mid LAD 06/18/2021, aortic stenosis, insulin dependent diabetes, CVA, recent fall history, overall general debility The patient was seen and examined this morning on the cardiac stepdown unit. She is in no acute distress and is sitting up in bed. She denies any chest pain or shortness of breath. Remains on 2 L nasal cannula with oxygen saturation in the mid 90s. Remains in sinus rhythm and hemodynamically stable. Gated CT for TAVR was completed. Also bedside spirometry was completed with FEV1 19% of predicted demonstrating very severe restriction, although ATS criteria was not met. Patient is in good spirits with memory issues, although she is oriented x 3 this morning and does remember seeing me yesterday. Objective - Vital Signs Vital signs: Vital Signs Temp 98.7 F 07/12/21 20:00 Pulse 62 07/13/21 03:54 Resp 16 07/13/21 03:54 BP 92/44 07/13/21 03:54 Pulse Ox 92 L 07/13/21 03:54 Intake & Output 07/12/21 07/13/21 07/13/21 18:59 06:59 18:59 Intake Total 0 Balance 0 Weight 89 kg Intake: Oral 0 Other: Voiding Method Toilet Toilet Diaper Diaper # Voids 1 1 - Exam CONSTITUTIONAL: Appears comfortable, cooperative, no acute distress RESPIRATORY: Lungs sounds diminished bilaterally. Respirations even, nonlabored. Currently on 2 L nasal cannula with oxygen saturation 92%. Able to achieve less than 500 mL on incentive spirometry CARDIOVASCULAR: S1, S2 present, loud systolic murmur present. Regular rate and rhythm, sinus rhythm on telemetry. Palpable peripheral pulses bilaterally. No edema present. No calf pain or tenderness noted. GASTROINTESTINAL: Abdomen soft, nontender, nondistended. Active bowel sounds present 4 quadrants. Tolerating diet. Positive bowel movement. GENITOURINARY: Continues to void but is incontinent INTEGUMENTARY: Skin is warm and dry NEUROLOGIC: Cranial nerves II through XII intact MUSKULOSKELETAL: Able to move all extremities, strength equal bilaterally but generalized weakness present PSYCHIATRIC: Alert and oriented to person, place, and time. - Labs CBC & Chem 7: 07/12/21 08:55 07/12/21 08:55 Labs: Abnormal Lab Results - Last 24 Hours (Table) 07/12/21 07/12/21 07/12/21 Range/Units 08:55 08:55 11:37 Plt Count 145 L (150-450) k/uL Lymphocytes # 0.7 L (1.0-4.8) k/uL Chloride 96 L (98-107) mmol/L Carbon Dioxide 35 H (22-30) mmol/L BUN 19 H (7-17) mg/dL Glucose 179 H (74-99) mg/dL POC Glucose (mg/dL) 210 H (75-99) mg/dL 07/12/21 07/12/21 07/12/21 Range/Units 16:17 20:40 20:41 Plt Count (150-450) k/uL Lymphocytes # (1.0-4.8) k/uL Chloride (98-107) mmol/L Carbon Dioxide (22-30) mmol/L BUN (7-17) mg/dL Glucose (74-99) mg/dL POC Glucose (mg/dL) 112 H 45 L 39 L (75-99) mg/dL 07/12/21 07/13/21 Range/Units 21:02 05:58 Plt Count (150-450) k/uL Lymphocytes # (1.0-4.8) k/uL Chloride (98-107) mmol/L Carbon Dioxide (22-30) mmol/L BUN (7-17) mg/dL Glucose (74-99) mg/dL POC Glucose (mg/dL) 60 L 206 H (75-99) mg/dL Assessment and Plan Assessment: 1. New onset atrial flutter 2. Altered mental status present on admission 3. History of coronary artery disease and non-STEMI status post drug-eluting stent to the mid LAD 06/18/2021 4. History of aortic stenosis,mildly impaired left ventricular systolic dysfun ction with EF 45-50%, severe aortic stenosis with peak/mean gradient of 70/46 mmHg on TTE 06/13/21; heavily calcified trileaflet aortic valve with severe restriction and valve area 0.73 cm by planimetry on BELKYS 06/16/21; mildly impaired left ventricular systolic function with EF 45-50%, moderate to severe aortic stenosis with peak/mean gradient 62/38 mmHg on TTE 07/10/21 5. Insulin dependent diabetes with recent hemoglobin A1c 5.8% 6. History of CVA 7. Recent fall history 8. Overall general debility 9. Severe restriction based on bedside spirometry with FEV1 19% of predicted, ATS criteria not met Plan: 1. Continue to maximize medical therapy including low dose aspirin, statin, Plavix, beta armand therapy 2. Acute heart failure, atrial flutter management per cardiology. Continue amiodarone, Eliquis, Lasix 3. Patient will likely need repeat full pulmonary function test once she has recovered from acute heart failure 4. Will attempt 5 meter walk test as well as frailty testing when appropriate, which may be completed outpatient in valve clinic 5. Once patient recovers from acute heart failure we will see her outpatient in the structural heart clinic with the full structural heart team for shared decision making and planning for TAVR procedure 6. Management of other medical comorbidities per primary care service 7. More recommendations to follow Time with Patient: Greater than 30
[2021-07-13] MEDS: METOPROLOL TARTRATE 12.5 MG TAB PO SCH ×2 (08:16→20:47)
[2021-07-13] MEDS: ASPIRIN 81 MG PO SCH (08:16)
[2021-07-13] MEDS: ESCITALOPRAM 10 MG TAB PO SCH (08:16)
[2021-07-13] MEDS: AMIODARONE 200 MG TAB PO SCH ×2 (08:16→20:47)
[2021-07-13] MEDS: ATORVASTATIN 40 MG TAB PO SCH (08:16)
[2021-07-13] MEDS: FUROSEMIDE 20 MG TAB PO SCH ×2 (08:16→17:23)
[2021-07-13] MEDS: APIXABAN 2.5 MG TABLET PO SCH ×2 (08:16→20:47)
[2021-07-13] MEDS: CLOPIDOGREL 75 MG TAB PO SCH (08:16)
--- NOTE | 2021-07-13 08:35 | P.PN ---
Subjective Progress Note Date: 07/13/21 Principal diagnosis: The patient is here essentially for congestive heart failure elements. The nursing staff has reported poor mobility. PT and OT are on the patient. Question need for rehab No significant chest pressure. Blood sugar has been more stable. Objective - Vital Signs Vital signs: Vital Signs Temp 98.4 F 07/13/21 08:00 Pulse 64 07/13/21 08:00 Resp 18 07/13/21 08:00 BP 106/62 07/13/21 08:00 Pulse Ox 96 07/13/21 08:00 Intake & Output 07/12/21 07/13/21 07/13/21 18:59 06:59 18:59 Intake Total 0 Balance 0 Weight 89 kg Intake: Oral 0 Other: Voiding Method Toilet Toilet Diaper Diaper # Voids 1 1 - Constitutional General appearance: Present: no acute distress, obese - EENT Eyes: Absent: abnormal pupil - Neck Neck: Absent: lymphadenopathy - Respiratory Respiratory: bilateral: CTA - Cardiovascular Rhythm: irregularly irregular Heart sounds: normal: S1, S2 Abnormal Heart Sounds: Absent: S3 Gallop - Gastrointestinal General gastrointestinal: Present: soft. Absent: tenderness - Labs CBC & Chem 7: 07/12/21 08:55 07/12/21 08:55 Labs: Abnormal Lab Results - Last 24 Hours (Table) 07/12/21 07/12/21 07/12/21 Range/Units 08:55 08:55 11:37 Plt Count 145 L (150-450) k/uL Lymphocytes # 0.7 L (1.0-4.8) k/uL Chloride 96 L (98-107) mmol/L Carbon Dioxide 35 H (22-30) mmol/L BUN 19 H (7-17) mg/dL Glucose 179 H (74-99) mg/dL POC Glucose (mg/dL) 210 H (75-99) mg/dL 07/12/21 07/12/21 07/12/21 Range/Units 16:17 20:40 20:41 Plt Count (150-450) k/uL Lymphocytes # (1.0-4.8) k/uL Chloride (98-107) mmol/L Carbon Dioxide (22-30) mmol/L BUN (7-17) mg/dL Glucose (74-99) mg/dL POC Glucose (mg/dL) 112 H 45 L 39 L (75-99) mg/dL 07/12/21 07/13/21 Range/Units 21:02 05:58 Plt Count (150-450) k/uL Lymphocytes # (1.0-4.8) k/uL Chloride (98-107) mmol/L Carbon Dioxide (22-30) mmol/L BUN (7-17) mg/dL Glucose (74-99) mg/dL POC Glucose (mg/dL) 60 L 206 H (75-99) mg/dL Assessment and Plan (1) CHF (congestive heart failure) Current Visit: Yes Status: Acute Code(s): I50.9 - HEART FAILURE, UNSPECIFIED SNOMED Code(s): 72410136 (2) Aortic stenosis Current Visit: No Status: Acute Code(s): I35.0 - NONRHEUMATIC AORTIC (VALVE) STENOSIS SNOMED Code(s): 53296858 (3) Diabetes Current Visit: No Status: Acute Code(s): E11.9 - TYPE 2 DIABETES MELLITUS WITHOUT COMPLICATIONS SNOMED Code(s): 42267456 (4) Stented coronary artery Current Visit: No Status: Acute Code(s): Z95.5 - PRESENCE OF CORONARY ANGIOPLASTY IMPLANT AND GRAFT SNOMED Code(s): 218303439 Plan: Follow closely for neurologic changes. I do suspect this is more related to her aortic stenosis. Continue current regimen of anticoagulation. Appreciate cardiology input. Question need for rehab as an outpatient. Significant immobility stated from the staff.
[2021-07-13 12:25] LABS: Glucose,Whole Blood 155 mg/dL (75-99)
--- NOTE | 2021-07-13 12:26 | P.PN ---
Subjective HISTORY OF PRESENTING ILLNESS This is a pleasant 81-year-old female past medical history significant for coronary artery disease status post recent PCI to the LAD, severe aortic stenosis awaiting surgical evaluation, diabetes mellitus, dyslipidemia and hypertension. She follows in the office with Dr. Stratton. We have been asked to see in consultation for heart failure. She was brought to the hospital by her family for increased weakness and inability to arouse the patient yesterday. According to her daughter she was at home with her son and he could not wake her up. She is seen and examined sleeping in bed in no acute distress. She wakes up easily. She states she feels tired and weak. She has no symptoms of chest pain or shortness of breath. On arrival EKG revealed atrial flutter/fibrillation. She is currently in SR now. She is supposed to see CT surgery in the office in July for further evaluation of her aortic valve. Chest x-ray reveals hyperinflation compatible with COPD, pulmonary venous congestion and scattered infiltrates. CT of the brain is negative for acute intracranial process. Limited echocardiogram reveals mildly impaired LV systolic function with ejection fraction 45-50% with moderate to severe aortic stenosis and a mean gradient across the valve of 38 mmHg. Consistent with previous echocardiogram. Laboratory data reviewed, WBC 7.9, hemoglobin 11.2, platelets 151, sodium 138, potassium 4.3, creatinine 0.53, troponin 0.0 43, 0.0 31, and T proBNP 11,500 and TSH 1.31. Daily cardiac medications include aspirin 81 mg daily, Plavix 75 mg daily, atorvastatin 40 mg daily, Lasix 20 mg daily and Lopressor 25 mg twice a day. 07/13/2021 Pt seen and examined sitting up in bed in no acute distress. She states her breathing is stable. Her weakness is improving, but not great. Blood pressure 106/62 heart rate 64 afebrile and maintaining oxygen saturation on nasal cannula. PHYSICAL EXAMINATION Blood pressure 112/57 heart rate 89 afebrile and maintaining oxygen saturation on nasal cannula. CONSTITUTIONAL: No apparent distress. HEENT: Head is normocephalic. Pupils are equal, round. Sclerae anicteric. Mucous membranes of the mouth are moist. No JVD. No carotid bruit. CHEST EXAMINATION: Lungs are clear to auscultation. No chest wall tenderness is noted on palpation or with deep breathing. Diminished bilaterally. HEART EXAMINATION: Regular rate and rhythm. S1, S2 heard. Systolic ejection murmur at the base, no gallops or rub. ABDOMEN: Soft, nontender. EXTREMITIES: 2+ peripheral pulses, no lower extremity edema and no calf tenderness. Dry appearing skin changes. NEUROLOGIC EXAMINATION: Patient is awake, alert and oriented x3. ASSESSMENT New-onset atrial fibrillation Coronary artery disease status post recent PCI Aortic stenosis Diabetes mellitus Dyslipidemia Hypertension PLAN Decrease amiodarone 200 mg BID. Continue to increase activity and work with PT. Nurse Practitioner note has been reviewed, I agree with a documented findings and plan of care. Patient was seen and examined. Objective - Vital Signs Vital signs: Vital Signs Temp 98.4 F 07/13/21 08:00 Pulse 64 07/13/21 08:00 Resp 18 07/13/21 08:00 BP 106/62 07/13/21 08:00 Pulse Ox 96 07/13/21 08:00 Intake & Output 07/12/21 07/13/21 07/13/21 18:59 06:59 18:59 Intake Total 0 Balance 0 Weight 89 kg Intake: Oral 0 Other: Voiding Method Toilet Toilet Diaper Diaper # Voids 1 1 - Labs CBC & Chem 7: 07/12/21 08:55 07/12/21 08:55 Labs: Abnormal Lab Results - Last 24 Hours (Table) 07/12/21 07/12/21 07/12/21 Range/Units 08:55 08:55 11:37 Plt Count 145 L (150-450) k/uL Lymphocytes # 0.7 L (1.0-4.8) k/uL Chloride 96 L (98-107) mmol/L Carbon Dioxide 35 H (22-30) mmol/L BUN 19 H (7-17) mg/dL Glucose 179 H (74-99) mg/dL POC Glucose (mg/dL) 210 H (75-99) mg/dL 07/12/21 07/12/21 07/12/21 Range/Units 16:17 20:40 20:41 Plt Count (150-450) k/uL Lymphocytes # (1.0-4.8) k/uL Chloride (98-107) mmol/L Carbon Dioxide (22-30) mmol/L BUN (7-17) mg/dL Glucose (74-99) mg/dL POC Glucose (mg/dL) 112 H 45 L 39 L (75-99) mg/dL 07/12/21 07/13/21 Range/Units 21:02 05:58 Plt Count (150-450) k/uL Lymphocytes # (1.0-4.8) k/uL Chloride (98-107) mmol/L Carbon Dioxide (22-30) mmol/L BUN (7-17) mg/dL Glucose (74-99) mg/dL POC Glucose (mg/dL) 60 L 206 H (75-99) mg/dL
[2021-07-13 17:07] LABS: Glucose,Whole Blood 196 mg/dL (75-99)
[2021-07-13] MEDS: INSULIN DETEMIR (LEVEMIR) 100 UNIT/ML SYR SQ SCH (19:05)
[2021-07-13 20:20] LABS: Glucose,Whole Blood 178 mg/dL (75-99)
[2021-07-14 06:26] LABS: Glucose,Whole Blood 170 mg/dL (75-99)
[2021-07-14] MEDS: PANTOPRAZOLE 40 MG TABLET PO SCH (06:50)
[2021-07-14] MEDS: CLOPIDOGREL 75 MG TAB PO SCH (08:02)
[2021-07-14] MEDS: FUROSEMIDE 20 MG TAB PO SCH ×2 (08:02→16:23)
[2021-07-14] MEDS: ASPIRIN 81 MG PO SCH (08:02)
[2021-07-14] MEDS: AMIODARONE 200 MG TAB PO SCH (08:02)
[2021-07-14] MEDS: ESCITALOPRAM 10 MG TAB PO SCH (08:02)
[2021-07-14] MEDS: ATORVASTATIN 40 MG TAB PO SCH (08:02)
[2021-07-14] MEDS: METOPROLOL TARTRATE 12.5 MG TAB PO SCH (08:02)
[2021-07-14] MEDS: APIXABAN 2.5 MG TABLET PO SCH (08:03)
[2021-07-14] MEDS: INSULIN ASPART (NovoLOG) 100 UNIT/ML VIAL SQ SCH ×2 (08:03→13:33)
--- NOTE | 2021-07-14 08:47 | P.DS ---
Providers Date of admission: 07/09/21 14:16 Attending physician: Mick Rodriguez Consults: 07/09/21 14:40 Consult Physician Urgent Consulting Provider: [facility] Consult Reason/Comments: CHF Do you want consulting provider notified?: Yes 07/10/21 10:56 Consult Physician Routine Consulting Provider: Vazquez Porter Consult Reason/Comments: Do you want consulting provider notified?: Yes Primary care physician: Mick Rodriguez - Discharge Diagnosis(es) (1) CHF (congestive heart failure) Current Visit: Yes Status: Acute (2) Aortic stenosis Current Visit: No Status: Acute (3) Diabetes Current Visit: No Status: Acute (4) Stented coronary artery Current Visit: No Status: Acute Hospital Course: . This discharge summary 81-year-old female essentially admitted for overt weakness. She was living independently until about a month ago where she was diagnosed with diabetes with hypoglycemia. During her workup, hypoglycemia is corrected but she was found have severe aortic stenosis. TAVR will be instituted once she is been cleared from recent stent placement. She was readmitted for this hospital physician secondary to worsening weakness. She's been living with her son but she does work full-time so she is unattended 2 for some periods. She was now stabilized placed on appropriate anticoagulation and will be transferred to rehab due to her transfer weakness. Patient Condition at Discharge: Fair Plan - Discharge Summary Discharge Rx Participant: No New Discharge Prescriptions: New Apixaban [Eliquis] 2.5 mg PO BID #60 tablet Aspirin 81 mg PO DAILY tab Amiodarone [Cordarone] 200 mg PO BID #60 tab Continue Insulin Detemir [Levemir Flextouch Pen] 12 units SQ AC-SUPPER Insulin Aspart (Niacinamide) [Fiasp 100 Unit/ml Flextouch Pen] 10 units SQ AC-BRKFST Insulin Aspart (Niacinamide) [Fiasp 100 Unit/ml Flextouch Pen] 8 units SQ AC- LUNCH Insulin Aspart (Niacinamide) [Fiasp 100 Unit/ml Flextouch Pen] 10 units SQ AC-SUPPER Aspirin 81 mg PO DAILY #90 Furosemide [Lasix] 20 mg PO DAILY #30 tab Nitroglycerin Sl Tabs [Nitrostat] 0.4 mg SUBLINGUAL Q5M PRN #60 tab PRN Reason: Chest Pain Clopidogrel [Plavix] 75 mg PO DAILY #30 tab Pantoprazole [Protonix] 40 mg PO DAILY #30 tab Diphenoxylate HCl/Atropine [Lomotil 2.5-0.025 mg Tablet] 1 tab PO QID PRN PRN Reason: Diarrhea Atorvastatin [Lipitor] 40 mg PO DAILY #30 tab Metoprolol Tartrate [Lopressor] 25 mg PO BID #60 tab Acetaminophen Tab [Tylenol] 650 mg PO Q6HR PRN tab PRN Reason: Fever And/ Or Pain Escitalopram [Lexapro] 10 mg PO DAILY Discharge Medication List Insulin Detemir [Levemir Flextouch Pen] 12 units SQ AC-SUPPER 04/09/16 [History] Insulin Aspart (Niacinamide) [Fiasp 100 Unit/ml Flextouch Pen] 8 units SQ AC- LUNCH 04/21/20 [History] Insulin Aspart (Niacinamide) [Fiasp 100 Unit/ml Flextouch Pen] 10 units SQ AC- BRKFST 04/21/20 [History] Insulin Aspart (Niacinamide) [Fiasp 100 Unit/ml Flextouch Pen] 10 units SQ AC-S UPPER 04/21/20 [History] Acetaminophen Tab [Tylenol] 650 mg PO Q6HR PRN tab 06/24/21 [Rx] Aspirin 81 mg PO DAILY #90 06/24/21 [Rx] Atorvastatin [Lipitor] 40 mg PO DAILY #30 tab 06/24/21 [Rx] Clopidogrel [Plavix] 75 mg PO DAILY #30 tab 06/24/21 [Rx] Furosemide [Lasix] 20 mg PO DAILY #30 tab 06/24/21 [Rx] Metoprolol Tartrate [Lopressor] 25 mg PO BID #60 tab 06/24/21 [Rx] Nitroglycerin Sl Tabs [Nitrostat] 0.4 mg SUBLINGUAL Q5M PRN #60 tab 06/24/21 [Rx] Pantoprazole [Protonix] 40 mg PO DAILY #30 tab 06/24/21 [Rx] Diphenoxylate HCl/Atropine [Lomotil 2.5-0.025 mg Tablet] 1 tab PO QID PRN 07/09/21 [History] Escitalopram [Lexapro] 10 mg PO DAILY 07/09/21 [History] Amiodarone [Cordarone] 200 mg PO BID #60 tab 07/14/21 [Rx] Apixaban [Eliquis] 2.5 mg PO BID #60 tablet 07/14/21 [Rx] Aspirin 81 mg PO DAILY tab 07/14/21 [Rx] Follow up Appointment(s)/Referral(s): Mick Rodriguez MD [Primary Care Provider] - 1-2 days Vazquez Porter MD [STAFF PHYSICIAN] - 07/20/21 3:00 pm (Appointment will be with the full structural heart team to discuss planning and scheduling for TAVR) Discharge Disposition: TRANSFER TO SNF/ECF
--- NOTE | 2021-07-14 09:35 | P.PN ---
Subjective Progress Note Date: 07/14/21 Principal diagnosis: New onset atrial flutter this admission, altered mental status present on admission. Past medical history significant for coronary artery disease and non-STEMI status post drug-eluting stent to the mid LAD 06/18/2021, known aortic valve stenosis, insulin dependent diabetes, CVA, recent fall history, overall general debility. The patient was seen in follow-up today 07/14/2021 at her bedside on the cardiac stepdown unit. Currently she is laying in bed, with her head elevated eating her breakfast. She is awake, alert and oriented 3 and is in no acute apparent distress. Denies any complaints of chest pain or shortness of breath at this time. Oxygen saturations are 93% on 2 L nasal cannula and she is achieving 500 mL on her incentive spirometry with much encouragement. During her hospitalization she did undergo a bedside FEV1 which demonstrated predicted value of 19% demonstrating very severe restriction. On 07/10/2021 a gated computed tomography scan was completed. Patient has been afebrile the last 24 hours, her remote telemetry showing normal sinus rhythm heart rate 85 BPM. She remains on low-dose aspirin, metoprolol tartrate 12.5 mg by mouth twice a day, amiodarone 200 mg by mouth twice a day, Plavix 75 mg by mouth daily, Eliquis 2.5 mg by mouth twice a day and Lasix 20 mg by mouth twice a day. Objective - Vital Signs Vital signs: Vital Signs Temp 97.9 F 07/14/21 08:00 Pulse 84 07/14/21 08:00 Resp 18 07/14/21 08:00 BP 92/56 07/14/21 08:00 Pulse Ox 93 L 07/14/21 08:00 Intake & Output 07/13/21 07/14/21 07/14/21 18:59 06:59 18:59 Intake Total 0 Balance 0 Weight 88.7 kg Intake: Oral 0 Other: Voiding Method Toilet Toilet Toilet Diaper Diaper Diaper # Voids 1 1 # Bowel Movements 1 - Exam CONSTITUTIONAL: Laying in bed on the cardiac stepdown unit. Appears comfortable, cooperative, and in no acute distress. RESPIRATORY: Lungs sounds diminished throughout bilaterally. Respirations even, nonlabored. Currently on 2 L nasal cannula with oxygen saturation 93%. Able to achieve 500 mL on incentive spirometry CARDIOVASCULAR: S1, S2 present. Negative for S3 or gallop. Positive loud crowder- systolic murmur present. Regular rate and rhythm, sinus rhythm on telemetry with heart rate 85 bpm. Palpable peripheral pulses bilaterally. Trace edema present to her bilateral lower extremities. No calf pain or tenderness noted. GASTROINTESTINAL: Abdomen soft, nontender, nondistended. Active bowel sounds present 4 quadrants. Tolerating diet. GENITOURINARY: Continues to void with episodes of incontinence. INTEGUMENTARY: Skin is warm and dry, no clubbing or cyanosis is present. NEUROLOGIC: Cranial nerves II through XII intact. No focal deficits. MUSKULOSKELETAL: Able to move all extremities, strength equal bilaterally but generalized weakness. PSYCHIATRIC: Alert and oriented to person, place, and time. - Allied health notes Allied health notes reviewed: nursing - Labs CBC & Chem 7: 07/12/21 08:55 07/12/21 08:55 Labs: Abnormal Lab Results - Last 24 Hours (Table) 07/13/21 07/13/21 07/13/21 Range/Units 12:05 17:04 20:19 POC Glucose (mg/dL) 155 H 196 H 178 H (75-99) mg/dL 07/14/21 Range/Units 06:24 POC Glucose (mg/dL) 170 H (75-99) mg/dL Assessment and Plan Assessment: 1. New onset atrial fibrillation, currently in normal sinus rhythm 2. Altered mental status present on admission, currently alert and oriented 3 3. History of coronary artery disease and non-STEMI status post drug-eluting stent to the mid LAD 06/18/2021 4. History of aortic valve stenosis, mildly impaired left ventricular systolic dysfunction with EF 45-50%, severe aortic stenosis with peak/mean gradient of 70/46 mmHg on TTE 06/13/21; heavily calcified trileaflet aortic valve with severe restriction and valve area 0.73 cm by planimetry on BELKYS 06/16/21; mildly impaired left ventricular systolic function with EF 45-50%, moderate to severe aortic stenosis with peak/mean gradient 62/38 mmHg on TTE 07/10/21 5. Insulin dependent diabetes with recent hemoglobin A1c 5.8% 6. History of CVA 7. Recent fall history 8. Overall general debility 9. Severe restriction based on bedside spirometry with FEV1 19% of predicted, ATS criteria not met Plan: 1. Continue to maximize medical therapy including low dose aspirin, statin, Plavix, and beta armand. 2. Acute heart failure, atrial fibrillation/flutter management per cardiology. Continue amiodarone, Eliquis, Lasix managed by cardiology. 3. The patient will likely need a repeat full pulmonary function test once she has recovered from acute heart failure. 4. Will attempt 5 meter walk test as well as frailty testing when appropriate, which may be completed outpatient in valve clinic. 5. Once patient recovers from acute heart failure we will see her as outpatient in the structural heart clinic with the full structural heart team for shared decision making and planning for TAVR procedure. 6. Management of other medical comorbidities per primary care service. 7. Continue to encourage use of her incentive spirometry 10 times every hour while awake. 8. More recommendations to follow based on patient's clinical course. Time with Patient: Greater than 30
--- NOTE | 2021-07-14 10:02 | P.PN ---
Subjective HISTORY OF PRESENTING ILLNESS This is a pleasant 81-year-old female past medical history significant for coronary artery disease status post recent PCI to the LAD, severe aortic stenosis awaiting surgical evaluation, diabetes mellitus, dyslipidemia and hypertension. She follows in the office with Dr. Stratton. We have been asked to see in consultation for heart failure. She was brought to the hospital by her family for increased weakness and inability to arouse the patient yesterday. According to her daughter she was at home with her son and he could not wake her up. She is seen and examined sleeping in bed in no acute distress. She wakes up easily. She states she feels tired and weak. She has no symptoms of chest pain or shortness of breath. On arrival EKG revealed atrial flutter/fibrillation. She is currently in SR now. She is supposed to see CT surgery in the office in July for further evaluation of her aortic valve. Chest x-ray reveals hyperinflation compatible with COPD, pulmonary venous congestion and scattered infiltrates. CT of the brain is negative for acute intracranial process. Limited echocardiogram reveals mildly impaired LV systolic function with ejection fraction 45-50% with moderate to severe aortic stenosis and a mean gradient across the valve of 38 mmHg. Consistent with previous echocardiogram. Laboratory data reviewed, WBC 7.9, hemoglobin 11.2, platelets 151, sodium 138, potassium 4.3, creatinine 0.53, troponin 0.0 43, 0.0 31, and T proBNP 11,500 and TSH 1.31. Daily cardiac medications include aspirin 81 mg daily, Plavix 75 mg daily, atorvastatin 40 mg daily, Lasix 20 mg daily and Lopressor 25 mg twice a day. 07/14/2021 Patient seen and examined sitting up in no acute distress. She denies any worsening shortness of breath. She has no chest pain, dizziness or palpitations. Blood pressure 92/56 heart rate 84 afebrile maintaining oxygen saturation on nasal cannula. Telemetry tracings reviewed, she is maintaining sinus rhythm with no significant arrhythmia noted. PHYSICAL EXAMINATION Blood pressure 112/57 heart rate 89 afebrile and maintaining oxygen saturation on nasal cannula. CONSTITUTIONAL: No apparent distress. HEENT: Head is normocephalic. Pupils are equal, round. Sclerae anicteric. Mucous membranes of the mouth are moist. No JVD. No carotid bruit. CHEST EXAMINATION: Lungs are clear to auscultation. No chest wall tenderness is noted on palpation or with deep breathing. Diminished bilaterally. HEART EXAMINATION: Regular rate and rhythm. S1, S2 heard. Systolic ejection murmur at the base, no gallops or rub. ABDOMEN: Soft, nontender. EXTREMITIES: 2+ peripheral pulses, no lower extremity edema and no calf tenderness. Dry appearing skin changes. NEUROLOGIC EXAMINATION: Patient is awake, alert and oriented x3. ASSESSMENT New-onset atrial fibrillation Coronary artery disease status post recent PCI Aortic stenosis Diabetes mellitus Dyslipidemia Hypertension PLAN Stable on current medical regimen. Amiodarone 200 mg twice a day for 14 days then decrease to 200 mg daily thereafter. She is currently maintained on triple therapy for 6 weeks post-PCI then aspirin will be discontinued. Follow-up as previously recommended in the TAVR clinic and with Dr. Stratton. Nurse Practitioner note has been reviewed, I agree with a documented findings and plan of care. Patient was seen and examined. Objective - Vital Signs Vital signs: Vital Signs Temp 97.9 F 07/14/21 08:00 Pulse 84 07/14/21 08:00 Resp 18 07/14/21 08:00 BP 92/56 07/14/21 08:00 Pulse Ox 93 L 07/14/21 08:00 Intake & Output 07/13/21 07/14/21 07/14/21 18:59 06:59 18:59 Intake Total 0 Balance 0 Weight 88.7 kg Intake: Oral 0 Other: Voiding Method Toilet Toilet Toilet Diaper Diaper Diaper # Voids 1 1 # Bowel Movements 1 - Labs CBC & Chem 7: 07/12/21 08:55 07/12/21 08:55 Labs: Abnormal Lab Results - Last 24 Hours (Table) 07/13/21 07/13/21 07/13/21 Range/Units 12:05 17:04 20:19 POC Glucose (mg/dL) 155 H 196 H 178 H (75-99) mg/dL 07/14/21 Range/Units 06:24 POC Glucose (mg/dL) 170 H (75-99) mg/dL
[2021-07-14 11:48] LABS: Glucose,Whole Blood 108 mg/dL (75-99)
[2021-07-14 16:25] VITALS: BP 107/67; PULSE 65; RESP 18; TEMP 98.3
--- NOTE | 2021-07-14 18:52 | CDI ---
Documentation Clarification Form Date: 07/14/2021 06:07:00 PM From: Adilia Grande RN, CCDS Admit Date: 07/09/2021 02:16:00 PM Patient Name: Sandee Arnold Visit Number: [id number] Discharge Date: 07/14/2021 05:02:00 PM ATTENTION: The Clinical Documentation Specialists (CDI) and [facility] Coding Staff appreciate your assistance in clarifying documentation. Please respond to the clarification below the line at the bottom and electronically sign. The CDI & [facility] Coding staff will review the response and follow-up if needed. Please note: Queries are made part of the Legal Health Record. If you have any questions, please contact the author of this message via ITS. Dr. Rodriguez Your patient has the documented diagnosis of unspecified CHF in the 07/10 H&P and Cardiothoracic Consult and subsequent progress notes without any documentation regarding this diagnosis from Cardiology. Additional information regarding the type& acuity of CHF is requested. History/Risk Factors: Aortic Stenosis, CHF, CAD, CVA, DM2, HTN, Dyslipidemia Clinical Indicators: 07/09 EC Clinical Impression: "CHF (congestive heart failure), altered mental status, Hypoxia." 07/10 H&P: "Aortic stenosis with CHF.However, she comes in now with significant CHF elements." 07/14 D/C Summary: "CHF (congestive heart failure)." 07/10-07/14/ Cardiology Consult & Progress notes: "We have been asked to see in consultation for heart failure." 07/10 CV Surgery Consult: "Lab work demonstrated proBNP 11,500, her weight is up 8 kg from prior discharge, and the patient was admitted for evaluation and treatment with diagnosis acute heart failure. Once patient recovers from acute heart failure we will see her in the structural heart clinic with the full structural heart team for shared decision making and planning for TAVR procedure. Acute heart failure, atrial flutter management per cardiology." 07/09 VS/Pulse OX: Temp. 98.6, HR 86, RR 20, B/P 123/81, Spo2 87% RA 07/09 BNP: 11,500 07/10 Echocardiogram Results: EF 45-50% with moderate to severe aortic stenosis 07/09 Chest X Ray: "Stable chest. Correlate for CHF." Treatment: 07/09 Lasix 40 mg IVP x 1 07/10 Lasix 20 mg PO QD 07/11-07/14 Lasix 20 mg P BID 07/09-07/10 Lopressor 25 mg Po BID 07/10-07/14 12.5 mg Po BID 07/09 0.9% IVF bolus In your professional opinion, can you please clarify the acuity and type of CHF if known? [ ] Acute Systolic Heart Failure (reduced EF) [ ] Chronic Systolic Heart Failure (reduced EF) [ x ] Acute on Chronic Systolic Heart Failure (reduced EF) [ ] Acute Diastolic Heart Failure (preserved EF) [ ] Chronic Diastolic Heart Failure (preserved EF) [ ] Acute on Chronic Diastolic Heart Failure (preserved EF) [ ] Acute Systolic & Diastolic Heart Failure [ ] Chronic Systolic & Diastolic Heart Failure [ ] Acute on Chronic Heart Failure Systolic & Diastolic Heart Failure [ ] Other, please specify [ ] Unable to determine (Template Last Revised: November 2020) MTDD
--- NOTE | 2021-07-14 19:34 | CDI ---
Typical atrial flutter Documentation Clarification Form Date: 07/14/2021 07:21:08 PM From: Adilia Grande RN, CCDS Admit Date: 07/09/2021 02:16:00 PM Patient Name: Sandee Arnold Visit Number: [id number] Discharge Date: 07/14/2021 05:02:00 PM ATTENTION: The Clinical Documentation Specialists (CDI) and [facility] Coding Staff appreciate your assistance in clarifying documentation. Please respond to the clarification below the line at the bottom and electronically sign. The CDI & [facility] Coding staff will review the response and follow-up if needed. Please note: Queries are made part of the Legal Health Record. If you have any questions, please contact the author of this message via ITS. Dr. Zander Zamora Atrial Flutter is documented in the EC Notes, Cardiology Consult, and subsequent progress notes. Additional clarification regarding the type of Atrial Flutter is requested. History/Risk factors: CHF, CHF, CVA, CAD, DM2, HTN, HLD, Aortic Stenosis Clinical Indicators: 07/09 ED EKG Findings: EKG shows atrial flutter with variable AV block, ST and T- wave abnormalities, no signs of acute ST segment elevation 07/10 Cardiology Consult (Cher):"On arrival EKG revealed atrial flutter/fibrillation. Assessment: New-onset atrial fibrillation." 07/10-07/14 Cardiothoracic Consult & Progress Notes: "Acute heart failure, atrial flutter management per cardiology. Continue Amiodarone, Eliquis, Lasix." Treatment: 07/10-07/13 Amiodarone 400 mg PO BID then decreased to 200 mg Po BID 07/13 & 07/14 07/10-07/14 Eliquis 5 mg PO BID x 1 day then decreased to 2.5 mg PO BID 07/10-07/14 Plavix 75 mg Po BID 07/09-07/10 25 mg Po BID then decreased 12.5 mg Po BID 07/10-07/14 Please clarify the type of Atrial Flutter, if known: [ ] Atrial Flutter ruled out [ ] Typical/Type I [ ] Atypical/Type II [ ] Other, please specify [ ] Unable to determine (Template Last Revised: December 2020) MTDD
== END 2021-07-14 17:02 | DRG 280 ==
LOC: EC 11:11 → SUPCPDRO 11:11 → 3SCARD 14:16
PROVIDERS: ADMIT Family Medicine; ATTEND Family Medicine
DX: I11.0 Hypertensive heart disease with heart failure (principal); I21.4 Non-ST elevation (NSTEMI) myocardial infarction; G93.41 Metabolic encephalopathy; I48.92 Unspecified atrial flutter; I50.23 Acute on chronic systolic (congestive) heart failure; I25.10 Atherosclerotic heart disease of native coronary artery without angina pectoris; Z95.5 Presence of coronary angioplasty implant and graft; D64.9 Anemia, unspecified; D69.6 Thrombocytopenia, unspecified; E11.649 Type 2 diabetes mellitus with hypoglycemia without coma; E66.9 Obesity, unspecified; E78.5 Hyperlipidemia, unspecified; E88.09 Other disorders of plasma-protein metabolism, not elsewhere classified; I08.3 Combined rheumatic disorders of mitral, aortic and tricuspid valves; I27.20 Pulmonary hypertension, unspecified; I48.0 Paroxysmal atrial fibrillation; J44.9 Chronic obstructive pulmonary disease, unspecified; K44.9 Diaphragmatic hernia without obstruction or gangrene; Z79.01 Long term (current) use of anticoagulants; Z68.39 Body mass index [BMI] 39.0-39.9, adult; Z20.822 Contact with and (suspected) exposure to COVID-19; I69.398 Other sequelae of cerebral infarction; I69.321 Dysphasia following cerebral infarction; Z90.89 Acquired absence of other organs; R53.81 Other malaise; Z98.890 Other specified postprocedural states; R09.02 Hypoxemia; H53.9 Unspecified visual disturbance; Z79.02 Long term (current) use of antithrombotics/antiplatelets; Z79.4 Long term (current) use of insulin; Z79.82 Long term (current) use of aspirin; Z79.899 Other long term (current) drug therapy; Z83.3 Family history of diabetes mellitus; Z80.49 Family history of malignant neoplasm of other genital organs; Z91.81 History of falling
CPT/HCPCS: 36415; 70450; 71045; 71046; 71275; 74174; 80048; 80053; 81001; 82550; 83605; 83735; 83880; 84443; 84484; 85025; 85027; 85610; 85730; 87324; 87635; 93005; 93308; 94760; 96360; 99285

== ENCOUNTER → 2021-08-03 | Outpatient (CLI) | payer MEDICARE | END | disposition home or self-care (01) | LOC: LABPAT 10:43 | PROVIDERS: ATTEND Thoracic Surgery (Cardiothoracic Vascular Surgery) | DX: Z01.812 Encounter for preprocedural laboratory examination (principal); Z20.822 Contact with and (suspected) exposure to COVID-19; R35.0 Frequency of micturition | CPT/HCPCS: U0003; C9803; U0005 ==

== ENCOUNTER → 2021-08-04 | Outpatient (CLI) | payer MEDICARE ==
[2021-08-04 11:37] LABS: Appearance,Urine Cloudy (Clear); Bacteria,Urine Rare /hpf; Bilirubin,Urine Negative (Negative); Blood,Urine Negative (Negative); Color,Urine Yellow; Glucose,Urine (UA) 1+ (Negative); Ketones,Urine Negative (Negative); Leukocyte Esterase,Urine Small (Negative); Mucus,Urine Many /hpf; Nitrite,Urine Negative (Negative); PH, Urine 5.5 (5.0-8.0); Protein,Urine 1+ (Negative); RBC,Urine 7 /hpf (0-5); Specific Gravity,Urine 1.023 (1.001-1.035); Squamous Epithelial Cell,Urine 5 /hpf (0-4); Urobilinogen,Urine <2.0 mg/dL (<2.0); WBC,Urine 9 /hpf (0-5)
== END | disposition home or self-care (01) ==
LOC: LABPAT 11:14
PROVIDERS: ATTEND Thoracic Surgery (Cardiothoracic Vascular Surgery)
DX: Z01.812 Encounter for preprocedural laboratory examination (principal)
CPT/HCPCS: 81001; 87086

== ENCOUNTER 2021-08-05 08:59 | Inpatient (IN) | payer MEDICARE ==
[~2021-08-05 08:59] MED LIST: ASPIRIN 325 MG TAB PO ONE; ATORVASTATIN 10 MG TAB PO ONE; CLEVIDIPINE BUTYRATE 25 MG in EMPTY BAG 1 BAG IV PRN; CLOPIDOGREL 75 MG TAB PO ONE; ELECTROLYTE-A SOLUTION 1,000 ML with POTASSIUM CHLORIDE 100 MEQ, MAGNESIUM SULFATE 16 M... IV PRN; INSULIN REGULAR 100 UNIT in SODIUM CHLORIDE 0.9% 100 ML IV PRN; LACTATED RINGERS 1,000 ML IV SCH; MD COMMUNICATION TO PHARMACY 1 EACH MISC PO ONE; METOPROLOL TARTRATE 25 MG TAB PO ONE; NITROGLYCERIN-D5W PMX 25 MG/250 ML BTL IV PRN; PROTAMINE SULFATE 250 MG in EMPTY BAG 1 BAG IV PRN; TRANEXAMIC ACID 2,000 MG in SODIUM CHLORIDE 0.9% 80 ML IV PRN
[2021-08-05 09:33] LABS: Glucose,Whole Blood 270 mg/dL (75-99)
[2021-08-05] MEDS ORDERED: SODIUM CHLORIDE 0.9% 1,000 ML IV ONE (10:22)
[2021-08-05] MEDS ORDERED: PROTAMINE SULFATE 10 MG/ML 5 ML VIAL IV ONE (12:01)
[2021-08-05] MEDS ORDERED: PHENYLEPHRINE-0.9% NACL SYG 1,000 MCG/10 ML SYRINGE ONE (12:01)
[2021-08-05] MEDS ORDERED: MIDAZOLAM 2 MG/2 ML VIAL ONE (12:01)
[2021-08-05] MEDS ORDERED: HEPARIN SODIUM,PORCINE 10,000 UNIT/ML 1 ML VIAL ONE (12:01)
[2021-08-05] MEDS ORDERED: KETAMINE 10 MG/ML 20 ML VIAL ONE (12:01)
[2021-08-05] MEDS ORDERED: PROPOFOL 10 MG/ML 20 ML VIAL IV ONE (12:01)
[2021-08-05] MEDS ORDERED: LIDOCAINE 1% INJ 10MG/ML (20 ML MDV) ONE (12:13)
--- NOTE | 2021-08-05 12:14 | P.ANPRN ---
Procedure Note - Anesthesia - Invasive Line Left Arterial Line Time Out Performed: Yes Date of Procedure: 08/05/21 Time of Procedure: 11:10 Location of Patient: EP Preparation: Sterile Prep, Sterile Dressing Arterial Line Location: Radial Ultrasound Used: Yes Purpose - Visualization and Identification of Vasculature: Yes Needle Guage: 20 Image Stored and Saved: Yes Narrative: Left radial arterial line placed using Seldinger technique. Right Central Line Time Out Performed: Yes Date of Procedure: 08/05/21 Time of Procedure: 11:25 Location of Patient: EP Preparation: Sterile Prep, Sterile Dressing Ultrasound Used: Yes Purpose - Visualization and Identification of Vasculature: Yes Needle Guage: 18 Image Stored and Saved: Yes Narrative: Central line placement per sterile protocol utilized.
[2021-08-05] MEDS ORDERED: INSULIN ASPART (NovoLOG) 100 UNIT/ML VIAL SQ SCH (12:30)
[2021-08-05] MEDS ORDERED: LIDOCAINE 1% INJ 10MG/ML (20 ML MDV) SQ ONE (12:37)
[2021-08-05] MEDS ORDERED: IOPAMIDOL-370 100ML BTL INJ ONE (13:44)
--- NOTE | 2021-08-05 14:00 | P.OP ---
Description of Procedure: Transcatheter Aoritc Valve Replacement Operative report PROCEDURE PERFORMED: 1. Percutaneous Aortic Valve Implantation using a 26 mm Core-Valve Evolut-Pro Plus. 2. Transthoracic echocardiography 3. Ultrasound guided access and repair of left femoral artery access site by Perclose closure device. 4. Placement of temporary pacemaker wire. 5. Aortic root angiography INDICATIONS: 1. 81 year-old with a history of severe symptomatic aortic valve stenosis. 2. Debility, coronary artery disease status post recent PCI, DVT, diastolic h eart failure [place] Heart Association class 3-4, hypertension, hyperlipidemia, severe COPD, high surgical risk PERFORMING PHYSICIANS: 1. Alli Harris DO Interventional Cardiology 2. Rudy Hackett MD Interventional Cardiology. 3. Vazquez Porter MD, Cardiothoracic Surgeon. 4. Raul Bonds MD Proctoring Interventional cardiology SEDATION: Moderate conscious sedation provided by anesthesia, see separate note APPROACH: Left femoral artery via percutaneous approach PROCEDURE DESCRIPTION: The patient was discussed at valve clinic with multidisciplinary approach with cardiothoracic surgeon as well as saddle stitch operator and thought better treated with TAVR. Risks, benefits, and alternatives of the procedure had been explained to the patient who understood the risks and agreed to proceed. After consents were obtained, patient was brought to the transcatheter aortic valve implantation room in the cardiac laborer sawmill and MAC was provided by the anesthesiologist (see separate report). Once full body sterile prep was performed, right subclavian venous access was obtained and a temporary pacemaker was screwed in, performed by cardiothoracic surgery. Pacing threshholds were checked and deemed laura ropriate. Next the right femoral artery was accessed using a modified Seldinger technique, ultrasound guidance and micropuncture technique. There was some kinking of the first micropuncture and therefore a second micropuncture was rewuired. A 6 [place] Helen[place] Rabi sheath was placed in the right femoral artery. Next, a 6-St Helenian pigtail catheter was advanced into the aorta and positioned in the aortic root, aortic root angiography was performed to determine optimal deployment angle. The left femoral artery was accessed using modified Seldinger technique, micropuncture technique and under direct ultrasound guidance. Femoral angiogram was done showing access in the common femoral artery and a 6Fr sheath was placed. Next preclose technique was performed using 2 Percloses. Next a 0.035 Lunderquist wire was placed in the Aorta via a pigtail catheter. Over that the arteriotomy was serially dilated and a 14 Fr Casey sheath was placed. Next a 6F- AL1 catheter was advanced over a wire to the aortic root. A straight wire was advanced through the catheter and used to cross the severely stenotic valve. The AL1 was then exchanged for a 6Fr pigtail catheter and pressure measurements were obtained. The 0.035 Lunderquist wire was then positioned in the apex. Next a 26 mm Corevalve Evolut-Pro Plus was advanced. The valve was then positioned across the aortic valve and confirmed with aortic root angiography. The valve was then deployed in proper position using slow deployment and with rapid pacing in conjuncture with aortic root angiography and TTE. The delivery system was withdrawn back into the arch and an aortic root injection in conjunction with TTE demonstrated a satisfactory result. There was trace to mild para valvular leak. There was no evidence of any other significant abnormalities. The preclose Perclose was then deployed in the left femoral artery and hemostasis was achieved. The pigtail was then advanced to the level of the iliac bifurcation via the right femoral access. Femoral angiogram was performed that showed no contrast leak. There was some "pinching" from the perclose however not flow limiting and resulting in an approximately 40-50% stenosis and felt best treated medically. There was also proximal left SFA stenosis noted. The right femoral angiogram demonstrated an arteriotomy in the common femoral artery and sheath was pulled and manual pressure was held with complete hemostasis. The temporary venous pacemaker was sutured in place. The patient was then transported to the ICU in hemodynamically stable condition, requiring no pressor support. COMPLICATIONS: None CONCLUSION: 1. Implantaion of a 26mm Core-Valve Evolut-Pro Plus transcatheter aortic valve via left femoral approach under TTE and fluoro guidance with trace to mild mallory- valvular aortic regurgitation. 2. Placement of temporary pacemaker wire 3. Aortic Root Aortogram. 4. Incidental proximal left SFA stenosis noted. RECOMMENDATIONS: The patient will be monitored in the ICU for hemodynamic and electrical stability. Patient will be on triple therapy with aspirin, Plavix and Eliquis however consider decreasing to Eliquis and Plavix as an outpatient.
--- NOTE | 2021-08-05 14:17 | P.OP ---
Date of Procedure: 08/05/21 Preoperative Diagnosis: Calcific aortic stenosis Postoperative Diagnosis: Same Procedure(s) Performed: Transcatheter aortic valve replacement with 26mm evolute core valve pro plus valve prosthesis Implants: 29 mm core valve, screw-in temporary right ventricular pacing wire Anesthesia: JENNIFER GLYNN Surgeon: Vazquez Porter Chief Nurse Executive #1: Alli Harris (First technical publications writer) Chief Nurse Executive #2: Rudy Hackett (Second technical publications writer) Estimated Blood Loss (ml): 50 IV fluids (ml): 1,500 Urine output (ml): 0 Pathology: none sent Condition: stable Disposition: ICU Indications for Procedure: 81-year-old morbidly obese severely debilitated lady presents with several month history of worsening dyspnea on exertion. Patient has severe COPD however she also has critical aortic stenosis. She was seen in the high risk valve clinic. She was felt to clearly not be a candidate for surgical intervention. Primary question was whether to offer her TAVR or simply palliative care. Long conversation was held with the patient and the family concerning the benefits of time or in the realistic expectations for this patient given her overall con dition. Was decided to proceed with TAVR. Operative Findings: Tricuspid calcific aortic valve. Valve was crossed without terrible difficulty. However was deployed without difficulty in good position with a depth of 2 on the right and 3 on the left. There was no evidence of perivalvular leak by surface echo and completion aortic root injection demonstrated only very mild aortic its. There was no gradient across the valve at the end of the case. Groins sealed well with good completion angiography on the left.. Description of Procedure: Patient was brought to the Assistant Activities Director and placed supine on the table. Anterior torso and bilateral groins were sterilely prepped and draped. Patient was given IV sedation. Initial access was obtained in the right subclavian vein with an 18-gauge needle and a Glidewire was threaded into the right atrium. Introducer and dilator were placed over the wire and through the introducer sheath a screw- in ventricular lead was manipulated into the apex of the right ventricle. It was screwed in here and thresholds were below 1 V. Lead was secured to the skin at its exit site with 2-0 silk suture ligatures. Bilateral femoral access was obtained to the femoral arteries under ultrasound guidance. A long 6-Chinese sheath was placed on the right and extended up into the descending thoracic aorta. On the left a 7-Chinese sheath was placed and 2 Perclose devices were deployed. This was then upsized to an 8-Chinese sheath. A pigtail catheter was placed through the right and positioned in the coronary sinus of Valsalva of the aortic valve. Stiff wire was placed on the left and the 8-Chinese sheath was exchanged for a 14-Chinese sheath after sequential dilatation with 10 and 12- Chinese dilators. Patient was systemically heparinized and a CTs maintained greater than 250. The aortic valve was crossed with a straight wire and a pigtail catheter placed in the apex of the left ventricle. Transvalvular gradients were measured. Lunderquist wire was placed in the apex of the ventricle. A 26 core valve had been loaded on the back table and was now brought up on the field. It was examined and noted to be loaded correctly under fluoroscopy. Core valve and its delivery system were exchanged for the 14- Chinese sheath over the Lunderquist wire. This was advanced around the aortic arch and across the aortic valve. Valve was deployed under rapid ventricular pacing with levels of 2 on the right and 3 on the left. Valve delivery system was pulled back and the wire was pulled back. Surface echocardiography was performed and there did not appear to be any significant aortic insufficiency. Right-sided pigtail was positioned at the opening of the valve and aortic root injection was performed with only very mild aortic insufficiency demonstrated. Was decided to accept this position and heparin was reversed with protamine. The delivery system was removed from the left groin and the Perclose device was deployed with excellent hemostasis. Completion angiography demonstrated good flow through the femoral vessels. Was no leak and no narrowing. Right-sided catheter was removed and controlled by cardiology. Patient was transferred to the ICU in stable condition. Hemodynamics and respiratory status remained stable throughout.
[2021-08-05 14:31] LABS: Glucose,Whole Blood 206 mg/dL (75-99)
[2021-08-05] MEDS ORDERED: SODIUM CHLORIDE 0.9% 1,000 ML IV SCH (14:39)
[2021-08-05] MEDS ORDERED: ACETAMINOPHEN TAB 325 MG TAB PO PRN (14:39)
[2021-08-05 14:56] LABS: Ionized Calcium 4.8 mg/dL (4.5-5.3)
[2021-08-05 14:57] LABS: INR 1.1 (<1.2); Partial Thromboplastin Time 23.8 sec (22.0-30.0); Prothrombin Time 11.8 sec (9.0-12.0)
[2021-08-05 15:04] LABS: Basophils % (A) 0 %; Eosinophils # (A) 0.3 k/uL (0-0.7); Eosinophils % (A) 4 %; HCT 28.3 % (34.0-46.0); Lymphocytes # (A) 0.7 k/uL (1.0-4.8); Lymphocytes % (A) 8 %; MCHC 31.8 g/dL (31.0-37.0); MCV 94.3 fL (80.0-100.0); Mean Platelet Volume 11.6; Monocytes # (A) 0.6 k/uL (0-1.0); Monocytes % (A) 7 %; Neutrophils # (A) 7.3 k/uL (1.3-7.7); Neutrophils % (A) 79 %; Platelet Count 172 k/uL (150-450); RDW 14.3 % (11.5-15.5); WBC 9.2 k/uL (3.8-10.6)
[2021-08-05 15:08] LABS: Glucose 217 mg/dL (74-99)
[2021-08-05 15:09] LABS: ALT 10 U/L (4-34); AST 20 U/L (14-36); African American GFR (CKD) >90 (>60 ml/min/1.73 sqM); Albumin 2.5 g/dL (3.5-5.0); Alkaline Phosphatase 113 U/L (38-126); Anion Gap 4 mmol/L; Blood Urea Nitrogen 19 mg/dL (7-17); Carbon Dioxide 39 mmol/L (22-30); Chloride 98 mmol/L (98-107); Magnesium 2.1 mg/dL (1.6-2.3); Non-African American GFR(CKD) 83 (>60 ml/min/1.73 sqM); Potassium 3.3 mmol/L (3.5-5.1); Sodium 141 mmol/L (137-145); Total Bilirubin 0.3 mg/dL (0.2-1.3)
--- NOTE | 2021-08-05 15:20 | XR ---
EXAMINATION TYPE: XR chest 1V portable DATE OF EXAM: 08/05/2021 HISTORY: Post Operative Cardiac Surgery COMPARISON: 07/11/2021 TECHNIQUE: Single view of the chest is submitted. FINDINGS: Right IJ central venous line with its distal tip overlying the intrahepatic portion of the IVC. No ev idence of pneumothorax. Stent devices are noted to overlie the heart. Coarse lung markings are seen b ilaterally. Hilar and mediastinal structures are within normal limits. Degenerative changes are seen of the dorsal spine. IMPRESSION: 1. Right IJ central venous line with its distal tip overlying the intrahepatic portion of the IVC. N o evidence of pneumothorax. Stent devices are noted to overlie the heart. Coarse lung markings are se en bilaterally.
[2021-08-05] MEDS: CIPROFLOXACIN HCL 500 MG TAB PO SCH (16:30)
[2021-08-05 17:26] LABS: Glucose,Whole Blood 202 mg/dL (75-99)
[2021-08-05] MEDS ORDERED: INSULIN DETEMIR (LEVEMIR) 100 UNIT/ML SYR SQ SCH (17:30)
--- NOTE | 2021-08-05 17:51 | P.CNPUL ---
History of Present Illness Consult date: 08/05/21 Requesting physician: Vazquez Porter Reason for consult: other Chief complaint: Severe symptomatic aortic valve stenosis History of present illness: 81-year-old white female patient with past medical history of coronary artery disease with previous PCI to the LAD, severe aortic stenosis, diabetes mellitus type 2, hypertension, dyslipidemia. Patient was recently diagnosed with new onset atrial fibrillation, she is on Eliquis for anticoagulation. Has previous history of CVA with residual vision deficits. She also has history of general medical debility, and falls. She has required esophageal dilatated she for esophageal stenosis. Patient was hospitalized in June 2001 with acute c ongestive heart failure and during that admission echocardiogram from June 2021 showed mildly impaired left ventricle systolic function with EF of 45-50%, severe aortic stenosis with peak/mean gradient of 70/46 mmHg, moderate mitral regurgitation, moderate tricuspid regurgitation with moderate pulmonary hypertension and right-sided pressure of 46.7 mmHg. Patient also had a elevated proBNP during that admission at 3180. Transesophageal echocardiogram confirmed heavily calcified trileaflet aortic valve with severe restriction and a valve area of 0.73 by planimetry, moderate tricuspid regurgitation with moderate to severe pulmonary hypertension. Heart catheterization demonstrated moderate to severe stenosis involving the LAD and RCA, and she subsequently underwent atherectomy and stenting of the LAD with drug-eluting stent. Patient was referred to Dr. Porter from cardiothoracic surgery for recommendation regarding surgical intervention versus TAVR. TAVR was recommended. Her bedside spirometry revealed FEV1 of 0.33 or 19% of predicted, forced vital capacity of 0.36 or 15% of predicted, with an MVV of 12.4, and this was consistent with a very severe restriction. On 08/05/2021 patient had percutaneous aortic valve implantation using a 26 mm Core-Valve Evolut-Pro Plus 5 Dr. Porter, Dr. Harris and Dr. Spaulding. Following her surgery patient was admitted to the intensive care unit for overnight monitoring, she seen in the intensive care unit, she is still quite lethargic, breathing comfortably, hemodynamically she stable, she is currently on room air, she is in sinus mechanism, she is not requiring any vasopressor support. Postoperative chest x-ray shows a right IJ central venous line, with it distal tip overlying the intrahepatic portion of the IVC, no evidence of pneumothorax. Patient is on maintenance IV fluids with 0.9 normal saline at a rate of 50 ML per hour, she is on home dose Lasix 20 mg daily, she is on ciprofloxacin for recent history of urinary tract infection, she is on IV cefazolin. Is on Eliquis and Cordarone for paroxysmal atrial fibrillation, currently in sinus mechanism. Follow-up chest x-ray and echocardiogram have been or postop day 1 Review of Systems All systems: negative Constitutional: Denies chills, Denies fever Eyes: denies blurred vision, denies pain Ears, nose, mouth and throat: Denies headache, Denies sore throat Cardiovascular: Reports dyspnea on exertion, Denies chest pain, Denies shortness of breath Respiratory: Reports dyspnea, Denies cough Gastrointestinal: Denies abdominal pain, Denies diarrhea, Denies nausea, Denies vomiting Genitourinary: Denies dysuria, Denies hematuria Musculoskeletal: Denies myalgias Integumentary: Denies pruritus, Denies rash Neurological: Denies numbness, Denies weakness Psychiatric: Denies anxiety, Denies depression Endocrine: Denies fatigue, Denies weight change Past Medical History Past Medical History: Coronary Artery Disease (CAD), Heart Failure, CVA/TIA, Diabetes Mellitus Additional Past Medical History / Comment(s): has home O2 @ 2L [place],IDDM type II, CVA with some vision changes and difficulty swallowing (eat soft foods)., murmur., states fall April 13, aortic stenosis History of Any Multi-Drug Resistant Organisms: None Reported Past Surgical History: Heart Catheterization With Stent, Orthopedic Surgery, Tonsillectomy Additional Past Surgical History / Comment(s): Esophageal surgery 2003 pt thinks this was dilation ; Venous graft leg to left arm., right hip fx surgery (11/2018) Past Anesthesia/Blood Transfusion Reactions: No Reported Reaction Date of Last Stent Placement:: 06/2021 Past Psychological History: No Psychological Hx Reported Additional Psychological History / Comment(s): . Smoking Status: Never smoker Past Alcohol Use History: None Reported Past Drug Use History: None Reported - Past Family History Mother Family Medical History: Cancer Additional Family Medical History / Comment(s): "Female cancer" father Family Medical History: Diabetes Mellitus Medications and Allergies Home Medications Medication Instructions Recorded Confirmed Type Insulin Detemir [Levemir Flextouch 12 units SQ AC-SUPPER 04/09/16 08/05/21 History Pen] Acetaminophen Tab [Tylenol] 650 mg PO Q6HR PRN tab 06/24/21 08/05/21 Rx Aspirin 81 mg PO DAILY #90 06/24/21 08/05/21 Rx Clopidogrel [Plavix] 75 mg PO DAILY #30 tab 06/24/21 08/05/21 Rx Metoprolol Tartrate [Lopressor] 25 mg PO BID #60 tab 06/24/21 08/05/21 Rx Nitroglycerin Sl Tabs [Nitrostat] 0.4 mg SUBLINGUAL Q5M PRN #60 tab 06/24/21 08/05/21 Rx Escitalopram [Lexapro] 10 mg PO QAM 07/09/21 08/05/21 History Amiodarone [Cordarone] 200 mg PO BID #60 tab 07/14/21 08/05/21 Rx Apixaban [Eliquis] 2.5 mg PO BID #60 tablet 07/14/21 08/05/21 Rx Atorvastatin [Lipitor] 40 mg PO HS 07/30/21 08/05/21 History Ciprofloxacin HCl [Cipro] 500 mg PO Q12H 07/30/21 08/05/21 History Furosemide [Lasix] 20 mg PO QAM 07/30/21 08/05/21 History Insulin Aspart [NovoLOG] 0 units SQ TID-W/MEALS PRN 07/30/21 08/05/21 History Pantoprazole [Protonix] 40 mg PO QAM 07/30/21 08/05/21 History Allergies Allergy/AdvReac Type Severity Reaction Status Date / Time No Known Allergies Allergy Verified 08/05/21 09:59 Physical Exam Vitals: Vital Signs Temp Pulse Resp BP BP BP Pulse Ox 08/05/21 10:18 98.1 F 58 L 18 138/65 152/66 134/62 99 Intake and Output 08/05/21 08/05/21 08/05/21 06:59 14:59 22:59 Intake Total 100 Balance 100 Intake: IV 100 Other: Weight 87.8 kg GENERAL EXAM: Very lethargic, 81-year-old white female, room air with a pulse ox of 99%, resting comfortably in bed, in the ICU, following her TAVR procedure comfortable in no apparent distress. HEAD: Normocephalic/atraumatic. EYES: Normal reaction of pupils, equal size. Conjunctiva pink, sclera white. NOSE: Clear with pink turbinates. THROAT: No erythema or exudates. NECK: No masses, no JVD, no thyroid enlargement, no adenopathy. CHEST: No chest wall deformity. Symmetrical expansion. Right subclavian pacemaker leads, she site is clean dry and intact LUNGS: Equal air entry with no crackles, wheeze, rhonchi or dullness. CVS: Regular rate and rhythm, normal S1 and S2, no gallops, no murmurs, no rubs ABDOMEN: Soft, nontender. No hepatosplenomegaly, normal bowel sounds, no guarding or rigidity. EXTREMITIES: No clubbing, no edema, no cyanosis, 2+ pulses and upper and lower extremities. Bilateral groin puncture sites are clean dry and intact MUSCULOSKELETAL: Muscle strength and tone normal. SPINE: No scoliosis or deformity SKIN: No rashes CENTRAL NERVOUS SYSTEM: Lethargic, No focal deficits, tone is normal in all 4 extremities. Results - Laboratory Findings CBC and BMP: 08/05/21 14:35 08/05/21 14:35 PT/INR, D-dimer PT 11.8 sec (9.0-12.0) 08/05/21 14:35 INR 1.1 (<1.2) 08/05/21 14:35 Abnormal lab findings: Abnormal Labs 08/03/21 08/05/21 08/05/21 10:56 09:31 14:29 RBC Hgb Hct Lymphocytes # Potassium Carbon Dioxide BUN Glucose POC Glucose (mg/dL) 270 H 206 H Calcium Total Protein Albumin Crossmatch See Detail 08/05/21 08/05/21 14:35 14:35 RBC 3.00 L Hgb 9.0 L D Hct 28.3 L Lymphocytes # 0.7 L Potassium 3.3 L Carbon Dioxide 39 H BUN 19 H Glucose 217 H POC Glucose (mg/dL) Calcium 8.0 L Total Protein 6.0 L Albumin 2.5 L Crossmatch - Diagnostic Findings Chest x-ray: report reviewed, image reviewed Assessment and Plan Plan: Assessment: #1. Severe symptomatic aortic valve stenosis, status post transcatheter aortic valve replacement with 26 mm Evolute Core valve Pro Plus valve prosthesis, on 08/05/2021 #2. Recent hospitalization in June, for acute exacerbation of CHF with mildly impaired left ventricular systolic dysfunction and EF of 45-50% #3. History of CVA #4. General medical debility #5. Recent fall history #6. Recent history of urinary tract infection, with urine culture positive for Morganella morganii and enterococcus faecalis, sensitive to ciprofloxacin on which the patient is currently on #7. Recently diagnosed new onset of atrial fibrillation, currently on amiodarone and Eliquis, currently in sinus mechanism #8. Coronary artery disease with previous stenting #9. Previous history of non-ST elevated myocardial infarction #10. Never smoker #11. Dysphagia possibly related to previous history of CVA, and esophageal stenosis with previous history of esophageal dilatation Plan: Continue close monitoring in the intensive care unit Hemodynamically stable, she is in sinus mechanism, not on any vasopressor support, Antibiotics, anticoagulation, rate control medications, GI and DVT prophylaxis per CT surgery and cardiology Chest x-ray has been reviewed Follow-up chest x-ray in the morning, echocardiogram is scheduled for morning No episodes of arrhythmia or bradycardia arrhythmia Puncture sites in bilateral groins are soft dry intact, pacemaker insertion site clean dry and intact We'll continue to closely follow in the intensive care unit overnight Maintain aspiration precautions Blood glucose monitoring I performed a history & physical examination of the patient and discussed their management with my nurse practitioner, Amber Morley. I reviewed the nurse practitioner's note and agree with the documented findings and plan of care. Lung sounds are positive for diminished breath sounds throughout the lung pulido. The findings and the impression was discussed with the patient. I attest to the documentation by the nurse practitioner. Time with Patient: Greater than 30
[2021-08-05] MEDS: INSULIN ASPART (NovoLOG) 100 UNIT/ML VIAL SQ SCH ×2 (17:55→20:26)
[2021-08-05] MEDS: ONDANSETRON 4 MG/2 ML VIAL IVP PRN (18:55)
[2021-08-05] MEDS ORDERED: Potassium Replacement Protocol 1 EACH MISC MISCELLANE PRN (20:00)
[2021-08-05 20:22] LABS: Glucose,Whole Blood 176 mg/dL (75-99)
[2021-08-05] MEDS: AMIODARONE 200 MG TAB PO SCH (20:26)
[2021-08-05] MEDS: POTASSIUM CHLORIDE 10 MEQ in WATER FOR INJECTION 1 100ML.BAG IVPB SCH ×3 (20:26→22:54)
[2021-08-05] MEDS: METOPROLOL TARTRATE 25 MG TAB PO SCH (20:27)
[2021-08-05] MEDS ORDERED: ATORVASTATIN 40 MG TAB PO SCH (21:00)
[2021-08-05] MEDS: IPRATROPIUM-ALBUTEROL 3 ML NEB INHALATION PRN (21:53)
[2021-08-06] MEDS ORDERED: HEPARIN SODIUM,PORCINE/PF 5,000 UNIT/0.5 ML SYRINGE SQ SCH
[2021-08-06] MEDS ORDERED: INSULIN DETEMIR (LEVEMIR) 100 UNIT/ML SYR SQ SCH ×2 (00:19→17:30)
[2021-08-06] MEDS: POTASSIUM CHLORIDE 10 MEQ in WATER FOR INJECTION 1 100ML.BAG IVPB SCH (01:18)
[2021-08-06] MEDS: CIPROFLOXACIN HCL 500 MG TAB PO SCH (02:20)
[2021-08-06] MEDS: IPRATROPIUM-ALBUTEROL 3 ML NEB INHALATION PRN (06:20)
[2021-08-06 06:54] LABS: Glucose,Whole Blood 106 mg/dL (75-99)
[2021-08-06] MEDS: INSULIN ASPART (NovoLOG) 100 UNIT/ML VIAL SQ SCH ×2 (07:01→11:50)
--- NOTE | 2021-08-06 08:09 | P.CONS ---
History of Present Illness - Reason for Consult Consult date: 08/06/21 - Chief Complaint Aortic stenosis - History of Present Illness This is a consultation on a 81-year-old white female who has an underlying history diabetes but severe aortic stenosis. She is status post TAVR. She is seen postoperatively doing well. Lucid minimal pain is stated. Blood sugars be ing controlled. Review of Systems Constitutional: Denies chills, Denies fever Eyes: denies blurred vision, denies pain Ears, nose, mouth and throat: Denies headache, Denies sore throat Cardiovascular: Reports as per HPI, Denies chest pain, Denies shortness of breath Respiratory: Denies cough Gastrointestinal: Denies abdominal pain, Denies diarrhea, Denies nausea, Denies vomiting Genitourinary: Denies dysuria, Denies hematuria Musculoskeletal: Denies myalgias Past Medical History Past Medical History: Coronary Artery Disease (CAD), Heart Failure, CVA/TIA, Diabetes Mellitus Additional Past Medical History / Comment(s): has home O2 @ 2L [place],IDDM type II, CVA with some vision changes and difficulty swallowing (eat soft foods)., murmur., states fall April 13, aortic stenosis History of Any Multi-Drug Resistant Organisms: None Reported Past Surgical History: Heart Catheterization With Stent, Orthopedic Surgery, Tonsillectomy Additional Past Surgical History / Comment(s): Esophageal surgery 2003 pt thinks this was dilation ; Venous graft leg to left arm., right hip fx surgery (11/2018) Past Anesthesia/Blood Transfusion Reactions: No Reported Reaction Date of Last Stent Placement:: 06/2021 Past Psychological History: No Psychological Hx Reported Additional Psychological History / Comment(s): . Smoking Status: Never smoker Past Alcohol Use History: None Reported Past Drug Use History: None Reported - Past Family History Mother Family Medical History: Cancer Additional Family Medical History / Comment(s): "Female cancer" father Family Medical History: Diabetes Mellitus Medications and Allergies Home Medications Medication Instructions Recorded Confirmed Type Insulin Detemir [Levemir Flextouch 12 units SQ AC-SUPPER 04/09/16 08/05/21 History Pen] Acetaminophen Tab [Tylenol] 650 mg PO Q6HR PRN tab 06/24/21 08/05/21 Rx Aspirin 81 mg PO DAILY #90 06/24/21 08/05/21 Rx Clopidogrel [Plavix] 75 mg PO DAILY #30 tab 06/24/21 08/05/21 Rx Metoprolol Tartrate [Lopressor] 25 mg PO BID #60 tab 06/24/21 08/05/21 Rx Nitroglycerin Sl Tabs [Nitrostat] 0.4 mg SUBLINGUAL Q5M PRN #60 tab 06/24/21 08/05/21 Rx Escitalopram [Lexapro] 10 mg PO QAM 07/09/21 08/05/21 History Amiodarone [Cordarone] 200 mg PO BID #60 tab 07/14/21 08/05/21 Rx Apixaban [Eliquis] 2.5 mg PO BID #60 tablet 07/14/21 08/05/21 Rx Atorvastatin [Lipitor] 40 mg PO HS 07/30/21 08/05/21 History Ciprofloxacin HCl [Cipro] 500 mg PO Q12H 07/30/21 08/05/21 History Furosemide [Lasix] 20 mg PO QAM 07/30/21 08/05/21 History Insulin Aspart [NovoLOG] 0 units SQ TID-W/MEALS PRN 07/30/21 08/05/21 History Pantoprazole [Protonix] 40 mg PO QAM 07/30/21 08/05/21 History Allergies Allergy/AdvReac Type Severity Reaction Status Date / Time No Known Allergies Allergy Verified 08/05/21 09:59 Physical Exam Vitals: Vital Signs Temp Pulse Pulse Resp BP BP BP 08/06/21 07:00 67 14 128/58 08/06/21 06:30 65 16 128/58 08/06/21 06:22 64 08/06/21 06:00 62 17 125/49 08/06/21 05:30 67 23 125/49 08/06/21 05:00 66 12 112/45 08/06/21 04:30 65 14 112/45 08/06/21 04:00 97.8 F 61 16 138/61 08/06/21 03:30 63 14 138/61 08/06/21 03:00 64 12 125/70 08/06/21 02:30 63 14 125/70 08/06/21 02:00 65 16 123/43 08/06/21 01:30 62 11 L 123/43 08/06/21 01:00 63 18 132/46 08/06/21 00:30 61 11 L 120/47 08/06/21 00:00 97.6 F 60 16 123/66 08/05/21 23:30 60 10 L 123/66 08/05/21 23:00 59 L 18 135/64 08/05/21 22:30 58 L 12 135/64 08/05/21 22:09 56 L 08/05/21 22:00 56 L 14 128/55 08/05/21 21:53 57 L 08/05/21 21:30 56 L 10 L 128/55 08/05/21 21:00 59 L 18 128/55 08/05/21 20:30 55 L 18 08/05/21 20:00 97.5 F L 58 L 10 L 08/05/21 19:45 57 L 17 08/05/21 19:30 56 L 14 08/05/21 19:15 58 L 25 H 08/05/21 19:00 61 16 08/05/21 18:45 70 16 08/05/21 18:30 68 17 08/05/21 18:15 68 19 08/05/21 18:00 55 L 19 08/05/21 17:45 54 L 19 08/05/21 17:30 52 L 18 08/05/21 17:15 52 L 17 08/05/21 17:00 54 L 19 08/05/21 16:45 53 L 17 08/05/21 16:30 52 L 17 08/05/21 16:15 53 L 18 08/05/21 16:00 97.7 F 54 L 21 08/05/21 15:45 52 L 15 08/05/21 15:30 53 L 19 08/05/21 15:15 52 L 19 08/05/21 15:00 55 L 20 08/05/21 14:45 55 L 21 134/46 08/05/21 14:30 97.1 F L 59 L 20 122/41 08/05/21 10:18 98.1 F 58 L 18 138/65 152/66 BP Pulse Ox 08/06/21 07:00 89 L 08/06/21 06:30 98 08/06/21 06:22 97 08/06/21 06:00 95 08/06/21 05:30 85 L 08/06/21 05:00 90 L 08/06/21 04:30 94 L 08/06/21 04:00 95 08/06/21 03:30 94 L 08/06/21 03:00 93 L 08/06/21 02:30 90 L 08/06/21 02:00 91 L 08/06/21 01:30 91 L 08/06/21 01:00 90 L 08/06/21 00:30 94 L 08/06/21 00:00 94 L 08/05/21 23:30 93 L 08/05/21 23:00 92 L 08/05/21 22:30 93 L 08/05/21 22:09 08/05/21 22:00 92 L 08/05/21 21:53 08/05/21 21:30 92 L 08/05/21 21:00 96 08/05/21 20:30 95 08/05/21 20:00 91 L 08/05/21 19:45 91 L 08/05/21 19:30 91 L 08/05/21 19:15 93 L 08/05/21 19:00 81 L 08/05/21 18:45 85 L 08/05/21 18:30 91 L 08/05/21 18:15 92 L 08/05/21 18:00 92 L 08/05/21 17:45 92 L 08/05/21 17:30 93 L 08/05/21 17:15 94 L 08/05/21 17:00 89 L 08/05/21 16:45 94 L 08/05/21 16:30 90 L 08/05/21 16:15 92 L 08/05/21 16:00 91 L 08/05/21 15:45 96 08/05/21 15:30 88 L 08/05/21 15:15 89 L 08/05/21 15:00 88 L 08/05/21 14:45 92 L 08/05/21 14:30 83 L 08/05/21 10:18 134/62 99 Intake and Output 08/05/21 08/06/21 08/06/21 22:59 06:59 14:59 Intake Total 550 350 20 Output Total 275 Balance 550 75 20 Intake: IV 550 350 20 Potassium Chloride 10 meq 200 200 In Water For Injection 1 100ml.bag @ 100 mls/hr IVPB Q1HR [facility] Rx#: [id number] Sodium Chloride 0.9% 1, 250 100 20 000 ml @ 50 mls/hr IV . Q20H [facility] Rx#:[id number] ceFAZolin 2 gm In Sodium 100 50 Chloride 0.9% 50 ml @ 100 mls/hr IVPB Q8HR [facility] Rx# :[id number] Output: Urine 275 Other: Voiding Method Bedpan Bedpan # Voids 1 1 Weight 93.2 kg - Constitutional General appearance: morbidly obese - EENT Eyes: no abnormal pupil - Neck Neck: no lymphadenopathy - Respiratory Respiratory: bilateral: diminished - Cardiovascular Rhythm: regular Heart sounds: normal: S1, S2 Abnormal Heart Sounds: no S3 Gallop - Gastrointestinal General gastrointestinal: soft, no tenderness - Integumentary Integumentary: no cellulitis Results CBC & Chem 7: 08/05/21 14:35 08/05/21 14:35 Labs: Abnormal Lab Results - Last 24 Hours (Table) 08/03/21 08/05/21 08/05/21 Range/Units 10:56 09:31 14:29 RBC (3.80-5.40) m/uL Hgb (11.4-16.0) gm/dL Hct (34.0-46.0) % Lymphocytes # (1.0-4.8) k/uL Potassium (3.5-5.1) mmol/L Carbon Dioxide (22-30) mmol/L BUN (7-17) mg/dL Glucose (74-99) mg/dL POC Glucose (mg/dL) 270 H 206 H (75-99) mg/dL Calcium (8.4-10.2) mg/dL Total Protein (6.3-8.2) g/dL Albumin (3.5-5.0) g/dL Crossmatch See Detail 08/05/21 08/05/21 08/05/21 Range/Units 14:35 14:35 17:24 RBC 3.00 L (3.80-5.40) m/uL Hgb 9.0 L D (11.4-16.0) gm/dL Hct 28.3 L (34.0-46.0) % Lymphocytes # 0.7 L (1.0-4.8) k/uL Potassium 3.3 L (3.5-5.1) mmol/L Carbon Dioxide 39 H (22-30) mmol/L BUN 19 H (7-17) mg/dL Glucose 217 H (74-99) mg/dL POC Glucose (mg/dL) 202 H (75-99) mg/dL Calcium 8.0 L (8.4-10.2) mg/dL Total Protein 6.0 L (6.3-8.2) g/dL Albumin 2.5 L (3.5-5.0) g/dL Crossmatch 08/05/21 08/06/21 Range/Units 20:20 06:52 RBC (3.80-5.40) m/uL Hgb (11.4-16.0) gm/dL Hct (34.0-46.0) % Lymphocytes # (1.0-4.8) k/uL Potassium (3.5-5.1) mmol/L Carbon Dioxide (22-30) mmol/L BUN (7-17) mg/dL Glucose (74-99) mg/dL POC Glucose (mg/dL) 176 H 106 H (75-99) mg/dL Calcium (8.4-10.2) mg/dL Total Protein (6.3-8.2) g/dL Albumin (3.5-5.0) g/dL Crossmatch Assessment and Plan (1) Aortic stenosis Current Visit: No Status: Acute Code(s): I35.0 - NONRHEUMATIC AORTIC (VALVE) STENOSIS SNOMED Code(s): 69916831 (2) CHF (congestive heart failure) Current Visit: No Status: Acute Code(s): I50.9 - HEART FAILURE, UNSPECIFIED SNOMED Code(s): 71245976 (3) Diabetes Current Visit: No Status: Acute Code(s): E11.9 - TYPE 2 DIABETES MELLITUS WITHOUT COMPLICATIONS SNOMED Code(s): 69656813 (4) Stented coronary artery Current Visit: No Status: Acute Code(s): Z95.5 - PRESENCE OF CORONARY ANGIOPLASTY IMPLANT AND GRAFT SNOMED Code(s): 708923389 Plan: We'll continue follow from a medical perspective. The patient seems to be having appropriate postop trajectory of recovery. We'll continue from medical perspective. See orders otherwise
[2021-08-06 08:33] LABS: Basophils % (A) 0 %; Eosinophils # (A) 0.2 k/uL (0-0.7); Eosinophils % (A) 2 %; HCT 30.1 % (34.0-46.0); HGB 9.3 gm/dL (11.4-16.0); Hypochromasia Slight; Ionized Calcium 4.6 mg/dL (4.5-5.3); Lymphocytes # (A) 0.7 k/uL (1.0-4.8); Lymphocytes % (A) 7 %; MCH 28.6 pg (25.0-35.0); MCHC 30.8 g/dL (31.0-37.0); Mean Platelet Volume 11.2; Monocytes # (A) 0.6 k/uL (0-1.0); Monocytes % (A) 6 %; Neutrophils # (A) 8.2 k/uL (1.3-7.7); Neutrophils % (A) 82 %; Platelet Count 169 k/uL (150-450); RBC 3.24 m/uL (3.80-5.40); RDW 14.6 % (11.5-15.5)
--- NOTE | 2021-08-06 08:38 | XR ---
EXAMINATION TYPE: XR chest 1V portable DATE OF EXAM: 08/06/2021 HISTORY: Shortness of breath. COMPARISON: 08/05/2021 TECHNIQUE: Single view of the chest is submitted. FINDINGS: Demonstrated are scattered senescent parenchymal change. Patchy perihilar and upper lobe infiltrates persist unchanged. The heart is stable. Hilar and mediastinal structures are within normal limits. Degenerative changes are seen of the dorsal spine. IMPRESSION: 1. Stable scattered infiltrates. Postoperative stent placement.
[2021-08-06 08:46] LABS: ALT 9 U/L (4-34); African American GFR (CKD) >90 (>60 ml/min/1.73 sqM); Albumin 2.6 g/dL (3.5-5.0); Anion Gap 6 mmol/L; Blood Urea Nitrogen 17 mg/dL (7-17); Calcium 8.4 mg/dL (8.4-10.2); Carbon Dioxide 34 mmol/L (22-30); Chloride 101 mmol/L (98-107); Glucose 117 mg/dL (74-99); Non-African American GFR(CKD) 84 (>60 ml/min/1.73 sqM); Sodium 141 mmol/L (137-145); Total Bilirubin 0.5 mg/dL (0.2-1.3); Total Protein 6.4 g/dL (6.3-8.2)
[2021-08-06] MEDS ORDERED: MAGNESIUM HYDROXIDE 2,400 MG/10 ML CUP PO PRN (09:00)
[2021-08-06] MEDS ORDERED: ASPIRIN 81 MG PO SCH (09:00)
[2021-08-06] MEDS ORDERED: ESCITALOPRAM 10 MG TAB PO SCH (09:00)
[2021-08-06] MEDS ORDERED: APIXABAN 2.5 MG TABLET PO SCH (09:00)
[2021-08-06] MEDS ORDERED: CLOPIDOGREL 75 MG TAB PO SCH (09:00)
[2021-08-06] MEDS ORDERED: PANTOPRAZOLE 40 MG TABLET PO SCH (09:00)
[2021-08-06] MEDS ORDERED: FUROSEMIDE 20 MG TAB PO SCH (09:00)
[2021-08-06 09:05] LABS: AST 31 U/L (14-36); Alkaline Phosphatase 125 U/L (38-126); Magnesium 1.9 mg/dL (1.6-2.3); Potassium 4.3 mmol/L (3.5-5.1)
[2021-08-06] MEDS: AMIODARONE 200 MG TAB PO SCH (11:14)
[2021-08-06] MEDS: METOPROLOL TARTRATE 25 MG TAB PO SCH (11:16)
--- NOTE | 2021-08-06 11:25 | P.DS ---
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 Severe symptomatic aortic valve stenosis, high surgical risk 2. Chronic diastolic heart failure with NYHA class 3-4 3. History of coronary artery disease with previous myocardial infarction status post recent PCI 4. History of hypertension 5. History of hyperlipidemia 6. Severe COPD 7. Chronic debility 8. Insulin-dependent diabetes 9. History of CVA, DVT to the left arm PROCEDURE: 1. Percutaneous aortic valve implantation using a 26 mm Core Valve Evolute-Pro Plus under BELKYS and fluoroscopy guidance 2. Transthoracic echocardiography 3. Ultrasound-guided access and repair of left femoral artery access site by Perclose closure device 4. Placement of temporary pacemaker wire 5. Aortic root angiography HISTORY OF PRESENT ILLNESS: This is an 81-year-old inactive, debilitated female patient who follows on an outpatient basis with Dr. Rodriguez for primary care and Dr. Stratton for cardiology. She has a known history of severe aortic stenosis and has been symptomatic with increased exertional dyspnea as well as extreme fatigue. In addition she had a recent admission for heart failure. She had been referred to structural heart clinic for evaluation for transcatheter aortic valve replacement after heart catheterization and transesophageal echocardiogram were completed. Echocardiography demonstrated mildly reduced left ventricular systolic function with EF 45-50%, aortic valve area 0.73 cm with a peak/mean gradient 70/46 mmHg. Heart catheterization showed moderate to severe disease in the LAD and RCA, and she did have atherectomy with IVUS and subsequent drug- eluting stent to the proximal to mid LAD in early June. After workup was completed STS risk score was calculated along with incremental risk and the patient was felt to be high risk for surgical aortic valve replacement, therefore transcatheter aortic valve replacement was recommended. The usual course of TAVR was discussed in detail the patient, risks and benefits were reviewed, shared decision making between cardiology, surgery, and the patient/family took place, and the patient consented to proceed with the procedure. HOSPITAL COURSE: The patient was brought to the hospital on 08/05/21, taken to the extended stay area, prepared in the usual fashion, and subsequently taken to the cardiac catheterization laboratory where Dr. Harris and Dr. Porter completed TAVR procedure under conscious sedation with fluoroscopy and transthoracic echocardiogram. The valve was deployed under rapid ventricular pacing and proceeded without event. At the end of the procedure there was trace to mild perivalvular leak and no evidence of any other significant abnormalities. Upon completion of the procedure the patient was transferred to the cardiovascular intensive care unit where she was recovered and monitored hemodynamically. Her oxygen was titrated down, she was tolerating oral diet, her pain was controlled, follow-up TTE demonstrated normal left ventricular function with EF 55-60%, trace aortic insufficiency, peak/mean gradient across the aortic valve 17.06/9.69 mmHG, mild mitral regurgitation, mild to moderate tricuspid regurgitation, and mild pulmonary hypertension with normally functioning bioprostetic aortic valve, and she was ready to be discharged to central hospital with [facility] on postoperative day #1. She received written and verbal instruction regarding her medications, activity restrictions, signs and symptoms requiring physician notification, and follow-up appointments. Patient Condition at Discharge: Stable Plan - Discharge Summary Discharge Rx Participant: No New Discharge Prescriptions: New Sennosides-Docusate Sodium [Senokot-S] 2 each PO HS PRN tab PRN Reason: Constipation Continue Insulin Detemir [Levemir Flextouch Pen] 12 units SQ AC-SUPPER Aspirin 81 mg PO DAILY #90 Nitroglycerin Sl Tabs [Nitrostat] 0.4 mg SUBLINGUAL Q5M PRN #60 tab PRN Reason: Chest Pain Clopidogrel [Plavix] 75 mg PO DAILY #30 tab Apixaban [Eliquis] 2.5 mg PO BID #60 tablet Furosemide [Lasix] 20 mg PO QAM Metoprolol Tartrate [Lopressor] 25 mg PO BID #60 tab Acetaminophen Tab [Tylenol] 650 mg PO Q6HR PRN tab PRN Reason: Fever And/ Or Pain Escitalopram [Lexapro] 10 mg PO QAM Amiodarone [Cordarone] 200 mg PO BID #60 tab Ciprofloxacin HCl [Cipro] 500 mg PO Q12H Pantoprazole [Protonix] 40 mg PO QAM Atorvastatin [Lipitor] 40 mg PO HS Insulin Aspart [NovoLOG] 0 units SQ TID-W/MEALS PRN PRN Reason: scale Discharge Medication List Insulin Detemir [Levemir Flextouch Pen] 12 units SQ AC-SUPPER 04/09/16 [History] Acetaminophen Tab [Tylenol] 650 mg PO Q6HR PRN tab 06/24/21 [Rx] Aspirin 81 mg PO DAILY #90 06/24/21 [Rx] Clopidogrel [Plavix] 75 mg PO DAILY #30 tab 06/24/21 [Rx] Metoprolol Tartrate [Lopressor] 25 mg PO BID #60 tab 06/24/21 [Rx] Nitroglycerin Sl Tabs [Nitrostat] 0.4 mg SUBLINGUAL Q5M PRN #60 tab 06/24/21 [Rx] Escitalopram [Lexapro] 10 mg PO QAM 07/09/21 [History] Amiodarone [Cordarone] 200 mg PO BID #60 tab 07/14/21 [Rx] Apixaban [Eliquis] 2.5 mg PO BID #60 tablet 07/14/21 [Rx] Atorvastatin [Lipitor] 40 mg PO HS 07/30/21 [History] Ciprofloxacin HCl [Cipro] 500 mg PO Q12H 07/30/21 [History] Furosemide [Lasix] 20 mg PO QAM 07/30/21 [History] Insulin Aspart [NovoLOG] 0 units SQ TID-W/MEALS PRN 07/30/21 [History] Pantoprazole [Protonix] 40 mg PO QAM 07/30/21 [History] Sennosides-Docusate Sodium [Senokot-S] 2 each PO HS PRN tab 08/06/21 [Rx] Follow up Appointment(s)/Referral(s): Mick Rodriguez MD [Primary Care Provider] - As Needed Constantino Kumar NPC [Nurse Practitioner] - 09/09/21 1:30 pm (You will be seen in the valve clinic in [facility] behind [facility], [address] [place] [address] [address] before your echo appointment with Dr. Stratton) [facility], [NON-STAFF] - 1-2 Days Care,[facility] [NON-STAFF] - (Staff from this program will contact you regarding setting up. ) Kumar Stratton MD [STAFF PHYSICIAN] - 08/13/21 8:45 am (Your 08/13 appointment is for groin check; You also need to be seen 09/09/21 @ 2 pm in the office for 30 day post TAVR echocardiogram) Activity/Diet/Wound Care/Special Instructions: DISCHARGE INSTRUCTIONS: 1. No driving for 1 week, or until physician gives their ok. 2. No lifting, pushing, or pulling more than 5-10 pounds for 1 week. 3. Hold both groins when you cough or sneeze for the next 2 weeks. Bruising is common, but report increased swelling, pain or fever >101F 4. Shower daily. No pool, hot tub, or bathtub for 1 week 5. No powders, lotions, ointments on incisions. 6. No straining, including for bowel movements. Use stool softner if necessary 7. Stairs are not an issue. Go slowly, using handrail and take 1 step at a time. Ambulate several times daily 8. Continue pain control per as needed orders. 9. Take only the medications listed on your discharge form 10. Eat low salt (limited to 2 grams or 2000 milligrams) daily, avoid adding salt, avoid canned/processed foods 11. Take your weight daily in the morning and record, bring with you to your follow up appointments 12. Keep all follow up appointments. You will need a valve clinic appointment at 30 days and 1 year post procedure for follow up 13. You have been referred to and are expected to begin Cardiac Rehab in approximately 4 weeks. 14. You will need antibiotics prior to any dental work, including cleanings, and any surgeries to prevent Endocarditis (bacterial infection in your heart) For any questions or concerns please call your valve coordinators: Janna or Ezequiel @ Discharge/Stand Alone Forms: Help In The Home Discharge Disposition: HOME WITH HOME HEALTH SERVICES
[2021-08-06 11:28] LABS: Glucose,Whole Blood 129 mg/dL (75-99)
--- NOTE | 2021-08-06 11:55 | P.PN ---
Subjective Progress Note Date: 08/06/21 81-year-old white female patient with past medical history of coronary artery disease with previous PCI to the LAD, severe aortic stenosis, diabetes mellitus type 2, hypertension, dyslipidemia. Patient was recently diagnosed with new onset atrial fibrillation, she is on Eliquis for anticoagulation. Has previous history of CVA with residual vision deficits. She also has history of general medical debility, and falls. She has required esophageal dilatated she for esophageal stenosis. Patient was hospitalized in June 2001 with acute congestive heart failure and during that admission echocardiogram from June 2021 showed mildly impaired left ventricle systolic function with EF of 45-50%, severe aortic stenosis with peak/mean gradient of 70/46 mmHg, moderate mitral regurgitation, moderate tricuspid regurgitation with moderate pulmonary hypertension and right-sided pressure of 46.7 mmHg. Patient also had a elevated proBNP during that admission at 3180. Transesophageal echocardiogram confirmed heavily calcified trileaflet aortic valve with severe restriction and a valve area of 0.73 by planimetry, moderate tricuspid regurgitation with moderate to severe pulmonary hypertension. Heart catheterization demonstrated moderate to severe stenosis involving the LAD and RCA, and she subsequently underwent atherectomy and stenting of the LAD with drug-eluting stent. Patient was referred to Dr. Porter from cardiothoracic surgery for recommendation regarding surgical intervention versus TAVR. TAVR was recommended. Her bedside spirometry revealed FEV1 of 0.33 or 19% of predicted, forced vital capacity of 0.36 or 15% of predicted, with an MVV of 12.4, and this was consistent with a very severe restriction. On 08/05/2021 patient had percutaneous aortic valve implantation using a 26 mm Core-Valve Evolut-Pro Plus 5 Dr. Porter, Dr. Harris and Dr. Spaulding. Following her surgery patient was admitted to the intensive care unit for overnight monitoring, she seen in the intensive care unit, she is still quite lethargic, breathing comfortably, hemodynamically she stable, she is cur rently on room air, she is in sinus mechanism, she is not requiring any vasopressor support. Postoperative chest x-ray shows a right IJ central venous line, with it distal tip overlying the intrahepatic portion of the IVC, no evidence of pneumothorax. Patient is on maintenance IV fluids with 0.9 normal saline at a rate of 50 ML per hour, she is on home dose Lasix 20 mg daily, she is on ciprofloxacin for recent history of urinary tract infection, she is on IV cefazolin. Is on Eliquis and Cordarone for paroxysmal atrial fibrillation, currently in sinus mechanism. Follow-up chest x-ray and echocardiogram have been or postop day 1 On today's evaluation on 08/06/2021 patient seen in follow-up in the intensive care unit, today is postoperative day #1, status post percutaneous transcatheter aortic valve replacement. She is awake and alert, responding appropriately, she is sitting up in the recliner today, she is breathing comfortably, her incentive spirometer effort is suboptimal, she is barely doing 500 on the today, lung sounds are positive for diffuse crackles at the bases, occasional rhonchi. Patient needs a lot of encouragement to use incentive spirometry, cough and deep breathe. She is currently on 1 L of oxygen, her pulse ox is 98%. Patient will need home oxygen assessment and there is possibility she will qualify for home oxygen will be sent home on oxygen. Overall patient is generally deconditioned, her daughters are at the bedside, and they state that up until a few months ago patient was more active on a regular basis. Patient is a lifetime nonsmoker, does not have any chronic lung disease. Her preop bedside FEV1 showed severe restriction likely related to acute congestive heart failure. Is on a maintenance dose of Lasix 20 mg daily, she is currently in sinus mechanism, she is hemodynamically stable, she is on Eliquis and amiodarone for history of par oxysmal atrial fibrillation. Today's chest x-ray has been reviewed showing scattered infiltrates. Today's labs have been reviewed, her white blood cell count is 10, hemoglobin is 9.3, sodium is 141, potassium is 4.3, chloride is 101, CO2 34, BUN 17 creatinine 0.62, LFTs were all within normal limits, patient is tolerating oral diet, denies any nausea vomiting or diarrhea. Discharge is pending to her [facility] Objective - Vital Signs Vital signs: Vital Signs Temp 97.8 F 08/06/21 04:00 Pulse 67 08/06/21 07:00 Resp 14 08/06/21 07:00 BP 128/58 08/06/21 07:00 Pulse Ox 89 L 08/06/21 07:00 Intake & Output 08/05/21 08/06/21 08/06/21 18:59 06:59 18:59 Intake Total 350 650 20 Output Total 275 Balance 350 375 20 Weight 87.8 kg 93.2 kg Intake: IV 350 650 20 Potassium Chloride 10 meq 400 In Water For Injection 1 100ml.bag @ 100 mls/hr IVPB Q1HR NANCY Rx#: [id number] Sodium Chloride 0.9% 1, 150 200 20 000 ml @ 50 mls/hr IV . Q20H NANCY Rx#:[id number] ceFAZolin 2 gm In Sodium 100 50 Chloride 0.9% 50 ml @ 100 mls/hr IVPB Q8HR NANCY Rx# :[id number] Output: Urine 275 Other: Voiding Method Bedpan # Voids 1 ABP, PAP, CO, CI - Last Documented Arterial Blood Pressure 121/31 - Exam GENERAL EXAM:Awake and alert 81-year-old white female, room air with a pulse ox of 99%, resting comfortably in bed, in the ICU, following her TAVR procedure comfortable in no apparent distress. HEAD: Normocephalic/atraumatic. EYES: Normal reaction of pupils, equal size. Conjunctiva pink, sclera white. NOSE: Clear with pink turbinates. THROAT: No erythema or exudates. NECK: No masses, no JVD, no thyroid enlargement, no adenopathy. CHEST: No chest wall deformity. Symmetrical expansion. Right subclavian pacemaker leads, she site is clean dry and intact LUNGS: Equal air entry with no crackles, wheeze, rhonchi or dullness. CVS: Regular rate and rhythm, normal S1 and S2, no gallops, no murmurs, no rubs ABDOMEN: Soft, nontender. No hepatosplenomegaly, normal bowel sounds, no guarding or rigidity. EXTREMITIES: No clubbing, no edema, no cyanosis, 2+ pulses and upper and lower extremities. Bilateral groin puncture sites are clean dry and intact MUSCULOSKELETAL: Muscle strength and tone normal. SPINE: No scoliosis or deformity SKIN: No rashes CENTRAL NERVOUS SYSTEM: Lethargic, No focal deficits, tone is normal in all 4 extremities. - Labs CBC & Chem 7: 08/06/21 07:56 08/06/21 07:56 Labs: Abnormal Lab Results - Last 24 Hours (Table) 08/03/21 08/05/21 08/05/21 Range/Units 10:56 14:29 14:35 RBC 3.00 L (3.80-5.40) m/uL Hgb 9.0 L D (11.4-16.0) gm/dL Hct 28.3 L (34.0-46.0) % MCHC (31.0-37.0) g/dL Neutrophils # (1.3-7.7) k/uL Lymphocytes # 0.7 L (1.0-4.8) k/uL Potassium (3.5-5.1) mmol/L Carbon Dioxide (22-30) mmol/L BUN (7-17) mg/dL Glucose (74-99) mg/dL POC Glucose (mg/dL) 206 H (75-99) mg/dL Calcium (8.4-10.2) mg/dL Total Protein (6.3-8.2) g/dL Albumin (3.5-5.0) g/dL Crossmatch See Detail 08/05/21 08/05/21 08/05/21 Range/Units 14:35 17:24 20:20 RBC (3.80-5.40) m/uL Hgb (11.4-16.0) gm/dL Hct (34.0-46.0) % MCHC (31.0-37.0) g/dL Neutrophils # (1.3-7.7) k/uL Lymphocytes # (1.0-4.8) k/uL Potassium 3.3 L (3.5-5.1) mmol/L Carbon Dioxide 39 H (22-30) mmol/L BUN 19 H (7-17) mg/dL Glucose 217 H (74-99) mg/dL POC Glucose (mg/dL) 202 H 176 H (75-99) mg/dL Calcium 8.0 L (8.4-10.2) mg/dL Total Protein 6.0 L (6.3-8.2) g/dL Albumin 2.5 L (3.5-5.0) g/dL Crossmatch 08/06/21 08/06/21 08/06/21 Range/Units 06:52 07:56 07:56 RBC 3.24 L (3.80-5.40) m/uL Hgb 9.3 L (11.4-16.0) gm/dL Hct 30.1 L (34.0-46.0) % MCHC 30.8 L (31.0-37.0) g/dL Neutrophils # 8.2 H (1.3-7.7) k/uL Lymphocytes # 0.7 L (1.0-4.8) k/uL Potassium (3.5-5.1) mmol/L Carbon Dioxide 34 H (22-30) mmol/L BUN (7-17) mg/dL Glucose 117 H (74-99) mg/dL POC Glucose (mg/dL) 106 H (75-99) mg/dL Calcium (8.4-10.2) mg/dL Total Protein (6.3-8.2) g/dL Albumin 2.6 L (3.5-5.0) g/dL Crossmatch 08/06/21 Range/Units 11:27 RBC (3.80-5.40) m/uL Hgb (11.4-16.0) gm/dL Hct (34.0-46.0) % MCHC (31.0-37.0) g/dL Neutrophils # (1.3-7.7) k/uL Lymphocytes # (1.0-4.8) k/uL Potassium (3.5-5.1) mmol/L Carbon Dioxide (22-30) mmol/L BUN (7-17) mg/dL Glucose (74-99) mg/dL POC Glucose (mg/dL) 129 H (75-99) mg/dL Calcium (8.4-10.2) mg/dL Total Protein (6.3-8.2) g/dL Albumin (3.5-5.0) g/dL Crossmatch Assessment and Plan Plan: Assessment: #1. Severe symptomatic aortic valve stenosis, status post transcatheter aortic valve replacement with 26 mm Evolute Core valve Pro Plus valve prosthesis, on 08/05/2021 #2. Recent hospitalization in June, for acute exacerbation of CHF with mildly impaired left ventricular systolic dysfunction and EF of 45-50% #3. History of CVA #4. General medical debility #5. Recent fall history #6. Recent history of urinary tract infection, with urine culture positive for Morganella morganii and enterococcus faecalis, sensitive to ciprofloxacin on which the patient is currently on #7. Recently diagnosed new onset of atrial fibrillation, currently on amiodarone and Eliquis, currently in sinus mechanism #8. Coronary artery disease with previous stenting #9. Previous history of non-ST elevated myocardial infarction #10. Never smoker #11. Dysphagia possibly related to previous history of CVA, and esophageal stenosis with previous history of esophageal dilatation Plan: Patient is doing well on postoperative day #1 Breathing comfortably, she is down to 1 L, home oxygen assessment will be completed to evaluate for home oxygen need Hemodynamically she remains stable, not requiring any vasopressor support, in sinus mechanism She continues on Eliquis and amiodarone for history of paroxysmal atrial fibrillation Today's chest x-ray has been reviewed showing stable bilateral infiltrates, Patient continues on maintenance dose of oral Lasix Echocardiogram has been completed Pacemaker leads have been discontinued Bilateral groin puncture site is clean dry and intact Patient is up in the chair, tolerating activity well Patient is being discharged home to her son's house today Her daughter has questions about patient's poor lung function Patient had a limited bedside FEV1 preoperatively, which showed severe restriction She will have she follow-up in the pulmonary office with Dr. Ma and her pulmonary status will be reevaluated I performed a history & physical examination of the patient and discussed their management with my nurse practitioner, Amber Morley. I reviewed the nurse practitioner's note and agree with the documented findings and plan of care. Lung sounds are positive for diminished breath sounds throughout the lung pulido. The findings and the impression was discussed with the patient. I attest to the documentation by the nurse practitioner. Time with Patient: Less than 30
--- NOTE | 2021-08-06 11:56 | ECHOF ---
Referral Reason:post tavr MEASUREMENTS -------- HEIGHT: 157.5 cm WEIGHT: 87.5 kg BP: IVSd: 1.1 cm (0.6 - 1.1) LVIDd: 4.0 cm (3.9 - 5.3) LVPWd: 1.2 cm (0.6 - 1.1) EDV(Teich): 70 ml IVSs: 2.0 cm LVIDs: 2.4 cm LVPWs: 2.2 cm %IVS Thck: 80 % ESV(Teich): 21 ml EF(Teich): 70 % %FS: 39 % SV(Teich): 49 ml LVOT Diam: 1.3 cm RVIDd: 3.2 cm (< 3.3) Ao Diam: 3.0 cm (2.0 - 3.7) LA Diam: 3.3 cm (2.7 - 3.8) AV Cusp: 1.6 cm (1.5 - 2.6) EPSS: 1.1 cm MV E Ryder: 0.98 m/s MV DecT: 204 ms MV Dec [place]: 4.8 m/s MV A Ryder: 0.93 m/s MV E/A Ratio: 1.05 MV PHT: 59 ms MV PHT: 71 ms MVA By PHT: 3.1 cm MV Vmax: 1.08 m/s MV Vmean: 0.70 m/s MV maxP.67 mmHg MV meanP.17 mmHg MV VTI: 37.9 cm MVA (VTI): 0.6 cm MR Vmax: 1.62 m/s MR maxP.44 mmHg LVOT Vmax: 0.62 m/s LVOT maxP.53 mmHg LVOT Vmax: 0.65 m/s LVOT Vmean: 0.48 m/s LVOT maxP.67 mmHg LVOT meanP.98 mmHg LVOT Env.Ti: 332 ms LVOT VTI: 15.9 cm AV Vmax: 1.97 m/s AV maxP.53 mmHg AKIN Vmax, Pt: 0.4 cm AKIN Vmax: 0.4 cm AV Vmax: 2.06 m/s AV Vmean: 1.48 m/s AV maxP.06 mmHg AV meanP.69 mmHg AV Env.Ti: 298 ms AV VTI: 43.9 cm AKIN Vmax: 0.4 cm AKIN (VTI): 0.5 cm AKIN Vmax, Pt: 0.4 cm AR Vmax: 1.65 m/s AR maxP.84 mmHg AR PHT: 798 ms AR Dec Time: 2751 ms AR Dec [place]: 0.6 m/s PV Vmax: 1.23 m/s PV maxP.05 mmHg PV Vmax: 1.31 m/s PV Vmean: 0.80 m/s PV maxP.84 mmHg PV meanP.94 mmHg PV Env.Ti: 369 ms PV VTI: 29.6 cm MPA Vmax: 0.00 m/s MPA maxP.00 mmHg TR Vmax: 2.87 m/s TR maxP.96 mmHg RAP: 5.00 mmHg RVSP: 37.96 mmHg TV E Ryder: 0.51 m/s TV Dec Time: 271 ms TV Dec [place]: 1.9 m/s TV A Ryder: 0.70 m/s TV E/A Ratio: 0.73 MV EF SLOPE: 21.49 mm/s (70 - 150) MV EXCURSION: 11.11 mm (> 18.000) FINDINGS -------- This was a technically difficult study with suboptimal views. The left ventricular size is normal. There is mild concentric left ventricular hypertrophy. Overa ll left ventricular systolic function is normal with, an EF between 55 - 60 %. The right ventricle is normal in size. The left atrial size is normal. The right atrial size is normal. Lumason used Trace amount of aortic regurgitation. The aortic pressure half-time by doppler is 798ms. The max imum velocity across the aortic valve is 2.06m/s. Peak/mean gradient across the Aortic Valve is 17. 06mmHg / 9.69mmHg. Normally functioning bioprosthetic valve. TAVR procedure done The mitral valve is normal. The mitral valve leaflets are mildly thickened. Mild mitral regurgita tion is present. The tricuspid valve appears structurally normal. [id number] tricuspid regurgitation present. There is mild pulmonary hypertension. The right ventricular systolic pressure, as measured by Dop pler, is 37.96mmHg. There is no pulmonic regurgitation present. The aortic root size is normal. IVC Not well visulized. There is no pericardial effusion. CONCLUSIONS -------- 1. The left ventricular size is normal. 2. There is mild concentric left ventricular hypertrophy. 3. Overall left ventricular systolic function is normal with, an EF between 55 - 60 %. 4. Trace amount of aortic regurgitation. 5. The aortic pressure half-time by doppler is 798ms. 6. The maximum velocity across the aortic valve is 2.06m/s. 7. Peak/mean gradient across the Aortic Valve is 17.06mmHg / 9.69mmHg. 8. Normally functioning bioprosthetic valve. 9. TAVR procedure done 10. The mitral valve leaflets are mildly thickened. 11. Mild mitral regurgitation is present. 12. [id number] tricuspid regurgitation present. 13. There is mild pulmonary hypertension. 14. The right ventricular systolic pressure, as measured by Doppler, is 37.96mmHg. 15. There is no pericardial effusion. REGENERATION OPERATOR: Janna Haney RDCS
[2021-08-06] MEDS: ONDANSETRON 4 MG/2 ML VIAL IVP PRN (12:23)
[2021-08-06 13:31] VITALS: BP 106/71; PULSE 60; RESP 10; TEMP 97.6
[2021-08-06 14:12] VITALS: BMI 37.5
[2021-08-06] MEDS ORDERED: SENNOSIDES-DOCUSATE SODIUM 1 EACH TAB PO SCH (21:00)
== END 2021-08-06 13:55 | disposition home health service (06) | DRG 267 ==
LOC: 2ORMAIN 08:59 → 2SICU 13:50
PROVIDERS: ADMIT Internal Medicine Interventional Cardiology; ATTEND Internal Medicine Interventional Cardiology
PROC: 04QL0ZZ Repair Left Femoral Artery, Open Approach (ICD-10-PCS; 2021-08-05)
PROC: 5A1223Z Performance of Cardiac Pacing, Continuous (ICD-10-PCS; 2021-08-05)
PROC: B3101ZZ Fluoroscopy of Thoracic Aorta using Low Osmolar Contrast (ICD-10-PCS; 2021-08-05)
PROC: B24BYZZ Ultrasonography of Heart with Aorta using Other Contrast (ICD-10-PCS; 2021-08-05)
PROC: 02RF38Z Replacement of Aortic Valve with Zooplastic Tissue, Percutaneous Approach (ICD-10-PCS; principal; 2021-08-05 11:10)
DX: I08.3 Combined rheumatic disorders of mitral, aortic and tricuspid valves (principal); I50.42 Chronic combined systolic (congestive) and diastolic (congestive) heart failure; E11.51 Type 2 diabetes mellitus with diabetic peripheral angiopathy without gangrene; E66.01 Morbid (severe) obesity due to excess calories; E78.5 Hyperlipidemia, unspecified; I11.0 Hypertensive heart disease with heart failure; Z20.822 Contact with and (suspected) exposure to COVID-19; I48.0 Paroxysmal atrial fibrillation; I25.10 Atherosclerotic heart disease of native coronary artery without angina pectoris; J44.9 Chronic obstructive pulmonary disease, unspecified; K22.2 Esophageal obstruction; Z79.899 Other long term (current) drug therapy; Z79.82 Long term (current) use of aspirin; Z79.4 Long term (current) use of insulin; Z79.02 Long term (current) use of antithrombotics/antiplatelets; Z79.01 Long term (current) use of anticoagulants; Z87.440 Personal history of urinary (tract) infections; Z83.3 Family history of diabetes mellitus; I25.2 Old myocardial infarction; I27.22 Pulmonary hypertension due to left heart disease; Z86.718 Personal history of other venous thrombosis and embolism; Z95.5 Presence of coronary angioplasty implant and graft
CPT/HCPCS: 33361; 71045; 80053; 82330; 83735; 85025; 85610; 85730; 86850; 86900; 86901; 86920; 87635; 93306; 94640

== ENCOUNTER 2021-08-26 18:31 | Inpatient (IN) | payer MEDICARE ==
--- NOTE | 2021-08-26 19:49 | CT ---
EXAMINATION TYPE: CT brain francisca ferreira con DATE OF EXAM: 08/26/2021 COMPARISON: 07/09/[address] HISTORY: fall CT DLP: 1414.2 mGycm Automated exposure control for dose reduction was used. There is cerebral cortical atrophy. There is large areas of hypodensity in the medial aspect left and right occipital lobe related to old infarct. There is no midline shift. There is no sign of intracra nial hemorrhage. The calvarium is intact. Cervical vertebra have normal spacing and alignment. Posterior elements are intact. There is some ost eopenia. 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 No acute intracranial abnormality. Cerebral atrophy. Brain is not changed compared to old exam. Minor degenerative changes in the cervical spine. No fracture.
[2021-08-26 20:01] LABS: Basophils # (A) 0.1 k/uL (0-0.2); Basophils % (A) 0 %; Eosinophils % (A) 0 %; HCT 26.4 % (34.0-46.0); Hypochromasia Marked; Lymphocytes # (A) 0.7 k/uL (1.0-4.8); Lymphocytes % (A) 5 %; MCH 29.1 pg (25.0-35.0); MCHC 29.2 g/dL (31.0-37.0); Macrocytosis Slight; Mean Platelet Volume 9.8; Monocytes # (A) 0.7 k/uL (0-1.0); Monocytes % (A) 5 %; Neutrophils % (A) 89 %; Platelet Count 278 k/uL (150-450); RBC 2.64 m/uL (3.80-5.40); WBC 14.6 k/uL (3.8-10.6)
[2021-08-26 20:02] LABS: HGB 7.7 gm/dL (11.4-16.0)
[2021-08-26 20:03] LABS: MCV 99.7 fL (80.0-100.0)
[2021-08-26 20:08] LABS: INR 1.2 (<1.2); Partial Thromboplastin Time 24.4 sec (22.0-30.0); Prothrombin Time 12.4 sec (9.0-12.0)
--- NOTE | 2021-08-26 20:08 | XR ---
EXAMINATION TYPE: XR tibia fibula RT DATE OF EXAM: 08/26/2021 COMPARISON: NONE HISTORY: Leg pain TECHNIQUE: 4 views FINDINGS: Ankle mortise is anatomic. There is extensive vascular calcification. There is plantar and Achilles calcaneal spurring. Knee joint is intact. IMPRESSION: No acute abnormality of the right tibia and fibula.
--- NOTE | 2021-08-26 20:12 | XR ---
EXAMINATION TYPE: XR pelvis AP view DATE OF EXAM: 08/26/2021 COMPARISON: 06/11/2021 HISTORY: Pain. Fall TECHNIQUE: FINDINGS: There is right hip nailing noted. The pelvic ring is intact. Proximal left femur is intact. Sacroiliac joints are intact. I see no evidence of an acute fracture. IMPRESSION: No acute abnormality the pelvis. No fracture seen. No adverse change.
[2021-08-26 20:18] LABS: Albumin 2.8 g/dL (3.5-5.0); Calcium 8.7 mg/dL (8.4-10.2); Potassium 4.3 mmol/L (3.5-5.1); Total Bilirubin 1.2 mg/dL (0.2-1.3); Total Protein 6.7 g/dL (6.3-8.2)
--- NOTE | 2021-08-26 20:23 | XR ---
EXAMINATION TYPE: XR chest 2V DATE OF EXAM: 08/26/2021 COMPARISON: 08/06/2021 HISTORY: Fall. TECHNIQUE: 3 views FINDINGS: There is coarse infiltrate in both lungs which is predominantly interstitial. Heart is enla rged. There is some blunting of both costophrenic angles. There are chest leads. Thoracic aorta is at heromatous IMPRESSION: Pulmonary interstitial fibrosis. Congestive heart failure probably present and the heart and lungs not significantly different than last exam.
--- NOTE | 2021-08-26 20:38 | ED ---
Weakness HPI - General Chief complaint: Weakness Stated complaint: Fall Time Seen by Provider: 08/26/21 18:39 Source: patient Mode of arrival: EMS Limitations: no limitations - History of Present Illness Initial comments: 81-year-old female with past history of heart failure, coronary artery disease, diabetes, recent TAVR procedure presents to the emergency department with a possible fall versus syncope. Patient is a very poor historian and cannot pr ovide much history. It was reported patient fell in the bathroom and was found by her son who she lives with. She had a notable puncture to the right calf and a bruise over her right breast which appears to be in healing stages. Patient unsure she lost consciousness. She denies any injuries from the fall. Does not know when her last tetanus was. Patient arrives with an oxygen saturation of 5 1%. She arrives not on oxygen. Patient does report that she wears 2 L at home. She denies any pain. Remainder of the HPI is limited - Related Data Home Medications Medication Instructions Recorded Confirmed Insulin Detemir [Levemir Flextouch 12 units SQ AC-SUPPER 04/09/16 09/09/21 Pen] Escitalopram [Lexapro] 10 mg PO DAILY 07/09/21 09/09/21 Atorvastatin [Lipitor] 40 mg PO HS 07/30/21 09/09/21 Furosemide [Lasix] 20 mg PO DAILY 07/30/21 09/09/21 Insulin Aspart [NovoLOG] See Protocol SQ TID-W/MEALS PRN 07/30/21 09/09/21 Pantoprazole [Protonix] 40 mg PO DAILY 07/30/21 09/09/21 Sennosides-Docusate Sodium 2 tab PO HS PRN 08/26/21 09/09/21 [Senokot-S] Previous Rx's Medication Instructions Recorded Acetaminophen Tab [Tylenol] 650 mg PO Q6HR PRN tab 06/24/21 Aspirin 81 mg PO DAILY #90 06/24/21 Clopidogrel [Plavix] 75 mg PO DAILY #30 tab 06/24/21 Metoprolol Tartrate [Lopressor] 25 mg PO BID #60 tab 06/24/21 Nitroglycerin Sl Tabs [Nitrostat] 0.4 mg SUBLINGUAL Q5M PRN #60 tab 06/24/21 Amiodarone [Cordarone] 200 mg PO BID #60 tab 07/14/21 Apixaban [Eliquis] 2.5 mg PO BID #60 tablet 07/14/21 Allergies Allergy/AdvReac Type Severity Reaction Status Date / Time No Known Allergies Allergy Verified 09/09/21 18:41 Review of Systems ROS Statement: Those systems with pertinent positive or pertinent negative responses have been documented in the HPI. ROS Other: All systems not noted in ROS Statement are negative. Past Medical History Past Medical History: Coronary Artery Disease (CAD), Heart Failure, CVA/TIA, Diabetes Mellitus Additional Past Medical History / Comment(s): has home O2 @ 2L [place],IDDM type II, CVA with some vision changes and difficulty swallowing (eat soft foods)., murmur., states fall April 13, aortic stenosis History of Any Multi-Drug Resistant Organisms: None Reported Past Surgical History: Heart Catheterization With Stent, Orthopedic Surgery, To nsillectomy Additional Past Surgical History / Comment(s): Esophageal surgery 2003 pt thinks this was dilation ; Venous graft leg to left arm., right hip fx surgery (11/2018) Past Anesthesia/Blood Transfusion Reactions: No Reported Reaction Date of Last Stent Placement:: 06/2021 Past Psychological History: No Psychological Hx Reported Smoking Status: Never smoker Past Alcohol Use History: None Reported Past Drug Use History: None Reported - Past Family History Mother Family Medical History: Cancer Additional Family Medical History / Comment(s): "Female cancer" father Family Medical History: Diabetes Mellitus General Exam Limitations: altered mental status General appearance: alert, in no apparent distress Head exam: Present: atraumatic, normocephalic, normal inspection Neck exam: Present: normal inspection. Absent: tenderness, meningismus, lymphadenopathy Respiratory exam: Present: normal lung sounds bilaterally. Absent: respiratory distress, wheezes, rales, rhonchi, stridor Cardiovascular Exam: Present: regular rate, normal rhythm, normal heart sounds. Absent: systolic murmur, diastolic murmur, rubs, gallop, clicks GI/Abdominal exam: Present: soft, normal bowel sounds. Absent: distended, tenderness, guarding, rebound, rigid Extremities exam: Present: other (puncture wound right ward. No active bleeding. No retained foreign body) Course Vital Signs 08/26/21 08/26/21 08/26/21 18:44 18:53 19:03 Temperature 97.2 F L Pulse Rate 63 Pulse Rate [ Blocker Hand ] Respiratory 19 26 H Rate Blood Pressure 105/52 Blood Pressure [Left Arm] O2 Sat by Pulse 56 L 95 Oximetry 08/26/21 08/26/21 08/26/21 19:46 21:33 23:08 Temperature Pulse Rate 68 62 64 Pulse Rate [ Blocker Hand ] Respiratory 22 18 18 Rate Blood Pressure 127/75 118/92 120/60 Blood Pressure [Left Arm] O2 Sat by Pulse 94 L 94 L 97 Oximetry 08/27/21 08/27/21 08/27/21 05:03 06:26 11:45 Temperature 98.7 F Pulse Rate 68 60 60 Pulse Rate [ Blocker Hand ] Respiratory 18 18 16 Rate Blood Pressure 89/47 90/47 100/51 Blood Pressure [Left Arm] O2 Sat by Pulse 94 L 100 96 Oximetry 08/27/21 08/27/21 08/27/21 17:00 20:00 20:18 Temperature 98.3 F 99.4 F Pulse Rate 65 Pulse Rate [ 68 65 Blocker Hand ] Respiratory 18 18 18 Rate Blood Pressure 110/86 Blood Pressure 104/60 120/50 [Left Arm] O2 Sat by Pulse 95 98 95 Oximetry EKG Findings - EKG Comments: EKG Findings:: EKG demonstrates a normal sent rhythm with a ventricular rate of 63. SD interval 166. QRS 98. QTC of 487. No acute ST segment elevations or depressions concerning for ischemic changes. Significant baseline artifact Medical Decision Making - Medical Decision Making Upon arrival patient is placed in room 6. Thorough physical exam was performed. Right breast bruising appears to be old. Patient does have new puncture wound to the right tib-fib. X-ray of her chest, pelvis, right tib-fib is performed. Also CT the patient's head and cervical spine. 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 X-rays demonstrate no acute fractures. Laboratory studies reveal a mild leukocytosis of 14.6. Hemoglobin 7.7. Troponin mildly elevated at 0.[address] [place] [address]. Chest x-ray does demonstrate congestive heart failure. Recommended admission in order to trend her hemoglobin. Spoke with Colt from [facility] Patient currently awaiting a bed - Lab Data Result diagrams: 09/09/21 07:33 11/24/21 07:33 Lab Results 08/26/21 08/26/21 08/26/21 Range/Units 19:44 19:44 19:44 WBC 14.6 H (3.8-10.6) k/uL RBC 2.64 L (3.80-5.40) m/uL Hgb 7.7 L D (11.4-16.0) gm/dL Hct 26.4 L (34.0-46.0) % MCV 99.7 D (80.0-100.0) fL MCH 29.1 (25.0-35.0) pg MCHC 29.2 L (31.0-37.0) g/dL RDW 16.0 H (11.5-15.5) % Plt Count 278 (150-450) k/uL MPV 9.8 Neutrophils % 89 % Lymphocytes % 5 % Monocytes % 5 % Eosinophils % 0 % Basophils % 0 % Neutrophils # 13.0 H (1.3-7.7) k/uL Lymphocytes # 0.7 L (1.0-4.8) k/uL Monocytes # 0.7 (0-1.0) k/uL Eosinophils # 0.0 (0-0.7) k/uL Basophils # 0.1 (0-0.2) k/uL Hypochromasia Marked Macrocytosis Slight PT 12.4 H (9.0-12.0) sec INR 1.2 H (<1.2) APTT 24.4 (22.0-30.0) sec Sodium 135 L (137-145) mmol/L Potassium 4.3 (3.5-5.1) mmol/L Chloride 89 L (98-107) mmol/L Carbon Dioxide 39 H (22-30) mmol/L Anion Gap 7 mmol/L BUN 43 H (7-17) mg/dL Creatinine 0.89 (0.52-1.04) mg/dL Est GFR (CKD-EPI)AfAm 69 (>60 ml/min/1.73 sqM) Est GFR (CKD-EPI)NonAf 60 (>60 ml/min/1.73 sqM) Glucose 221 H (74-99) mg/dL Calcium 8.7 (8.4-10.2) mg/dL Total Bilirubin 1.2 (0.2-1.3) mg/dL AST 29 (14-36) U/L ALT 12 (4-34) U/L Alkaline Phosphatase 105 (38-126) U/L Creatine Kinase 46 (30-135) U/L Troponin I (0.000-0.034) ng/mL NT-Pro-B Natriuret Pep pg/mL Total Protein 6.7 (6.3-8.2) g/dL Albumin 2.8 L (3.5-5.0) g/dL 08/26/21 08/26/21 Range/Units 19:44 19:44 WBC (3.8-10.6) k/uL RBC (3.80-5.40) m/uL Hgb (11.4-16.0) gm/dL Hct (34.0-46.0) % MCV (80.0-100.0) fL MCH (25.0-35.0) pg MCHC (31.0-37.0) g/dL RDW (11.5-15.5) % Plt Count (150-450) k/uL MPV Neutrophils % % Lymphocytes % % Monocytes % % Eosinophils % % Basophils % % Neutrophils # (1.3-7.7) k/uL Lymphocytes # (1.0-4.8) k/uL Monocytes # (0-1.0) k/uL Eosinophils # (0-0.7) k/uL Basophils # (0-0.2) k/uL Hypochromasia Macrocytosis PT (9.0-12.0) sec INR (<1.2) APTT (22.0-30.0) sec Sodium (137-145) mmol/L Potassium (3.5-5.1) mmol/L Chloride (98-107) mmol/L Carbon Dioxide (22-30) mmol/L Anion Gap mmol/L BUN (7-17) mg/dL Creatinine (0.52-1.04) mg/dL Est GFR (CKD-EPI)AfAm (>60 ml/min/1.73 sqM) Est GFR (CKD-EPI)NonAf (>60 ml/min/1.73 sqM) Glucose (74-99) mg/dL Calcium (8.4-10.2) mg/dL Total Bilirubin (0.2-1.3) mg/dL AST (14-36) U/L ALT (4-34) U/L Alkaline Phosphatase (38-126) U/L Creatine Kinase (30-135) U/L Troponin I 0.051 H* (0.000-0.034) ng/mL NT-Pro-B Natriuret Pep 56562 pg/mL Total Protein (6.3-8.2) g/dL Albumin (3.5-5.0) g/dL Disposition Clinical Impression: Fall, Leukocytosis, Anemia, CHF (congestive heart failure) Disposition: ADMITTED IP TO THIS HOSP Condition: Stable Is patient prescribed a controlled substance at d/c from ED?: No Decision to Admit Reason: Admit from EC Decision Date: 08/26/21 Decision Time: 21:52
[2021-08-26] MEDS ORDERED: NALOXONE 0.4 MG/ML 1 ML VIAL IV PRN (21:52)
[2021-08-26] MEDS ORDERED: SENNOSIDES-DOCUSATE SODIUM 1 EACH TAB PO PRN (21:56)
[2021-08-26] MEDS ORDERED: FUROSEMIDE 10 MG/ML 10 ML VIAL IV STA (21:56)
[2021-08-26] MEDS ORDERED: ACETAMINOPHEN TAB 325 MG TAB PO PRN (21:56)
[2021-08-26] MEDS ORDERED: cefTRIAXone IN SWFI 1,000 MG/10 ML SYRINGE IVP ONE (22:15)
[2021-08-26] MEDS: APIXABAN 2.5 MG TABLET PO SCH (22:43)
[2021-08-26] MEDS: AMIODARONE 200 MG TAB PO SCH (22:43)
[2021-08-26] MEDS: ATORVASTATIN 40 MG TAB PO SCH (22:43)
[2021-08-26] MEDS: INSULIN DETEMIR (LEVEMIR) 100 UNIT/ML SYR SQ SCH ×2 (22:49→22:50)
[2021-08-26] MEDS: METOPROLOL TARTRATE 25 MG TAB PO SCH (23:16)
[2021-08-27 02:39] LABS: HCT 23.6 % (34.0-46.0); HGB 7.2 gm/dL (11.4-16.0); Hypochromasia Marked; MCH 29.3 pg (25.0-35.0); MCHC 30.3 g/dL (31.0-37.0); MCV 96.8 fL (80.0-100.0); Macrocytosis Slight; Mean Platelet Volume 10.6; Platelet Count 194 k/uL (150-450); RBC 2.44 m/uL (3.80-5.40); WBC 13.8 k/uL (3.8-10.6)
[2021-08-27 06:38] LABS: Basophils % (A) 0 %; Eosinophils # (A) 0.1 k/uL (0-0.7); Eosinophils % (A) 1 %; HGB 7.1 gm/dL (11.4-16.0); Hypochromasia Marked; Lymphocytes # (A) 0.7 k/uL (1.0-4.8); Lymphocytes % (A) 5 %; MCH 29.6 pg (25.0-35.0); MCHC 30.8 g/dL (31.0-37.0); MCV 96.1 fL (80.0-100.0); Mean Platelet Volume 9.9; Monocytes # (A) 0.7 k/uL (0-1.0); Monocytes % (A) 5 %; Neutrophils # (A) 12.1 k/uL (1.3-7.7); Neutrophils % (A) 88 %; Platelet Count 209 k/uL (150-450); RBC 2.39 m/uL (3.80-5.40); RDW 15.9 % (11.5-15.5); WBC 13.7 k/uL (3.8-10.6)
[2021-08-27 07:10] LABS: Calcium 8.3 mg/dL (8.4-10.2); Potassium 3.8 mmol/L (3.5-5.1)
[2021-08-27 07:46] LABS: Amorphous Sediment,Urine Rare /hpf; Appearance,Urine Cloudy (Clear); Bacteria,Urine Many /hpf; Bilirubin,Urine Negative (Negative); Blood,Urine Trace (Negative); Budding Yeast,Urine Rare /hpf; Color,Urine Yellow; Glucose,Urine (UA) Negative (Negative); Hyaline Casts,Urine 11 /lpf (0-2); Ketones,Urine Negative (Negative); Leukocyte Esterase,Urine Large (Negative); Mucus,Urine Rare /hpf; Nitrite,Urine Negative (Negative); Protein,Urine 1+ (Negative); RBC,Urine 4 /hpf (0-5); Specific Gravity,Urine 1.018 (1.001-1.035); Squamous Epithelial Cell,Urine 2 /hpf (0-4); WBC,Urine 48 /hpf (0-5)
[2021-08-27] MEDS: APIXABAN 2.5 MG TABLET PO SCH ×2 (11:46→21:33)
[2021-08-27] MEDS: ASPIRIN 81 MG PO SCH (11:46)
[2021-08-27] MEDS: ESCITALOPRAM 10 MG TAB PO SCH (11:46)
[2021-08-27] MEDS: CLOPIDOGREL 75 MG TAB PO SCH (11:46)
[2021-08-27] MEDS: PANTOPRAZOLE 40 MG TABLET PO SCH (11:46)
[2021-08-27] MEDS: FUROSEMIDE 10 MG/ML 4 ML VIAL IV SCH ×2 (11:47→21:33)
[2021-08-27] MEDS: AMIODARONE 200 MG TAB PO SCH ×2 (11:47→21:33)
[2021-08-27] MEDS: METOPROLOL TARTRATE 25 MG TAB PO SCH ×2 (11:47→21:33)
--- NOTE | 2021-08-27 12:00 | P.CRDCN ---
History of Present Illness Consult date: 08/27/21 History of present illness: HISTORY OF PRESENT ILLNESS: This is a 81-year-old female with a past medical history significant for atrial fibrillation, coronary artery disease with previous angioplasty of LAD, congestive heart failure, COPD, and recent TAVR in July 2021. Patient follows in the office with Dr. Stratton. We have been asked to see the patient in consultation for CHF. Patient examined at the bedside. Patient somewhat sleepy during examination. She was brought to the hospital after her son found her on the floor of the bathroom. She denies losing consciousness. The patient states that she lost her balance and fell. She denies having any dizziness or lightheadedness prior to this. She denies any chest pain or pressure. She currently denies any shortness of breath. The patient is on Eliquis for a history of atrial fibrillation. Her hemoglobin upon admission was in the sevens. Previous hemoglobin was around 9. The patient denies any signs of GI bleeding. EKG reveals sinus rhythm with nonspecific ST-T wave changes Chest xray pulmonary interstitial fibrosis. Congestive heart failure probably present in the heart and lungs not significantly different than last exam. Laboratory data: WBC 13.7. Hemoglobin 7.1. Platelet count 209. Sodium 136. Potassium 3.8. BUN 46. Crit and 1.02. Troponin 0.039. 0.041. Most recent echocardiogram obtained in July 2021 revealed ejection fraction 55-60%, normally functioning bioprosthetic valve, mild mitral regurgitation, [id number] tricuspid regurgitation, mild pulmonary hypertension Cardiac catheterization history: May 2021 revealing abnormal eye. Heavily calcified proximal LAD at 0.69. Severe aortic stenosis. REVIEW OF SYSTEMS: At the time of my exam: CONSTITUTIONAL: Denies fever or chills. HEENT: Denies blurred vision, vision changes, or eye pain. Denies hemoptysis CARDIOVASCULAR: Denies chest pain. Denies orthopnea. Denies PND. Denies palpitations RESPIRATORY: Denies shortness of breath. GASTROINTESTINAL: Denies abdominal pain. Denies nausea or vomiting. HEMATOLOGIC: Denies bleeding disorders. GENITOURINARY: Denies any blood in urine. SKIN: Denies pruitis. Denies rash. PHYSICAL EXAM: VITAL SIGNS: Reviewed. GENERAL: Well-developed in no acute distress. HEENT: Head is normocephalic. Pupils are equal, round. Sclerae anicteric. Mucous membranes of the mouth are moist. Neck supple. No JVD or thyromegaly LUNGS: Respirations even and unlabored. Lungs diminished to auscultation bi laterally. HEART: Regular rate and rhythm. S1 and S2 heard. + systolic murmur ABDOMEN: Soft. Nondistended. Nontender. EXTREMITIES: Normal range of motion. No clubbing or cyanosis. Peripheral pulses intact. 1-2+ lower extremity edema NEUROLOGIC: Awake and alert. Oriented x 3. ASSESSMENT: S/P mechanical fall Acute on chronic diastolic congestive heart failure Coronary artery disease Hx of severe aortic stenosis, s/p TAVR 07/2021 COPD Paroxysmal atrial fibrillation, on anticoagulation with Eliquis Anemia Leukocytosis Abnormal troponins, not suggestive of acute coronary syndrome Obesity PLAN: Obtain limited echo Continue Eliquis. monitor hemoglobin Begin IV lasix 40mg Q 12 hours Consult pulmonary for evaluation Check orthostatic blood pressures Hold morning antihypertensive medications Further recommendations pending patient course Nurse practitioner note has been reviewed by physician. Signing provider agrees with the documented findings, assessment, and plan of care. Past Medical History Past Medical History: Coronary Artery Disease (CAD), Heart Failure, CVA/TIA, Diabetes Mellitus Additional Past Medical History / Comment(s): has home O2 @ 2L [place],IDDM type II, CVA with some vision changes and difficulty swallowing (eat soft foods)., murmur., states fall April 13, aortic stenosis History of Any Multi-Drug Resistant Organisms: None Reported Past Surgical History: Heart Catheterization With Stent, Orthopedic Surgery, Tonsillectomy Additional Past Surgical History / Comment(s): Esophageal surgery 2003 pt thinks this was dilation ; Venous graft leg to left arm., right hip fx surgery (11/2018) Past Anesthesia/Blood Transfusion Reactions: No Reported Reaction Date of Last Stent Placement:: 06/2021 Past Psychological History: No Psychological Hx Reported Smoking Status: Never smoker Past Alcohol Use History: None Reported Past Drug Use History: None Reported - Past Family History Mother Family Medical History: Cancer Additional Family Medical History / Comment(s): "Female cancer" father Family Medical History: Diabetes Mellitus Medications and Allergies Home Medications Medication Instructions Recorded Confirmed Type Insulin Detemir [Levemir Flextouch 12 units SQ AC-SUPPER 04/09/16 08/26/21 History Pen] Acetaminophen Tab [Tylenol] 650 mg PO Q6HR PRN tab 06/24/21 08/26/21 Rx Aspirin 81 mg PO DAILY #90 06/24/21 08/26/21 Rx Clopidogrel [Plavix] 75 mg PO DAILY #30 tab 06/24/21 08/26/21 Rx Metoprolol Tartrate [Lopressor] 25 mg PO BID #60 tab 06/24/21 08/26/21 Rx Nitroglycerin Sl Tabs [Nitrostat] 0.4 mg SUBLINGUAL Q5M PRN #60 tab 06/24/21 08/26/21 Rx Escitalopram [Lexapro] 10 mg PO DAILY 07/09/21 08/26/21 History Amiodarone [Cordarone] 200 mg PO BID #60 tab 07/14/21 08/26/21 Rx Apixaban [Eliquis] 2.5 mg PO BID #60 tablet 07/14/21 08/26/21 Rx Atorvastatin [Lipitor] 40 mg PO HS 07/30/21 08/26/21 History Furosemide [Lasix] 20 mg PO DAILY 07/30/21 08/26/21 History Insulin Aspart [NovoLOG] See Protocol SQ TID-W/MEALS PRN 07/30/21 08/26/21 History Pantoprazole [Protonix] 40 mg PO DAILY 07/30/21 08/26/21 History Sennosides-Docusate Sodium 2 tab PO HS PRN 08/26/21 08/26/21 History [Senokot-S] Allergies Allergy/AdvReac Type Severity Reaction Status Date / Time No Known Allergies Allergy Verified 08/26/21 20:13 Physical Exam Vitals: Vital Signs Temp Pulse Resp BP Pulse Ox 08/27/21 11:45 60 16 100/51 96 08/27/21 06:26 60 18 90/47 100 08/27/21 05:03 98.7 F 68 18 89/47 94 L 08/26/21 23:08 64 18 120/60 97 08/26/21 21:33 62 18 118/92 94 L 08/26/21 19:46 68 22 127/75 94 L 08/26/21 19:03 26 H 08/26/21 18:53 95 08/26/21 18:44 97.2 F L 63 19 105/52 56 L Intake and Output 1108/27/21 08/27/21 22:59 06:59 14:59 Other: Weight 101.605 kg Results 08/27/21 06:12 08/27/21 06:12 Cardiac Enzymes 08/26/21 08/26/21 08/27/21 Range/Units 19:44 19:44 06:12 AST 29 (14-36) U/L Troponin I 0.051 H* 0.039 H* (0.000-0.034) ng/mL 08/27/21 Range/Units 08:49 AST (14-36) U/L Troponin I 0.041 H* (0.000-0.034) ng/mL Coagulation 08/26/21 Range/Units 19:44 PT 12.4 H (9.0-12.0) sec APTT 24.4 (22.0-30.0) sec CBC 08/26/21 08/27/21 08/27/21 Range/Units 19:44 01:46 06:12 WBC 14.6 H 13.8 H 13.7 H (3.8-10.6) k/uL RBC 2.64 L 2.44 L 2.39 L (3.80-5.40) m/uL Hgb 7.7 L D 7.2 L 7.1 L (11.4-16.0) gm/dL Hct 26.4 L 23.6 L 23.0 L (34.0-46.0) % Plt Count 278 194 209 (150-450) k/uL Comprehensive Metabolic Panel 08/26/21 08/27/21 Range/Units 19:44 06:12 Sodium 135 L 136 L (137-145) mmol/L Potassium 4.3 3.8 (3.5-5.1) mmol/L Chloride 89 L 88 L (98-107) mmol/L Carbon Dioxide 39 H 43 H* (22-30) mmol/L BUN 43 H 46 H (7-17) mg/dL Creatinine 0.89 1.02 (0.52-1.04) mg/dL Glucose 221 H 175 H (74-99) mg/dL Calcium 8.7 8.3 L (8.4-10.2) mg/dL AST 29 (14-36) U/L ALT 12 (4-34) U/L Alkaline Phosphatase 105 (38-126) U/L Total Protein 6.7 (6.3-8.2) g/dL Albumin 2.8 L (3.5-5.0) g/dL Current Medications Generic Name Dose Route Start Last Admin Trade Name Freq PRN Reason Stop Dose Admin Acetaminophen 650 mg 08/26/21 21:56 Acetaminophen Tab 325 Mg Tab PO Q6HR PRN Fever and/ or Pain Amiodarone HCl 200 mg 08/26/21 22:00 08/27/21 11:47 Amiodarone 200 Mg Tab PO Not Given BID [facility] Apixaban 2.5 mg 08/26/21 22:00 08/27/21 11:46 Apixaban 2.5 Mg Tablet PO 2.5 mg BID [facility] Administration Protocol Aspirin 81 mg 08/27/21 09:00 08/27/21 11:46 Aspirin 81 Mg PO 81 mg DAILY NANCY Administration Atorvastatin Calcium 40 mg 08/26/21 22:00 08/26/21 22:43 Atorvastatin 40 Mg Tab PO 40 mg HS [facility] Administration Clopidogrel Bisulfate 75 mg 08/27/21 09:00 08/27/21 11:46 Clopidogrel 75 Mg Tab PO 75 mg DAILY NANCY Administration Escitalopram Oxalate 10 mg 08/27/21 09:00 08/27/21 11:46 Escitalopram 10 Mg Tab PO 10 mg DAILY NANCY Administration Furosemide 40 mg 08/27/21 09:00 08/27/21 11:47 Furosemide 10 Mg/Ml 4 Ml Vial IV Not Given Q12HR NANCY Insulin Aspart 0 unit 08/27/21 12:30 Insulin Aspart (Novolog) 100 Unit/Ml Vial SQ ACHS [facility] Protocol Insulin Detemir 12 unit 08/26/21 22:00 08/26/21 22:50 Insulin Detemir (Levemir) 100 Unit/Ml Syr SQ 12 unit AC-SUPPER [facility] Administration Metoprolol Tartrate 25 mg 08/26/21 22:00 08/27/21 11:47 Metoprolol Tartrate 25 Mg Tab PO Not Given BID [facility] Naloxone HCl 0.2 mg 08/26/21 21:52 Naloxone 0.4 Mg/Ml 1 Ml Vial IV Q2M PRN Opioid Reversal Pantoprazole Sodium 40 mg 08/27/21 09:00 08/27/21 11:46 Pantoprazole 40 Mg Tablet PO 40 mg DAILY [facility] Administration Senna/Docusate Sodium 2 each 08/26/21 21:56 Sennosides-Docusate Sodium 1 Each Tab PO HS PRN Constipation Intake and Output 08/26/21 08/27/21 08/27/21 22:59 06:59 14:59 Other: Weight 101.605 kg 08/27/21 06:12 08/27/21 06:12
--- NOTE | 2021-08-27 12:21 | P.CNPUL ---
History of Present Illness Consult date: 08/27/21 Reason for consult: dyspnea History of present illness: 81-year-old female patient who is post TAVR procedure. Surgery was done on 08/05/2021 and the patient was discharged home. The patient is known to have CAD with previous PCI to LAD and the patient also has had previous history of severe aortic stenosis for which she required the valve replacement. Other comorbid conditions include diabetes mellitus, hypertension and hyperlipidemia and history of atrial fibrillation and previous history of CVA without residual deficits. The patient has had previous episodes of falls. We were involved in her postop care following her TAVR procedure and the patient was seen and the patient did well and the patient was discharged home. Note that her echocardiogram showed a mildly impaired left ventricular ejection fraction of 45-50%. The patient came back to the emergency department yesterday with worsening shortness of breath. The patient was seen on the floor by her son. No loss in consciousness. Apparently she had some loss in balance and she fell. She denies having any dizziness or lightheadedness patient denied having any chest pain. No shortness of breath. Note that she is on long-term articulation with [employer] regarding her history of atrial fibrillation.Other comorbid conditions is chronic anemia. Previous hemoglobin has been in the range of 9.0 and the patient's current hemoglobin is slightly lower. No reported history of GI bleeding. For now, the investigation has been done included an EKG that showed a normal sinus rhythm without any acute ischemic changes. Chest x-ray showed cardiomegaly along with some CHF. WBC was at 13.7 with a hemoglobin of 7.1, BMI was 46 with a creatinine of 1.02 at the time of admission with a potassium level of 3.8. Troponins were 0.03 and 0.04 respectively 2. Note that following her TAVR procedure, the patient underwent a noted echocardiogram that showed improvement in her ejection fraction from a baseline of 45% up to 55-60% and the patient had a normal functioning bioprosthetic aortic valve. Her most recent cardiac catheterization was in May 2021 and it showed heavily calcified LAD. During this current admission, the patient had a negative colon 19 testing. UA showed many bacteria, there were 48 WBCs. Her white cell count was at 13.7 with a hemoglobin of 7.1 as mentioned. Covid 19 testing was negative. Review of Systems CONSTITUTIONAL: Denies fever or chills. HEENT: Denies blurred vision, vision changes, or eye pain. Denies hemoptysis CARDIOVASCULAR: Denies chest pain. Denies orthopnea. Denies PND. Denies palpitations RESPIRATORY: Denies shortness of breath. GASTROINTESTINAL: Denies abdominal pain. Denies nausea or vomiting. HEMATOLOGIC: Denies bleeding disorders. GENITOURINARY: Denies any blood in urine. SKIN: Denies pruitis. Denies rash. Past Medical History Past Medical History: Atrial Fibrillation, Coronary Artery Disease (CAD), Heart Failure, CVA/TIA, Diabetes Mellitus Additional Past Medical History / Comment(s): has home O2 @ 2L [place],IDDM type II, CVA with some vision changes and difficulty swallowing (eat soft foods)., murmur., states fallApril 13, aortic stenosis post TAVR, paroxysmal AFIB History of Any Multi-Drug Resistant Organisms: None Reported Past Surgical History: Heart Catheterization With Stent, Orthopedic Surgery, Tonsillectomy Additional Past Surgical History / Comment(s): Esophageal surgery 2003 pt thinks this was dilation ; Venous graft leg to left arm., right hip fx surgery (11/2018) Past Anesthesia/Blood Transfusion Reactions: No Reported Reaction Date of Last Stent Placement:: 06/2021 Past Psychological History: No Psychological Hx Reported Smoking Status: Never smoker Past Alcohol Use History: None Reported Past Drug Use History: None Reported - Past Family History Mother Family Medical History: Cancer Additional Family Medical History / Comment(s): "Female cancer" father Family Medical History: Diabetes Mellitus Medications and Allergies Home Medications Medication Instructions Recorded Confirmed Type Insulin Detemir [Levemir Flextouch 12 units SQ AC-SUPPER 04/09/16 08/26/21 History Pen] Acetaminophen Tab [Tylenol] 650 mg PO Q6HR PRN tab 06/24/21 08/26/21 Rx Aspirin 81 mg PO DAILY #90 06/24/21 08/26/21 Rx Clopidogrel [Plavix] 75 mg PO DAILY #30 tab 06/24/21 08/26/21 Rx Metoprolol Tartrate [Lopressor] 25 mg PO BID #60 tab 06/24/21 08/26/21 Rx Nitroglycerin Sl Tabs [Nitrostat] 0.4 mg SUBLINGUAL Q5M PRN #60 tab 06/24/21 08/26/21 Rx Escitalopram [Lexapro] 10 mg PO DAILY 07/09/21 08/26/21 History Amiodarone [Cordarone] 200 mg PO BID #60 tab 07/14/21 08/26/21 Rx Apixaban [Eliquis] 2.5 mg PO BID #60 tablet 07/14/21 08/26/21 Rx Atorvastatin [Lipitor] 40 mg PO HS 07/30/21 08/26/21 History Furosemide [Lasix] 20 mg PO DAILY 07/30/21 08/26/21 History Insulin Aspart [NovoLOG] See Protocol SQ TID-W/MEALS PRN 07/30/21 08/26/21 History Pantoprazole [Protonix] 40 mg PO DAILY 07/30/21 08/26/21 History Sennosides-Docusate Sodium 2 tab PO HS PRN 08/26/21 08/26/21 History [Senokot-S] Allergies Allergy/AdvReac Type Severity Reaction Status Date / Time No Known Allergies Allergy Verified 08/26/21 20:13 Physical Exam Vitals: Vital Signs Temp Pulse Resp BP Pulse Ox 08/27/21 11:45 60 16 100/51 96 08/27/21 06:26 60 18 90/47 100 08/27/21 05:03 98.7 F 68 18 89/47 94 L 08/26/21 23:08 64 18 120/60 97 08/26/21 21:33 62 18 118/92 94 L 08/26/21 19:46 68 22 127/75 94 L 08/26/21 19:03 26 H 08/26/21 18:53 95 08/26/21 18:44 97.2 F L 63 19 105/52 56 L Intake and Output 08/26/21 08/27/21 08/27/21 22:59 06:59 14:59 Other: Weight 101.605 kg GENERAL: Well-developed in no acute distress. The patient has normal breathing and her breathing is nonlabored at this point in time Head exam was generally normal. There was no scleral icterus or corneal arcus. Mucous membranes were moist. HEENT: Head is normocephalic. Pupils are equal, round. Sclerae anicteric. Mucous membranes of the mouth are moist. Neck supple. No JVD or thyromegaly LUNGS: Respirations even and unlabored. Lungs diminished to auscultation bilaterally. HEART: Regular rate and rhythm. S1 and S2 heard. + systolic murmur ABDOMEN: Soft. Abdominal exam revealed normal bowel sounds. The abdomen was soft, non-tender, and without masses, organomegaly, or appreciable enlargement of the abdominal aorta. EXTREMITIES: Normal range of motion. No clubbing or cyanosis. Peripheral pulses intact. 1-2+ lower extremity edema NEUROLOGIC: Awake and alert. Oriented x1-2, the patient is quite lethargic at this point in time yet arousable and follows simple commands. There is global weakness in all 4 extremities. Results - Laboratory Findings CBC and BMP: 08/27/21 06:12 08/27/21 06:12 PT/INR, D-dimer PT 12.4 sec (9.0-12.0) H 08/26/21 19:44 INR 1.2 (<1.2) H 08/26/21 19:44 Abnormal lab findings: Abnormal Labs 08/26/21 08/26/21 08/26/21 19:44 19:44 19:44 WBC 14.6 H RBC 2.64 L Hgb 7.7 L D Hct 26.4 L MCHC 29.2 L RDW 16.0 H Neutrophils # 13.0 H Lymphocytes # 0.7 L PT 12.4 H INR 1.2 H Sodium 135 L Chloride 89 L Carbon Dioxide 39 H BUN 43 H Glucose 221 H Calcium Troponin I Albumin 2.8 L Urine Appearance Urine Protein Urine Blood Ur Leukocyte Esterase Urine WBC Amorphous Sediment Urine Bacteria Hyaline Casts Urine Mucus Urine Yeast (Budding) 08/26/21 08/27/21 08/27/21 19:44 01:46 06:12 WBC 13.8 H 13.7 H RBC 2.44 L 2.39 L Hgb 7.2 L 7.1 L Hct 23.6 L 23.0 L MCHC 30.3 L 30.8 L RDW 16.0 H 15.9 H Neutrophils # 12.1 H Lymphocytes # 0.7 L PT INR Sodium Chloride Carbon Dioxide BUN Glucose Calcium Troponin I 0.051 H* Albumin Urine Appearance Urine Protein Urine Blood Ur Leukocyte Esterase Urine WBC Amorphous Sediment Urine Bacteria Hyaline Casts Urine Mucus Urine Yeast (Budding) 08/27/21 08/27/21 08/27/21 06:12 06:12 06:54 WBC RBC Hgb Hct MCHC RDW Neutrophils # Lymphocytes # PT INR Sodium 136 L Chloride 88 L Carbon Dioxide 43 H* BUN 46 H Glucose 175 H Calcium 8.3 L Troponin I 0.039 H* Albumin Urine Appearance Cloudy H Urine Protein 1+ H Urine Blood Trace H Ur Leukocyte Esterase Large H Urine WBC 48 H Amorphous Sediment Rare H Urine Bacteria Many H Hyaline Casts 11 H Urine Mucus Rare H Urine Yeast (Budding) Rare H 08/27/21 08:49 WBC RBC Hgb Hct MCHC RDW Neutrophils # Lymphocytes # PT INR Sodium Chloride Carbon Dioxide BUN Glucose Calcium Troponin I 0.041 H* Albumin Urine Appearance Urine Protein Urine Blood Ur Leukocyte Esterase Urine WBC Amorphous Sediment Urine Bacteria Hyaline Casts Urine Mucus Urine Yeast (Budding) - Diagnostic Findings Chest x-ray: image reviewed Assessment and Plan Plan: 1 acute generalized weakness, as the patient was found to be collapsed on the f maxi. Findings could be consistent with infection/sepsis and the patient has some mild leukocytosis and abnormal urinalysis. In addition to that, there is interstitial infiltrates bilaterally consistent with CHF with worsening shortness of breath. Underlying infection/sepsis needs to be considered in this patient. 2 acute hypoxic respiratory failure currently on oxygen at 4 L per minute nasal cannula 3 history of severe symptomatically aortic stenosis post TAVR procedure that was done on 08/05/2021 4 history of congestion heart failure, subsequent echocardiogram following TAVR procedure showed improvement in ejection fraction which is up to 55-60% 5 generalized medical debility and previous history of falls 6 previous history of UTIs with gram-negative bacteria and enterococcus 7 history of paroxysmal atrial fibrillation, current rhythm is sinus 8 history of coronary artery disease with previous coronary stenting 9 history of chronic dysphagia 10 history of CVA 11 history of esophageal stenosis with previous history of esophageal dilatations 12 history of chronic anemia and hemoglobin is down to 7.1, no signs of any acute GI bleed 13 troponin leak 14 possible intravascular volume depletion/dehydration with elevated BUN although an upper GI bleed can have a similar presentation. 15 diabetes mellitus Plan Patient had a negative CAT scan of the brain Gentle hydration with 50 mL of normal saline IV Rocephin 1 g every 24 hours Urine culture and blood culture pro-calcitonin level and proBNP level Cardiology consultation Resume home medications including anti-coagulation with Eliquis Monitor hemoglobin and involve hematology oncology regarding chronic anemia and watch for any signs of GI bleed We'll continue to follow
[2021-08-27] MEDS: INSULIN ASPART (NovoLOG) 100 UNIT/ML VIAL SQ SCH ×3 (13:30→21:33)
[2021-08-27] MEDS ORDERED: SODIUM CHLORIDE 0.9% 500 ML 250 ML IV ONE (14:34)
--- NOTE | 2021-08-27 17:46 | ECHOF ---
Referral Reason:LV function MEASUREMENTS -------- HEIGHT: 152.4 cm WEIGHT: 101.6 kg BP: RAP: 5.00 mmHg RVSP: 58.13 mmHg FINDINGS -------- Echo done : Repeat Echo For LV function. Overall left ventricular systolic function is low-normal with, an EF between 50 - 55 %. There is mild mallory-prosthetic regurgitation of the bioprosthetic aortic valve. TAVR Moderate tricuspid regurgitation present. There is moderate pulmonary hypertension. The right keesha tricular systolic pressure, as measured by Doppler, is 58.13mmHg. CONCLUSIONS -------- 1. Echo done : Repeat Echo For LV function. 2. Overall left ventricular systolic function is low-normal with, an EF between 50 - 55 %. 3. There is mild mallory-prosthetic regurgitation of the bioprosthetic aortic valve. 4. TAVR 5. Moderate tricuspid regurgitation present. 6. There is moderate pulmonary hypertension. RESPIRATORY PHYSICIAN: Lindsay Lowery RDCS
[2021-08-27 18:52] LABS: Glucose,Whole Blood 134 mg/dL (75-99)
[2021-08-27] MEDS: INSULIN DETEMIR (LEVEMIR) 100 UNIT/ML SYR SQ SCH (18:57)
[2021-08-27 19:59] LABS: Glucose,Whole Blood 123 mg/dL (75-99)
[2021-08-27] MEDS: ATORVASTATIN 40 MG TAB PO SCH (21:33)
--- NOTE | 2021-08-27 21:37 | P.HPIM ---
History of Present Illness H&P Date: 08/27/21 Chief Complaint: Fall Patient is a 81-year-old female with a known history of on anticoagulation with Eliquis and amiodarone, hypertension, diabetes type 2 insulin-dependent, history of CVA with vision changes and difficulty swallowing, heart murmur, aortic stenosis status post on TAVR on 08/05/2021, coronary artery disease history of stent placement and multiple medical problems including morbid obesity with a BMI 43.7 presents to ER due to complaints of generalized weakness, shortness of breath and falls. Patient states that she lost balance and fell. Denied any comp laints of dizziness or lightheadedness. No complaints of chest pain or shortness of breath. On admission blood pressure was 105/52 pulse 63 respiration 19 pulse ox 90% on 4 L oxygen via nasal cannula. CT head and cervical spine showed bilateral old occipital infarcts. No acute intracranial abnormality. Cerebral atrophy. Brain is not changed compared to old exam. Minor degenerative changes in the cervical spine. No fracture. CT of fibula showed no acute abnormality of the right tibia and fibula. X-ray of the pelvis showed no acute abnormality of the pelvis. No fracture seen. Chest x- ray showed pulmonary interstitial fibrosis. CHF probably present and the heart and lungs not significantly different than last exam. Laboratory test showed WBC 14.6 hemoglobin 7.7 and platelets 278 INR 1.2 Sodium 135 potassium 4.3 chloride 89 bicarb is 39 BUN 43 and creatinine 0.89 and BMP 45738 Troponin 0 0.051, 0.039 and albumin 2.8 Urinalysis showed cloudy with 1+ protein trace blood large leukocyte esterase WBCs 48 Coronavirus PCR not detected. Review of Systems Constitutional: No fever no chills. Generalized weakness and fatigue. Abdomen: Patient denied nausea vomiting and diarrhea and abdominal pain. Cardiovascular: Patient denies any chest pain or short of breath no palpitations. Respiratory: patient denied any cough or sputum production. No shortness of breath Neurologic: Patient denied any numbness or tingling headache. Musculoskeletal: Patient denies any complaints of joint swelling or deformity. Complete review of systems could not be obtained from the patient. Past Medical History Past Medical History: Atrial Fibrillation, Coronary Artery Disease (CAD), Heart Failure, CVA/TIA, Diabetes Mellitus Additional Past Medical History / Comment(s): has home O2 @ 2L [place],IDDM type II, CVA with some vision changes and difficulty swallowing (eat soft foods)., murmur., states fall April 13, aortic stenosis post TAVR, paroxysmal AFIB History of Any Multi-Drug Resistant Organisms: None Reported Past Surgical History: Heart Catheterization With Stent, Orthopedic Surgery, Tonsillectomy Additional Past Surgical History / Comment(s): Esophageal surgery 2003 pt thinks this was dilation ; Venous graft leg to left arm., right hip fx surgery (11/2018) Past Anesthesia/Blood Transfusion Reactions: No Reported Reaction Date of Last Stent Placement:: 06/2021 Past Psychological History: No Psychological Hx Reported Smoking Status: Never smoker Past Alcohol Use History: None Reported Past Drug Use History: None Reported - Past Family History Mother Family Medical History: Cancer Additional Family Medical History / Comment(s): "Female cancer" father Family Medical History: Diabetes Mellitus Medications and Allergies Home Medications Medication Instructions Recorded Confirmed Type Insulin Detemir [Levemir Flextouch 12 units SQ AC-SUPPER 04/09/16 08/26/21 History Pen] Acetaminophen Tab [Tylenol] 650 mg PO Q6HR PRN tab 06/24/21 08/26/21 Rx Aspirin 81 mg PO DAILY #90 06/24/21 08/26/21 Rx Clopidogrel [Plavix] 75 mg PO DAILY #30 tab 06/24/21 08/26/21 Rx Metoprolol Tartrate [Lopressor] 25 mg PO BID #60 tab 06/24/21 08/26/21 Rx Nitroglycerin Sl Tabs [Nitrostat] 0.4 mg SUBLINGUAL Q5M PRN #60 tab 06/24/21 08/26/21 Rx Escitalopram [Lexapro] 10 mg PO DAILY 07/09/21 08/26/21 History Amiodarone [Cordarone] 200 mg PO BID #60 tab 07/14/21 08/26/21 Rx Apixaban [Eliquis] 2.5 mg PO BID #60 tablet 07/14/21 08/26/21 Rx Atorvastatin [Lipitor] 40 mg PO HS 07/30/21 08/26/21 History Furosemide [Lasix] 20 mg PO DAILY 07/30/21 08/26/21 History Insulin Aspart [NovoLOG] See Protocol SQ TID-W/MEALS PRN 07/30/21 08/26/21 History Pantoprazole [Protonix] 40 mg PO DAILY 07/30/21 08/26/21 History Sennosides-Docusate Sodium 2 tab PO HS PRN 08/26/21 08/26/21 History [Senokot-S] Allergies Allergy/AdvReac Type Severity Reaction Status Date / Time No Known Allergies Allergy Verified 08/26/21 20:13 Physical Exam Vitals: Vital Signs Temp Pulse Resp BP Pulse Ox 08/27/21 11:45 60 16 100/51 96 08/27/21 06:26 60 18 90/47 100 08/27/21 05:03 98.7 F 68 18 89/47 94 L 08/26/21 23:08 64 18 120/60 97 08/26/21 21:33 62 18 118/92 94 L 08/26/21 19:46 68 22 127/75 94 L 08/26/21 19:03 26 H 08/26/21 18:53 95 08/26/21 18:44 97.2 F L 63 19 105/52 56 L Intake and Output 08/26/21 08/27/21 08/27/21 22:59 06:59 14:59 Other: Weight 101.605 kg PHYSICAL EXAMINATION: Patient is lying in the bed comfortably, no acute distress, awake alert and oriented.. HEENT: Normocephalic. Neck is supple. Pupils reactive. Nostrils clear. Oral cavity is moist. Neck reveals no JVD, carotid bruits, or thyromegaly. CHEST EXAMINATION: Trachea is central. Symmetrical expansion. Bibasilar diminished sounds, Lung pulido clear to auscultation and percussion. CARDIAC: Normal S1, S2 with no gallops. No murmurs ABDOMEN: Soft. Bowel sounds normal. No organomegaly. No abdominal bruits. Extremities: trace pedal edema. No clubbing or cyanosis Neurologically awake, alert, oriented x2-3 with well-coordinated movements. No focal deficits noted Skin: No rash or skin lesions. Psychiatric: Cooperative. Musculoskeletal: No joint swelling or deformity. Normal range of motion. Results CBC & Chem 7: 08/27/21 06:12 08/27/21 06:12 Labs: Abnormal Lab Results - Last 24 Hours (Table) 08/26/21 08/26/21 08/26/21 Range/Units 19:44 19:44 19:44 WBC 14.6 H (3.8-10.6) k/uL RBC 2.64 L (3.80-5.40) m/uL Hgb 7.7 L D (11.4-16.0) gm/dL Hct 26.4 L (34.0-46.0) % MCHC 29.2 L (31.0-37.0) g/dL RDW 16.0 H (11.5-15.5) % Neutrophils # 13.0 H (1.3-7.7) k/uL Lymphocytes # 0.7 L (1.0-4.8) k/uL PT 12.4 H (9.0-12.0) sec INR 1.2 H (<1.2) Sodium 135 L (137-145) mmol/L Chloride 89 L (98-107) mmol/L Carbon Dioxide 39 H (22-30) mmol/L BUN 43 H (7-17) mg/dL Glucose 221 H (74-99) mg/dL Calcium (8.4-10.2) mg/dL Troponin I (0.000-0.034) ng/mL Albumin 2.8 L (3.5-5.0) g/dL Urine Appearance (Clear) Urine Protein (Negative) Urine Blood (Negative) Ur Leukocyte Esterase (Negative) Urine WBC (0-5) /hpf Amorphous Sediment (None) /hpf Urine Bacteria (None) /hpf Hyaline Casts (0-2) /lpf Urine Mucus (None) /hpf Urine Yeast (Budding) (None) /hpf 08/26/21 08/27/21 08/27/21 Range/Units 19:44 01:46 06:12 WBC 13.8 H 13.7 H (3.8-10.6) k/uL RBC 2.44 L 2.39 L (3.80-5.40) m/uL Hgb 7.2 L 7.1 L (11.4-16.0) gm/dL Hct 23.6 L 23.0 L (34.0-46.0) % MCHC 30.3 L 30.8 L (31.0-37.0) g/dL RDW 16.0 H 15.9 H (11.5-15.5) % Neutrophils # 12.1 H (1.3-7.7) k/uL Lymphocytes # 0.7 L (1.0-4.8) k/uL PT (9.0-12.0) sec INR (<1.2) Sodium (137-145) mmol/L Chloride (98-107) mmol/L Carbon Dioxide (22-30) mmol/L BUN (7-17) mg/dL Glucose (74-99) mg/dL Calcium (8.4-10.2) mg/dL Troponin I 0.051 H* (0.000-0.034) ng/mL Albumin (3.5-5.0) g/dL Urine Appearance (Clear) Urine Protein (Negative) Urine Blood (Negative) Ur Leukocyte Esterase (Negative) Urine WBC (0-5) /hpf Amorphous Sediment (None) /hpf Urine Bacteria (None) /hpf Hyaline Casts (0-2) /lpf Urine Mucus (None) /hpf Urine Yeast (Budding) (None) /hpf 08/27/21 08/27/21 08/27/21 Range/Units 06:12 06:12 06:54 WBC (3.8-10.6) k/uL RBC (3.80-5.40) m/uL Hgb (11.4-16.0) gm/dL Hct (34.0-46.0) % MCHC (31.0-37.0) g/dL RDW (11.5-15.5) % Neutrophils # (1.3-7.7) k/uL Lymphocytes # (1.0-4.8) k/uL PT (9.0-12.0) sec INR (<1.2) Sodium 136 L (137-145) mmol/L Chloride 88 L (98-107) mmol/L Carbon Dioxide 43 H* (22-30) mmol/L BUN 46 H (7-17) mg/dL Glucose 175 H (74-99) mg/dL Calcium 8.3 L (8.4-10.2) mg/dL Troponin I 0.039 H* (0.000-0.034) ng/mL Albumin (3.5-5.0) g/dL Urine Appearance Cloudy H (Clear) Urine Protein 1+ H (Negative) Urine Blood Trace H (Negative) Ur Leukocyte Esterase Large H (Negative) Urine WBC 48 H (0-5) /hpf Amorphous Sediment Rare H (None) /hpf Urine Bacteria Many H (None) /hpf Hyaline Casts 11 H (0-2) /lpf Urine Mucus Rare H (None) /hpf Urine Yeast (Budding) Rare H (None) /hpf 08/27/21 Range/Units 08:49 WBC (3.8-10.6) k/uL RBC (3.80-5.40) m/uL Hgb (11.4-16.0) gm/dL Hct (34.0-46.0) % MCHC (31.0-37.0) g/dL RDW (11.5-15.5) % Neutrophils # (1.3-7.7) k/uL Lymphocytes # (1.0-4.8) k/uL PT (9.0-12.0) sec INR (<1.2) Sodium (137-145) mmol/L Chloride (98-107) mmol/L Carbon Dioxide (22-30) mmol/L BUN (7-17) mg/dL Glucose (74-99) mg/dL Calcium (8.4-10.2) mg/dL Troponin I 0.041 H* (0.000-0.034) ng/mL Albumin (3.5-5.0) g/dL Urine Appearance (Clear) Urine Protein (Negative) Urine Blood (Negative) Ur Leukocyte Esterase (Negative) Urine WBC (0-5) /hpf Amorphous Sediment (None) /hpf Urine Bacteria (None) /hpf Hyaline Casts (0-2) /lpf Urine Mucus (None) /hpf Urine Yeast (Budding) (None) /hpf Microbiology - Last 24 Hours (Table) 08/27/21 06:54 Urine Culture - Preliminary Urine,Voided Thrombosis Risk Factor Assmnt - DVT/VTE Prophylaxis DVT/VTE Prophylaxis: Pharmacologic Prophylaxis ordered Assessment and Plan Assessment: Generalized weakness and status post fall. Patient felt very weak and collapsed onto the floor. Acute hypoxic respiratory failure requiring oxygen at 4 L via nasal cannula. Recent history of TAVR for severe aortic stenosis on 08/05/2021 Acute on chronic CHF with diastolic dysfunction Coronary disease history of stent placement Paroxysmal atrial fibrillation on anticoagulation with Eliquis Mild elevated troponin level unlikely ACS. Possible acute urinary tract infection. History of CVA with chronic dysphagia History of esophageal stenosis with previous history of esophageal dilations. Normocytic anemia with hemoglobin level around 7.7 Morbid obesity BMI 43.7 Plan: Patient will be continued gentle IV hydration due to history of CHF. Continue with oxygen supplementation. Patient was started ceftriaxone for possible urinary tract infection follow-up culture reports. Continue with telemetry monitoring and cardiac medications. Monitor blood pressure closely. Cardiology and pulmonary is on board. Monitor H&H. Follow-up closely. Prognosis is guarded at this time. Time with Patient: Greater than 30
[2021-08-28 05:38] LABS: Glucose,Whole Blood 67 mg/dL (75-99)
[2021-08-28] MEDS ORDERED: DEXTROSE 50% SYRINGE 50 ML IVP ONE (05:38)
[2021-08-28] MEDS: INSULIN ASPART (NovoLOG) 100 UNIT/ML VIAL SQ SCH ×4 (05:43→20:56)
[2021-08-28 05:50] LABS: Glucose,Whole Blood 158 mg/dL (75-99)
[2021-08-28] MEDS: ESCITALOPRAM 10 MG TAB PO SCH (09:12)
[2021-08-28] MEDS: METOPROLOL TARTRATE 25 MG TAB PO SCH ×2 (09:12→21:48)
[2021-08-28] MEDS: FUROSEMIDE 10 MG/ML 4 ML VIAL IV SCH ×2 (09:12→21:48)
[2021-08-28] MEDS: APIXABAN 2.5 MG TABLET PO SCH ×2 (09:12→21:47)
[2021-08-28] MEDS: AMIODARONE 200 MG TAB PO SCH ×2 (09:12→21:47)
[2021-08-28] MEDS: CLOPIDOGREL 75 MG TAB PO SCH (09:12)
[2021-08-28] MEDS: PANTOPRAZOLE 40 MG TABLET PO SCH (09:12)
[2021-08-28] MEDS: ASPIRIN 81 MG PO SCH (09:13)
[2021-08-28 10:12] LABS: Basophils % (A) 0 %; Eosinophils # (A) 0.2 k/uL (0-0.7); Eosinophils % (A) 2 %; HCT 24.9 % (34.0-46.0); HGB 7.4 gm/dL (11.4-16.0); Hypochromasia Marked; Lymphocytes # (A) 0.7 k/uL (1.0-4.8); Lymphocytes % (A) 7 %; MCHC 29.6 g/dL (31.0-37.0); MCV 97.9 fL (80.0-100.0); Macrocytosis Slight; Mean Platelet Volume 10.6; Monocytes # (A) 0.6 k/uL (0-1.0); Monocytes % (A) 5 %; Neutrophils # (A) 8.4 k/uL (1.3-7.7); Neutrophils % (A) 82 %; Platelet Count 195 k/uL (150-450); RBC 2.54 m/uL (3.80-5.40); RDW 15.9 % (11.5-15.5); WBC 10.2 k/uL (3.8-10.6)
[2021-08-28 10:32] LABS: Calcium 8.5 mg/dL (8.4-10.2); Potassium 3.7 mmol/L (3.5-5.1)
[2021-08-28 11:42] LABS: Glucose,Whole Blood 131 mg/dL (75-99)
--- NOTE | 2021-08-28 15:09 | P.PN ---
Subjective Progress Note Date: 08/28/21 Principal diagnosis: Acute generalized weakness, acute hypoxic respiratory failure, acute CHF, acute urinary tract infection 81-year-old female patient who is post TAVR procedure. Surgery was done on 08/05/2021 and the patient was discharged home. The patient is known to have CAD with previous PCI to LAD and the patient also has had previous history of severe aortic stenosis for which she required the valve replacement. Other comorbid conditions include diabetes mellitus, hypertension and hyperlipidemia and history of atrial fibrillation and previous history of CVA without residual deficits. The patient has had previous episodes of falls. We were involved in her postop care following her TAVR procedure and the patient was seen and the patient did well and the patient was discharged home. Note that her echocardiogram showed a mildly impaired left ventricular ejection fraction of 45-50%. The patient came back to the emergency department yesterday with worsening shortness of breath. The patient was seen on the floor by her son. No loss in consciousness. Apparently she had some loss in balance and she fell. She denies having any dizziness or lightheadedness patient denied having any chest pain. No shortness of breath. Note that she is on long-term articulation with [employer] regarding her history of atrial fibrillation.Other comorbid conditions is chronic anemia. Previous hemoglobin has been in the range of 9.0 and the patient's current hemoglobin is slightly lower. No reported history of GI bleeding. For now, the investigation has been done included an EKG that showed a normal sinus rhythm without any acute ischemic changes. Chest x-ray showed cardiomegaly along with some CHF. WBC was at 13.7 with a hemoglobin of 7.1, BMI was 46 with a creatinine of 1.02 at the time of admission with a potassium level of 3.8. Troponins were 0.03 and 0.04 respectively 2. Note that following her TAVR procedure, the patient underwent a noted echocardiogram that showed improvement in her ejection fraction from a baseline of 45% up to 55-60% and the patient had a normal functioning bioprosthetic aortic valve. Her most recent cardiac catheterization was in May 2021 and it showed heavily calcified LAD. During this current admission, the patient had a negative colon 19 testing. UA showed many bacteria, there were 48 WBCs. Her white cell count was at 13.7 with a hemoglobin of 7.1 as mentioned. Covid 19 testing was negative. On 08/28/2021 patient seen in follow-up on selective care unit, she is lethargic, she requires repeated verbal stimulation and tactile stimulation to arouse, doesn't appear to be any acute distress, she is currently on 4 L of oxygen pulse ox is 97%. She has had no fever overnight, physical exam reveals diffuse crackles bilaterally, her chest x-ray on admission showed the pulmonary interstitial fibrosis, possible CHF. Patient was also found to have urinary tract infection, cultures currently showing yeast species, and final culture is still pending. Current antibiotic coverage is Rocephin. Patient previously had a urinary tract infection related to Morganella morganii and enterococcus faecalis. Will await final cultures. Today's labs have been reviewed, white blood cell count is 10.2, hemoglobin is 7.4, sodium is 140, potassium is 3.7, chloride is 91, CO2 is 41, BUN is 49, creatinine is 1.08, follow-up proBNP was slightly improved but still significantly elevated at 12,006 100, pro-calcitonin level was elevated at 0.59, and urinalysis showed 1+ protein, trace blood, large amount of leuks, 48 leukocytes, many bacteria, mucus, budding yeast. Gen. was tested for COVID-19 twice and she was found to be negative on both tests. She is on oral anticoagulation in the form of Eliquis she is on amiodarone 200 mg twice daily, she is also on IV diuretics with Lasix 40 mg every 12 hours. She is in a -400 mL net fluid balance over last 24 hours. No significant lower extremity edema. Blood culture from 08/27/2021 showed gram-negative bacilli, and patient has recent history of TAVR Objective - Vital Signs Vital signs: Vital Signs Temp 98.3 F 08/28/21 12:00 Pulse 61 08/28/21 12:28 Resp 18 08/28/21 12:28 BP 115/63 08/28/21 12:00 Pulse Ox 98 08/28/21 12:00 Intake & Output 08/27/21 08/28/21 08/28/21 18:59 06:59 18:59 Intake Total 50 Output Total 450 Balance -400 Weight 100.7 kg Intake: Oral 50 Output: Urine 450 Other: Voiding Method External Catheter External Catheter # Bowel Movements 1 - Exam GENERAL EXAM: Very lethargic, 81-year-old white female, on 4 L of oxygen pulse ox of 98% comfortable in no apparent distress. HEAD: Normocephalic/atraumatic. EYES: Normal reaction of pupils, equal size. Conjunctiva pink, sclera white. NOSE: Clear with pink turbinates. THROAT: No erythema or exudates. NECK: No masses, no JVD, no thyroid enlargement, no adenopathy. CHEST: No chest wall deformity. Symmetrical expansion. LUNGS: Equal air entry with bibasilar crackles CVS: Regular rate and rhythm, normal S1 and S2, no gallops, no murmurs, no rubs ABDOMEN: Soft, nontender. No hepatosplenomegaly, normal bowel sounds, no guarding or rigidity. EXTREMITIES: No clubbing, no edema, no cyanosis, 2+ pulses and upper and lower extremities. MUSCULOSKELETAL: Muscle strength and tone normal. SPINE: No scoliosis or deformity SKIN: No rashes CENTRAL NERVOUS SYSTEM: Lethargic No focal deficits, tone is normal in all 4 extremities. - Labs CBC & Chem 7: 08/28/21 09:46 08/28/21 09:46 Labs: Abnormal Lab Results - Last 24 Hours (Table) 08/27/21 08/27/21 08/27/21 Range/Units 13:19 18:50 19:58 RBC (3.80-5.40) m/uL Hgb (11.4-16.0) gm/dL Hct (34.0-46.0) % MCHC (31.0-37.0) g/dL RDW (11.5-15.5) % Neutrophils # (1.3-7.7) k/uL Lymphocytes # (1.0-4.8) k/uL Chloride (98-107) mmol/L Carbon Dioxide (22-30) mmol/L BUN (7-17) mg/dL Creatinine (0.52-1.04) mg/dL Glucose (74-99) mg/dL POC Glucose (mg/dL) 134 H 123 H (75-99) mg/dL Procalcitonin 0.59 H (0.02-0.09) ng/mL 08/28/21 08/28/21 08/28/21 Range/Units 05:36 05:49 09:46 RBC 2.54 L (3.80-5.40) m/uL Hgb 7.4 L (11.4-16.0) gm/dL Hct 24.9 L (34.0-46.0) % MCHC 29.6 L (31.0-37.0) g/dL RDW 15.9 H (11.5-15.5) % Neutrophils # 8.4 H (1.3-7.7) k/uL Lymphocytes # 0.7 L (1.0-4.8) k/uL Chloride (98-107) mmol/L Carbon Dioxide (22-30) mmol/L BUN (7-17) mg/dL Creatinine (0.52-1.04) mg/dL Glucose (74-99) mg/dL POC Glucose (mg/dL) 67 L 158 H (75-99) mg/dL Procalcitonin (0.02-0.09) ng/mL 08/28/21 08/28/21 Range/Units 09:46 11:38 RBC (3.80-5.40) m/uL Hgb (11.4-16.0) gm/dL Hct (34.0-46.0) % MCHC (31.0-37.0) g/dL RDW (11.5-15.5) % Neutrophils # (1.3-7.7) k/uL Lymphocytes # (1.0-4.8) k/uL Chloride 91 L (98-107) mmol/L Carbon Dioxide 41 H* (22-30) mmol/L BUN 49 H (7-17) mg/dL Creatinine 1.08 H (0.52-1.04) mg/dL Glucose 126 H (74-99) mg/dL POC Glucose (mg/dL) 131 H (75-99) mg/dL Procalcitonin (0.02-0.09) ng/mL Microbiology - Last 24 Hours (Table) 08/27/21 06:54 Urine Culture - Preliminary Urine,Voided Yeast species 08/27/21 01:46 Blood Culture Gram Stain - Preliminary Blood 08/27/21 01:46 Blood Culture - Final Blood Assessment and Plan Plan: Assessment: #1. Acute generalized weakness, and patient was found collapsed on the floor at home #2. Acute hypoxic respiratory failure related to acute exacerbation of diastolic CHF #3. Acute urinary tract infection #4. Possible gram-negative bacteremia versus contamination, follow blood cultures have been sent, blood culture from 08/27/2021 shows gram-negative bacilli #5. Severe symptomatic aortic valve stenosis, status post transcatheter aortic valve replacement with 26 mm Evolute Core valve Pro Plus valve prosthesis, on 08/05/2021 #6. Recent hospitalization in June, for acute exacerbation of CHF with mildly impaired left ventricular systolic dysfunction and EF of 45-50% #7. History of CVA #8. General medical debility #9. Recent fall history #10. Recent history of urinary tract infection, with urine culture positive for Morganella morganii and enterococcus faecalis, sensitive to ciprofloxacin on which the patient is currently on #11. Recently diagnosed new onset of atrial fibrillation, currently on am iodarone and Eliquis, currently in sinus mechanism #12. Coronary artery disease with previous stenting #13. Previous history of non-ST elevated myocardial infarction #14. Never smoker #15. Dysphagia possibly related to previous history of CVA, and esophageal stenosis with previous history of esophageal dilatation #16. Possible intravascular volume depletion/dehydration #17. Troponin leak #18. History of chronic anemia with a hemoglobin is 7.1, no signs of any acute GI bleeding Plan: Continue current antibiotic coverage Blood culture has been noted, urine cultures still pending Patient is on Rocephin, will continue with current coverage We'll send follow-up blood cultures Continue IV Lasix Maintain aspiration precautions Continue oral anticoagulation We will await final cultures We'll continue to follow I performed a history & physical examination of the patient and discussed their management with my nurse practitioner, Amber Morley. I reviewed the nurse practitioner's note and agree with the documented findings and plan of care. Lung sounds are positive for diminished breath sounds throughout the lung pulido. The findings and the impression was discussed with the patient. I attest to the documentation by the nurse practitioner. Time with Patient: Less than 30
--- NOTE | 2021-08-28 16:04 | PN ---
PROGRESS NOTE This patient has a known case of atrial fibrillation, coronary artery disease with previous stent placement, CHF with COPD and also recent TAVR done in July of 2021. She was brought to the hospital by her son after she was found on the floor of the bathroom. She claims she fell but did not have any loss of consciousness. Patient has been on Eliquis for paroxysmal atrial fibrillation. The patient had mildly elevated troponins which were not consistent with acute coronary syndrome or myocardial damage. The patient was also seen by the gatehouse attendant. The patient appears to be lethargic. Examination of the lungs showed crackles bilaterally. Patient was also found to have urinary tract infection. Cultures are pending. Patient is on Rocephin. COVID test is negative. Patient is on Eliquis and amiodarone 200 mg p.o. b.i.d., Lasix 40 mg q.12 hours. Blood cultures are showing some Gram-negative bacilli. Patient recently had a TAVR. The possibility of infection to be considered. FINAL IMPRESSION: 1. Altered mental status. 2. History of fall. 3. Atrial fibrillation. 4. Diastolic congestive heart failure. Continue antibiotic therapy. Wait for culture reports. Continue the diuretics and anticoagulation. Further recommendations will depend upon the clinical course. If necessary a BELKYS examination may be considered. Prognosis is guarded. MMODL / IJN: [id number] /
[2021-08-28] MEDS: INSULIN DETEMIR (LEVEMIR) 100 UNIT/ML SYR SQ SCH (16:39)
[2021-08-28 16:54] LABS: Glucose,Whole Blood 120 mg/dL (75-99)
[2021-08-28 20:05] LABS: Glucose,Whole Blood 122 mg/dL (75-99)
[2021-08-28] MEDS: ATORVASTATIN 40 MG TAB PO SCH (21:47)
[2021-08-28] MEDS: FLUCONAZOLE 100 MG TAB PO SCH (21:50)
[2021-08-29 06:08] LABS: Glucose,Whole Blood 153 mg/dL (75-99)
[2021-08-29] MEDS: INSULIN ASPART (NovoLOG) 100 UNIT/ML VIAL SQ SCH ×4 (07:00→20:18)
[2021-08-29] MEDS: FUROSEMIDE 10 MG/ML 4 ML VIAL IV SCH (08:01)
[2021-08-29] MEDS ORDERED: VANCOMYCIN IV PER PHARMACY 1 EACH MISC MISCELLANE PRN (11:13)
--- NOTE | 2021-08-29 11:19 | P.PN ---
Subjective Progress Note Date: 08/29/21 81-year-old female patient who is post TAVR procedure. Surgery was done on 08/05/2021 and the patient was discharged home. The patient is known to have CAD with previous PCI to LAD and the patient also has had previous history of severe aortic stenosis for which she required the valve replacement. Other comorbid conditions include diabetes mellitus, hypertension and hyperlipidemia and history of atrial fibrillation and previous history of CVA without residual deficits. The patient has had previous episodes of falls. We were involved in her postop care following her TAVR procedure and the patient was seen and the patient did well and the patient was discharged home. Note that her echocardiog florentino showed a mildly impaired left ventricular ejection fraction of 45-50%. The patient came back to the emergency department yesterday with worsening shortness of breath. The patient was seen on the floor by her son. No loss in consciousness. Apparently she had some loss in balance and she fell. She denies having any dizziness or lightheadedness patient denied having any chest pain. No shortness of breath. Note that she is on long-term articulation with [employer] regarding her history of atrial fibrillation.Other comorbid conditions is chronic anemia. Previous hemoglobin has been in the range of 9.0 and the patient's current hemoglobin is slightly lower. No reported history of GI blee ding. For now, the investigation has been done included an EKG that showed a normal sinus rhythm without any acute ischemic changes. Chest x-ray showed cardiomegaly along with some CHF. WBC was at 13.7 with a hemoglobin of 7.1, BMI was 46 with a creatinine of 1.02 at the time of admission with a potassium level of 3.8. Troponins were 0.03 and 0.04 respectively 2. Note that following her TAVR procedure, the patient underwent a noted echocardiogram that showed improvement in her ejection fraction from a baseline of 45% up to 55-60% and the patient had a normal functioning bioprosthetic aortic valve. Her most recent cardiac catheterization was in May 2021 and it showed heavily calcified LAD. During this current admission, the patient had a negative colon 19 testing. UA showed many bacteria, there were 48 WBCs. Her white cell count was at 13.7 with a hemoglobin of 7.1 as mentioned. Covid 19 testing was negative. On 08/28/2021 patient seen in follow-up on selective care unit, she is lethargic, she requires repeated verbal stimulation and tactile stimulation to arouse, doesn't appear to be any acute distress, she is currently on 4 L of oxygen pulse ox is 97%. She has had no fever overnight, physical exam reveals diffuse crackles bilaterally, her chest x-ray on admission showed the pulmonary interstitial fibrosis, possible CHF. Patient was also found to have urinary t ract infection, cultures currently showing yeast species, and final culture is still pending. Current antibiotic coverage is Rocephin. Patient previously had a urinary tract infection related to Morganella morganii and enterococcus faecalis. Will await final cultures. Today's labs have been reviewed, white blood cell count is 10.2, hemoglobin is 7.4, sodium is 140, potassium is 3.7, chloride is 91, CO2 is 41, BUN is 49, creatinine is 1.08, follow-up proBNP was slightly improved but still significantly elevated at 12,006 100, pro-calcitonin level was elevated at 0.59, and urinalysis showed 1+ protein, trace blood, large amount of leuks, 48 leukocytes, many bacteria, mucus, budding yeast. Gen. was tested for COVID-19 twice and she was found to be negative on both tests. She is on oral anticoagulation in the form of Eliquis she is on amiodarone 200 mg twice daily, she is also on IV diuretics with Lasix 40 mg every 12 hours. She is in a -400 mL net fluid balance over last 24 hours. No significant lower extremity edema. Blood culture from 08/27/2021 showed gram-negative bacilli, and patient has recent history of TAVR 08/29/2021, the patient is very much lethargic. She is sleepy. She is arousable yet if left off the ventilator, the patient goes back to sleep. The patient is currently on a BiPAP at a pressure of 12/6 with an FiO2 of 40%. Noted earlier, she was on 4 L about 2 by nasal cannula and she gets transitioned to BiPAP. Note that the patient was suspected to be septic. There are several sets of blood cultures are showing gram-positive cocci. She has also urine culture that showing Bertha. I think the patient has a bacteremia with gram- positive cocci and that the culprit for underlying septicemia. I'm going to give her vancomycin dose today. Note that the patient has had previous UTIs with Enterococcus faecalis and Morganella morganii. For now, the patient is on a BiPAP. Chest x-ray showing interstitial edema along with cardiomegaly. The patient is quite lethargic. She has an external Mustafa-like catheter in the urine output is ordered of 20-30 mL an hour. IV fluids currently running at 10 mL an hour of normal saline. The patient is on IV Lasix but will be discontinued obesity with an underlying septicemia. There is some trace lower extremity edema at this point in time. She was in a negative fluid balance over the past 24 hours. Note that her pro-calcitonin level was at 0.59 from yesterday. No labs available from today still. Chest x-ray was noted. Objective - Vital Signs Vital signs: Vital Signs Temp 97.8 F 08/29/21 08:03 Pulse 56 L 08/29/21 08:03 Resp 18 08/29/21 08:03 BP 110/54 08/29/21 08:03 Pulse Ox 95 08/29/21 08:27 Intake & Output 08/28/21 08/29/21 08/29/21 18:59 06:59 18:59 Output Total 1570 Balance -1570 Weight 102.5 kg Output: Urine 1570 Other: Voiding Method External Catheter External Catheter External Catheter - Exam GENERAL EXAM: Very lethargic, 81-year-old white female, on 12/6 cm of water and the patient was transitioned to BiPAP earlier this morning because of worsening lethargy and shortness of breath. HEAD: Normocephalic/atraumatic. EYES: Normal reaction of pupils, equal size. Conjunctiva pink, sclera white. NOSE: Clear with pink turbinates. THROAT: No erythema or exudates. NECK: No masses, no JVD, no thyroid enlargement, no adenopathy. CHEST: No chest wall deformity. Symmetrical expansion. LUNGS: Equal air entry with bibasilar crackles CVS: Regular rate and rhythm, normal S1 and S2, no gallops, no murmurs, no rubs ABDOMEN: Soft, nontender. No hepatosplenomegaly, normal bowel sounds, no gu arding or rigidity. EXTREMITIES: No clubbing, no edema, no cyanosis, 2+ pulses and upper and lower e xtremities. MUSCULOSKELETAL: Muscle strength and tone normal. SPINE: No scoliosis or deformity SKIN: No rashes CENTRAL NERVOUS SYSTEM: Lethargic No focal deficits, tone is normal in all 4 extremities. There is interval worsening in her status. The patient is noted to be more lethargic compared to yesterday. She is still moving all 4 extremities and she remains arousable. Neurologic exam is nonfocal. - Labs CBC & Chem 7: 08/28/21 09:46 08/28/21 09:46 Labs: Abnormal Lab Results - Last 24 Hours (Table) 08/28/21 08/28/21 08/28/21 Range/Units 11:38 16:29 20:04 POC Glucose (mg/dL) 131 H 120 H 122 H (75-99) mg/dL 08/29/21 Range/Units 06:06 POC Glucose (mg/dL) 153 H (75-99) mg/dL Microbiology - Last 24 Hours (Table) 08/28/21 15:15 Blood Culture Gram Stain - Preliminary Blood 08/28/21 15:25 Blood Culture Gram Stain - Preliminary Blood 08/28/21 15:25 Blood Culture - Final Blood 08/28/21 15:15 Blood Culture - Final Blood 08/27/21 01:46 Blood Culture - Final Blood 08/27/21 01:46 Blood Culture Gram Stain - Preliminary Blood 08/27/21 06:54 Urine Culture - Preliminary Urine,Voided Yeast species Assessment and Plan Plan: #1. Acute sepsis with gram-positive cocci with several blood cultures being positive. Consider enterococcus septicemia. Consider event staphylococcal septicemia. The patient will be started on a combination of antibiotics including vancomycin and Rocephin. We'll stop the diuretics for now. The patient is very much lethargic this morning and the patient was placed on BiPAP for respiratory support. Also consider possibility of endocarditis knowing that the patient has undergone a recent TAVR #2. Acute hypoxic respiratory failure related to acute exacerbation of diastolic CHF, currently on BiPAP for respiratory support #3. Acute urinary tract infection, the patient had Bertha in the urine and suspected bacteremia probably of a urinary source and the patient has gram- positive cocci in the blood, consider enterococcus septicemia #4. Sepsis secondary to gram-positive cocci #5. Severe symptomatic aortic valve stenosis, status post transcatheter aortic valve replacement with 26 mm Evolute Core valve Pro Plus valve prosthesis, on 08/05/2021 #6. Recent hospitalization in June, for acute exacerbation of CHF with mildly impaired left ventricular systolic dysfunction and EF of 45-50% #7. History of CVA #8. General medical debility #9. Recent fall history #10. Recent history of urinary tract infection, with urine culture positive for Morganella morganii and enterococcus faecalis, sensitive to ciprofloxacin on which the patient is currently on #11. Recently diagnosed new onset of atrial fibrillation, currently on amiodarone and Eliquis, currently in sinus mechanism #12. Coronary artery disease with previous stenting #13. Previous history of non-ST elevated myocardial infarction #14. Never smoker #15. Dysphagia possibly related to previous history of CVA, and esophageal stenosis with previous history of esophageal dilatation #16. Possible intravascular volume depletion/dehydration #17. Troponin leak #18. History of chronic anemia with a hemoglobin is 7.1, no signs of any acute GI bleeding Plan: Continue IV Rocephin and started to 2 g every 24 hours The patient IV vancomycin Awaiting final culture results ID consultation and consider addition of daptomycin Continue BiPAP for respiratory support Add Diflucan 100 mg every 24 hours for any potential candidal cystitis Stop Lasix for now Maintain aspiration precautions Continue oral anticoagulation We will await final cultures We'll continue to follow, establish CODE STATUS. Based on the advanced directives as reported by the family, the patient did not want any form of intubation mechanical ventilation. We'll bring all the paperwork to the hospital for confirmation.
[2021-08-29] MEDS: METOPROLOL TARTRATE 25 MG TAB PO SCH ×2 (12:45→20:20)
[2021-08-29] MEDS: CLOPIDOGREL 75 MG TAB PO SCH (12:45)
[2021-08-29] MEDS: AMIODARONE 200 MG TAB PO SCH ×2 (12:45→20:20)
[2021-08-29] MEDS: APIXABAN 2.5 MG TABLET PO SCH ×2 (12:45→20:20)
[2021-08-29] MEDS: FLUCONAZOLE 100 MG TAB PO SCH (12:45)
[2021-08-29] MEDS: ASPIRIN 81 MG PO SCH (12:45)
[2021-08-29] MEDS: ESCITALOPRAM 10 MG TAB PO SCH (12:45)
[2021-08-29] MEDS: PANTOPRAZOLE 40 MG TABLET PO SCH (12:45)
[2021-08-29 13:11] LABS: Anisocytosis Slight; Basophils % (A) 0 %; Eosinophils # (A) 0.2 k/uL (0-0.7); Eosinophils % (A) 2 %; HCT 25.4 % (34.0-46.0); HGB 7.6 gm/dL (11.4-16.0); Hypochromasia Marked; Lymphocytes # (A) 0.5 k/uL (1.0-4.8); Lymphocytes % (A) 5 %; MCH 29.7 pg (25.0-35.0); MCHC 30.2 g/dL (31.0-37.0); MCV 98.4 fL (80.0-100.0); Macrocytosis Slight; Mean Platelet Volume 10.2; Monocytes # (A) 0.5 k/uL (0-1.0); Monocytes % (A) 6 %; Neutrophils # (A) 7.3 k/uL (1.3-7.7); Neutrophils % (A) 83 %; Platelet Count 195 k/uL (150-450); Poikilocytosis Slight; RBC 2.58 m/uL (3.80-5.40); RDW 16.3 % (11.5-15.5); WBC 8.8 k/uL (3.8-10.6)
[2021-08-29 13:36] LABS: Albumin 2.5 g/dL (3.5-5.0); Calcium 8.3 mg/dL (8.4-10.2); Potassium 3.8 mmol/L (3.5-5.1); Total Bilirubin 0.8 mg/dL (0.2-1.3); Total Protein 6.4 g/dL (6.3-8.2)
--- NOTE | 2021-08-29 14:09 | P.PN ---
Subjective Progress Note Date: 08/29/21 HISTORY OF PRESENT ILLNESS: This is a 81-year-old female with a past medical history significant for atrial fibrillation, coronary artery disease with previous angioplasty of LAD, co ngestive heart failure, COPD, and recent TAVR in July 2021. Patient follows in the office with Dr. Stratton. We have been asked to see the patient in consultation for CHF. Patient examined at the bedside. Patient somewhat sleepy during examination. She was brought to the hospital after her son found her on the floor of the bathroom. She denies losing consciousness. The patient states that she lost her balance and fell. She denies having any dizziness or lightheadedness prior to this. She denies any chest pain or pressure. She currently denies any shortness of breath. The patient is on Eliquis for a history of atrial fibrillation. Her hemoglobin upon admission was in the sevens. Previous hemoglobin was around 9. The patient denies any signs of GI bleeding. EKG reveals sinus rhythm with nonspecific ST-T wave changes Chest xray pulmonary interstitial fibrosis. Congestive heart failure probably present in the heart and lungs not significantly different than last exam. Laboratory data: WBC 13.7. Hemoglobin 7.1. Platelet count 209. Sodium 136. Potassium 3.8. BUN 46. Crit and 1.02. Troponin 0.039. 0.041. Most recent echocardiogram obtained in July 2021 revealed ejection fraction 55-60%, normally functioning bioprosthetic valve, mild mitral regurgitation, [id number] tricuspid regurgitation, mild pulmonary hypertension Cardiac catheterization history: May 2021 revealing abnormal eye. Heavily calcified proximal LAD at 0.69. Severe aortic stenosis. 08/29/2021: Patient is bed, appears to be lethargic, BiPAP is at bedside, currently on nasal cannula at 3 L with pulse ox is 95%. Heart rate is in the 50s, blood pressure 123/53. Repeat blood work reveals hemoglobin is 7.6, WBC 8.8. CO2 is 41, creatinine 0.85. Blood cultures are in progress. Blood cultures consistently positive for gram-positive cocci.Patient is treated for UTI but urine culture is positive for Bertha. Echocardiogram reveals EF of 50-55%, mild periprosthetic regurgitation of the bioprosthetic aortic valve. TAVR area and moderate tricuspid regurgitation, moderate pulmonary hypertension. REVIEW OF SYSTEMS: At the time of my exam: CONSTITUTIONAL: Denies fever or chills. HEENT: Denies blurred vision, vision changes, or eye pain. Denies hemoptysis CARDIOVASCULAR: Denies chest pain. Denies orthopnea. Denies PND. Denies palpitations RESPIRATORY: Denies shortness of breath. GASTROINTESTINAL: Denies abdominal pain. Denies nausea or vomiting. HEMATOLOGIC: Denies bleeding disorders. GENITOURINARY: Denies any blood in urine. SKIN: Denies pruitis. Denies rash. PHYSICAL EXAM: VITAL SIGNS: Reviewed. GENERAL: Well-developed in no acute distress. HEENT: Head is normocephalic. Pupils are equal, round. Sclerae anicteric. LUNGS: Respirations even and unlabored. Lungs diminished and crackles bilaterally. HEART: Regular rate and rhythm. S1 and S2 heard. + systolic murmur ABDOMEN: Soft. Nondistended. Nontender. EXTREMITIES: Normal range of motion. No clubbing or cyanosis. Peripheral pulses intact. 1-2+ lower extremity edema NEUROLOGIC:Patient is resting quietly, lethargic. Oriented x 3. ASSESSMENT: S/P mechanical fall Acute on chronic diastolic congestive heart failure Coronary artery disease Hx of severe aortic stenosis, s/p TAVR 07/2021 COPD Paroxysmal atrial fibrillation, on anticoagulation with Eliquis Anemia Leukocytosis Abnormal troponins, not suggestive of acute coronary syndrome Obesity Metabolic encephalopathy Gram-positive bacteremia, unclear source PLAN: Continue Eliquis. monitor hemoglobin Plan for BELKYS next week. Further recommendations pending patient course Nurse practitioner note has been reviewed by physician. Signing provider agrees with the documented findings, assessment, and plan of care. Objective - Vital Signs Vital signs: Vital Signs Temp 97.8 F 08/29/21 08:03 Pulse 56 L 08/29/21 08:03 Resp 18 08/29/21 08:03 BP 110/54 08/29/21 08:03 Pulse Ox 95 08/29/21 08:27 Intake & Output 08/28/21 08/29/21 08/29/21 18:59 06:59 18:59 Output Total 1570 Balance -1570 Weight 102.5 kg Output: Urine 1570 Other: Voiding Method External Catheter External Catheter External Catheter - Labs CBC & Chem 7: 08/29/21 12:42 08/29/21 12:47 Labs: Abnormal Lab Results - Last 24 Hours (Table) 08/28/21 08/28/21 08/28/21 Range/Units 09:46 09:46 11:38 RBC 2.54 L (3.80-5.40) m/uL Hgb 7.4 L (11.4-16.0) gm/dL Hct 24.9 L (34.0-46.0) % MCHC 29.6 L (31.0-37.0) g/dL RDW 15.9 H (11.5-15.5) % Neutrophils # 8.4 H (1.3-7.7) k/uL Lymphocytes # 0.7 L (1.0-4.8) k/uL Chloride 91 L (98-107) mmol/L Carbon Dioxide 41 H* (22-30) mmol/L BUN 49 H (7-17) mg/dL Creatinine 1.08 H (0.52-1.04) mg/dL Glucose 126 H (74-99) mg/dL POC Glucose (mg/dL) 131 H (75-99) mg/dL 08/28/21 08/28/21 08/29/21 Range/Units 16:29 20:04 06:06 RBC (3.80-5.40) m/uL Hgb (11.4-16.0) gm/dL Hct (34.0-46.0) % MCHC (31.0-37.0) g/dL RDW (11.5-15.5) % Neutrophils # (1.3-7.7) k/uL Lymphocytes # (1.0-4.8) k/uL Chloride (98-107) mmol/L Carbon Dioxide (22-30) mmol/L BUN (7-17) mg/dL Creatinine (0.52-1.04) mg/dL Glucose (74-99) mg/dL POC Glucose (mg/dL) 120 H 122 H 153 H (75-99) mg/dL Microbiology - Last 24 Hours (Table) 08/28/21 15:15 Blood Culture Gram Stain - Preliminary Blood 08/28/21 15:25 Blood Culture Gram Stain - Preliminary Blood 08/28/21 15:25 Blood Culture - Final Blood 08/28/21 15:15 Blood Culture - Final Blood 08/27/21 01:46 Blood Culture - Final Blood 08/27/21 01:46 Blood Culture Gram Stain - Preliminary Blood 08/27/21 06:54 Urine Culture - Preliminary Urine,Voided Yeast species
[2021-08-29] MEDS: VANCOMYCIN 1,750 MG in SODIUM CHLORIDE 0.9% 500 ML 500 ML IVPB SCH (14:30)
--- NOTE | 2021-08-29 15:26 | XR ---
EXAMINATION TYPE: XR chest 1V portable DATE OF EXAM: 08/29/2021 COMPARISON: 08/26/2021 INDICATION: CHF TECHNIQUE: Single frontal view of the chest is obtained. FINDINGS: The heart size is enlarged. The pulmonary vasculature is indistinct. Diffuse increased lung markings are present. Findings are nonspecific. Pulmonary edema and atypical p neumonia could be considered. Small bilateral pleural effusions have developed. There is an old fract ure of the right humerus. IMPRESSION: 1. Atypical pulmonary edema or atypical pneumonia should be considered. 2. Developing small bilateral pleural effusions. 3. Continued follow-up is recommended.
[2021-08-29 16:58] LABS: Glucose,Whole Blood 145 mg/dL (75-99)
[2021-08-29] MEDS: INSULIN DETEMIR (LEVEMIR) 100 UNIT/ML SYR SQ SCH (17:10)
[2021-08-29 19:38] LABS: Glucose,Whole Blood 145 mg/dL (75-99)
[2021-08-29] MEDS: ATORVASTATIN 40 MG TAB PO SCH (20:20)
--- NOTE | 2021-08-29 23:57 | P.PN ---
Subjective Progress Note Date: 08/28/21 Patient is a 81-year-old female with a known history of on anticoagulation with Eliquis and amiodarone, hypertension, diabetes type 2 insulin-dependent, history of CVA with vision changes and difficulty swallowing, heart murmur, aortic stenosis status post on TAVR on 08/05/2021, coronary artery disease history of stent placement and multiple medical problems including morbid obesity with a BMI 43.7 presents to ER due to complaints of generalized weakness, shortness of breath and falls. Patient states that she lost balance and fell. Denied any complaints of dizziness or lightheadedness. No complaints of chest pain or shortness of breath. On admission blood pressure was 105/52 pulse 63 respiration 19 pulse ox 90% on 4 L oxygen via nasal cannula. CT head and cervical spine showed bilateral old occipital infarcts. No acute intracranial abnormality. Cerebral atrophy. Brain is not changed compared to old exam. Minor degenerative changes in the cervical spine. No fracture. CT of fibula showed no acute abnormality of the right tibia and fibula. X-ray of the pelvis showed no acute abnormality of the pelvis. No fracture seen. Chest x- ray showed pulmonary interstitial fibrosis. CHF probably present and the heart and lungs not significantly different than last exam. Laboratory test showed WBC 14.6 hemoglobin 7.7 and platelets 278 INR 1.2 Sodium 135 potassium 4.3 chloride 89 bicarb is 39 BUN 43 and creatinine 0.89 and BMP 20249 Troponin 0 0.051, 0.039 and albumin 2.8 Urinalysis showed cloudy with 1+ protein trace blood large leukocyte esterase WBCs 48 Coronavirus PCR not detected. 08/28/2021 Patient is currently in the select care unit. Patient is a lethargic and not easily arousable. Otherwise patient has been afebrile. Patient is being current on antibiotics of ceftriaxone. Urine culture is pending. Blood cultures showed gram-negative bacilli. No episodes of vomiting. Laboratory showed WBC 10.2 hemoglobin 7.4 and platelets 195 Sodium 140 potassium 3.7 chloride 91 bicarb is 41 BUN 49 creatinine 1.08. Patient was also IV Lasix. Current medications reviewed. Objective - Vital Signs Vital signs: Vital Signs Temp 97.3 F L 08/28/21 20:00 Pulse 56 L 08/28/21 20:00 Resp 18 08/28/21 20:00 BP 115/57 08/28/21 20:00 Pulse Ox 99 08/28/21 20:00 Intake & Output 08/28/21 08/28/21 08/29/21 06:59 18:59 06:59 Intake Total 50 Output Total 450 300 Balance -400 -300 Weight 100.7 kg Intake: Oral 50 Output: Urine 450 300 Other: Voiding Method External Catheter External Catheter # Bowel Movements 1 - Exam PHYSICAL EXAMINATION: Patient is currently lying in the bed. Very lethargic and drowsy... HEENT: Normocephalic. Neck is supple. Pupils reactive. Nostrils clear. Oral cavity is moist. Neck reveals no JVD, carotid bruits, or thyromegaly. CHEST EXAMINATION: Trachea is central. Symmetrical expansion. Bibasilar diminished sounds, Lung pulido clear to auscultation and percussion. CARDIAC: Normal S1, S2 with no gallops. No murmurs ABDOMEN: Soft. Bowel sounds normal. No organomegaly. No abdominal bruits. Extremities: trace pedal edema. No clubbing or cyanosis Neurologically lethargic and drowsy.. No gross focal deficits noted Skin: No rash or skin lesions. Psychiatric: Could not be assessed at this time. Musculoskeletal: No joint swelling or deformity. - Labs CBC & Chem 7: 08/29/21 12:42 08/29/21 12:47 Labs: Abnormal Lab Results - Last 24 Hours (Table) 08/28/21 08/28/21 08/28/21 Range/Units 05:36 05:49 09:46 RBC 2.54 L (3.80-5.40) m/uL Hgb 7.4 L (11.4-16.0) gm/dL Hct 24.9 L (34.0-46.0) % MCHC 29.6 L (31.0-37.0) g/dL RDW 15.9 H (11.5-15.5) % Neutrophils # 8.4 H (1.3-7.7) k/uL Lymphocytes # 0.7 L (1.0-4.8) k/uL Chloride (98-107) mmol/L Carbon Dioxide (22-30) mmol/L BUN (7-17) mg/dL Creatinine (0.52-1.04) mg/dL Glucose (74-99) mg/dL POC Glucose (mg/dL) 67 L 158 H (75-99) mg/dL 08/28/21 08/28/21 08/28/21 Range/Units 09:46 11:38 16:29 RBC (3.80-5.40) m/uL Hgb (11.4-16.0) gm/dL Hct (34.0-46.0) % MCHC (31.0-37.0) g/dL RDW (11.5-15.5) % Neutrophils # (1.3-7.7) k/uL Lymphocytes # (1.0-4.8) k/uL Chloride 91 L (98-107) mmol/L Carbon Dioxide 41 H* (22-30) mmol/L BUN 49 H (7-17) mg/dL Creatinine 1.08 H (0.52-1.04) mg/dL Glucose 126 H (74-99) mg/dL POC Glucose (mg/dL) 131 H 120 H (75-99) mg/dL 08/28/21 Range/Units 20:04 RBC (3.80-5.40) m/uL Hgb (11.4-16.0) gm/dL Hct (34.0-46.0) % MCHC (31.0-37.0) g/dL RDW (11.5-15.5) % Neutrophils # (1.3-7.7) k/uL Lymphocytes # (1.0-4.8) k/uL Chloride (98-107) mmol/L Carbon Dioxide (22-30) mmol/L BUN (7-17) mg/dL Creatinine (0.52-1.04) mg/dL Glucose (74-99) mg/dL POC Glucose (mg/dL) 122 H (75-99) mg/dL Microbiology - Last 24 Hours (Table) 08/27/21 01:46 Blood Culture - Final Blood 08/27/21 01:46 Blood Culture Gram Stain - Preliminary Blood 08/27/21 06:54 Urine Culture - Preliminary Urine,Voided Yeast species Assessment and Plan Assessment: Generalized weakness and status post fall. Patient felt very weak and collapsed onto the floor. Acute hypoxic respiratory failure requiring oxygen at 4 L via nasal cannula. Possible acute urinary tract infection. Recent history of TAVR for severe aortic stenosis on 08/05/2021 Acute on chronic CHF with diastolic dysfunction Coronary disease history of stent placement Paroxysmal atrial fibrillation on anticoagulation with Eliquis Mild elevated troponin level unlikely ACS. History of CVA with chronic dysphagia History of esophageal stenosis with previous history of esophageal dilations. Normocytic anemia with hemoglobin level around 7.7 Morbid obesity BMI 43.7 Plan: Patient will continue on antibiotics in the form of ceftriaxone. Follow-up urine culture and blood cultures. Patient was on gentle IV hydration due to history of CHF. Continue with oxygen supplementation. Patient is on IV Lasix. Cardiology and pulmonary is on board. Continue with telemetry monitoring and cardiac medications. Monitor blood pressure closely. Prognosis is guarded at this time. Time with Patient: Greater than 30
--- NOTE | 2021-08-30 00:02 | P.PN ---
Subjective Progress Note Date: 08/29/21 Patient is a 81-year-old female with a known history of on anticoagulation with Eliquis and amiodarone, hypertension, diabetes type 2 insulin-dependent, history of CVA with vision changes and difficulty swallowing, heart murmur, aortic stenosis status post on TAVR on 08/05/2021, coronary artery disease history of stent placement and multiple medical problems including morbid obesity with a BMI 43.7 presents to ER due to complaints of generalized weakness, shortness of breath and falls. Patient states that she lost balance and fell. Denied any complaints of dizziness or lightheadedness. No complaints of chest pain or shortness of breath. On admission blood pressure was 105/52 pulse 63 respiration 19 pulse ox 90% on 4 L oxygen via nasal cannula. CT head and cervical spine showed bilateral old occipital infarcts. No acute intracranial abnormality. Cerebral atrophy. Brain is not changed compared to old exam. Minor degenerative changes in the cervical spine. No fracture. CT of fibula showed no acute abnormality of the right tibia and fibula. X-ray of the pelvis showed no acute abnormality of the pelvis. No fracture seen. Chest x- ray showed pulmonary interstitial fibrosis. CHF probably present and the heart and lungs not significantly different than last exam. Laboratory test showed WBC 14.6 hemoglobin 7.7 and platelets 278 INR 1.2 Sodium 135 potassium 4.3 chloride 89 bicarb is 39 BUN 43 and creatinine 0.89 and BMP 36170 Troponin 0 0.051, 0.039 and albumin 2.8 Urinalysis showed cloudy with 1+ protein trace blood large leukocyte esterase WBCs 48 Coronavirus PCR not detected. 08/28/2021 Patient is currently in the select care unit. Patient is a lethargic and not easily arousable. Otherwise patient has been afebrile. Patient is being current on antibiotics of ceftriaxone. Urine culture is pending. Blood cultures showed gram-negative bacilli. No episodes of vomiting. Laboratory showed WBC 10.2 hemoglobin 7.4 and platelets 195 Sodium 140 potassium 3.7 chloride 91 bicarb is 41 BUN 49 creatinine 1.08. Patient was also IV Lasix. 08/29/2021 Patient very lethargic and not responding to verbal stimuli. Requiring 3 hydroxyl via nasal cannula. Did use BiPAP yesterday. Blood cultures on admission growing Enterococcus faecalis and urine culture showed Bertha albicans. Patient is on ceftriaxone and added vancomycin. ID was consulted. Urine culture showed Bertha albicans. Chest x-ray showed atypical pulmonary edema or atypical pneumonia should be considered. Developing small bilateral pleural effusions. Laboratory data showed WBC 8.8 hemoglobin 7.6 platelets 195 Sodium 143 potassium 3.8 chloride 92 bicarb is 41 BUN 45 and creatinine 0.85 and calcium 8.3 and albumin 2.5 Current medications reviewed. Objective - Vital Signs Vital signs: Vital Signs Temp 97.9 F 08/29/21 19:59 Pulse 61 08/29/21 19:59 Resp 18 08/29/21 19:59 BP 128/73 08/29/21 19:59 Pulse Ox 98 08/29/21 19:59 Intake & Output 08/29/21 08/29/21 08/30/21 06:59 18:59 06:59 Output Total 1570 500 300 Balance -1570 -500 -300 Weight 102.5 kg 102.5 kg Output: Urine 1570 500 300 Other: Voiding Method External Catheter External Catheter External Catheter - Exam PHYSICAL EXAMINATION: Patient is currently lying in the bed. Very lethargic and drowsy... HEENT: Normocephalic. Neck is supple. Pupils reactive. Nostrils clear. Oral cavity is moist. Neck reveals no JVD, carotid bruits, or thyromegaly. CHEST EXAMINATION: Trachea is central. Symmetrical expansion. Bibasilar diminished sounds, Lung pulido clear to auscultation and percussion. CARDIAC: Normal S1, S2 with no gallops. No murmurs ABDOMEN: Soft. Bowel sounds normal. No organomegaly. No abdominal bruits. Extremities: trace pedal edema. No clubbing or cyanosis Neurologically lethargic and drowsy.. No gross focal deficits noted Skin: No rash or skin lesions. Psychiatric: Could not be assessed at this time. Musculoskeletal: No joint swelling or deformity. - Labs CBC & Chem 7: 08/29/21 12:42 08/29/21 12:47 Labs: Abnormal Lab Results - Last 24 Hours (Table) 08/29/21 08/29/21 08/29/21 Range/Units 06:06 12:42 12:47 RBC 2.58 L (3.80-5.40) m/uL Hgb 7.6 L (11.4-16.0) gm/dL Hct 25.4 L (34.0-46.0) % MCHC 30.2 L (31.0-37.0) g/dL RDW 16.3 H (11.5-15.5) % Lymphocytes # 0.5 L (1.0-4.8) k/uL Chloride 92 L (98-107) mmol/L Carbon Dioxide 41 H* (22-30) mmol/L BUN 45 H (7-17) mg/dL Glucose 143 H (74-99) mg/dL POC Glucose (mg/dL) 153 H (75-99) mg/dL Calcium 8.3 L (8.4-10.2) mg/dL Albumin 2.5 L (3.5-5.0) g/dL 08/29/21 08/29/21 Range/Units 16:57 19:37 RBC (3.80-5.40) m/uL Hgb (11.4-16.0) gm/dL Hct (34.0-46.0) % MCHC (31.0-37.0) g/dL RDW (11.5-15.5) % Lymphocytes # (1.0-4.8) k/uL Chloride (98-107) mmol/L Carbon Dioxide (22-30) mmol/L BUN (7-17) mg/dL Glucose (74-99) mg/dL POC Glucose (mg/dL) 145 H 145 H (75-99) mg/dL Calcium (8.4-10.2) mg/dL Albumin (3.5-5.0) g/dL Microbiology - Last 24 Hours (Table) 08/27/21 01:46 Blood Culture Gram Stain - Final Blood Blood Culture - Final Enterococcus faecalis 08/28/21 15:25 Blood Culture Gram Stain - Preliminary Blood 08/27/21 06:54 Urine Culture - Final Urine,Voided Bertha albicans 08/28/21 15:15 Blood Culture Gram Stain - Preliminary Blood 08/28/21 15:25 Blood Culture - Final Blood 08/28/21 15:15 Blood Culture - Final Blood Assessment and Plan Assessment: Enterococcus faecalis septicemia Generalized weakness and status post fall. Patient felt very weak and collapsed onto the floor. Acute hypoxic respiratory failure requiring oxygen at 4 L via nasal cannula. Possible acute urinary tract infection. Recent history of TAVR for severe aortic stenosis on 08/05/2021 Acute on chronic CHF with diastolic dysfunction Coronary disease history of stent placement Paroxysmal atrial fibrillation on anticoagulation with Eliquis Mild elevated troponin level unlikely ACS. History of CVA with chronic dysphagia History of esophageal stenosis with previous history of esophageal dilations. Normocytic anemia with hemoglobin level around 7.7 Morbid obesity BMI 43.7 Plan: Patient will continue on antibiotics in the form of ceftriaxone.Vancomycin added. Repeat blood cultures will be ordered for tomorrow. Patient was on gentle IV hydration due to history of CHF. Continue with oxygen supplementation. IV Lasix on hold. Cardiology and pulmonary is on board. Continue with telemetry monitoring and cardiac medications. Monitor blood pressure closely. Prognosis is guarded at this time. Time with Patient: Greater than 30
[2021-08-30 06:00] LABS: Glucose,Whole Blood 188 mg/dL (75-99)
[2021-08-30] MEDS: INSULIN ASPART (NovoLOG) 100 UNIT/ML VIAL SQ SCH ×4 (06:35→20:48)
[2021-08-30] MEDS: PANTOPRAZOLE 40 MG TABLET PO SCH (08:08)
[2021-08-30] MEDS: ASPIRIN 81 MG PO SCH (08:27)
[2021-08-30] MEDS: CLOPIDOGREL 75 MG TAB PO SCH (08:28)
[2021-08-30] MEDS: APIXABAN 2.5 MG TABLET PO SCH ×2 (08:28→20:48)
[2021-08-30] MEDS: FLUCONAZOLE 100 MG TAB PO SCH (08:28)
[2021-08-30] MEDS: METOPROLOL TARTRATE 25 MG TAB PO SCH ×2 (08:28→20:48)
[2021-08-30] MEDS: ESCITALOPRAM 10 MG TAB PO SCH (08:28)
[2021-08-30] MEDS: AMIODARONE 200 MG TAB PO SCH ×2 (08:28→20:48)
--- NOTE | 2021-08-30 10:12 | P.PN ---
Subjective Progress Note Date: 08/30/21 81-year-old female patient who is post TAVR procedure. Surgery was done on 08/05/2021 and the patient was discharged home. The patient is known to have CAD with previous PCI to LAD and the patient also has had previous history of severe aortic stenosis for which she required the valve replacement. Other comorbid conditions include diabetes mellitus, hypertension and hyperlipidemia and history of atrial fibrillation and previous history of CVA without residual deficits. The patient has had previous episodes of falls. We were involved in her postop care following her TAVR procedure and the patient was seen and the patient did well and the patient was discharged home. Note that her echocardiog florentino showed a mildly impaired left ventricular ejection fraction of 45-50%. The patient came back to the emergency department yesterday with worsening shortness of breath. The patient was seen on the floor by her son. No loss in consciousness. Apparently she had some loss in balance and she fell. She denies having any dizziness or lightheadedness patient denied having any chest pain. No shortness of breath. Note that she is on long-term articulation with [email or web address] regarding her history of atrial fibrillation.Other comorbid conditions is chronic anemia. Previous hemoglobin has been in the range of 9.0 and the patient's current hemoglobin is slightly lower. No reported history of GI blee ding. For now, the investigation has been done included an EKG that showed a normal sinus rhythm without any acute ischemic changes. Chest x-ray showed cardiomegaly along with some CHF. WBC was at 13.7 with a hemoglobin of 7.1, BMI was 46 with a creatinine of 1.02 at the time of admission with a potassium level of 3.8. Troponins were 0.03 and 0.04 respectively 2. Note that following her TAVR procedure, the patient underwent a noted echocardiogram that showed improvement in her ejection fraction from a baseline of 45% up to 55-60% and the patient had a normal functioning bioprosthetic aortic valve. Her most recent cardiac catheterization was in May 2021 and it showed heavily calcified LAD. During this current admission, the patient had a negative colon 19 testing. UA showed many bacteria, there were 48 WBCs. Her white cell count was at 13.7 with a hemoglobin of 7.1 as mentioned. Covid 19 testing was negative. On 08/28/2021 patient seen in follow-up on selective care unit, she is lethargic, she requires repeated verbal stimulation and tactile stimulation to arouse, doesn't appear to be any acute distress, she is currently on 4 L of oxygen pulse ox is 97%. She has had no fever overnight, physical exam reveals diffuse crackles bilaterally, her chest x-ray on admission showed the pulmonary interstitial fibrosis, possible CHF. Patient was also found to have urinary t ract infection, cultures currently showing yeast species, and final culture is still pending. Current antibiotic coverage is Rocephin. Patient previously had a urinary tract infection related to Morganella morganii and enterococcus faecalis. Will await final cultures. Today's labs have been reviewed, white blood cell count is 10.2, hemoglobin is 7.4, sodium is 140, potassium is 3.7, chloride is 91, CO2 is 41, BUN is 49, creatinine is 1.08, follow-up proBNP was slightly improved but still significantly elevated at 12,006 100, pro-calcitonin level was elevated at 0.59, and urinalysis showed 1+ protein, trace blood, large amount of leuks, 48 leukocytes, many bacteria, mucus, budding yeast. Gen. was tested for COVID-19 twice and she was found to be negative on both tests. She is on oral anticoagulation in the form of Eliquis she is on amiodarone 200 mg twice daily, she is also on IV diuretics with Lasix 40 mg every 12 hours. She is in a -400 mL net fluid balance over last 24 hours. No significant lower extremity edema. Blood culture from 08/27/2021 showed gram-negative bacilli, and patient has recent history of TAVR 08/29/2021, the patient is very much lethargic. She is sleepy. She is arousable yet if left off the ventilator, the patient goes back to sleep. The patient is currently on a BiPAP at a pressure of 12/6 with an FiO2 of 40%. Noted earlier, she was on 4 L about 2 by nasal cannula and she gets transitioned to BiPAP. Note that the patient was suspected to be septic. There are several sets of blood cultures are showing gram-positive cocci. She has also urine culture that showing Bertha. I think the patient has a bacteremia with gram- positive cocci and that the culprit for underlying septicemia. I'm going to give her vancomycin dose today. Note that the patient has had previous UTIs with Enterococcus faecalis and Morganella morganii. For now, the patient is on a BiPAP. Chest x-ray showing interstitial edema along with cardiomegaly. The patient is quite lethargic. She has an external Mustafa-like catheter in the urine output is ordered of 20-30 mL an hour. IV fluids currently running at 10 mL an hour of normal saline. The patient is on IV Lasix but will be discontinued obesity with an underlying septicemia. There is some trace lower extremity edema at this point in time. She was in a negative fluid balance over the past 24 hours. Note that her pro-calcitonin level was at 0.59 from yesterday. No labs available from today still. Chest x-ray was noted. 14 2020, the patient improved significantly. She is wide awake and alert and she is communicating. Note that I saw her yesterday and she was quite lethargic on a BiPAP. She was septic and the patient was diagnosed having enterococcus in her blood on several blood cultures and have on a combination of Rocephin and vancomycin. ID consultation is also requested and is still pending for now. Meanwhile, the patient is looking much better. She is communicating. She is J cane or walker. She is afebrile and she is hemodynamically stable at this point in time. Labs are still pending from today. She is on 3 views of oxygen by nasal cannula. Objective - Vital Signs Vital signs: Vital Signs Temp 99.0 F 08/30/21 08:24 Pulse 70 08/30/21 08:24 Resp 24 08/30/21 08:34 BP 134/58 08/30/21 08:24 Pulse Ox 98 08/30/21 08:24 Intake & Output 08/29/21 08/30/21 08/30/21 18:59 06:59 18:59 Intake Total 240 Output Total 500 850 Balance -500 -850 240 Weight 102.5 kg 101.4 kg Intake: Oral 240 Output: Urine 500 850 Other: Voiding Method External Catheter External Catheter External Catheter - Exam GENERAL EXAM: Very lethargic, 81-year-old white female, on 3 L of oxygen by robby al cannula HEAD: Normocephalic/atraumatic. EYES: Normal reaction of pupils, equal size. Conjunctiva pink, sclera white. NOSE: Clear with pink turbinates. THROAT: No erythema or exudates. NECK: No masses, no JVD, no thyroid enlargement, no adenopathy. CHEST: No chest wall deformity. Symmetrical expansion. LUNGS: Equal air entry with bibasilar crackles CVS: Regular rate and rhythm, normal S1 and S2, no gallops, no murmurs, no rubs ABDOMEN: Soft, nontender. No hepatosplenomegaly, normal bowel sounds, no guarding or rigidity. EXTREMITIES: No clubbing, no edema, no cyanosis, 2+ pulses and upper and lower extremities. MUSCULOSKELETAL: Muscle strength and tone normal. SPINE: No scoliosis or deformity SKIN: No rashes CENTRAL NERVOUS SYSTEM: Lethargic No focal deficits, tone is normal in all 4 extremities. There is interval worsening in her status. The patient is noted to be more lethargic compared to yesterday. She is still moving all 4 extremities and she remains arousable. Neurologic exam is nonfocal. - Labs CBC & Chem 7: 08/29/21 12:42 08/29/21 12:47 Labs: Abnormal Lab Results - Last 24 Hours (Table) 08/29/21 08/29/21 08/29/21 Range/Units 12:42 12:47 16:57 RBC 2.58 L (3.80-5.40) m/uL Hgb 7.6 L (11.4-16.0) gm/dL Hct 25.4 L (34.0-46.0) % MCHC 30.2 L (31.0-37.0) g/dL RDW 16.3 H (11.5-15.5) % Lymphocytes # 0.5 L (1.0-4.8) k/uL Chloride 92 L (98-107) mmol/L Carbon Dioxide 41 H* (22-30) mmol/L BUN 45 H (7-17) mg/dL Glucose 143 H (74-99) mg/dL POC Glucose (mg/dL) 145 H (75-99) mg/dL Calcium 8.3 L (8.4-10.2) mg/dL Albumin 2.5 L (3.5-5.0) g/dL 08/29/21 08/30/21 Range/Units 19:37 05:59 RBC (3.80-5.40) m/uL Hgb (11.4-16.0) gm/dL Hct (34.0-46.0) % MCHC (31.0-37.0) g/dL RDW (11.5-15.5) % Lymphocytes # (1.0-4.8) k/uL Chloride (98-107) mmol/L Carbon Dioxide (22-30) mmol/L BUN (7-17) mg/dL Glucose (74-99) mg/dL POC Glucose (mg/dL) 145 H 188 H (75-99) mg/dL Calcium (8.4-10.2) mg/dL Albumin (3.5-5.0) g/dL Microbiology - Last 24 Hours (Table) 08/27/21 01:46 Blood Culture Gram Stain - Final Blood Blood Culture - Final Enterococcus faecalis 08/28/21 15:25 Blood Culture Gram Stain - Preliminary Blood 08/27/21 06:54 Urine Culture - Final Urine,Voided Bertha albicans 08/28/21 15:15 Blood Culture Gram Stain - Preliminary Blood 08/28/21 15:25 Blood Culture - Final Blood 08/28/21 15:15 Blood Culture - Final Blood Assessment and Plan Plan: #1. Acute enterococcus septicemia.. The patient will be started on a combination of antibiotics including vancomycin and Rocephin. We'll stop the diuretics for now. The patient is very much improved on today's evaluation the patient is hemodynamically stable Also consider possibility of endocarditis knowing that the patient has undergone a recent TAVR #2. Acute hypoxic respiratory failure related to acute exacerbation of diastolic CHF, currently off BiPAP and the patient is currently on 2 L of oxygen by nasal cannula #3. Acute urinary tract infection, the patient had Bertha in the urine and suspected bacteremia probably of a urinary source and the patient has gram- positive cocci in the blood, consider enterococcus septicemia #4. Sepsis secondary to enterococcus #5. Severe symptomatic aortic valve stenosis, status post transcatheter aortic valve replacement with 26 mm Evolute Core valve Pro Plus valve prosthesis, on 08/05/2021 #6. Recent hospitalization in June, for acute exacerbation of CHF with mildly impaired left ventricular systolic dysfunction and EF of 45-50% #7. History of CVA #8. General medical debility #9. Recent fall history #10. Recent history of urinary tract infection, with urine culture positive for Morganella morganii and enterococcus faecalis, sensitive to ciprofloxacin on which the patient is currently on #11. Recently diagnosed new onset of atrial fibrillation, currently on amiodarone and Eliquis, currently in sinus mechanism #12. Coronary artery disease with previous stenting #13. Previous history of non-ST elevated myocardial infarction #14. Never smoker #15. Dysphagia possibly related to previous history of CVA, and esophageal stenosis with previous history of esophageal dilatation #16. Possible intravascular volume depletion/dehydration #17. Troponin leak #18. History of chronic anemia with a hemoglobin is 7.1, no signs of any acute GI bleeding Plan: Continue IV Rocephin and started to 2 g every 24 hours Continue IV vancomycin Awaiting final culture results and sensitivities ID consultation and consider addition of daptomycin Continue BiPAP for respiratory support Diflucan 100 mg every 24 hours for any potential candidal cystitis Maintain aspiration precautions Continue oral anticoagulation We'll continue to follow, establish CODE STATUS. Based on the advanced directives as reported by the family, the patient did not want any form of intubation mechanical ventilation. We'll bring all the paperwork to the hospital for confirmation.
[2021-08-30 11:59] LABS: Glucose,Whole Blood 159 mg/dL (75-99)
[2021-08-30] MEDS: VANCOMYCIN 1,750 MG in SODIUM CHLORIDE 0.9% 500 ML 500 ML IVPB SCH (12:01)
[2021-08-30 12:37] LABS: Anisocytosis Slight; HCT 25.6 % (34.0-46.0); HGB 7.6 gm/dL (11.4-16.0); Hypochromasia Marked; MCHC 29.6 g/dL (31.0-37.0); MCV 98.1 fL (80.0-100.0); Macrocytosis Slight; Mean Platelet Volume 9.6; Platelet Count 216 k/uL (150-450); Poikilocytosis Slight; RBC 2.61 m/uL (3.80-5.40); RDW 16.2 % (11.5-15.5); WBC 8.9 k/uL (3.8-10.6)
--- NOTE | 2021-08-30 12:44 | P.CONS ---
History of Present Illness - Reason for Consult Consult date: 08/29/21 sepsis/bacteremia Requesting physician: Domo Ma - Chief Complaint fall and weakness x 1 day - History of Present Illness History of present illness : Patient is 81-year-old female presenting to the ER about 3 days ago who presented to the ER for possible fall versus syncopal episode apparently patient did fell in the bathroom and was found by her son who lives with her patient did have a laceration to right cough and bruise on the right breast that is on presentation to the ER by ER physician documentation patient not sure if she lost consciousness or not and denied any injuries from the fall the patient was noted to be hypoxic with O2 sats of 81% on room air patient subsequently has been admitted to hospital on arrival to the ER patient did have a normal temperature she was hypoxic requiring BiPAP patient did have a white count of 14.6 that has normalized to 10.2 today creatinine was normal urine has been positive donohue PCR was negative patient did have a positive blood culture with a gram-positive cocci that has prompted this infectious disease consultation patient did have a chest x-ray pulmonary sedation fibrosis congestive heart failure probably present patient has been started on Rocephin and vancomycin pending infectious disease consultation mostly for patient has been obtained from review the chart as the patient was on BiPAP and did not answer any question, the patient recently did have a TAVR procedure done in July 2021 Review of system: Positive point has been mentioned in HPI complete review could not be obtained because of underlying mental status. Past medical history : Reviewed, documented below Past surgical history : Reviewed, documented below Social history: Reviewed, documented below Medications: Reviewed, as documented below EXAMINATION: Vital sigans= Reviewed and documented below GENERAL DESCRIPTION: Elderly female lying in bed, no distress. No tachypnea or accessory muscle of respiration use. HEENT: Shows Pallor , no scleral icterus. Oral mucous membrane is dry. NECK: Trachea central, no thyromegaly. LUNGS: Unlabored breathing. Decreased breath sound in the bases. No wheeze or crackle. HEART: S1, S2, regular rate and rhythm. ABDOMEN: Soft, no tenderness , guarding or rigidity EXTREMITIES: No edema of feet. Patient did have some superficial ulceration to the bilateral heel area but no significant redness or drainage SKIN: No rash, no masses palpable. NEUROLOGICAL: The patient is lethargic orientation were not determined LABS AND RADIOLOGY: Reviewed results see below Assessment : Patient presented to hospital with a fall and weakness and a question of syncopal episode in this patient noticed to be hypoxic possible component of CHF in this patient now with evidence of gram-positive bacteremia with concern for possible urinary source of the be to have positive UA versus endovascular source in this patient with recent history of TAVR procedure Plan: 1-blood cultures will be repeated document clearance of bacteremia 2-vancomycin pharmacy to dose with a target trough of 15 while watching kidney function and Vanco trough closely. 3-may need a BELKYS depending upon identification of this pathogen We will follow on clinical condition and cultures to further adjust medication if needed Thank you for this consultation we will follow the patient along with you Past Medical History Past Medical History: Atrial Fibrillation, Coronary Artery Disease (CAD), Heart Failure, CVA/TIA, Diabetes Mellitus Additional Past Medical History / Comment(s): has home O2 @ 2L [place],IDDM type II, CVA with some vision changes and difficulty swallowing (eat soft foods)., murmur., states fall April 13, aortic stenosis post TAVR, paroxysmal AFIB History of Any Multi-Drug Resistant Organisms: None Reported Past Surgical History: Heart Catheterization With Stent, Orthopedic Surgery, Tonsillectomy Additional Past Surgical History / Comment(s): Esophageal surgery 2003 pt thinks this was dilation ; Venous graft leg to left arm., right hip fx surgery (11/2018) Past Anesthesia/Blood Transfusion Reactions: No Reported Reaction Date of Last Stent Placement:: 06/2021 Past Psychological History: No Psychological Hx Reported Smoking Status: Never smoker Past Alcohol Use History: None Reported Past Drug Use History: None Reported - Past Family History Mother Family Medical History: Cancer Additional Family Medical History / Comment(s): "Female cancer" father Family Medical History: Diabetes Mellitus Medications and Allergies Home Medications Medication Instructions Recorded Confirmed Type Insulin Detemir [Levemir Flextouch 12 units SQ AC-SUPPER 04/09/16 08/26/21 History Pen] Acetaminophen Tab [Tylenol] 650 mg PO Q6HR PRN tab 06/24/21 08/26/21 Rx Aspirin 81 mg PO DAILY #90 06/24/21 08/26/21 Rx Clopidogrel [Plavix] 75 mg PO DAILY #30 tab 06/24/21 08/26/21 Rx Metoprolol Tartrate [Lopressor] 25 mg PO BID #60 tab 06/24/21 08/26/21 Rx Nitroglycerin Sl Tabs [Nitrostat] 0.4 mg SUBLINGUAL Q5M PRN #60 tab 06/24/21 08/26/21 Rx Escitalopram [Lexapro] 10 mg PO DAILY 07/09/21 08/26/21 History Amiodarone [Cordarone] 200 mg PO BID #60 tab 07/14/21 08/26/21 Rx Apixaban [Eliquis] 2.5 mg PO BID #60 tablet 07/14/21 08/26/21 Rx Atorvastatin [Lipitor] 40 mg PO HS 07/30/21 08/26/21 History Furosemide [Lasix] 20 mg PO DAILY 07/30/21 08/26/21 History Insulin Aspart [NovoLOG] See Protocol SQ TID-W/MEALS PRN 07/30/21 08/26/21 History Pantoprazole [Protonix] 40 mg PO DAILY 07/30/21 08/26/21 History Sennosides-Docusate Sodium 2 tab PO HS PRN 08/26/21 08/26/21 History [Senokot-S] Allergies Allergy/AdvReac Type Severity Reaction Status Date / Time No Known Allergies Allergy Verified 08/26/21 20:13 Physical Exam Vitals: Vital Signs Temp Pulse Resp BP Pulse Ox 08/29/21 14:00 12 08/29/21 11:26 58 L 12 123/53 98 08/29/21 08:27 95 08/29/21 08:03 97.8 F 56 L 18 110/54 97 08/29/21 08:00 18 08/29/21 03:06 98.4 F 53 L 18 106/50 97 08/28/21 23:08 97.9 F 59 L 16 131/56 98 08/28/21 20:00 97.3 F L 56 L 18 115/57 99 08/28/21 18:45 68 08/28/21 16:06 97.9 F 56 L 18 119/55 97 Intake and Output 08/29/21 08/29/21 08/29/21 06:59 14:59 22:59 Output Total 1270 Balance -1270 Output: Urine 1270 Other: Voiding Method External Catheter External Catheter Weight 102.5 kg 102.5 kg Results CBC & Chem 7: 08/30/21 11:49 08/29/21 12:47 Labs: Abnormal Lab Results - Last 24 Hours (Table) 08/28/21 08/28/21 08/29/21 Range/Units 16:29 20:04 06:06 RBC (3.80-5.40) m/uL Hgb (11.4-16.0) gm/dL Hct (34.0-46.0) % MCHC (31.0-37.0) g/dL RDW (11.5-15.5) % Lymphocytes # (1.0-4.8) k/uL Chloride (98-107) mmol/L Carbon Dioxide (22-30) mmol/L BUN (7-17) mg/dL Glucose (74-99) mg/dL POC Glucose (mg/dL) 120 H 122 H 153 H (75-99) mg/dL Calcium (8.4-10.2) mg/dL Albumin (3.5-5.0) g/dL 08/29/21 08/29/21 Range/Units 12:42 12:47 RBC 2.58 L (3.80-5.40) m/uL Hgb 7.6 L (11.4-16.0) gm/dL Hct 25.4 L (34.0-46.0) % MCHC 30.2 L (31.0-37.0) g/dL RDW 16.3 H (11.5-15.5) % Lymphocytes # 0.5 L (1.0-4.8) k/uL Chloride 92 L (98-107) mmol/L Carbon Dioxide 41 H* (22-30) mmol/L BUN 45 H (7-17) mg/dL Glucose 143 H (74-99) mg/dL POC Glucose (mg/dL) (75-99) mg/dL Calcium 8.3 L (8.4-10.2) mg/dL Albumin 2.5 L (3.5-5.0) g/dL Microbiology - Last 24 Hours (Table) 08/28/21 15:25 Blood Culture Gram Stain - Preliminary Blood 08/27/21 06:54 Urine Culture - Final Urine,Voided Bertha albicans 08/28/21 15:15 Blood Culture Gram Stain - Preliminary Blood 08/28/21 15:25 Blood Culture - Final Blood 08/28/21 15:15 Blood Culture - Final Blood 08/27/21 01:46 Blood Culture - Final Blood 08/27/21 01:46 Blood Culture Gram Stain - Preliminary Blood
[2021-08-30 13:24] LABS: Calcium 8.2 mg/dL (8.4-10.2); Potassium 3.9 mmol/L (3.5-5.1)
[2021-08-30 13:26] LABS: Band Neutrophils % 3 %; Lymphocytes # (M) 0.45 k/uL (1.0-4.8); Monocytes # (M) 0.27 k/uL (0-1.0); Neutrophils % (M) 89 %; Nucleated Red Blood Cells 0 /100 WBC (0-0); Total Cells Counted 100
[2021-08-30 13:27] LABS: Mixed Population RBC Present; Polychromasia Present
[2021-08-30 13:29] LABS: Erythrocyte Sedimentation Rate 84 mm/hr (0-20)
--- NOTE | 2021-08-30 14:06 | P.PN ---
Subjective Progress Note Date: 08/30/21 HISTORY OF PRESENT ILLNESS: This is a 81-year-old female with a past medical history significant for atrial fibrillation, coronary artery disease with previous angioplasty of LAD, co ngestive heart failure, COPD, and recent TAVR in July 2021. Patient follows in the office with Dr. Stratton. We have been asked to see the patient in consultation for CHF. Patient examined at the bedside. Patient somewhat sleepy during examination. She was brought to the hospital after her son found her on the floor of the bathroom. She denies losing consciousness. The patient states that she lost her balance and fell. She denies having any dizziness or lightheadedness prior to this. She denies any chest pain or pressure. She currently denies any shortness of breath. The patient is on Eliquis for a history of atrial fibrillation. Her hemoglobin upon admission was in the sevens. Previous hemoglobin was around 9. The patient denies any signs of GI bleeding. EKG reveals sinus rhythm with nonspecific ST-T wave changes Chest xray pulmonary interstitial fibrosis. Congestive heart failure probably present in the heart and lungs not significantly different than last exam. Laboratory data: WBC 13.7. Hemoglobin 7.1. Platelet count 209. Sodium 136. Potassium 3.8. BUN 46. Crit and 1.02. Troponin 0.039. 0.041. Most recent echocardiogram obtained in July 2021 revealed ejection fraction 55-60%, normally functioning bioprosthetic valve, mild mitral regurgitation, [id number] tricuspid regurgitation, mild pulmonary hypertension Cardiac catheterization history: May 2021 revealing abnormal eye. Heavily calcified proximal LAD at 0.69. Severe aortic stenosis. 08/29/2021: Patient is in bed and appears to be lethargic, BiPAP is at bedside, currently on nasal cannula 3 L with pulse ox of 95%. Heart rate is in the 50s, blood pressure 123/53. Repeat blood work reveals hemoglobin 7.6, WBC 8.8, CO2 41, creatinine 0.85. Blood cultures are in progress. Blood cultures have been consistently gram-positive cocci. Patient is treated for UTI but urine cultures positive for Bertha. Echocardiogram reveals EF of 50-55%, mild periprosthetic regurgitation of the bioprosthetic aortic valve. TAVR moderate pulmonary hypertension, moderate tricuspid regurgitation. 08/30/2021: Patient is more alert today. She denies chest pain or shortness of breath. Repeat blood work reveals WBC 8.9, hemoglobin 7.6. BUN 40 creatinine 0.84, CO2 40. C-reactive protein 17.5. Multiple positive blood cultures noted. Repeat chest x-ray done yesterday revealed atypical pulmonary edema or atypical pneumonia. Developing small bilateral pleural effusions. PHYSICAL EXAM: VITAL SIGNS: Blood pressure 124/79, heart rate 66, pulse ox 94% on 3 L nasal cannula, afebrile. . GENERAL: Well-developed in no acute distress. HEENT: Head is normocephalic. Pupils are equal, round. Sclerae anicteric. LUNGS: Respirations even and unlabored. Lungs diminished and crackles bilaterally. HEART: Regular rate and rhythm. S1 and S2 heard. + systolic murmur ABDOMEN: Soft. Nondistended. Nontender. EXTREMITIES: Normal range of motion. No clubbing or cyanosis. Peripheral pulses intact. 1-2+ lower extremity edema NEUROLOGIC:Patient is resting quietly, lethargic. Oriented x 3. ASSESSMENT: S/P mechanical fall Acute on chronic diastolic congestive heart failure Coronary artery disease Hx of severe aortic stenosis, s/p TAVR 07/2021 COPD Paroxysmal atrial fibrillation, on anticoagulation with Eliquis Anemia Leukocytosis Abnormal troponins, not suggestive of acute coronary syndrome Obesity Metabolic encephalopathy Gram-positive bacteremia, unclear source PLAN: Continue Eliquis. monitor hemoglobin Continue Lopressor 25 mg twice daily Plan for BELKYS next week. Further recommendations pending patient course Nurse practitioner note has been reviewed by physician. Signing provider agrees with the documented findings, assessment, and plan of care. Objective - Vital Signs Vital signs: Vital Signs Temp 99.0 F 08/30/21 08:24 Pulse 70 08/30/21 08:24 Resp 24 08/30/21 08:34 BP 134/58 08/30/21 08:24 Pulse Ox 98 08/30/21 08:24 Intake & Output 08/29/21 08/30/21 08/30/21 18:59 06:59 18:59 Intake Total 240 Output Total 500 850 Balance -500 -850 240 Weight 102.5 kg 101.4 kg Intake: Oral 240 Output: Urine 500 850 Other: Voiding Method External Catheter External Catheter External Catheter - Labs CBC & Chem 7: 08/30/21 11:49 08/30/21 11:49 Labs: Abnormal Lab Results - Last 24 Hours (Table) 08/29/21 08/29/21 08/29/21 Range/Units 12:42 12:47 16:57 RBC 2.58 L (3.80-5.40) m/uL Hgb 7.6 L (11.4-16.0) gm/dL Hct 25.4 L (34.0-46.0) % MCHC 30.2 L (31.0-37.0) g/dL RDW 16.3 H (11.5-15.5) % Lymphocytes # 0.5 L (1.0-4.8) k/uL Chloride 92 L (98-107) mmol/L Carbon Dioxide 41 H* (22-30) mmol/L BUN 45 H (7-17) mg/dL Glucose 143 H (74-99) mg/dL POC Glucose (mg/dL) 145 H (75-99) mg/dL Calcium 8.3 L (8.4-10.2) mg/dL Albumin 2.5 L (3.5-5.0) g/dL 08/29/21 08/30/21 Range/Units 19:37 05:59 RBC (3.80-5.40) m/uL Hgb (11.4-16.0) gm/dL Hct (34.0-46.0) % MCHC (31.0-37.0) g/dL RDW (11.5-15.5) % Lymphocytes # (1.0-4.8) k/uL Chloride (98-107) mmol/L Carbon Dioxide (22-30) mmol/L BUN (7-17) mg/dL Glucose (74-99) mg/dL POC Glucose (mg/dL) 145 H 188 H (75-99) mg/dL Calcium (8.4-10.2) mg/dL Albumin (3.5-5.0) g/dL Microbiology - Last 24 Hours (Table) 08/27/21 01:46 Blood Culture Gram Stain - Final Blood Blood Culture - Final Enterococcus faecalis 08/28/21 15:25 Blood Culture Gram Stain - Preliminary Blood 08/27/21 06:54 Urine Culture - Final Urine,Voided Bertha albicans 08/28/21 15:15 Blood Culture Gram Stain - Preliminary Blood 08/28/21 15:25 Blood Culture - Final Blood
[2021-08-30 16:57] LABS: Glucose,Whole Blood 212 mg/dL (75-99)
[2021-08-30] MEDS: INSULIN DETEMIR (LEVEMIR) 100 UNIT/ML SYR SQ SCH (17:03)
[2021-08-30 20:25] LABS: Glucose,Whole Blood 250 mg/dL (75-99)
[2021-08-30] MEDS: ATORVASTATIN 40 MG TAB PO SCH (20:48)
--- NOTE | 2021-08-30 21:53 | P.PN ---
Subjective Progress Note Date: 08/30/21 Principal diagnosis: Enterococcus faecalis septicemia Possible intake endocarditis with recent history of TAVR procedure. Generalized weakness and status post fall. Patient felt very weak and collapsed onto the floor. Acute hypoxic respiratory failure requiring oxygen at 4 L via nasal cannula. Patient is a 81-year-old female with a known history of on anticoagulation with Eliquis and amiodarone, hypertension, diabetes type 2 insulin-dependent, history of CVA with vision changes and difficulty swallowing, heart murmur, aortic stenosis status post on TAVR on 08/05/2021, coronary artery disease history of stent placement and multiple medical problems including morbid obesity with a BMI 43.7 presents to ER due to complaints of generalized weakness, shortness of breath and falls. Patient states that she lost balance and fell. Denied any complaints of dizziness or lightheadedness. No complaints of chest pain or shortness of breath. On admission blood pressure was 105/52 pulse 63 respiration 19 pulse ox 90% on 4 L oxygen via nasal cannula. CT head and cervical spine showed bilateral old occipital infarcts. No acute intracranial abnormality. Cerebral atrophy. Brain is not changed compared to old exam. Minor degenerative changes in the cervical spine. No fracture. CT of fibula showed no acute abnormality of the right tibia and fibula. X-ray of the pelvis showed no acute abnormality of the pelvis. No fracture seen. Chest x- ray showed pulmonary interstitial fibrosis. CHF probably present and the heart and lungs not significantly different than last exam. Laboratory test showed WBC 14.6 hemoglobin 7.7 and platelets 278 INR 1.2 Sodium 135 potassium 4.3 chloride 89 bicarb is 39 BUN 43 and creatinine 0.89 and BMP 35278 Troponin 0 0.051, 0.039 and albumin 2.8 Urinalysis showed cloudy with 1+ protein trace blood large leukocyte esterase WBCs 48 Coronavirus PCR not detected. 08/28/2021 Patient is currently in the select care unit. Patient is a lethargic and not easily arousable. Otherwise patient has been afebrile. Patient is being current on antibiotics of ceftriaxone. Urine culture is pending. Blood cultures showed gram-negative bacilli. No episodes of vomiting. Laboratory showed WBC 10.2 hemoglobin 7.4 and platelets 195 Sodium 140 potassium 3.7 chloride 91 bicarb is 41 BUN 49 creatinine 1.08. Patient was also IV Lasix. 08/29/2021 Patient very lethargic and not responding to verbal stimuli. Requiring 3 hydroxyl via nasal cannula. Did use BiPAP yesterday. Blood cultures on admission growing Enterococcus faecalis and urine culture showed Bertha albicans. Patient is on ceftriaxone and added vancomycin. ID was consulted. Urine culture showed Bertha albicans. Chest x-ray showed atypical pulmonary edema or atypical pneumonia should be c onsidered. Developing small bilateral pleural effusions. Laboratory data showed WBC 8.8 hemoglobin 7.6 platelets 195 Sodium 143 potassium 3.8 chloride 92 bicarb is 41 BUN 45 and creatinine 0.85 and calcium 8.3 and albumin 2.5 08/30/2021 Patient is currently lying in the bed comfortably. Mental status is much improved compared to yesterday. Patient able to open his eyes and able to communicate slowly. Currently on oxygen via nasal cannula at 3 L. Patient is being current on antibiotics in the form of vancomycin. Blood cultures continues to grow group B Enterococcus. ID is on board. Patient is also on ceftriaxone. Laboratory data showed WBC 8.9 hemoglobin 7.6 and platelets 216 BUN 14 creatinine 0.84, chloride 93 bicarb is 40 and blood sugar is 152 and CRP 17.5. Denied any nausea or vomiting. No abdominal pain. No diarrhea. Denies any chest pain. Complete review of systems could not be obtained from the patient. Discussed with family at bedside in detail. Current medications reviewed. Objective - Vital Signs Vital signs: Vital Signs Temp 98.7 F 08/30/21 12:11 Pulse 66 08/30/21 12:11 Resp 18 08/30/21 14:57 BP 124/79 08/30/21 12:11 Pulse Ox 94 L 08/30/21 12:11 Intake & Output 08/29/21 08/30/21 08/30/21 18:59 06:59 18:59 Intake Total 240 Output Total 500 850 650 Balance -500 -850 -410 Weight 102.5 kg 101.4 kg Intake: Oral 240 Output: Urine 500 850 650 Other: Voiding Method External Catheter External Catheter External Catheter - Exam PHYSICAL EXAMINATION: Patient is currently lying in the bed. Very lethargic and drowsy... HEENT: Normocephalic. Neck is supple. Pupils reactive. Nostrils clear. Oral cavity is moist. Neck reveals no JVD, carotid bruits, or thyromegaly. CHEST EXAMINATION: Trachea is central. Symmetrical expansion. Bibasilar diminished sounds, Lung pulido clear to auscultation and percussion. CARDIAC: Normal S1, S2 with no gallops. No murmurs ABDOMEN: Soft. Bowel sounds normal. No organomegaly. No abdominal bruits. Extremities: trace pedal edema. No clubbing or cyanosis Neurologically lethargic and drowsy.. No gross focal deficits noted Skin: No rash or skin lesions. Psychiatric: Could not be assessed at this time. Musculoskeletal: No joint swelling or deformity. - Labs CBC & Chem 7: 08/30/21 11:49 08/30/21 11:49 Labs: Abnormal Lab Results - Last 24 Hours (Table) 08/29/21 08/29/21 08/30/21 Range/Units 16:57 19:37 05:59 RBC (3.80-5.40) m/uL Hgb (11.4-16.0) gm/dL Hct (34.0-46.0) % MCHC (31.0-37.0) g/dL RDW (11.5-15.5) % Neutrophils # (Manual) (1.3-7.7) k/uL Lymphocytes # (Manual) (1.0-4.8) k/uL ESR (0-20) mm/hr Chloride (98-107) mmol/L Carbon Dioxide (22-30) mmol/L BUN (7-17) mg/dL Glucose (74-99) mg/dL POC Glucose (mg/dL) 145 H 145 H 188 H (75-99) mg/dL Calcium (8.4-10.2) mg/dL C-Reactive Protein (<1.0) mg/dL 08/30/21 08/30/21 08/30/21 Range/Units 11:49 11:49 11:49 RBC 2.61 L (3.80-5.40) m/uL Hgb 7.6 L (11.4-16.0) gm/dL Hct 25.6 L (34.0-46.0) % MCHC 29.6 L (31.0-37.0) g/dL RDW 16.2 H (11.5-15.5) % Neutrophils # (Manual) 8.10 H (1.3-7.7) k/uL Lymphocytes # (Manual) 0.45 L (1.0-4.8) k/uL ESR 84 H (0-20) mm/hr Chloride 93 L (98-107) mmol/L Carbon Dioxide 40 H (22-30) mmol/L BUN 40 H (7-17) mg/dL Glucose 152 H (74-99) mg/dL POC Glucose (mg/dL) (75-99) mg/dL Calcium 8.2 L (8.4-10.2) mg/dL C-Reactive Protein 17.5 H (<1.0) mg/dL 08/30/21 Range/Units 11:57 RBC (3.80-5.40) m/uL Hgb (11.4-16.0) gm/dL Hct (34.0-46.0) % MCHC (31.0-37.0) g/dL RDW (11.5-15.5) % Neutrophils # (Manual) (1.3-7.7) k/uL Lymphocytes # (Manual) (1.0-4.8) k/uL ESR (0-20) mm/hr Chloride (98-107) mmol/L Carbon Dioxide (22-30) mmol/L BUN (7-17) mg/dL Glucose (74-99) mg/dL POC Glucose (mg/dL) 159 H (75-99) mg/dL Calcium (8.4-10.2) mg/dL C-Reactive Protein (<1.0) mg/dL Microbiology - Last 24 Hours (Table) 08/28/21 15:25 Blood Culture Gram Stain - Preliminary Blood Blood Culture - Preliminary Group D Enterococcus 08/28/21 15:15 Blood Culture Gram Stain - Preliminary Blood Blood Culture - Preliminary Group D Enterococcus 08/27/21 01:46 Blood Culture Gram Stain - Final Blood Blood Culture - Final Enterococcus faecalis 08/27/21 06:54 Urine Culture - Final Urine,Voided Bertha albicans Assessment and Plan Assessment: Enterococcus faecalis septicemia Possible intake endocarditis with recent history of TAVR procedure. Generalized weakness and status post fall. Patient felt very weak and collapsed onto the floor. Acute hypoxic respiratory failure requiring oxygen at 4 L via nasal cannula. off BIpap Possible acute urinary tract infection. Recent history of TAVR for severe aortic stenosis on 08/05/2021 Acute on chronic CHF with diastolic dysfunction Coronary disease history of stent placement Paroxysmal atrial fibrillation on anticoagulation with Eliquis Mild elevated troponin level unlikely ACS. History of CVA with chronic dysphagia History of esophageal stenosis with previous history of esophageal dilations. Normocytic anemia with hemoglobin level around 7.7 Morbid obesity BMI 43.7 Plan: Patient will continue on antibiotics in the form of ceftriaxone.Vancomycin added. Repeat blood cultures will be ordered for tomorrow. Continue with oxygen supplementation. IV Lasix on hold. Cardiology and pulmonary is on board. Continue with telemetry monitoring and cardiac medications. Monitor blood pressure closely. Prognosis is guarded at this time. Time with Patient: Greater than 30
--- NOTE | 2021-08-31 00:42 | PN ---
PROGRESS NOTE DATE OF SERVICE: 08/30/2021 REASON FOR FOLLOWUP: Enterococcus faecalis bacteremia and UTI. INTERVAL HISTORY: The patient is afebrile. The patient is more awake and alert today. She is breathing comfortably. Denies any chest pain or worsening cough. No abdominal pain or diarrhea or significant urinary symptoms. PHYSICAL EXAMINATION: Blood pressure 135/56, pulse of 63, temperature 98.2. She is 98% on 3 L nasal cannula. General description is an elderly female lying in bed in no distress. Respiratory system: Unlabored breathing, decreased intensity of breath sounds. No wheeze. Hers Abdomen soft, no tenderness. Extremities no edema of the feet. LABS: Hemoglobin 7.6, white count 8.9, creatinine 0.84. Blood culture with group D Enterococcus. DIAGNOSTIC IMPRESSION AND PLAN: Patient with Enterococcus faecalis bacteremia, a sensitive pathogen, with high clinical suspicions for possible endovascular source. Patient currently does not have any abdominal pain or tenderness and urine is negative. Will recommend BELKYS and discuss with the cardiology team. Antibiotic will be adjusted to ampicillin. Blood culture today to document clearance of bacteremia. Continue with supportive care. MMODL / IJN: [id number] /
[2021-08-31] MEDS: AMPICILLIN 2,000 MG in SODIUM CHLORIDE 0.9% 100 ML IVPB SCH ×5 (04:37→23:25)
[2021-08-31 06:02] LABS: Glucose,Whole Blood 181 mg/dL (75-99)
[2021-08-31] MEDS: INSULIN ASPART (NovoLOG) 100 UNIT/ML VIAL SQ SCH ×4 (06:43→21:17)
[2021-08-31] MEDS: ESCITALOPRAM 10 MG TAB PO SCH (08:23)
[2021-08-31] MEDS: ASPIRIN 81 MG PO SCH (08:23)
[2021-08-31] MEDS: METOPROLOL TARTRATE 25 MG TAB PO SCH ×2 (08:24→21:17)
[2021-08-31] MEDS: APIXABAN 2.5 MG TABLET PO SCH ×2 (08:24→21:16)
[2021-08-31] MEDS: FLUCONAZOLE 100 MG TAB PO SCH (08:24)
[2021-08-31] MEDS: CLOPIDOGREL 75 MG TAB PO SCH (08:24)
[2021-08-31] MEDS: AMIODARONE 200 MG TAB PO SCH ×2 (08:24→21:16)
[2021-08-31] MEDS: PANTOPRAZOLE 40 MG TABLET PO SCH (08:28)
[2021-08-31 11:10] LABS: Anisocytosis Slight; HCT 23.6 % (34.0-46.0); HGB 7.3 gm/dL (11.4-16.0); Hypochromasia Moderate; MCH 29.3 pg (25.0-35.0); MCV 94.4 fL (80.0-100.0); Platelet Count 229 k/uL (150-450); Poikilocytosis Slight; RDW 16.1 % (11.5-15.5)
[2021-08-31 11:48] LABS: Glucose,Whole Blood 165 mg/dL (75-99)
[2021-08-31 12:04] LABS: Calcium 8.2 mg/dL (8.4-10.2); Potassium 3.8 mmol/L (3.5-5.1)
[2021-08-31 13:00] LABS: Band Neutrophils % 1 %; Eosinophils # (M) 0.08 k/uL (0-0.7); Lymphocytes # (M) 0.56 k/uL (1.0-4.8); Monocytes # (M) 0.96 k/uL (0-1.0); Neutrophils % (M) 79 %; Nucleated Red Blood Cells 0 /100 WBC (0-0); Total Cells Counted 100; Toxic Granulation Present
--- NOTE | 2021-08-31 14:36 | PN ---
PROGRESS NOTE This is an 81-year-old lady with a known history of paroxysmal atrial fibrillation, CAD, previous stenting of LAD in June of this year. In July, about a month ago or less, she had percutaneous aortic valve implant placed here in [facility]. She comes in with mainly complaints of what seems to be feeling weak and tired and also was found on the floor in the bathroom and the patient apparently denied losing consciousness, but she felt weak and lost her balance. However, she is on Eliquis for paroxysmal atrial fibrillation. Her hemoglobin is around 7-9 range. That has been her baseline. Upon arrival, further workup revealed that she had a positive blood cultures and there is concern that we are dealing with any bacteremia with recent bioprosthetic aortic valve from percutaneous approach. She was seen and evaluated by Dr. Zamora who and also by Dr. Álvarez from Infectious Disease and decision has been made to proceed with a transesophageal echo. Dr. Stratton sees her in the office and I will make arrangements for BELKYS to be performed by him tomorrow. The patient at the time of my evaluation is resting comfortably and I explained to her that we will perform a BELKYS. She understands and agrees and wishes to proceed with the procedure. She is in sinus rhythm this morning, resting comfortably, has no major complaints other than feeling weak tired and exhausted. Blood pressure is 128/70, pulse rate is about 70, sinus. JVD 1 cm. No carotid bruit. S1, S2 with ejection systolic murmur is audible. Lungs reveal bilateral diminished air entry. Abdomen is soft. Lower extremities reveal diminished pulses, trace edema. Central nervous system: Generalized weakness. No focal deficits. IMPRESSION: 1. Bacteremia with enterococcus. 2. Status post recent percutaneous aortic valve replacement. 3. History of coronary artery disease, prior PCI. RECOMMENDATIONS: I am recommending a transesophageal echo and will request Dr. Stratton to perform the procedure tomorrow. MMODL / IJN: [id number] /
[2021-08-31 16:41] LABS: Glucose,Whole Blood 269 mg/dL (75-99)
[2021-08-31] MEDS: INSULIN DETEMIR (LEVEMIR) 100 UNIT/ML SYR SQ SCH (18:12)
--- NOTE | 2021-08-31 18:32 | PN ---
PROGRESS NOTE DATE OF SERVICE: 08/31/2021 REASON FOR FOLLOW UP: Enterococcus faecalis bacteremia, concern for possible endovascular source. INTERVAL HISTORY: Patient is afebrile. The patient is slightly more awake and alert. She is breathing comfortably. Denies any chest pain. No cough. No abdominal pain. No diarrhea. PHYSICAL EXAMINATION: Blood pressure 123/64, pulse of 63, temperature 96.7. She is 91% on 2 L nasal cannula. General description is an elderly female lying in bed in no distress. Respiratory system: Unlabored breathing, decreased breath sounds in the bases. No wheeze. Heart S1, S2. Regular rate and rhythm. Abdomen soft, no tenderness. LABS: Hemoglobin 7.4, white count 8.0, creatinine 0.75. DIAGNOSTIC IMPRESSION AND PLAN: This patient with Enterococcus faecalis bacteremia, concerning for possible endovascular source with recent procedure. The patient may benefit from . This will be discussed further with Cardiology. Continue with Ampicillin and monitor clinical course closely. MMODL / IJN: [id number] /
[2021-08-31 20:08] LABS: Glucose,Whole Blood 295 mg/dL (75-99)
[2021-08-31] MEDS: ATORVASTATIN 40 MG TAB PO SCH (21:16)
--- NOTE | 2021-08-31 21:41 | P.PN ---
Subjective Progress Note Date: 08/31/21 Principal diagnosis: Element of septicemia which she has a history of T aVR and CAD with stent. The patient seems more comfortable. Tolerating diet. No voiding difficulties. Chart reviewed. Appreciate multiple consultants input. Objective - Vital Signs Vital signs: Vital Signs Temp 99.0 F 08/31/21 16:00 Pulse 58 L 08/31/21 16:00 Resp 18 08/31/21 16:00 BP 108/64 08/31/21 16:00 Pulse Ox 98 08/31/21 16:00 Intake & Output 08/31/21 08/31/21 09/01/21 06:59 18:59 06:59 Intake Total 100 474 Output Total 1000 80 Balance 100 -526 -80 Weight 103.4 kg 103.4 kg Intake: Intake, IV Titration 100 Amount Ampicillin 2,000 mg In 100 Sodium Chloride 0.9% 100 ml @ 200 mls/hr IVPB Q6HR NANCY Rx#:[id number] Oral 474 Output: Urine 1000 80 Other: Voiding Method External Catheter External Catheter # Voids 2 - Constitutional General appearance: Present: cooperative - EENT Eyes: Absent: abnormal pupil - Neck Neck: Absent: lymphadenopathy - Respiratory Respiratory: bilateral: CTA - Cardiovascular Rhythm: irregularly irregular Heart sounds: normal: S1, S2 Abnormal Heart Sounds: Absent: S3 Gallop - Gastrointestinal General gastrointestinal: Present: soft. Absent: tenderness - Psychiatric Psychiatric: Present: A&O x's 3 - Labs CBC & Chem 7: 08/31/21 10:12 08/31/21 10:12 Labs: Abnormal Lab Results - Last 24 Hours (Table) 08/30/21 08/31/21 08/31/21 Range/Units 11:49 05:58 10:12 RBC (3.80-5.40) m/uL Hgb (11.4-16.0) gm/dL Hct (34.0-46.0) % RDW (11.5-15.5) % Lymphocytes # (Manual) (1.0-4.8) k/uL Sodium 136 L (137-145) mmol/L Chloride 90 L (98-107) mmol/L Carbon Dioxide 44 H* (22-30) mmol/L BUN 29 H (7-17) mg/dL Glucose 149 H (74-99) mg/dL POC Glucose (mg/dL) 181 H (75-99) mg/dL Calcium 8.2 L (8.4-10.2) mg/dL Procalcitonin 0.27 H (0.02-0.09) ng/mL 08/31/21 08/31/21 08/31/21 Range/Units 10:12 11:46 16:40 RBC 2.50 L (3.80-5.40) m/uL Hgb 7.3 L (11.4-16.0) gm/dL Hct 23.6 L (34.0-46.0) % RDW 16.1 H (11.5-15.5) % Lymphocytes # (Manual) 0.56 L (1.0-4.8) k/uL Sodium (137-145) mmol/L Chloride (98-107) mmol/L Carbon Dioxide (22-30) mmol/L BUN (7-17) mg/dL Glucose (74-99) mg/dL POC Glucose (mg/dL) 165 H 269 H (75-99) mg/dL Calcium (8.4-10.2) mg/dL Procalcitonin (0.02-0.09) ng/mL 08/31/21 Range/Units 20:07 RBC (3.80-5.40) m/uL Hgb (11.4-16.0) gm/dL Hct (34.0-46.0) % RDW (11.5-15.5) % Lymphocytes # (Manual) (1.0-4.8) k/uL Sodium (137-145) mmol/L Chloride (98-107) mmol/L Carbon Dioxide (22-30) mmol/L BUN (7-17) mg/dL Glucose (74-99) mg/dL POC Glucose (mg/dL) 295 H (75-99) mg/dL Calcium (8.4-10.2) mg/dL Procalcitonin (0.02-0.09) ng/mL Microbiology - Last 24 Hours (Table) 08/30/21 11:49 Blood Culture Gram Stain - Preliminary Blood 08/30/21 12:00 Blood Culture Gram Stain - Preliminary Blood 08/30/21 12:00 Blood Culture - Final Blood 08/28/21 15:25 Blood Culture Gram Stain - Final Blood Blood Culture - Final Enterococcus faecalis 08/28/21 15:15 Blood Culture Gram Stain - Final Blood Blood Culture - Final Enterococcus faecalis 08/30/21 11:49 Blood Culture - Final Blood Assessment and Plan (1) Septicemia Current Visit: Yes Status: Acute Code(s): A41.9 - SEPSIS, UNSPECIFIED ORGANISM SNOMED Code(s): 841402803 (2) Anemia Current Visit: Yes Status: Acute Code(s): D64.9 - ANEMIA, UNSPECIFIED S NOMED Code(s): 167942273 (3) Diabetes Current Visit: No Status: Acute Code(s): E11.9 - TYPE 2 DIABETES MELLITUS WITHOUT COMPLICATIONS SNOMED Code(s): 39323882 (4) Stented coronary artery Current Visit: No Status: Acute Code(s): Z95.5 - PRESENCE OF CORONARY ANGIOPLASTY IMPLANT AND GRAFT SNOMED Code(s): 430594394 Plan: Continue current regimen of antibiotic treatment. Appreciate multiple consultants input. check CBC and see me in the a.m.
[2021-09-01 06:12] LABS: Glucose,Whole Blood 197 mg/dL (75-99)
[2021-09-01] MEDS: INSULIN ASPART (NovoLOG) 100 UNIT/ML VIAL SQ SCH ×4 (06:29→20:37)
[2021-09-01] MEDS: AMPICILLIN 2,000 MG in SODIUM CHLORIDE 0.9% 100 ML IVPB SCH ×4 (06:29→23:45)
[2021-09-01] MEDS ORDERED: IV FLUID CONTINUATION 1,000 ML IV ONE (07:27)
[2021-09-01] MEDS ORDERED: fentaNYL (PF) 50 MCG/ML 2 ML AMP ONE (07:29)
[2021-09-01 07:47] LABS: Anisocytosis Slight; HGB 7.4 gm/dL (11.4-16.0); Hypochromasia Marked; MCH 29.9 pg (25.0-35.0); MCHC 30.7 g/dL (31.0-37.0); MCV 97.6 fL (80.0-100.0); Macrocytosis Slight; Mean Platelet Volume 9.6; Platelet Count 214 k/uL (150-450); Poikilocytosis Slight; RBC 2.46 m/uL (3.80-5.40); RDW 16.1 % (11.5-15.5); WBC 9.3 k/uL (3.8-10.6)
[2021-09-01] MEDS ORDERED: BENZOCAINE SPRAY 1 CAN MUCOUS MEM ONE (07:53)
[2021-09-01] MEDS ORDERED: fentaNYL (PF) 50 MCG/ML 2 ML AMP IVP ONE (07:54)
[2021-09-01] MEDS ORDERED: MIDAZOLAM 2 MG/2 ML VIAL IVP ONE (07:54)
[2021-09-01 07:58] LABS: ALT 10 U/L (4-34); African American GFR (CKD) >90 (>60 ml/min/1.73 sqM); Albumin 2.3 g/dL (3.5-5.0); Anion Gap 5 mmol/L; Blood Urea Nitrogen 27 mg/dL (7-17); Calcium 8.1 mg/dL (8.4-10.2); Chloride 92 mmol/L (98-107); Glucose 157 mg/dL (74-99); Non-African American GFR(CKD) 78 (>60 ml/min/1.73 sqM); Sodium 137 mmol/L (137-145); Total Bilirubin 0.8 mg/dL (0.2-1.3); Total Protein 6.3 g/dL (6.3-8.2)
[2021-09-01 08:12] LABS: AST 31 U/L (14-36); Alkaline Phosphatase 76 U/L (38-126); Carbon Dioxide 40 mmol/L (22-30); Potassium 3.7 mmol/L (3.5-5.1)
[2021-09-01] MEDS: ASPIRIN 81 MG PO SCH (09:00)
[2021-09-01] MEDS: APIXABAN 2.5 MG TABLET PO SCH ×2 (09:00→20:37)
[2021-09-01] MEDS: ESCITALOPRAM 10 MG TAB PO SCH (09:01)
[2021-09-01] MEDS: AMIODARONE 200 MG TAB PO SCH ×2 (09:01→20:36)
[2021-09-01] MEDS: PANTOPRAZOLE 40 MG TABLET PO SCH (09:01)
[2021-09-01] MEDS: FLUCONAZOLE 100 MG TAB PO SCH (09:01)
[2021-09-01] MEDS: CLOPIDOGREL 75 MG TAB PO SCH (09:01)
[2021-09-01] MEDS: METOPROLOL TARTRATE 25 MG TAB PO SCH ×2 (09:01→20:37)
--- NOTE | 2021-09-01 10:39 | ECHOT ---
TRANSESOPHAGEAL ECHOCARDIOGRAM INDICATION: Rule out infective endocarditis in a patient with sepsis and bacteremia and recent history of aortic valve replacement. PROCEDURE NOTE: After obtaining informed consent, transesophageal echocardiogram was performed in left lateral position using an Omniplane probe. Local and IV sedation were obtained. Local and IV sedation were obtained using Xylocaine spray, 1 mg of Versed and 25 mcg of fentanyl. Patient tolerated the procedure well without any obvious immediate complications. The patient was in moderate conscious sedation. Total sedation time was 8 minutes. Patient underwent color Doppler and spectral analysis. I did not perform an isolated saline contrast study. FINDINGS: There is a bioprosthetic valve in aortic position with trace aortic regurgitation. There is no vegetation over the prosthetic aortic valve. Mitral valve appears anatomically normal. There is mild central mitral regurgitation noted. Tricuspid valve shows severe tricuspid regurgitation. Pulmonary valve is not very well visualized, but I did not see any vegetation. Left atrium appears mildly enlarged. Right atrium and right ventricle seem within normal limits. Left ventricle has normal size and systolic function. There is evidence of [id number] shunt with color-flow Doppler. CONCLUSIONS: 1. No vegetation noted on the prosthetic valve. 2. Severe tricuspid regurgitation. 3. Mild mitral and trace aortic regurgitation. MMODL / IJN: [id number] /
[2021-09-01 10:53] LABS: Glucose,Whole Blood 172 mg/dL (75-99)
--- NOTE | 2021-09-01 13:30 | P.PN ---
Subjective Principal diagnosis: The patient is here for septicemia after having TVR and stent with significant history of CHF. Tolerating diet. No voiding difficulties. Chart reviewed. Appreciate multiple consultants input. The patient recently had transesophageal echocardiogram. Results are pending. She seems to be from an infectious disease perspective stable. No element of severe hypotension or septic look. Objective - Vital Signs Vital signs: Vital Signs Temp 97.5 F L 09/01/21 12:00 Pulse 59 L 09/01/21 12:00 Resp 18 09/01/21 12:00 BP 129/50 09/01/21 12:00 Pulse Ox 100 09/01/21 12:00 Intake & Output 08/31/21 09/01/21 09/01/21 18:59 06:59 18:59 Intake Total 474 100 Output Total 1000 280 Balance -526 -280 100 Weight 103.4 kg 104.8 kg Intake: IV 100 Oral 474 Output: Urine 1000 280 Other: Voiding Method External Catheter External Catheter - Constitutional General appearance: Present: morbidly obese - EENT Eyes: Absent: abnormal pupil - Neck Neck: Absent: lymphadenopathy - Respiratory Respiratory: bilateral: diminished - Cardiovascular Rhythm: regular Heart sounds: normal: S1, S2 Abnormal Heart Sounds: Absent: S3 Gallop - Gastrointestinal General gastrointestinal: Present: soft. Absent: tenderness - Integumentary Integumentary: Absent: cellulitis - Labs CBC & Chem 7: 09/01/21 07:19 09/01/21 07:19 Labs: Abnormal Lab Results - Last 24 Hours (Table) 08/31/21 08/31/21 09/01/21 Range/Units 16:40 20:07 06:11 RBC (3.80-5.40) m/uL Hgb (11.4-16.0) gm/dL Hct (34.0-46.0) % MCHC (31.0-37.0) g/dL RDW (11.5-15.5) % Chloride (98-107) mmol/L Carbon Dioxide (22-30) mmol/L BUN (7-17) mg/dL Glucose (74-99) mg/dL POC Glucose (mg/dL) 269 H 295 H 197 H (75-99) mg/dL Calcium (8.4-10.2) mg/dL Albumin (3.5-5.0) g/dL 09/01/21 09/01/21 09/01/21 Range/Units 07:19 07:19 10:49 RBC 2.46 L (3.80-5.40) m/uL Hgb 7.4 L (11.4-16.0) gm/dL Hct 24.0 L (34.0-46.0) % MCHC 30.7 L (31.0-37.0) g/dL RDW 16.1 H (11.5-15.5) % Chloride 92 L (98-107) mmol/L Carbon Dioxide 40 H (22-30) mmol/L BUN 27 H (7-17) mg/dL Glucose 157 H (74-99) mg/dL POC Glucose (mg/dL) 172 H (75-99) mg/dL Calcium 8.1 L (8.4-10.2) mg/dL Albumin 2.3 L (3.5-5.0) g/dL Microbiology - Last 24 Hours (Table) 08/30/21 12:00 Blood Culture Gram Stain - Preliminary Blood Blood Culture - Preliminary Group D Enterococcus 08/30/21 11:49 Blood Culture Gram Stain - Preliminary Blood Blood Culture - Preliminary Enterococcus faecalis 08/30/21 12:00 Blood Culture - Final Blood 08/28/21 15:25 Blood Culture Gram Stain - Final Blood Blood Culture - Final Enterococcus faecalis 08/28/21 15:15 Blood Culture Gram Stain - Final Blood Blood Culture - Final Enterococcus faecalis 08/30/21 11:49 Blood Culture - Final Blood Assessment and Plan (1) Septicemia Current Visit: Yes Status: Acute Code(s): A41.9 - SEPSIS, UNSPECIFIED ORGANISM SNOMED Code(s): 279278969 (2) Anemia Current Visit: Yes Status: Acute Code(s): D64.9 - ANEMIA, UNSPECIFIED SNOMED Code(s): 373986830 (3) Diabetes Current Visit: No Status: Acute Code(s): E11.9 - TYPE 2 DIABETES MELLITUS WITHOUT COMPLICATIONS SNOMED Code(s): 41537791 (4) Stented coronary artery Current Visit: No Status: Acute Code(s): Z95.5 - PRESENCE OF CORONARY ANGIOPLASTY IMPLANT AND GRAFT SNOMED Code(s): 099313457 Plan: Explained to family member the logical thinking of sepsis workup that she is h aving. Check CBC and CMP in the a.m. Continue current antibiotic treatment. BELKYS results are pending.
--- NOTE | 2021-09-01 14:14 | P.PN ---
Subjective This is a 81-year-old female with a past medical history significant for paroxsymal atrial fibrillation on Eliquis, coronary artery disease with previous angioplasty of LAD, congestive heart failure, COPD, and recent TAVR in July 2021. Patient follows in the office with Dr. Stratton. We have been asked to see the patient in consultation for Congestive heart failure. As well as a BELKYS. Patient was brought to the emergency department 08/26/21 after her son found her on the floor of the bathroom floor. She fell and did not lose consciousness. She was found to be septic. Blood cultures have been consistently enteroccoccus faecalis. Patient is treated for UTI but urine cultures positive for Bertha. Echocardiogram reveals EF of 50-55%, mild periprosthetic regurgitation of the bioprosthetic aortic valve. TAVR moderate pulmonary hypertension, moderate tricuspid regurgitation. Patient seen and examined at bedside. She underwent a BELKYS today with Dr. Stratton which revealed no vegetation on prosthetic valve, severe tricuspid regurgitation, mild mitral and trace aortic regurgitation, there is evidence of right to left shunt. Telemetry reviewed patient sinus mechanism heart the 50s. Labs reviewed, hemoglobin 7.4, platelets 214, sodium 137, potassium 3.7, BUN 27, serum creatinine 0.7, albumin 2.3. Meds- currently maintained on amiodarone 200 mg twice a day, Eliquis 2.5 mg twice a day, aspirin milligrams daily, atorvastatin 40 mg nightly, Plavix 75 mg daily, Lasix PO 20 mg daily, metoprolol titrate 25 mg twice a day. PHYSICAL EXAM: VITAL SIGNS: Reviewed. GENERAL: Well-developed in no acute distress. HEENT:Neck Supple No JVD LUNGS: Respirations even and unlabored. Lungs diminished to auscultation bilat erally. HEART: Regular rate and rhythm. S1 and S2 heard. + systolic murmur ABDOMEN: Soft. Nondistended. Nontender. EXTREMITIES: Normal range of motion. No clubbing or cyanosis. Peripheral pulses intact. No edema. NEUROLOGIC: Awake and alert. Oriented x 3. ASSESSMENT: S/P mechanical fall Acute on chronic diastolic congestive heart failure, appears euvolemic on exam Coronary artery disease s/p previous PCI LAD Metabolic encephalopathy Gram-positive bacteremia, unclear source Hx of severe aortic stenosis, s/p TAVR 07/2021 Severe tricuspid regurgitation COPD Paroxysmal atrial fibrillation, on anticoagulation with Eliquis Anemia Leukocytosis Abnormal troponins, not suggestive of acute coronary syndrome Obesity PLAN: Patient underwent a BELKYS today with Dr. Stratton which revealed no vegetation on prosthetic valve Continue Eliquis. monitor hemoglobin Continue home cardiac medications Infectious disease following We will follow the patient as needed at this time. Please reach out with any further questions or concerns. Patient follow up outpatient with Dr. Stratton Nurse practitioner note has been reviewed by physician. Signing provider agrees with the documented findings, assessment, and plan of care. Objective - Vital Signs Vital signs: Vital Signs Temp 97.5 F L 09/01/21 12:00 Pulse 59 L 09/01/21 12:00 Resp 18 09/01/21 12:00 BP 129/50 09/01/21 12:00 Pulse Ox 100 09/01/21 12:00 Intake & Output 08/31/21 09/01/21 09/01/21 18:59 06:59 18:59 Intake Total 474 100 Output Total 1000 280 Balance -526 -280 100 Weight 103.4 kg 104.8 kg Intake: IV 100 Oral 474 Output: Urine 1000 280 Other: Voiding Method External Catheter External Catheter - Labs CBC & Chem 7: 09/01/21 07:19 09/01/21 07:19 Labs: Abnormal Lab Results - Last 24 Hours (Table) 08/31/21 08/31/21 09/01/21 Range/Units 16:40 20:07 06:11 RBC (3.80-5.40) m/uL Hgb (11.4-16.0) gm/dL Hct (34.0-46.0) % MCHC (31.0-37.0) g/dL RDW (11.5-15.5) % Chloride (98-107) mmol/L Carbon Dioxide (22-30) mmol/L BUN (7-17) mg/dL Glucose (74-99) mg/dL POC Glucose (mg/dL) 269 H 295 H 197 H (75-99) mg/dL Calcium (8.4-10.2) mg/dL Albumin (3.5-5.0) g/dL 09/01/21 09/01/21 09/01/21 Range/Units 07:19 07:19 10:49 RBC 2.46 L (3.80-5.40) m/uL Hgb 7.4 L (11.4-16.0) gm/dL Hct 24.0 L (34.0-46.0) % MCHC 30.7 L (31.0-37.0) g/dL RDW 16.1 H (11.5-15.5) % Chloride 92 L (98-107) mmol/L Carbon Dioxide 40 H (22-30) mmol/L BUN 27 H (7-17) mg/dL Glucose 157 H (74-99) mg/dL POC Glucose (mg/dL) 172 H (75-99) mg/dL Calcium 8.1 L (8.4-10.2) mg/dL Albumin 2.3 L (3.5-5.0) g/dL Microbiology - Last 24 Hours (Table) 08/30/21 12:00 Blood Culture Gram Stain - Preliminary Blood Blood Culture - Preliminary Group D Enterococcus 08/30/21 11:49 Blood Culture Gram Stain - Preliminary Blood Blood Culture - Preliminary Enterococcus faecalis 08/30/21 12:00 Blood Culture - Final Blood 08/28/21 15:25 Blood Culture Gram Stain - Final Blood Blood Culture - Final Enterococcus faecalis 08/28/21 15:15 Blood Culture Gram Stain - Final Blood Blood Culture - Final Enterococcus faecalis 08/30/21 11:49 Blood Culture - Final Blood
[2021-09-01 16:03] LABS: Glucose,Whole Blood 110 mg/dL (75-99)
[2021-09-01] MEDS: INSULIN DETEMIR (LEVEMIR) 100 UNIT/ML SYR SQ SCH (19:00)
[2021-09-01 20:35] LABS: Glucose,Whole Blood 160 mg/dL (75-99)
[2021-09-01] MEDS: ATORVASTATIN 40 MG TAB PO SCH (20:37)
[2021-09-01] MEDS ORDERED: GENTAMICIN PER PHARMACY MISCELLANE SCH (20:45)
[2021-09-01] MEDS ORDERED: GENTAMICIN 80 MG in SODIUM CHLORIDE 0.9% 100 ML IVPB ONE (21:00)
--- NOTE | 2021-09-01 21:51 | PN ---
PROGRESS NOTE DATE OF SERVICE: 09/01/2021 REASON FOR FOLLOWUP: Enterococcus faecalis bacteremia. INTERVAL HISTORY: The patient is afebrile. The patient is currently breathing comfortably. Denies any chest pain, shortness of breath or cough. No abdominal pain or diarrhea. PHYSICAL EXAMINATION: Her blood pressure is 115/48 with a pulse of 72, temperature 97.7. She is 98% on L nasal cannula. General description is an elderly female lying in bed in no distress. Respiratory system: Unlabored breathing, decreased breath sounds in the base, no wheeze. Heart S1, S2. Regular rate and rhythm. Abdomen soft, no tenderness. Extremities no edema of the feet. LABS: Hemoglobin is 7.4, white count 9.3, creatinine 0.72. Blood culture from 08/30 is still positive. DIAGNOSTIC IMPRESSION AND PLAN: Patient with Enterococcus faecalis bacteremia, persistent, concerning for an endovascular source with recent valve replacement surgery. However, BELKYS was negative for any vegetation. Will obtain a CT of abdomen and pelvis with contrast. Adjust antibiotic by addition of gentamicin for synergistic activity while watching her kidney function closely. Continue with supportive care. MMODL / IJN: [id number] /
[2021-09-02] MEDS: AMPICILLIN 2,000 MG in SODIUM CHLORIDE 0.9% 100 ML IVPB SCH ×5 (04:01→21:13)
[2021-09-02 06:10] LABS: Glucose,Whole Blood 79 mg/dL (75-99)
[2021-09-02] MEDS: INSULIN ASPART (NovoLOG) 100 UNIT/ML VIAL SQ SCH ×4 (06:10→20:48)
--- NOTE | 2021-09-02 08:37 | P.PN ---
Subjective Principal diagnosis: The patient is here for septicemia after having TVR and stent with significant history of CHF. Tolerating diet. No voiding difficulties. Chart reviewed. Appreciate multiple consultants input. The patient recently had transesophageal echocardiogram. Results show no significant vegetation She seems to be from an infectious disease perspective stable. No element of severe hypotension or septic look. The patient otherwise has difficulty with dysphasia. Appreciate dietary and speech input. Objective - Vital Signs Vital signs: Vital Signs Temp 98.0 F 09/02/21 04:00 Pulse 70 09/02/21 04:00 Resp 18 09/02/21 04:00 BP 104/62 09/02/21 04:00 Pulse Ox 93 L 09/02/21 04:00 Intake & Output 09/01/21 09/02/21 09/02/21 18:59 06:59 18:59 Intake Total 580 200 Balance 580 200 Weight 104.8 kg Intake: IV 100 Intake, IV Titration 100 Amount Gentamicin 80 mg In 100 Sodium Chloride 0.9% 100 ml @ 102 mls/hr IVPB ONCE ONE Rx#:[id number] Oral 480 100 Other: Voiding Method External Catheter External Catheter # Voids 1 0 - Constitutional General appearance: Present: average body habitus - EENT Eyes: Absent: abnormal pupil - Neck Neck: Absent: lymphadenopathy - Respiratory Respiratory: bilateral: CTA - Cardiovascular Rhythm: regular Heart sounds: normal: S1, S2 Abnormal Heart Sounds: Absent: S3 Gallop - Gastrointestinal General gastrointestinal: Present: soft. Absent: tenderness - Integumentary Integumentary: Absent: cellulitis - Psychiatric Psychiatric: Present: A&O x's 3 - Labs CBC & Chem 7: 09/01/21 07:19 09/01/21 07:19 Labs: Abnormal Lab Results - Last 24 Hours (Table) 09/01/21 09/01/21 09/01/21 Range/Units 10:49 16:02 20:32 POC Glucose (mg/dL) 172 H 110 H 160 H (75-99) mg/dL Microbiology - Last 24 Hours (Table) 08/30/21 12:00 Blood Culture Gram Stain - Preliminary Blood Blood Culture - Preliminary Group D Enterococcus 08/30/21 11:49 Blood Culture Gram Stain - Preliminary Blood Blood Culture - Preliminary Enterococcus faecalis Assessment and Plan (1) Septicemia Current Visit: Yes Status: Acute Code(s): A41.9 - SEPSIS, UNSPECIFIED ORGANISM SNOMED Code(s): 021866089 (2) Anemia Current Visit: Yes Status: Acute Code(s): D64.9 - ANEMIA, UNSPECIFIED SNOMED Code(s): 828946193 (3) Diabetes Current Visit: No Status: Acute Code(s): E11.9 - TYPE 2 DIABETES MELLITUS WITHOUT COMPLICATIONS SNOMED Code(s): 42115906 (4) Stented coronary artery Current Visit: No Status: Acute Code(s): Z95.5 - PRESENCE OF CORONARY ANGIOPLASTY IMPLANT AND GRAFT SNOMED Code(s): 325387744 Plan: Appreciate multiple consultants input. Computed tomography scan of abdomen and pelvis is pending. We will need to clarify antibiotic protocol prior to discharge. Check CBC and CMP in a.m.
[2021-09-02] MEDS ORDERED: FUROSEMIDE 20 MG TAB PO SCH (09:00)
[2021-09-02 09:07] LABS: Anisocytosis Slight; HGB 7.5 gm/dL (11.4-16.0); Hypochromasia Moderate; MCH 29.6 pg (25.0-35.0); MCHC 31.1 g/dL (31.0-37.0); MCV 95.1 fL (80.0-100.0); Mean Platelet Volume 9.1; Platelet Count 249 k/uL (150-450); Poikilocytosis Slight; RBC 2.52 m/uL (3.80-5.40); RDW 16.6 % (11.5-15.5); WBC 10.2 k/uL (3.8-10.6)
[2021-09-02 09:29] LABS: Albumin 2.5 g/dL (3.5-5.0); Calcium 8.5 mg/dL (8.4-10.2); Potassium 3.7 mmol/L (3.5-5.1); Total Bilirubin 0.7 mg/dL (0.2-1.3); Total Protein 6.5 g/dL (6.3-8.2)
[2021-09-02] MEDS: PANTOPRAZOLE 40 MG TABLET PO SCH (09:33)
[2021-09-02] MEDS: CLOPIDOGREL 75 MG TAB PO SCH (09:33)
[2021-09-02] MEDS: FLUCONAZOLE 100 MG TAB PO SCH (09:33)
[2021-09-02] MEDS: ASPIRIN 81 MG PO SCH (09:33)
[2021-09-02] MEDS: APIXABAN 2.5 MG TABLET PO SCH ×2 (09:33→21:10)
[2021-09-02] MEDS: ESCITALOPRAM 10 MG TAB PO SCH (09:33)
[2021-09-02] MEDS: METOPROLOL TARTRATE 25 MG TAB PO SCH ×2 (09:33→21:32)
[2021-09-02] MEDS: AMIODARONE 200 MG TAB PO SCH ×2 (09:34→21:10)
[2021-09-02] MEDS: GENTAMICIN 60 MG in SODIUM CHLORIDE 0.9% 100 ML IVPB SCH ×2 (10:44→22:45)
[2021-09-02 11:57] LABS: Glucose,Whole Blood 74 mg/dL (75-99)
[2021-09-02] MEDS: IOPAMIDOL CONTRAST (ORAL USE) VIAL PO PRN ×2 (12:35→15:53)
[2021-09-02 15:58] LABS: Glucose,Whole Blood 66 mg/dL (75-99)
[2021-09-02] MEDS ORDERED: DEXTROSE 50% SYRINGE 50 ML IVP ONE (16:04)
[2021-09-02 16:17] LABS: Glucose,Whole Blood 214 mg/dL (75-99)
[2021-09-02 16:19] LABS: Glucose,Whole Blood 203 mg/dL (75-99)
[2021-09-02] MEDS: INSULIN DETEMIR (LEVEMIR) 100 UNIT/ML SYR SQ SCH (18:08)
[2021-09-02 20:25] LABS: Glucose,Whole Blood 129 mg/dL (75-99)
[2021-09-02] MEDS: ATORVASTATIN 40 MG TAB PO SCH (21:10)
--- NOTE | 2021-09-02 22:21 | CT ---
EXAMINATION TYPE: CT brain wo con DATE OF EXAM: 09/02/2021 COMPARISON: 08/26/2021 HISTORY: altered mental status CT DLP: 1099.4 mGycm Automated exposure control for dose reduction was used. There is cerebral cortical atrophy. There is no mass effect nor midline shift. There is no evidence o f intracranial hemorrhage. There is large area of hypodensity medial right occipital lobe and a small er area medial left occipital lobe consistent with old infarct. Right side measures 4 cm. Left side m easures 3 x 2 cm. The calvarium is intact. Sella turcica appears normal. I see no bony destructive pr ocess. 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 No acute intracranial abnormality. No change compared to recen t exam. Cerebral atrophy.
--- NOTE | 2021-09-02 22:28 | CT ---
EXAMINATION TYPE: CT abdomen pelvis w con DATE OF EXAM: 09/02/2021 COMPARISON: 10/17/2016 HISTORY: enterococus bacteremia CT DLP: 1945.9 mGycm Automated exposure control for dose reduction was used. CONTRAST: Performed with IV Contrast, patient injected with 100 mL of Isovue 300. Images obtained from the diaphragm to the floor the pelvis with oral and IV contrast. There are moderate bilateral pleural effusions. There is bilateral lower lobe pulmonary airspace infi ltrate and atelectasis. Heart is borderline enlarged. Liver is intact. Spleen is intact. Stomach is intact. There is no evidence of pancreatic mass. Gallbl adder is not dilated. There is small hiatal hernia. There is no adrenal mass. Kidneys show satisfactory contrast opacification. There is no hydronephrosi s. Ureters are not dilated. There is no retroperitoneal adenopathy. Bladder distends smoothly. There is right hip nailing noted. Uterus is intact. There is no inguinal hernia. There is no free fluid in the pelvis. There is no mesenteric edema. There is no ascites or free air. There is no sign of a bowel obstructio n. Appendix not seen. No sign of thickened appendix. The lumbar spine is intact. There is no significant compression deformity. There is no evidence of pe lvic fracture. IMPRESSION: Moderate pleural effusions and basilar pulmonary infiltrates and atelectasis. This could be chronic c ongestive heart failure. No acute abnormality within the abdomen pelvis. Pulmonary abnormalities appear new compared to old exam. Hiatal hernia appears decreased compared to old exam.
[2021-09-03] MEDS: AMPICILLIN 2,000 MG in SODIUM CHLORIDE 0.9% 100 ML IVPB SCH ×7 (00:28→23:50)
[2021-09-03 06:08] LABS: Glucose,Whole Blood 144 mg/dL (75-99)
[2021-09-03] MEDS: INSULIN ASPART (NovoLOG) 100 UNIT/ML VIAL SQ SCH ×4 (06:17→22:04)
--- NOTE | 2021-09-03 08:31 | P.PN ---
Subjective Principal diagnosis: The patient is here for septicemia after having TVR and stent with significant history of CHF. Tolerating diet. No voiding difficulties. Chart reviewed. Appreciate multiple consultants input. The patient recently had transesophageal echocardiogram. Results show no significant vegetation She seems to be from an infectious disease perspective stable. No element of severe hypotension or septic look. The patient has been lethargic requiring BiPAP. Computed tomography scan is nominal for head and abdomen and pelvis. We has a team have been looking for source of infection given her septicemia. Objective - Vital Signs Vital signs: Vital Signs Temp 98.0 F 09/03/21 04:00 Pulse 61 09/03/21 04:00 Resp 23 09/03/21 04:00 BP 127/70 09/03/21 04:00 Pulse Ox 98 09/03/21 04:00 Intake & Output 09/02/21 09/03/21 09/03/21 18:59 06:59 18:59 Weight 122 kg Other: Voiding Method External Catheter # Voids 2 1 - Constitutional General appearance: Present: obese - EENT Eyes: Absent: abnormal pupil - Neck Neck: Absent: lymphadenopathy - Respiratory Respiratory: bilateral: diminished - Cardiovascular Rhythm: regular Heart sounds: normal: S1, S2 Abnormal Heart Sounds: Absent: S3 Gallop - Gastrointestinal General gastrointestinal: Present: soft. Absent: tenderness - Neurologic Neurologic Comment(s): Poorly arousable - Psychiatric Psychiatric: Absent: appropriate affect - Labs CBC & Chem 7: 09/02/21 08:48 09/02/21 08:48 Labs: Abnormal Lab Results - Last 24 Hours (Table) 09/02/21 09/02/21 09/02/21 Range/Units 08:48 08:48 11:55 RBC 2.52 L (3.80-5.40) m/uL Hgb 7.5 L (11.4-16.0) gm/dL Hct 24.0 L (34.0-46.0) % RDW 16.6 H (11.5-15.5) % Chloride 95 L (98-107) mmol/L Carbon Dioxide 41 H* (22-30) mmol/L BUN 24 H (7-17) mg/dL Glucose 64 L (74-99) mg/dL POC Glucose (mg/dL) 74 L (75-99) mg/dL Albumin 2.5 L (3.5-5.0) g/dL 09/02/21 09/02/21 09/02/21 Range/Units 15:57 16:16 16:18 RBC (3.80-5.40) m/uL Hgb (11.4-16.0) gm/dL Hct (34.0-46.0) % RDW (11.5-15.5) % Chloride (98-107) mmol/L Carbon Dioxide (22-30) mmol/L BUN (7-17) mg/dL Glucose (74-99) mg/dL POC Glucose (mg/dL) 66 L 214 H 203 H (75-99) mg/dL Albumin (3.5-5.0) g/dL 09/02/21 09/03/21 Range/Units 20:24 06:06 RBC (3.80-5.40) m/uL Hgb (11.4-16.0) gm/dL Hct (34.0-46.0) % RDW (11.5-15.5) % Chloride (98-107) mmol/L Carbon Dioxide (22-30) mmol/L BUN (7-17) mg/dL Glucose (74-99) mg/dL POC Glucose (mg/dL) 129 H 144 H (75-99) mg/dL Albumin (3.5-5.0) g/dL Microbiology - Last 24 Hours (Table) 09/01/21 18:47 Blood Culture - Preliminary Blood No Growth after 24 hours 08/30/21 12:00 Blood Culture Gram Stain - Final Blood Blood Culture - Final Enterococcus faecalis 08/30/21 11:49 Blood Culture Gram Stain - Final Blood Blood Culture - Final Enterococcus faecalis Assessment and Plan (1) Septicemia Current Visit: Yes Status: Acute Code(s): A41.9 - SEPSIS, UNSPECIFIED ORGANISM SNOMED Code(s): 387128063 (2) Anemia Current Visit: Yes Status: Acute Code(s): D64.9 - ANEMIA, UNSPECIFIED SNOMED Code(s): 216115210 (3) Diabetes Current Visit: No Status: Acute Code(s): E11.9 - TYPE 2 DIABETES MELLITUS WITHOUT COMPLICATIONS SNOMED Code(s): 80927097 (4) Stented coronary artery Current Visit: No Status: Acute Code(s): Z95.5 - PRESENCE OF CORONARY ANGIOPLASTY IMPLANT AND GRAFT SNOMED Code(s): 245309557 Plan: Appreciate multiple consultants input. Computed tomography scan of abdomen and pelvis is noted Question need for neurology due to her mental state Check CBC and CMP in a.m.
[2021-09-03] MEDS ORDERED: GENTAMICIN TROUGH DUE 1 EACH MISC MISCELLANE ONE ×2 (09:30→21:30)
[2021-09-03] MEDS: AMIODARONE 200 MG TAB PO SCH ×2 (09:42→21:19)
[2021-09-03] MEDS: PANTOPRAZOLE 40 MG TABLET PO SCH (09:43)
[2021-09-03] MEDS: APIXABAN 2.5 MG TABLET PO SCH ×2 (09:43→21:18)
[2021-09-03] MEDS: METOPROLOL TARTRATE 25 MG TAB PO SCH ×2 (09:43→21:19)
[2021-09-03] MEDS: ESCITALOPRAM 10 MG TAB PO SCH (09:43)
[2021-09-03] MEDS: ASPIRIN 81 MG PO SCH (09:43)
[2021-09-03] MEDS: FLUCONAZOLE 100 MG TAB PO SCH (09:43)
[2021-09-03] MEDS: CLOPIDOGREL 75 MG TAB PO SCH (09:43)
--- NOTE | 2021-09-03 09:47 | PN ---
PROGRESS NOTE DATE OF SERVICE: 09/02/2021 REASON FOR FOLLOWUP: Enterococcus faecalis bacteremia. INTERVAL HISTORY: The patient is afebrile. The patient is currently breathing comfortably. The patient was noted to have slight mental status changes today and could not provide any history. No vomiting, diarrhea or any other changes reported by nursing staff. PHYSICAL EXAMINATION: Blood pressure 136/63 with a pulse of 69, temperature 98. She is 97% on 3 L nasal cannula. General description is an elderly female lying in bed in no distress. Respiratory system: Unlabored breathing, clear to auscultation anteriorly. Heart S1, S2. Regular rate and rhythm. Abdomen soft, no tenderness. LABS: Blood cultures from yesterday are negative so far. The patient did have a CT of abdomen and pelvis completed; report is currently pending. DIAGNOSTIC IMPRESSION AND PLAN: Patient with persistent Enterococcus faecalis bacteremia without any obvious focus. Patient did have a BELKYS that was negative. CT of abdomen and pelvis is currently pending. Blood culture from yesterday is so far negative and has been repeated this morning. That will be followed. To continue with ampicillin and gentamicin while watching her kidney function closely. Continue with supportive care. MMODL / IJN: [id number] /
[2021-09-03] MEDS: GENTAMICIN 60 MG in SODIUM CHLORIDE 0.9% 100 ML IVPB SCH ×2 (10:27→21:37)
[2021-09-03 11:40] LABS: Anisocytosis Slight; Basophils % (A) 0 %; Eosinophils # (A) 0.4 k/uL (0-0.7); Eosinophils % (A) 4 %; HCT 25.4 % (34.0-46.0); HGB 7.8 gm/dL (11.4-16.0); Hypochromasia Marked; Lymphocytes # (A) 0.7 k/uL (1.0-4.8); Lymphocytes % (A) 8 %; MCH 29.4 pg (25.0-35.0); MCHC 30.6 g/dL (31.0-37.0); MCV 96.1 fL (80.0-100.0); Macrocytosis Slight; Mean Platelet Volume 9.1; Monocytes # (A) 0.4 k/uL (0-1.0); Monocytes % (A) 5 %; Neutrophils # (A) 6.7 k/uL (1.3-7.7); Neutrophils % (A) 78 %; Platelet Count 258 k/uL (150-450); Poikilocytosis Slight; RBC 2.64 m/uL (3.80-5.40); RDW 16.9 % (11.5-15.5); WBC 8.5 k/uL (3.8-10.6)
[2021-09-03 11:51] LABS: Glucose,Whole Blood 163 mg/dL (75-99)
[2021-09-03] MEDS ORDERED: GENTAMICIN PEAK DUE 1 EACH MISC MISCELLANE ONE (12:00)
[2021-09-03 12:02] LABS: Albumin 2.3 g/dL (3.5-5.0); Calcium 8.3 mg/dL (8.4-10.2); Potassium 3.9 mmol/L (3.5-5.1); Total Bilirubin 0.7 mg/dL (0.2-1.3); Total Protein 6.2 g/dL (6.3-8.2)
[2021-09-03 16:31] LABS: Glucose,Whole Blood 176 mg/dL (75-99)
[2021-09-03] MEDS: INSULIN DETEMIR (LEVEMIR) 100 UNIT/ML SYR SQ SCH (18:14)
[2021-09-03] MEDS: SODIUM CHLORIDE 0.9% 1,000 ML IV SCH (18:20)
[2021-09-03 19:49] LABS: Glucose,Whole Blood 277 mg/dL (75-99)
[2021-09-03] MEDS: ATORVASTATIN 40 MG TAB PO SCH (21:19)
--- NOTE | 2021-09-03 22:03 | PN ---
PROGRESS NOTE DATE OF SERVICE: 09/03/2021 REASON FOR FOLLOWUP: Enterococcus faecalis bacteremia. INTERVAL HISTORY: The patient is afebrile. The patient remains lethargic and is currently hemodynamically stable, not on any pressor support. No vomiting, diarrhea or other changes reported by nursing staff. The patient herself was unable to provide any history. PHYSICAL EXAMINATION: Blood pressure is 110/55, pulse of 56, temperature 97.3. She is currently 100% on BiPAP. General description is an elderly female lying in bed in no distress. Respiratory system: Unlabored breathing, decreased intensity of breath sounds. No wheeze. Heart S1, S2. Regular rate and rhythm. Abdomen soft, no tenderness. Extremities no edema of the feet. LABS: Hemoglobin is 7.2, white count 8.5, creatinine 0.98. Blood cultures from 09/01 and 09/02 have been negative. DIAGNOSTIC IMPRESSION AND PLAN: Patient with Enterococcus faecalis bacteremia, persistent, concerning for a deep focus. BELKYS, CT of abdomen and pelvis has been negative. Urine was negative. Will obtain a WBC scan to complete the workup. Patient is covered with ampicillin and gentamicin; to continue while watching her kidney function closely. Continue supportive care. MMODL / IJN: [id number] /
[2021-09-04] MEDS ORDERED: GENTAMICIN PEAK DUE 1 EACH MISC MISCELLANE ONE
[2021-09-04] MEDS: AMPICILLIN 2,000 MG in SODIUM CHLORIDE 0.9% 100 ML IVPB SCH ×4 (03:55→21:05)
[2021-09-04] MEDS: SODIUM CHLORIDE 0.9% 1,000 ML IV SCH (03:56)
[2021-09-04 06:09] LABS: Glucose,Whole Blood 198 mg/dL (75-99)
[2021-09-04] MEDS: INSULIN ASPART (NovoLOG) 100 UNIT/ML VIAL SQ SCH ×4 (06:13→21:13)
[2021-09-04 08:27] LABS: Calcium 8.1 mg/dL (8.4-10.2); Potassium 4.3 mmol/L (3.5-5.1)
--- NOTE | 2021-09-04 08:35 | P.PN ---
Subjective Principal diagnosis: The patient is here for septicemia after having TVR and stent with significant history of CHF. Tolerating diet. No voiding difficulties. Chart reviewed. Appreciate multiple consultants input. The patient recently had transesophageal echocardiogram. Results show no significant vegetation She seems to be from an infectious disease perspective stable. No element of severe hypotension or septic look. The patient has been lethargic requiring BiPAP. Computed tomography scan is nominal for head and abdomen and pelvis. We has a team have been looking for source of infection given her septicemia. She seems much more alert but still has poor short-term memory Urinary output seems to be quite decreasing. Objective - Vital Signs Vital signs: Vital Signs Temp 97.3 F L 09/03/21 19:48 Pulse 55 L 09/04/21 04:00 Resp 17 09/04/21 04:00 BP 111/39 09/04/21 04:00 Pulse Ox 98 09/04/21 04:00 Intake & Output 09/03/21 09/04/21 09/04/21 18:59 06:59 18:59 Intake Total 420 Output Total 150 Balance 420 -150 Weight 122 kg 111.9 kg Intake: Intake, IV Titration 420 Amount Ampicillin 2,000 mg In 200 Sodium Chloride 0.9% 100 ml @ 200 mls/hr IVPB Q4HR [facility] Rx#:[id number] Gentamicin 60 mg In 100 Sodium Chloride 0.9% 100 ml @ 101.5 mls/hr IVPB Q12H [facility] Rx#:[id number] IV Fluid Continuation 1, 120 000 ml @ 0 mls/hr IV .[facility] Rx#:[id number] Output: Urine 150 Other: Voiding Method External Catheter External Catheter # Voids 0 - EENT Eyes: Absent: abnormal pupil - Neck Neck: Absent: lymphadenopathy - Respiratory Respiratory: bilateral: diminished - Cardiovascular Rhythm: regular Heart sounds: normal: S1, S2 Abnormal Heart Sounds: Absent: S3 Gallop - Gastrointestinal General gastrointestinal: Present: soft. Absent: tenderness - Integumentary Integumentary: Absent: cellulitis - Psychiatric Psychiatric: Absent: A&O x's 3 - Labs CBC & Chem 7: 09/03/21 11:01 09/04/21 07:32 Labs: Abnormal Lab Results - Last 24 Hours (Table) 09/03/21 09/03/21 09/03/21 Range/Units 11:01 11:01 11:49 RBC 2.64 L (3.80-5.40) m/uL Hgb 7.8 L (11.4-16.0) gm/dL Hct 25.4 L (34.0-46.0) % MCHC 30.6 L (31.0-37.0) g/dL RDW 16.9 H (11.5-15.5) % Lymphocytes # 0.7 L (1.0-4.8) k/uL Chloride 97 L (98-107) mmol/L Carbon Dioxide 38 H (22-30) mmol/L BUN 23 H (7-17) mg/dL Creatinine (0.52-1.04) mg/dL Glucose 150 H (74-99) mg/dL POC Glucose (mg/dL) 163 H (75-99) mg/dL Calcium 8.3 L (8.4-10.2) mg/dL Total Protein 6.2 L (6.3-8.2) g/dL Albumin 2.3 L (3.5-5.0) g/dL Gentamicin Trough ug/mL 09/03/21 09/03/21 09/03/21 Range/Units 16:29 19:48 21:08 RBC (3.80-5.40) m/uL Hgb (11.4-16.0) gm/dL Hct (34.0-46.0) % MCHC (31.0-37.0) g/dL RDW (11.5-15.5) % Lymphocytes # (1.0-4.8) k/uL Chloride (98-107) mmol/L Carbon Dioxide (22-30) mmol/L BUN (7-17) mg/dL Creatinine (0.52-1.04) mg/dL Glucose (74-99) mg/dL POC Glucose (mg/dL) 176 H 277 H (75-99) mg/dL Calcium (8.4-10.2) mg/dL Total Protein (6.3-8.2) g/dL Albumin (3.5-5.0) g/dL Gentamicin Trough 3.4 H* ug/mL 09/04/21 09/04/21 Range/Units 06:07 07:32 RBC (3.80-5.40) m/uL Hgb (11.4-16.0) gm/dL Hct (34.0-46.0) % MCHC (31.0-37.0) g/dL RDW (11.5-15.5) % Lymphocytes # (1.0-4.8) k/uL Chloride 97 L (98-107) mmol/L Carbon Dioxide 38 H (22-30) mmol/L BUN 30 H (7-17) mg/dL Creatinine 1.46 H (0.52-1.04) mg/dL Glucose 179 H (74-99) mg/dL POC Glucose (mg/dL) 198 H (75-99) mg/dL Calcium 8.1 L (8.4-10.2) mg/dL Total Protein (6.3-8.2) g/dL Albumin (3.5-5.0) g/dL Gentamicin Trough ug/mL Microbiology - Last 24 Hours (Table) 09/01/21 18:47 Blood Culture - Preliminary Blood No Growth after 48 hours 09/02/21 08:48 Blood Culture - Preliminary Blood No Growth after 24 hours Assessment and Plan (1) Septicemia Current Visit: Yes Status: Acute Code(s): A41.9 - SEPSIS, UNSPECIFIED ORGANISM SNOMED Code(s): 315309764 (2) Anemia Current Visit: Yes Status: Acute Code(s): D64.9 - ANEMIA, UNSPECIFIED SNOMED Code(s): 675732813 (3) Diabetes Current Visit: No Status: Acute Code(s): E11.9 - TYPE 2 DIABETES MELLITUS WITHOUT COMPLICATIONS SNOMED Code(s): 58083112 (4) Stented coronary artery Current Visit: No Status: Acute Code(s): Z95.5 - PRESENCE OF CORONARY ANGIOPLASTY IMPLANT AND GRAFT SNOMED Code(s): 363031261 Plan: Appreciate multiple consultants input. Computed tomography scan of abdomen and pelvis is noted She seems more alert compared to yesterday. Long discussion with her daughter about what the plan is for the source of inf ection Check CBC and CMP in a.m. Watch urinary output closely.
[2021-09-04] MEDS: CLOPIDOGREL 75 MG TAB PO SCH (08:55)
[2021-09-04] MEDS: APIXABAN 2.5 MG TABLET PO SCH ×2 (08:55→21:12)
[2021-09-04] MEDS: AMIODARONE 200 MG TAB PO SCH ×2 (08:55→21:12)
[2021-09-04] MEDS: ASPIRIN 81 MG PO SCH (08:55)
[2021-09-04] MEDS: ESCITALOPRAM 10 MG TAB PO SCH (08:55)
[2021-09-04] MEDS: FLUCONAZOLE 100 MG TAB PO SCH (08:55)
[2021-09-04] MEDS: PANTOPRAZOLE 40 MG TABLET PO SCH (08:55)
[2021-09-04] MEDS: METOPROLOL TARTRATE 25 MG TAB PO SCH ×2 (08:57→21:12)
[2021-09-04] MEDS ORDERED: GENTAMICIN PER PHARMACY MISCELLANE SCH (10:45)
[2021-09-04 11:40] LABS: Glucose,Whole Blood 275 mg/dL (75-99)
[2021-09-04 16:30] LABS: Glucose,Whole Blood 274 mg/dL (75-99)
[2021-09-04] MEDS: INSULIN DETEMIR (LEVEMIR) 100 UNIT/ML SYR SQ SCH (17:22)
--- NOTE | 2021-09-04 18:52 | PN ---
PROGRESS NOTE DATE OF SERVICE: 09/04/2021. REASON FOR FOLLOW UP: Enterococcus faecalis bacteremia, focus. INTERVAL HISTORY: The patient is afebrile. The patient is slightly more awake and alert. She is breathing comfortably, hemodynamically stable. No chest pain or cough. No abdominal pain. No diarrhea. PHYSICAL EXAMINATION: Blood pressure 105/46, pulse of 52. . General description is an elderly female lying in bed in no distress. Respiratory system: Unlabored breathing, clear to auscultation anteriorly. Heart S1, S2. Regular rate and rhythm. Abdomen soft, no tenderness. Extremities: No edema of the feet. LABS: BUN of 20, creatinine 1.46. DIAGNOSTIC IMPRESSION AND PLAN: Patient with Enterococcus faecalis bacteremia persistent bacteremia concern for deep focus. Workup so far has been negative. WBC scan has been ordered currently pending. The patient did have slight worsening of her kidney function. Gentamicin will be discontinued. Continue with Ampicillin and monitor clinical course closely. Continue supportive care. MMODL / IJN: [id number] /
[2021-09-04 20:11] LABS: Glucose,Whole Blood 212 mg/dL (75-99)
[2021-09-04] MEDS: ATORVASTATIN 40 MG TAB PO SCH (21:12)
[2021-09-05] MEDS: AMPICILLIN 2,000 MG in SODIUM CHLORIDE 0.9% 100 ML IVPB SCH ×3 (04:19→19:50)
[2021-09-05] MEDS: SODIUM CHLORIDE 0.9% 1,000 ML IV SCH ×3 (04:20→19:50)
[2021-09-05 06:13] LABS: Glucose,Whole Blood 136 mg/dL (75-99)
[2021-09-05] MEDS: INSULIN ASPART (NovoLOG) 100 UNIT/ML VIAL SQ SCH ×4 (06:16→19:54)
[2021-09-05] MEDS: PANTOPRAZOLE 40 MG TABLET PO SCH (08:21)
[2021-09-05] MEDS: METOPROLOL TARTRATE 25 MG TAB PO SCH ×2 (08:21→19:53)
[2021-09-05] MEDS: CLOPIDOGREL 75 MG TAB PO SCH (08:21)
[2021-09-05] MEDS: FLUCONAZOLE 100 MG TAB PO SCH (08:21)
[2021-09-05] MEDS: ASPIRIN 81 MG PO SCH (08:21)
[2021-09-05] MEDS: APIXABAN 2.5 MG TABLET PO SCH ×2 (08:21→19:53)
[2021-09-05] MEDS: AMIODARONE 200 MG TAB PO SCH ×2 (08:21→19:53)
[2021-09-05] MEDS: ESCITALOPRAM 10 MG TAB PO SCH (08:21)
[2021-09-05 09:29] LABS: Anisocytosis Slight; HCT 25.1 % (34.0-46.0); HGB 7.5 gm/dL (11.4-16.0); Hypochromasia Marked; MCH 29.8 pg (25.0-35.0); MCHC 29.8 g/dL (31.0-37.0); Macrocytosis Slight; Mean Platelet Volume 9.5; Platelet Count 286 k/uL (150-450); Poikilocytosis Slight; RBC 2.51 m/uL (3.80-5.40); RDW 17.5 % (11.5-15.5); WBC 10.5 k/uL (3.8-10.6)
[2021-09-05 09:50] LABS: Albumin 2.3 g/dL (3.5-5.0); Calcium 7.8 mg/dL (8.4-10.2); Total Protein 6.4 g/dL (6.3-8.2)
[2021-09-05 11:43] LABS: Glucose,Whole Blood 165 mg/dL (75-99)
[2021-09-05 16:22] LABS: Glucose,Whole Blood 186 mg/dL (75-99)
[2021-09-05] MEDS ORDERED: FUROSEMIDE 10 MG/ML 10 ML VIAL IV STA (17:24)
--- NOTE | 2021-09-05 17:38 | XR ---
EXAMINATION TYPE: XR chest 1V DATE OF EXAM: 09/05/2021 COMPARISON: 08/29/2021 HISTORY: Short of breath TECHNIQUE: Single view FINDINGS: There is pulmonary airspace edema. Heart is enlarged. There is blunting of the costophrenic angles. There are chest leads. IMPRESSION: Increasing pulmonary edema and pleural fluid compared to old exam and consistent with pro gression of congestive heart failure. There is probably underlying pulmonary fibrosis.
[2021-09-05] MEDS: INSULIN DETEMIR (LEVEMIR) 100 UNIT/ML SYR SQ SCH (17:44)
--- NOTE | 2021-09-05 19:34 | PN ---
PROGRESS NOTE DATE OF SERVICE: 09/05/2021 REASON FOR FOLLOWUP: Enterococcus faecalis bacteremia. INTERVAL HISTORY: Patient is currently afebrile. The patient is slightly more awake and alert today. She is currently off the BiPAP, however, remains to be lethargic and did not provide any history. No vomiting, diarrhea or any other changes reported by nursing staff. Daughter was at the bedside. PHYSICAL EXAMINATION: Blood pressure 120/89 with a pulse of 56. Temperature is 97.6. She is 95% on 3 L nasal cannula. General description is an elderly female lying in bed in no distress. Respiratory system: Unlabored breathing, decreased breath sounds at bases. Heart S1, S2. Regular rate and rhythm. Abdomen soft, no tenderness. LABS: Hemoglobin is 7.5, white count 10.5, creatinine is 2.07. DIAGNOSTIC IMPRESSION AND PLAN: Patient with Enterococcus faecalis bacteremia concerning for deep focus in view of the persistent bacteremia. He did have extensive workup that has been negative so far. WBC scan is pending. Patient is currently on ampicillin, gentamicin that will be discontinued because of slight worsening of the kidney function that will be monitored closely. Daughter at the bedside. She did have multiple questions that were answered in layman's terms. MMODL / IJN: [id number] /
[2021-09-05] MEDS: ATORVASTATIN 40 MG TAB PO SCH (19:53)
[2021-09-05 19:54] LABS: Glucose,Whole Blood 137 mg/dL (75-99)
--- NOTE | 2021-09-05 20:25 | PN ---
PROGRESS NOTE I am covering for Dr. Rodriguez. DATE OF SERVICE: 09/05/2021. This 81-year-old woman who was admitted with Enterococcus faecalis bacteremia. The patient is being closely monitored at this time. The patient also had concern for deep focus and BELKYS. A CT abdomen and pelvis was normal, but patient has bilateral pleural effusion. Patient also had worsening renal failure, possibly secondary to gentamicin. The patient being closely monitored. Patient also had diminished urine output. The hemoglobin is 7.5. Multiple consultants are following the patient closely, including Infectious Disease and Cardiology. PAST MEDICAL HISTORY: Reviewed. REVIEW OF SYSTEMS: Cardiovascular: No angina or palpitations. Respiration: As mentioned earlier. GI: As mentioned earlier. : As mentioned earlier. Nervous system: Generalized weakness. CURRENT MEDICATIONS: Reviewed and include: Tylenol, Cordarone, Unasyn, aspirin. Lipitor, Plavix, Lexapro, Diflucan, Levemir, Lopressor. Doses and other medication also reviewed. PHYSICAL EXAMINATION: Patient is alert and oriented x2. Pulse 56. Blood pressure 121/39, respirations 16, temperature normal, pulse ox 94% on 3 L. HEENT: Conjunctivae normal. Neck: No JVD. Cardiovascular: S1, S2 muffled. Respiratory: Breath sounds diminished in the bases. A few scattered rhonchi and crackles. Abdomen: Soft, nontender. Legs: Significant swelling of the left leg with some cellulitis and erythema present. Nervous system: No focal deficits. LAB STUDIES: WBC 10.5, hemoglobin 7.5, creatinine is 2.07. Multiple cultures are positive for Enterococcus faecalis. The last culture on August 30 was also positive. ASSESSMENT: 1. Enterococcus faecalis sepsis with bacteremia. 2. Rule out primary fpvi 4. Possible bilateral pleural effusions. 5. Developing acute renal failure with acute oliguric renal failure, possibly secondary to gentamicin or sepsis. 6. Anemia, normocytic. 7. Gait dysfunction. 8. History of atrial fibrillation. 9. History of coronary artery disease. 10.History of congestive heart failure. 11.History of cerebrovascular accident, transient ischemic attack. 12.Diabetes mellitus, type 2. 13.Chronic hypoxic respiratory failure. 14.History of coronary artery disease/stent. 15.History of tonsillectomy. 16.Esophageal surgery. 17.History of TAVR recently. 18.History of paroxysmal atrial fibrillation. 19.FULL CODE. 20.Obesity with body mass of 48.7. RECOMMENDATIONS AND DISCUSSION: This 81-year-old woman who presented with multiple complex medical issues, we will monitor the patient closely, continue the current medications, management and symptomatic treatment. A bone scan has been ordered. I would recommend continue with IV fluids. Nephrology consultation. Avoid nephrotoxic medications. UA with micro. Portable chest x-ray. Prognosis guarded because of multiple complex medical issues. Further recommendations to follow. Dr. Rodriguez will follow on Tuesday. LISA / ENID: [id number] / MTDD
[2021-09-06] MEDS: AMPICILLIN 2,000 MG in SODIUM CHLORIDE 0.9% 100 ML IVPB SCH ×3 (04:30→20:54)
[2021-09-06 05:50] LABS: Glucose,Whole Blood 71 mg/dL (75-99)
[2021-09-06] MEDS: INSULIN ASPART (NovoLOG) 100 UNIT/ML VIAL SQ SCH ×4 (05:50→20:56)
[2021-09-06] MEDS: ESCITALOPRAM 10 MG TAB PO SCH (08:16)
[2021-09-06] MEDS: METOPROLOL TARTRATE 25 MG TAB PO SCH ×2 (08:16→20:55)
[2021-09-06] MEDS: FLUCONAZOLE 100 MG TAB PO SCH (08:16)
[2021-09-06] MEDS: APIXABAN 2.5 MG TABLET PO SCH ×2 (08:16→20:54)
[2021-09-06] MEDS: ASPIRIN 81 MG PO SCH (08:16)
[2021-09-06] MEDS: PANTOPRAZOLE 40 MG TABLET PO SCH (08:16)
[2021-09-06] MEDS: AMIODARONE 200 MG TAB PO SCH ×2 (08:16→20:57)
[2021-09-06] MEDS: CLOPIDOGREL 75 MG TAB PO SCH (08:16)
--- NOTE | 2021-09-06 10:21 | P.NPCON ---
History of Present Illness - Reason for Consult Consult date: 09/06/21 acute renal failure - Chief Complaint Acute kidney injury - History of Present Illness His 81-year-old female seen in consultation because of acute kidney injury. She was admitted on 08/27/2021, with generalized weakness shortness of breath that she recently had a TAVR for severe aortic stenosis dated 08/05/2021, she also known with coronary artery disease atrial fibrillation history of CVA es ophageal stenosis. Workup in the hospital included blood culture which grew Enterococcus faecalis on date of admission and repeat blood cultures on the and or positive but the last one on the is negative so far. She had a computed tomography scan on the and the creatinine went up on the . Vital signs have been stable here she's been afebrile. No nausea vomiting diarrhea abdominal pain no nonsteroidals. He did receive gentamicin with trough levels in the 3.4-2 range gentamicin has been discontinued. Currently she is awake alert oriented but weak and tired. Denies any chest pain shortness of breath cough abdominal pain no dysuria frequency. Yesterday I gave her Lasix 40 mg 1 dose. She did not responded and has no urine output. Bladder scan is unremarkable for any urinary retention Past Medical History Past Medical History: Atrial Fibrillation, Coronary Artery Disease (CAD), Heart Failure, CVA/TIA, Diabetes Mellitus Additional Past Medical History / Comment(s): has home O2 @ 2L [place],IDDM type II, CVA with some vision changes and difficulty swallowing (eat soft foods)., murmur., states fall April 13, aortic stenosis post TAVR, paroxysmal AFIB History of Any Multi-Drug Resistant Organisms: None Reported Past Surgical History: Heart Catheterization With Stent, Orthopedic Surgery, Tonsillectomy Additional Past Surgical History / Comment(s): Esophageal surgery 2003 pt thinks this was dilation ; Venous graft leg to left arm., right hip fx surgery (11/2018) Past Anesthesia/Blood Transfusion Reactions: No Reported Reaction Date of Last Stent Placement:: 06/2021 Past Psychological History: No Psychological Hx Reported Smoking Status: Never smoker Past Alcohol Use History: None Reported Past Drug Use History: None Reported - Past Family History Mother Family Medical History: Cancer Additional Family Medical History / Comment(s): "Female cancer" father Family Medical History: Diabetes Mellitus Medications and Allergies Home Medications Medication Instructions Recorded Confirmed Type Insulin Detemir [Levemir Flextouch 12 units SQ AC-SUPPER 04/09/16 08/26/21 History Pen] Acetaminophen Tab [Tylenol] 650 mg PO Q6HR PRN tab 06/24/21 08/26/21 Rx Aspirin 81 mg PO DAILY #90 06/24/21 08/26/21 Rx Clopidogrel [Plavix] 75 mg PO DAILY #30 tab 06/24/21 08/26/21 Rx Metoprolol Tartrate [Lopressor] 25 mg PO BID #60 tab 06/24/21 08/26/21 Rx Nitroglycerin Sl Tabs [Nitrostat] 0.4 mg SUBLINGUAL Q5M PRN #60 tab 06/24/21 08/26/21 Rx Escitalopram [Lexapro] 10 mg PO DAILY 07/09/21 08/26/21 History Amiodarone [Cordarone] 200 mg PO BID #60 tab 07/14/21 08/26/21 Rx Apixaban [Eliquis] 2.5 mg PO BID #60 tablet 07/14/21 08/26/21 Rx Atorvastatin [Lipitor] 40 mg PO HS 07/30/21 08/26/21 History Furosemide [Lasix] 20 mg PO DAILY 07/30/21 08/26/21 History Insulin Aspart [NovoLOG] See Protocol SQ TID-W/MEALS PRN 07/30/21 08/26/21 History Pantoprazole [Protonix] 40 mg PO DAILY 07/30/21 08/26/21 History Sennosides-Docusate Sodium 2 tab PO HS PRN 08/26/21 08/26/21 History [Senokot-S] Allergies Allergy/AdvReac Type Severity Reaction Status Date / Time No Known Allergies Allergy Verified 08/26/21 20:13 Physical Exam Vitals: Vital Signs Temp Pulse Resp BP Pulse Ox 09/06/21 08:00 59 L 16 136/62 100 09/06/21 04:00 63 15 114/67 100 09/06/21 00:00 64 16 90/55 98 09/05/21 20:00 97.9 F 52 L 16 112/63 94 L 09/05/21 16:00 52 L 16 108/51 09/05/21 12:00 56 L 16 120/39 Intake and Output 09/05/21 09/06/21 09/06/21 22:59 06:59 14:59 Intake Total 250 100 Output Total 0 0 Balance 250 100 Intake: Oral 250 100 Output: Urine 0 0 Other: Voiding Method External Catheter External Catheter External Catheter # Bowel Movements 3 Weight 116.1 kg Exam general awake alert oriented HEENT exam no JVP neck is supple no facial asymmetry Lungs are significant and occasional coarse crackle at bases with less than optimal air entry Heart sounds unremarkable for any murmur rub gallop Abdomen soft nontender obese Extremity exam was mild edema, it involves all 4 extremities Neurologically awake alert oriented but profoundly weak Results - Lab Results Most recent lab results Calcium 7.8 mg/dL (8.4-10.2) L 09/05/21 08:30 09/05/21 08:30 09/05/21 08:30 Assessment and Plan Assessment: Impression 1. Acute kidney injury secondary to combination of bacteremia and dye study. Creatinine is up from a baseline of 0.7 to 2.07 as of yesterday. Patient is in anuric. 2. Enterococcal bacteremia etiology not determined workup negative so far include computed tomography scan of the abdomen and pelvis. 3. Recent TAVR for aortic stenosis on 08/05/2021. Had BELKYS Ruled out bacterial endocarditis and has severe tricuspid regurg 4. Mild degree of alkalosis bicarbs 36, compensatory possibly from respiratory acidosis. 5. History of heart failure Recommendation 1. Hold off IV fluids. 2. We'll try Lasix drip at 10 mg an hour. If it does not resolve her congestive heart failure we'll need to start her on dialysis within the next 24 hours. 3. Discussed with the daughter who has reservation regarding aggressive medical care. But because bacteremia seems to be resolving he may need just a temporary dialysis to tide over. We will discuss this tomorrow again with the family and daughter. Thank you for this consultation and we'll continue follow closely
[2021-09-06] MEDS ORDERED: FUROSEMIDE 10 MG/ML 2 ML VIAL IV SCH (10:30)
[2021-09-06 11:41] LABS: Glucose,Whole Blood 129 mg/dL (75-99)
[2021-09-06 12:11] LABS: Anisocytosis Slight; Basophils % (A) 0 %; Eosinophils # (A) 0.4 k/uL (0-0.7); Eosinophils % (A) 4 %; HCT 25.1 % (34.0-46.0); HGB 7.2 gm/dL (11.4-16.0); Hypochromasia Marked; Lymphocytes # (A) 0.9 k/uL (1.0-4.8); Lymphocytes % (A) 9 %; MCH 29.2 pg (25.0-35.0); MCHC 28.9 g/dL (31.0-37.0); Macrocytosis Moderate; Mean Platelet Volume 9.4; Monocytes # (A) 0.6 k/uL (0-1.0); Monocytes % (A) 5 %; Neutrophils # (A) 8.1 k/uL (1.3-7.7); Neutrophils % (A) 80 %; Platelet Count 280 k/uL (150-450); Poikilocytosis Slight; RBC 2.49 m/uL (3.80-5.40); RDW 17.7 % (11.5-15.5); WBC 10.2 k/uL (3.8-10.6)
[2021-09-06 12:20] LABS: Albumin 2.3 g/dL (3.5-5.0); Calcium 7.7 mg/dL (8.4-10.2); Potassium 4.2 mmol/L (3.5-5.1); Total Bilirubin 1.1 mg/dL (0.2-1.3); Total Protein 6.6 g/dL (6.3-8.2)
[2021-09-06] MEDS: FUROSEMIDE 100 MG in SODIUM CHLORIDE 0.9% 90 ML IV SCH ×2 (12:22→22:01)
[2021-09-06 16:33] LABS: Glucose,Whole Blood 166 mg/dL (75-99)
--- NOTE | 2021-09-06 16:48 | PN ---
PROGRESS NOTE DATE OF SERVICE: 09/06/2021 REASON FOR FOLLOWUP: Enterococcus faecalis bacteremia. INTERVAL HISTORY: Patient is afebrile. The patient is currently hemodynamically stable. He is on 2 L nasal cannula. The patient remains to be slightly lethargic with decreased to no urine output. No vomiting or diarrhea or any other changes reported by the daughter at the bedside. PHYSICAL EXAMINATION: Blood pressure 104/55, pulse of 53, temperature of 98. He is 100% on 2 L nasal cannula. General description is an elderly female lying in bed in no distress. Respiratory system: Unlabored breathing. Clear to auscultation anteriorly. Heart S1, S2. Regular rate and rhythm. Abdomen soft, no tenderness. LABS: Hemoglobin 10.1, white count 10.2, creatinine 2.75. DIAGNOSTIC IMPRESSION AND PLAN: 1. Patient with Enterococcus faecalis bacteremia in this patient who did have persistent bacteremia, did have extensive workup without any clear focus patient covered Ampicillin. 2. not a candidate for synergistic tobramycin, gentamicin. [facility] following the patient closely. Continue supportive care. MMODL / IJN: [id number] /
[2021-09-06] MEDS: INSULIN DETEMIR (LEVEMIR) 100 UNIT/ML SYR SQ SCH (17:14)
[2021-09-06 20:04] LABS: Glucose,Whole Blood 145 mg/dL (75-99)
[2021-09-06] MEDS: ATORVASTATIN 40 MG TAB PO SCH (20:54)
--- NOTE | 2021-09-06 21:24 | PN ---
PROGRESS NOTE DATE OF SERVICE: 09/06/2021 I am covering for Dr. Rodriguez. This 81-year-old woman who was admitted with Enterococcus faecalis, sepsis and bacteremia, is being closely monitored. No chest pain. No palpitations. No fever. Bone scan has been planned by Dr. Álvarez. PHYSICAL EXAMINATION: Alert and oriented times three. Pulse 53, blood pressure 102/53, respirations 16, temperature normal. Pulse ox 97% on 3 L. HEENT: Conjunctivae normal. NECK: No JVD. Cardiovascular: S1, S2 muffled. Respiratory: Breath sounds diminished in the bases. A few scattered rhonchi. Abdomen: Soft, nontender. Nervous system: No focal deficits. LABS: Hemoglobin 7.2, creatinine is 2.75. ASSESSMENT: 1. Enterococcus faecalis sepsis bacteremia. 2. Rule out primary focus. 3. Possible bilateral pleural effusion. 4. Acute renal failure with acute oliguric renal failure possibly secondary to gentamicin and/or sepsis. 5. Anemia, normocytic. 6. Gait dysfunction. 7. History of atrial fibrillation. 8. History of coronary artery disease. 9. History of congestive heart failure. 10.History of cerebrovascular accident, transient ischemic attack. 11.Diabetes mellitus, type 2. 12.Chronic hypoxic respiratory failure. 13.History of coronary artery disease/stent. 14.History of tonsillectomy. 15.History of esophageal surgery. 16.History of TAVR recently. 17.History of paroxysmal atrial fibrillation. 18.Obesity with body mass index 48.7. 19.FULL CODE. RECOMMENDATIONS AND DISCUSSION: Recommend to continue current medications, symptomatic treatment. Continue with IV fluids. Monitor closely. Repeat labs. Further recommendations to follow. Dr. Rodriguez will follow. MMODL / IJN: [id number] / [facility]
[2021-09-07] MEDS: AMPICILLIN 2,000 MG in SODIUM CHLORIDE 0.9% 100 ML IVPB SCH ×3 (04:45→20:26)
[2021-09-07] MEDS: INSULIN ASPART (NovoLOG) 100 UNIT/ML VIAL SQ SCH ×4 (06:09→20:26)
[2021-09-07 06:14] LABS: Glucose,Whole Blood 59 mg/dL (75-99)
[2021-09-07 06:22] LABS: Glucose,Whole Blood 66 mg/dL (75-99)
[2021-09-07 06:34] LABS: Glucose,Whole Blood 94 mg/dL (75-99)
--- NOTE | 2021-09-07 08:14 | P.PN ---
Subjective Principal diagnosis: The patient is here for septicemia after having TVR and stent with significant history of CHF. Tolerating diet. No voiding difficulties. Chart reviewed. Appreciate multiple consultants input. The patient recently had transesophageal echocardiogram. Results show no significant vegetation She seems to be from an infectious disease perspective stable. No element of severe hypotension or septic look. The patient has been lethargic requiring BiPAP. Computed tomography scan is nominal for head and abdomen and pelvis. We has a team have been looking for source of infection given her septicemia. She seems much more alert but still has poor short-term memory Urinary output seems to be quite decreasing. Nephrology consult noted. Objective - Vital Signs Vital signs: Vital Signs Temp 97.3 F L 09/06/21 19:49 Pulse 55 L 09/07/21 04:00 Resp 18 09/07/21 04:45 BP 109/48 09/07/21 04:00 Pulse Ox 95 09/07/21 04:45 Intake & Output 09/06/21 09/07/21 09/07/21 18:59 06:59 18:59 Intake Total 250 96.5 Output Total 700 700 Balance -450 -603.5 Weight 119.1 kg Intake: Intake, IV Titration 96.5 Amount Furosemide 100 mg In 96.5 Sodium Chloride 0.9% 90 ml @ 10 MG/HR 10 mls/hr IV .Q10H [facility] Rx#: [id number] Oral 250 Output: Urine 0 0 Stool 700 700 Other: Voiding Method External Catheter External Catheter # Bowel Movements 1 - EENT Eyes: Absent: abnormal pupil - Neck Neck: Absent: lymphadenopathy - Respiratory Respiratory: bilateral: diminished - Cardiovascular Rhythm: regular Heart sounds: normal: S1, S2 Abnormal Heart Sounds: Absent: S3 Gallop - Gastrointestinal General gastrointestinal: Present: soft. Absent: tenderness - Integumentary Integumentary: Absent: cellulitis - Musculoskeletal Musculoskeletal: Present: generalized weakness - Labs CBC & Chem 7: 09/06/21 11:22 09/06/21 11:22 Labs: Abnormal Lab Results - Last 24 Hours (Table) 09/06/21 09/06/21 09/06/21 Range/Units : 11: 11:40 RBC 2.49 L (3.80-5.40) m/uL Hgb 7.2 L (11.4-16.0) gm/dL Hct 25.1 L (34.0-46.0) % MCV 101.0 H (80.0-100.0) fL MCHC 28.9 L (31.0-37.0) g/dL RDW 17.7 H (11.5-15.5) % Neutrophils # 8.1 H (1.3-7.7) k/uL Lymphocytes # 0.9 L (1.0-4.8) k/uL Carbon Dioxide 33 H (22-30) mmol/L BUN 33 H (7-17) mg/dL Creatinine 2.75 H (0.52-1.04) mg/dL Glucose 130 H (74-99) mg/dL POC Glucose (mg/dL) 129 H (75-99) mg/dL Calcium 7.7 L (8.4-10.2) mg/dL Albumin 2.3 L (3.5-5.0) g/dL 09/06/21 09/06/21 09/07/21 Range/Units 16:31 20:03 06:05 RBC (3.80-5.40) m/uL Hgb (11.4-16.0) gm/dL Hct (34.0-46.0) % MCV (80.0-100.0) fL MCHC (31.0-37.0) g/dL RDW (11.5-15.5) % Neutrophils # (1.3-7.7) k/uL Lymphocytes # (1.0-4.8) k/uL Carbon Dioxide (22-30) mmol/L BUN (7-17) mg/dL Creatinine (0.52-1.04) mg/dL Glucose (74-99) mg/dL POC Glucose (mg/dL) 166 H 145 H 59 L (75-99) mg/dL Calcium (8.4-10.2) mg/dL Albumin (3.5-5.0) g/dL 09/07/21 Range/Units 06:20 RBC (3.80-5.40) m/uL Hgb (11.4-16.0) gm/dL Hct (34.0-46.0) % MCV (80.0-100.0) fL MCHC (31.0-37.0) g/dL RDW (11.5-15.5) % Neutrophils # (1.3-7.7) k/uL Lymphocytes # (1.0-4.8) k/uL Carbon Dioxide (22-30) mmol/L BUN (7-17) mg/dL Creatinine (0.52-1.04) mg/dL Glucose (74-99) mg/dL POC Glucose (mg/dL) 66 L (75-99) mg/dL Calcium (8.4-10.2) mg/dL Albumin (3.5-5.0) g/dL Microbiology - Last 24 Hours (Table) 09/01/21 18:47 Blood Culture - Preliminary Blood No Growth after 120 hours 09/02/21 08:48 Blood Culture - Preliminary Blood No Growth after 96 hours Assessment and Plan (1) Septicemia Current Visit: Yes Status: Acute Code(s): A41.9 - SEPSIS, UNSPECIFIED ORGANISM SNOMED Code(s): 494478250 (2) Anemia Current Visit: Yes Status: Acute Code(s): D64.9 - ANEMIA, UNSPECIFIED SNOMED Code(s): 902465433 (3) Diabetes Current Visit: No Status: Acute Code(s): E11.9 - TYPE 2 DIABETES MELLITUS WITHOUT COMPLICATIONS SNOMED Code(s): 33962261 (4) Stented coronary artery Current Visit: No Status: Acute Code(s): Z95.5 - PRESENCE OF CORONARY ANGIOPLASTY IMPLANT AND GRAFT SNOMED Code(s): 937746619 Plan: Appreciate multiple consultants input. Computed tomography scan of abdomen and pelvis is noted She seems more alert compared to yesterday. Long discussion with her daughter about what the plan is for the source of infection Check CBC and CMP in a.m. We'll continue to follow. Prognosis is guarded
[2021-09-07] MEDS: APIXABAN 2.5 MG TABLET PO SCH (08:17)
[2021-09-07] MEDS: ESCITALOPRAM 10 MG TAB PO SCH (08:17)
[2021-09-07] MEDS: AMIODARONE 200 MG TAB PO SCH ×2 (08:17→20:26)
[2021-09-07] MEDS: FLUCONAZOLE 100 MG TAB PO SCH (08:17)
[2021-09-07] MEDS: PANTOPRAZOLE 40 MG TABLET PO SCH (08:17)
[2021-09-07] MEDS: ASPIRIN 81 MG PO SCH (08:17)
[2021-09-07] MEDS: FUROSEMIDE 100 MG in SODIUM CHLORIDE 0.9% 90 ML IV SCH ×2 (08:18→12:09)
[2021-09-07] MEDS: CLOPIDOGREL 75 MG TAB PO SCH (08:18)
[2021-09-07] MEDS: METOPROLOL TARTRATE 25 MG TAB PO SCH ×2 (08:18→20:26)
[2021-09-07 09:57] LABS: Anisocytosis Slight; Basophils % (A) 1 %; Eosinophils # (A) 0.3 k/uL (0-0.7); Eosinophils % (A) 3 %; HCT 24.7 % (34.0-46.0); HGB 7.3 gm/dL (11.4-16.0); Hypochromasia Marked; Lymphocytes # (A) 0.9 k/uL (1.0-4.8); Lymphocytes % (A) 9 %; MCH 30.2 pg (25.0-35.0); MCHC 29.7 g/dL (31.0-37.0); MCV 101.5 fL (80.0-100.0); Macrocytosis Moderate; Mean Platelet Volume 10.1; Monocytes # (A) 0.3 k/uL (0-1.0); Monocytes % (A) 4 %; Neutrophils # (A) 7.6 k/uL (1.3-7.7); Neutrophils % (A) 81 %; Platelet Count 246 k/uL (150-450); Poikilocytosis Slight; RBC 2.43 m/uL (3.80-5.40); RDW 17.9 % (11.5-15.5); WBC 9.4 k/uL (3.8-10.6)
[2021-09-07 10:21] LABS: Calcium 7.9 mg/dL (8.4-10.2); Potassium 4.3 mmol/L (3.5-5.1)
[2021-09-07] MEDS ORDERED: FUROSEMIDE 10 MG/ML 10 ML VIAL IV STA (11:41)
[2021-09-07 11:59] LABS: Glucose,Whole Blood 95 mg/dL (75-99)
--- NOTE | 2021-09-07 12:30 | P.PN ---
Subjective Patient is seen in follow-up for acute kidney injury. Renal function continues to worsen. She is maintained on Lasix drip and is oliguric. Chest x-ray from 2 days ago suggestive of fluid overload. Family present at bedside. Vital signs are stable. HEENT: On nasal cannula. LUNGS: Breath sounds decreased. HEART: Rate and Rhythm are regular. ABDOMEN: Soft, no distention. EXTREMITITES: 1+ edema. Objective - Vital Signs Vital signs: Vital Signs Temp 97.3 F L 09/06/21 19:49 Pulse 94 09/07/21 12:00 Resp 16 09/07/21 12:00 BP 122/79 09/07/21 12:00 Pulse Ox 90 L 09/07/21 12:00 Intake & Output 09/06/21 09/07/21 09/07/21 18:59 06:59 18:59 Intake Total 250 96.5 238.5 Output Total 700 700 700 Balance -450 -603.5 -461.5 Weight 119.1 kg Intake: Intake, IV Titration 96.5 238.5 Amount Ampicillin 2,000 mg In 100 Sodium Chloride 0.9% 100 ml @ 200 mls/hr IVPB Q8H [facility] Rx#:[id number] Furosemide 100 mg In 96.5 138.5 Sodium Chloride 0.9% 90 ml @ 10 MG/HR 10 mls/hr IV .Q10H NANCY Rx#: [id number] Oral 250 Output: Urine 0 0 Stool 700 700 700 Other: Voiding Method External Catheter External Catheter External Catheter # Bowel Movements 1 - Labs CBC & Chem 7: 09/07/21 09:27 09/07/21 09:27 Labs: Abnormal Lab Results - Last 24 Hours (Table) 09/06/21 09/06/21 09/06/21 Range/Units 11: 16:31 20:03 RBC (3.80-5.40) m/uL Hgb (11.4-16.0) gm/dL Hct (34.0-46.0) % MCV (80.0-100.0) fL MCHC (31.0-37.0) g/dL RDW (11.5-15.5) % Lymphocytes # (1.0-4.8) k/uL Carbon Dioxide 33 H (22-30) mmol/L BUN 33 H (7-17) mg/dL Creatinine 2.75 H (0.52-1.04) mg/dL Glucose 130 H (74-99) mg/dL POC Glucose (mg/dL) 166 H 145 H (75-99) mg/dL Calcium 7.7 L (8.4-10.2) mg/dL Albumin 2.3 L (3.5-5.0) g/dL 09/07/21 09/07/21 09/07/21 Range/Units 06:05 06:20 09:27 RBC 2.43 L (3.80-5.40) m/uL Hgb 7.3 L (11.4-16.0) gm/dL Hct 24.7 L (34.0-46.0) % MCV 101.5 H (80.0-100.0) fL MCHC 29.7 L (31.0-37.0) g/dL RDW 17.9 H (11.5-15.5) % Lymphocytes # 0.9 L (1.0-4.8) k/uL Carbon Dioxide (22-30) mmol/L BUN (7-17) mg/dL Creatinine (0.52-1.04) mg/dL Glucose (74-99) mg/dL POC Glucose (mg/dL) 59 L 66 L (75-99) mg/dL Calcium (8.4-10.2) mg/dL Albumin (3.5-5.0) g/dL 09/07/21 Range/Units 09:27 RBC (3.80-5.40) m/uL Hgb (11.4-16.0) gm/dL Hct (34.0-46.0) % MCV (80.0-100.0) fL MCHC (31.0-37.0) g/dL RDW (11.5-15.5) % Lymphocytes # (1.0-4.8) k/uL Carbon Dioxide 33 H (22-30) mmol/L BUN 36 H (7-17) mg/dL Creatinine 3.23 H (0.52-1.04) mg/dL Glucose 103 H (74-99) mg/dL POC Glucose (mg/dL) (75-99) mg/dL Calcium 7.9 L (8.4-10.2) mg/dL Albumin (3.5-5.0) g/dL Microbiology - Last 24 Hours (Table) 09/02/21 08:48 Blood Culture - Preliminary Blood No Growth after 120 hours 09/01/21 18:47 Blood Culture - Preliminary Blood No Growth after 120 hours Assessment and Plan Plan: Assessment: 1. Acute kidney injury secondary to ATN secondary to cardiorenal syndrome, infection, gentamicin, and contrast-induced acute kidney injury. Patient received IV contrast on 09/02/2021. Creatinine today is up to 3.23. Oliguric. 2. Enterococcus bacteremia on antibiotics. BELKYS negative. 3. Volume overload. 4. Acute on chronic diastolic CHF with severe tricuspid regurgitation and moderate pulmonary hypertension. 5. Recent TAVR. Plan: Patient is on Lasix drip and remains oliguric. Lasix 80 mg IV once today. Discussed renal replacement therapy in detail with the family present at bedside. Patient only wants to go home and family is not able to provide transportation to take her to dialysis unit. However family is agreeable to try renal replacement therapy was in the hospital and seems to kidney function recovers in the next few days. If no improvement in renal function in the next few days, then will consider hospice. Consult vascular surgery for dialysis catheter placement. Plan for first semen of hemodialysis today and second treatment tomorrow. Monitor for renal recovery. Stop Lasix drip.
--- NOTE | 2021-09-07 14:28 | PN ---
PROGRESS NOTE DATE OF SERVICE: 09/07/2021 REASON FOR FOLLOWUP: Enterococcus faecalis bacteremia. INTERVAL HISTORY: Patient is afebrile. The patient is currently breathing comfortably. Patient is more awake and alert. He is on 2 L nasal cannula. The patient denies any chest pain or cough. No abdominal pain or diarrhea. PHYSICAL EXAMINATION: Blood pressure 152/79, pulse 94, temperature 98. She is 90% on 2 L nasal cannula. General description is an elderly female lying in bed in no distress. Respiratory system: Unlabored breathing with decreased breath sounds in the bases. No wheeze. Heart S1, S2. Regular rate and rhythm. Abdomen soft, no tenderness. LABS: Hemoglobin 7.1, white count 9.4, creatinine is 3.23. Blood culture repeat 16 and 17 has been negative. ASSESSMENT: Patient with bacteremia who did have extensive workup. No clear focus. However, the patient did have a persistent bacteremia, now with evidence of renal failure. Detailed discussion with the family as well as coverstitch machine operator. Patient may try dialysis temporarily and if no improvement then may go hospice. Continue with ampicillin at this point. The patient did have bacteremia. The family did have multiple questions, those were answered in layman's terms. Also discussed with the coverstitch machine operator on the phone. MMODL / IJN: [id number] /
--- NOTE | 2021-09-07 14:42 | P.GSCN ---
History of Present Illness History of present illness: 81-year-old white female, patient has history of acute chronic renal failure injury consulted for placement of urgent dialysis catheter. Patient also has enterococcus Trima under care of infectious disease. Patient has been his heart failure Neck supple no bruit appreciated Chest has crackles bilateral abdomen and sign Femoral 1+ bilateral plan is placement of dialysis catheter since patient is on a liquids and Plavix discuss with nephrology we'll place a peritoneal dialysis catheter right groin risk and complication discussed Past Medical History Past Medical History: Atrial Fibrillation, Coronary Artery Disease (CAD), Heart Failure, CVA/TIA, Diabetes Mellitus Additional Past Medical History / Comment(s): has home O2 @ 2L NC,IDDM type II, CVA with some vision changes and difficulty swallowing (eat soft foods)., murmur., states fall April 13, aortic stenosis post TAVR, paroxysmal AFIB History of Any Multi-Drug Resistant Organisms: None Reported Past Surgical History: Heart Catheterization With Stent, Orthopedic Surgery, Tonsillectomy Additional Past Surgical History / Comment(s): Esophageal surgery 2003 pt thinks this was dilation ; Venous graft leg to left arm., right hip fx surgery (11/2018) Past Anesthesia/Blood Transfusion Reactions: No Reported Reaction Date of Last Stent Placement:: 06/2021 Past Psychological History: No Psychological Hx Reported Smoking Status: Never smoker Past Alcohol Use History: None Reported Past Drug Use History: None Reported - Past Family History Mother Family Medical History: Cancer Additional Family Medical History / Comment(s): "Female cancer" father Family Medical History: Diabetes Mellitus Medications and Allergies Home Medications Medication Instructions Recorded Confirmed Type Insulin Detemir [Levemir Flextouch 12 units SQ AC-SUPPER 04/09/16 08/26/21 History Pen] Acetaminophen Tab [Tylenol] 650 mg PO Q6HR PRN tab 06/24/21 08/26/21 Rx Aspirin 81 mg PO DAILY #90 06/24/21 08/26/21 Rx Clopidogrel [Plavix] 75 mg PO DAILY #30 tab 06/24/21 08/26/21 Rx Metoprolol Tartrate [Lopressor] 25 mg PO BID #60 tab 06/24/21 08/26/21 Rx Nitroglycerin Sl Tabs [Nitrostat] 0.4 mg SUBLINGUAL Q5M PRN #60 tab 06/24/21 08/26/21 Rx Escitalopram [Lexapro] 10 mg PO DAILY 07/09/21 08/26/21 History Amiodarone [Cordarone] 200 mg PO BID #60 tab 07/14/21 08/26/21 Rx Apixaban [Eliquis] 2.5 mg PO BID #60 tablet 07/14/21 08/26/21 Rx Atorvastatin [Lipitor] 40 mg PO HS 07/30/21 08/26/21 History Furosemide [Lasix] 20 mg PO DAILY 07/30/21 08/26/21 History Insulin Aspart [NovoLOG] See Protocol SQ TID-W/MEALS PRN 07/30/21 08/26/21 History Pantoprazole [Protonix] 40 mg PO DAILY 07/30/21 08/26/21 History Sennosides-Docusate Sodium 2 tab PO HS PRN 08/26/21 08/26/21 History [Senokot-S] Allergies Allergy/AdvReac Type Severity Reaction Status Date / Time No Known Allergies Allergy Verified 08/26/21 20:13 Surgical - Exam Vital Signs Temp Pulse Resp BP Pulse Ox 97.2 F L 63 19 105/52 56 L 08/26/21 18:44 08/26/21 18:44 08/26/21 18:44 08/26/21 18:44 08/26/21 18:44 Results - Labs 09/07/21 09:27 09/07/21 09:27 Abnormal Lab Results - Last 24 Hours (Table) 09/06/21 09/06/21 09/07/21 Range/Units 16:31 20:03 06:05 RBC (3.80-5.40) m/uL Hgb (11.4-16.0) gm/dL Hct (34.0-46.0) % MCV (80.0-100.0) fL MCHC (31.0-37.0) g/dL RDW (11.5-15.5) % Lymphocytes # (1.0-4.8) k/uL Carbon Dioxide (22-30) mmol/L BUN (7-17) mg/dL Creatinine (0.52-1.04) mg/dL Glucose (74-99) mg/dL POC Glucose (mg/dL) 166 H 145 H 59 L (75-99) mg/dL Calcium (8.4-10.2) mg/dL 09/07/21 09/07/21 09/07/21 Range/Units 06:20 09:27 09:27 RBC 2.43 L (3.80-5.40) m/uL Hgb 7.3 L (11.4-16.0) gm/dL Hct 24.7 L (34.0-46.0) % MCV 101.5 H (80.0-100.0) fL MCHC 29.7 L (31.0-37.0) g/dL RDW 17.9 H (11.5-15.5) % Lymphocytes # 0.9 L (1.0-4.8) k/uL Carbon Dioxide 33 H (22-30) mmol/L BUN 36 H (7-17) mg/dL Creatinine 3.23 H (0.52-1.04) mg/dL Glucose 103 H (74-99) mg/dL POC Glucose (mg/dL) 66 L (75-99) mg/dL Calcium 7.9 L (8.4-10.2) mg/dL Microbiology - Last 24 Hours (Table) 09/02/21 08:48 Blood Culture - Preliminary Blood No Growth after 120 hours 09/01/21 18:47 Blood Culture - Preliminary Blood No Growth after 120 hours Diabetes panel 09/07/21 Range/Units 09:27 Sodium 139 (137-145) mmol/L Potassium 4.3 (3.5-5.1) mmol/L Chloride 100 (98-107) mmol/L Carbon Dioxide 33 H (22-30) mmol/L BUN 36 H (7-17) mg/dL Creatinine 3.23 H (0.52-1.04) mg/dL Glucose 103 H (74-99) mg/dL Calcium 7.9 L (8.4-10.2) mg/dL Calcium panel 09/07/21 Range/Units 09:27 Calcium 7.9 L (8.4-10.2) mg/dL Pituitary panel 09/07/21 Range/Units 09:27 Sodium 139 (137-145) mmol/L Potassium 4.3 (3.5-5.1) mmol/L Chloride 100 (98-107) mmol/L Carbon Dioxide 33 H (22-30) mmol/L BUN 36 H (7-17) mg/dL Creatinine 3.23 H (0.52-1.04) mg/dL Glucose 103 H (74-99) mg/dL Calcium 7.9 L (8.4-10.2) mg/dL Adrenal panel 09/07/21 Range/Units 09:27 Sodium 139 (137-145) mmol/L Potassium 4.3 (3.5-5.1) mmol/L Chloride 100 (98-107) mmol/L Carbon Dioxide 33 H (22-30) mmol/L BUN 36 H (7-17) mg/dL Creatinine 3.23 H (0.52-1.04) mg/dL Glucose 103 H (74-99) mg/dL Calcium 7.9 L (8.4-10.2) mg/dL
[2021-09-07] MEDS ORDERED: LIDOCAINE 1% INJ 10MG/ML (20 ML MDV) SQ ONE (16:36)
[2021-09-07] MEDS ORDERED: fentaNYL (PF) 50 MCG/ML 2 ML AMP IV ONE (16:44)
[2021-09-07] MEDS: INSULIN DETEMIR (LEVEMIR) 100 UNIT/ML SYR SQ SCH (17:23)
[2021-09-07 17:44] LABS: Glucose,Whole Blood 78 mg/dL (75-99)
--- NOTE | 2021-09-07 19:49 | PCN ---
PROCEDURE NOTE PREOPERATIVE DIAGNOSIS: Acute on chronic renal failure. POSTOPERATIVE DIAGNOSIS: Acute on chronic renal failure. PROCEDURE PERFORMED: Ultrasound-guided 30 cm dialysis catheter placement via left femoral approach. DESCRIPTION: Patient was brought to the lab tester. Groin was prepped and draped in usual sterile manner and 1% lidocaine plain was infiltrated into the groin. Ultrasound-guided micropuncture was introduced into the left femoral vein. Micropuncture guidewire was passed and a 4-Belgian dilator was passed on the top of the guidewire. After that we passed a regular guidewire under fluoroscopic control. Dilator was advanced and then we placed a 30 cm dialysis catheter on the top of the guidewire, flushed with heparin saline and hep-locked, secured with 3-0 nylon. Patient tolerated the procedure well. LISA / JACKN: [id number] /
[2021-09-07] MEDS ORDERED: DEXTROSE 50% SYRINGE 50 ML IVP ONE (20:20)
[2021-09-07 20:21] LABS: Glucose,Whole Blood 67 mg/dL (75-99)
[2021-09-07] MEDS: ATORVASTATIN 40 MG TAB PO SCH (20:26)
[2021-09-07 20:35] LABS: Glucose,Whole Blood 248 mg/dL (75-99)
--- NOTE | 2021-09-07 22:16 | IR ---
EXAMINATION TYPE: IR cvc insert non tunneled DATE OF EXAM: 09/07/2021 CLINICAL HISTORY: Renal failure. TECHNIQUE: Fluoroscopy. COMPARISON: None. FINDINGS: Fluoroscopic guidance was provided during Central catheter insertion procedure performed melody Mata. A total of 24 seconds of fluoroscopic time was utilized during the procedure and 2 sp ot fluoroscopic images are acquired. Images acquired focus on the right lower chest wall and heart wi th visualization of a stent graft in the aortic root and partial visualization of suspected IVC ngoc rordiguez IMPRESSION: As Above.
[2021-09-08] MEDS: GENTAMICIN 60 MG in SODIUM CHLORIDE 0.9% 100 ML IVPB SCH (00:22)
[2021-09-08 00:39] LABS: Hepatitis B Surface AB- Quant 3.5 mIU/mL; Hepatitis B Surface Antibody Nonreactive (Nonreactive)
[2021-09-08 01:43] LABS: Glucose,Whole Blood 104 mg/dL (75-99)
[2021-09-08] MEDS: AMPICILLIN 2,000 MG in SODIUM CHLORIDE 0.9% 100 ML IVPB SCH ×3 (03:46→23:03)
[2021-09-08 05:56] LABS: Glucose,Whole Blood 94 mg/dL (75-99)
[2021-09-08] MEDS: INSULIN ASPART (NovoLOG) 100 UNIT/ML VIAL SQ SCH ×4 (05:57→20:49)
[2021-09-08 08:12] LABS: Albumin 2.2 g/dL (3.5-5.0); Calcium 8.4 mg/dL (8.4-10.2); Total Bilirubin 1.5 mg/dL (0.2-1.3); Total Protein 6.9 g/dL (6.3-8.2)
[2021-09-08] MEDS: AMIODARONE 200 MG TAB PO SCH ×2 (08:16→20:49)
[2021-09-08] MEDS: FLUCONAZOLE 100 MG TAB PO SCH (08:16)
[2021-09-08] MEDS: PANTOPRAZOLE 40 MG TABLET PO SCH (08:16)
[2021-09-08] MEDS: ESCITALOPRAM 10 MG TAB PO SCH (08:16)
--- NOTE | 2021-09-08 08:24 | P.PN ---
Subjective Principal diagnosis: The patient is here for septicemia after having TVR and stent with significant history of CHF. Chart reviewed. Appreciate multiple consultants input. The patient recently had transesophageal echocardiogram. Results show no significant vegetation She seems to be from an infectious disease perspective stable. No element of severe hypotension or septic look. The patient has been lethargic requiring BiPAP. Computed tomography scan is nominal for head and abdomen and pelvis. We has a team have been looking for source of infection given her septicemia. She seems much more alert but still has poor short-term memory Urinary output seems to be quite decreasing. Nephrology consult noted. Dialysis pending today Objective - Vital Signs Vital signs: Vital Signs Temp 97.2 F L 09/08/21 07:51 Pulse 53 L 09/08/21 07:51 Resp 18 09/08/21 07:51 BP 121/50 09/08/21 07:51 Pulse Ox 96 09/08/21 07:51 Intake & Output 09/07/21 09/08/21 09/08/21 18:59 06:59 18:59 Intake Total 238.5 0 Output Total 700 0 Balance -461.5 0 0 Weight 119.1 kg 121.4 kg Intake: Intake, IV Titration 238.5 Amount Ampicillin 2,000 mg In 100 Sodium Chloride 0.9% 100 ml @ 200 mls/hr IVPB Q8H [facility] Rx#:[id number] Furosemide 100 mg In 138.5 Sodium Chloride 0.9% 90 ml @ 10 MG/HR 10 mls/hr IV .Q10H [facility] Rx#: [id number] Oral 0 Output: Urine 0 Stool 700 0 Other: Voiding Method External Catheter External Catheter # Voids 0 # Bowel Movements 2 - Constitutional General appearance: Present: obese - EENT Eyes: Absent: abnormal pupil - Neck Neck: Absent: lymphadenopathy - Respiratory Respiratory: bilateral: diminished - Cardiovascular Rhythm: regular Heart sounds: normal: S1, S2 Abnormal Heart Sounds: Absent: S3 Gallop - Gastrointestinal General gastrointestinal: Present: soft. Absent: tenderness - Neurologic Neurologic: Absent: focal deficits - Musculoskeletal Musculoskeletal: Present: generalized weakness - Psychiatric Psychiatric: Present: A&O x's 3 - Labs CBC & Chem 7: 09/07/21 09:27 09/07/21 09:27 Labs: Abnormal Lab Results - Last 24 Hours (Table) 09/07/21 09/07/21 09/07/21 Range/Units 09:27 09:27 20:19 RBC 2.43 L (3.80-5.40) m/uL Hgb 7.3 L (11.4-16.0) gm/dL Hct 24.7 L (34.0-46.0) % MCV 101.5 H (80.0-100.0) fL MCHC 29.7 L (31.0-37.0) g/dL RDW 17.9 H (11.5-15.5) % Lymphocytes # 0.9 L (1.0-4.8) k/uL Carbon Dioxide 33 H (22-30) mmol/L BUN 36 H (7-17) mg/dL Creatinine 3.23 H (0.52-1.04) mg/dL Glucose 103 H (74-99) mg/dL POC Glucose (mg/dL) 67 L (75-99) mg/dL Calcium 7.9 L (8.4-10.2) mg/dL 09/07/21 09/08/21 Range/Units 20:34 01:42 RBC (3.80-5.40) m/uL Hgb (11.4-16.0) gm/dL Hct (34.0-46.0) % MCV (80.0-100.0) fL MCHC (31.0-37.0) g/dL RDW (11.5-15.5) % Lymphocytes # (1.0-4.8) k/uL Carbon Dioxide (22-30) mmol/L BUN (7-17) mg/dL Creatinine (0.52-1.04) mg/dL Glucose (74-99) mg/dL POC Glucose (mg/dL) 248 H 104 H (75-99) mg/dL Calcium (8.4-10.2) mg/dL Microbiology - Last 24 Hours (Table) 09/01/21 18:47 Blood Culture - Final Blood No Growth after 144 hours 09/02/21 08:48 Blood Culture - Preliminary Blood No Growth after 120 hours Assessment and Plan (1) Septicemia Current Visit: Yes Status: Acute Code(s): A41.9 - SEPSIS, UNSPECIFIED ORGANISM SNOMED Code(s): 905537063 (2) Anemia Current Visit: Yes Status: Acute Code(s): D64.9 - ANEMIA, UNSPECIFIED SNOMED Code(s): 111943384 (3) Diabetes Current Visit: No Status: Acute Code(s): E11.9 - TYPE 2 DIABETES MELLITUS WITHOUT COMPLICATIONS SNOMED Code(s): 89668785 (4) Stented coronary artery Current Visit: No Status: Acute Code(s): Z95.5 - PRESENCE OF CORONARY ANGIOPLASTY IMPLANT AND GRAFT SNOMED Code(s): 585043748 Plan: The patient will have dialysis today. Check CMP in a.m. Prognosis is guarded secondary to multiple comorbidities. Septicemia seems to be resolving however.
[2021-09-08 08:28] LABS: Anisocytosis Slight; HCT 22.1 % (34.0-46.0); Hypochromasia Moderate; MCH 30.2 pg (25.0-35.0); MCHC 31.8 g/dL (31.0-37.0); Macrocytosis Slight; Platelet Count 270 k/uL (150-450); Poikilocytosis Moderate; RBC 2.33 m/uL (3.80-5.40); RDW 18.2 % (11.5-15.5); WBC 10.3 k/uL (3.8-10.6)
[2021-09-08 08:34] LABS: MCV 94.9 fL (80.0-100.0)
[2021-09-08 08:38] LABS: Potassium 5.5 mmol/L (3.5-5.1)
[2021-09-08] MEDS: METOPROLOL TARTRATE 25 MG TAB PO SCH ×2 (09:36→20:49)
--- NOTE | 2021-09-08 09:58 | P.PN ---
Subjective Patient is seen in follow-up for acute kidney injury. Renal function continues to worsen. Oliguric despite Lasix drip and high-dose IV push Lasix. Femoral dialysis catheter placed September 07. Scheduled to receive first treatment of dialysis today. Vital signs are stable. HEENT: On nasal cannula. LUNGS: Breath sounds decreased. HEART: Rate and Rhythm are regular. ABDOMEN: Soft, no distention. EXTREMITITES: 1+ edema. Objective - Vital Signs Vital signs: Vital Signs Temp 97.2 F L 09/08/21 07:51 Pulse 53 L 09/08/21 07:51 Resp 18 09/08/21 07:51 BP 121/50 09/08/21 07:51 Pulse Ox 96 09/08/21 07:51 Intake & Output 09/07/21 09/08/21 09/08/21 18:59 06:59 18:59 Intake Total 238.5 10 Output Total 700 0 Balance -461.5 0 10 Weight 119.1 kg 121.4 kg Intake: IV 10 Invasive Line 4 10 Intake, IV Titration 238.5 Amount Ampicillin 2,000 mg In 100 Sodium Chloride 0.9% 100 ml @ 200 mls/hr IVPB Q8H [facility] Rx#:[id number] Furosemide 100 mg In 138.5 Sodium Chloride 0.9% 90 ml @ 10 MG/HR 10 mls/hr IV .Q10H [facility] Rx#: [id number] Oral 0 Output: Urine 0 Stool 700 0 Other: Voiding Method External Catheter External Catheter # Voids 0 # Bowel Movements 2 - Labs CBC & Chem 7: 09/08/21 07:22 09/08/21 07:22 Labs: Abnormal Lab Results - Last 24 Hours (Table) 09/07/21 09/07/21 09/07/21 Range/Units 09:27 09:27 20:19 RBC 2.43 L (3.80-5.40) m/uL Hgb 7.3 L (11.4-16.0) gm/dL Hct 24.7 L (34.0-46.0) % MCV 101.5 H (80.0-100.0) fL MCHC 29.7 L (31.0-37.0) g/dL RDW 17.9 H (11.5-15.5) % Lymphocytes # 0.9 L (1.0-4.8) k/uL Potassium (3.5-5.1) mmol/L Chloride (98-107) mmol/L Carbon Dioxide 33 H (22-30) mmol/L BUN 36 H (7-17) mg/dL Creatinine 3.23 H (0.52-1.04) mg/dL Glucose 103 H (74-99) mg/dL POC Glucose (mg/dL) 67 L (75-99) mg/dL Calcium 7.9 L (8.4-10.2) mg/dL Total Bilirubin (0.2-1.3) mg/dL Albumin (3.5-5.0) g/dL 09/07/21 09/08/21 09/08/21 Range/Units 20:34 01:42 07:22 RBC 2.33 L (3.80-5.40) m/uL Hgb 7.0 L (11.4-16.0) gm/dL Hct 22.1 L (34.0-46.0) % MCV (80.0-100.0) fL MCHC (31.0-37.0) g/dL RDW 18.2 H (11.5-15.5) % Lymphocytes # (1.0-4.8) k/uL Potassium (3.5-5.1) mmol/L Chloride (98-107) mmol/L Carbon Dioxide (22-30) mmol/L BUN (7-17) mg/dL Creatinine (0.52-1.04) mg/dL Glucose (74-99) mg/dL POC Glucose (mg/dL) 248 H 104 H (75-99) mg/dL Calcium (8.4-10.2) mg/dL Total Bilirubin (0.2-1.3) mg/dL Albumin (3.5-5.0) g/dL 09/08/21 Range/Units 07:22 RBC (3.80-5.40) m/uL Hgb (11.4-16.0) gm/dL Hct (34.0-46.0) % MCV (80.0-100.0) fL MCHC (31.0-37.0) g/dL RDW (11.5-15.5) % Lymphocytes # (1.0-4.8) k/uL Potassium 5.5 H (3.5-5.1) mmol/L Chloride 108 H (98-107) mmol/L Carbon Dioxide (22-30) mmol/L BUN 42 H (7-17) mg/dL Creatinine 3.61 H (0.52-1.04) mg/dL Glucose (74-99) mg/dL POC Glucose (mg/dL) (75-99) mg/dL Calcium (8.4-10.2) mg/dL Total Bilirubin 1.5 H (0.2-1.3) mg/dL Albumin 2.2 L (3.5-5.0) g/dL Microbiology - Last 24 Hours (Table) 09/01/21 18:47 Blood Culture - Final Blood No Growth after 144 hours 09/02/21 08:48 Blood Culture - Preliminary Blood No Growth after 120 hours Assessment and Plan Plan: Assessment: 1. Acute kidney injury secondary to ATN secondary to cardiorenal syndrome, infection, gentamicin, and contrast-induced acute kidney injury. Patient received IV contrast on 09/02/2021. Creatinine today is up to 3.61. Oliguric. Baseline creatinine near 1. 2. Enterococcus bacteremia on antibiotics. BELKYS negative. 3. Volume overload. 4. Acute on chronic diastolic CHF with severe tricuspid regurgitation and moderate pulmonary hypertension. 5. Recent TAVR. Plan: Femoral catheter placed 09/07/2021. Plan for first treatment of hemodialysis today and second treatment tomorrow. Monitor for renal recovery. Case discussed with the family present at bedside. Patient is oozing from the dialysis catheter site. I will give her a dose of IV DDAVP today. She will also receive a unit of blood with dialysis today.
[2021-09-08] MEDS ORDERED: DESMOPRESSIN ACETATE 23 MCG in SODIUM CHLORIDE 0.9% 50 ML IVPB ONE (10:30)
[2021-09-08 12:17] LABS: Glucose,Whole Blood 105 mg/dL (75-99)
[2021-09-08 16:40] LABS: Glucose,Whole Blood 112 mg/dL (75-99)
[2021-09-08 20:36] LABS: Glucose,Whole Blood 118 mg/dL (75-99)
[2021-09-08] MEDS: ATORVASTATIN 40 MG TAB PO SCH (20:49)
--- NOTE | 2021-09-08 23:12 | PN ---
PROGRESS NOTE DATE OF SERVICE: 09/08/2021 REASON FOR FOLLOWUP: Enterococcus faecalis bacteremia. INTERVAL HISTORY: The patient is afebrile. She was seen on rounds early this afternoon. The patient denies having any chest pain, shortness of breath or cough. No abdominal pain or diarrhea. PHYSICAL EXAMINATION: Blood pressure 119/56, pulse of 58, temperature 97.3. She is 1% on 4 L nasal cannula. General description is an elderly female lying in bed in no distress. Respiratory system: Unlabored breathing, decreased intensity of breath sounds. No wheeze. Heart S1, S2. Regular rate and rhythm. Abdomen soft, no tenderness. LABS: Hemoglobin is , white count 10.3, creatinine 3.61. Blood culture repeat has been negative. DIAGNOSTIC IMPRESSION AND PLAN: Patient with Enterococcus faecalis bacteremia concerning for possible deep infection in view of the persistent bacteremia, which has cleared. BELKYS was negative. CT of abdomen and pelvis was negative. could not be done. Patient to continue with ampicillin. Waiting for kidney function to improve. Family at the bedside. Their questions were answered. MMODL / IJN: [id number] /
[2021-09-09 04:25] VITALS: RESP 18
[2021-09-09 05:42] LABS: Glucose,Whole Blood 129 mg/dL (75-99)
[2021-09-09] MEDS: INSULIN ASPART (NovoLOG) 100 UNIT/ML VIAL SQ SCH ×3 (05:55→17:17)
[2021-09-09] MEDS: ESCITALOPRAM 10 MG TAB PO SCH (07:33)
[2021-09-09] MEDS: PANTOPRAZOLE 40 MG TABLET PO SCH (07:33)
[2021-09-09] MEDS: METOPROLOL TARTRATE 25 MG TAB PO SCH ×2 (07:33→08:59)
[2021-09-09] MEDS: AMIODARONE 200 MG TAB PO SCH ×2 (07:33→08:59)
[2021-09-09] MEDS: FLUCONAZOLE 100 MG TAB PO SCH (07:34)
[2021-09-09 08:50] LABS: Albumin 2.2 g/dL (3.5-5.0); Calcium 7.5 mg/dL (8.4-10.2); Phosphorus 5.4 mg/dL (2.5-4.5); Potassium 4.4 mmol/L (3.5-5.1); Total Bilirubin 1.2 mg/dL (0.2-1.3); Total Protein 6.5 g/dL (6.3-8.2)
[2021-09-09] MEDS ORDERED: MIDODRINE 5 MG TAB PO STA (08:58)
[2021-09-09 09:49] LABS: Anisocytosis Slight; Basophils % (A) 0 %; Eosinophils # (A) 0.1 k/uL (0-0.7); Eosinophils % (A) 1 %; HCT 23.7 % (34.0-46.0); HGB 7.2 gm/dL (11.4-16.0); Hypochromasia Marked; Lymphocytes # (A) 1.1 k/uL (1.0-4.8); Lymphocytes % (A) 10 %; MCH 29.8 pg (25.0-35.0); MCHC 30.6 g/dL (31.0-37.0); MCV 97.5 fL (80.0-100.0); Macrocytosis Slight; Mean Platelet Volume 10.7; Monocytes # (A) 0.6 k/uL (0-1.0); Monocytes % (A) 6 %; Neutrophils # (A) 8.8 k/uL (1.3-7.7); Neutrophils % (A) 81 %; Platelet Count 213 k/uL (150-450); Poikilocytosis Moderate; RBC 2.43 m/uL (3.80-5.40); RDW 18.5 % (11.5-15.5); WBC 10.9 k/uL (3.8-10.6)
[2021-09-09] MEDS: AMPICILLIN 2,000 MG in SODIUM CHLORIDE 0.9% 100 ML IVPB SCH (10:08)
--- NOTE | 2021-09-09 10:19 | P.PN ---
Subjective Patient is seen in follow-up for acute kidney injury. Remains oliguric. Started on hemodialysis September 08. No problems with dialysis treatment yesterday. Family present at bedside. Vital signs are stable. HEENT: On nasal cannula. LUNGS: Breath sounds decreased. HEART: Rate and Rhythm are regular. ABDOMEN: Soft, no distention. EXTREMITITES: 1+ edema. Objective - Vital Signs Vital signs: Vital Signs Temp 97.0 F L 09/09/21 07:30 Pulse 58 L 09/09/21 07:30 Resp 18 09/09/21 07:30 BP 90/47 09/09/21 07:30 Pulse Ox 86 L 09/09/21 07:30 Intake & Output 09/08/21 09/09/21 09/09/21 18:59 06:59 18:59 Intake Total 330 20 128 Balance 330 20 128 Intake: IV 20 20 10 Invasive Line 4 20 20 10 Oral 0 118 Blood Product 310 Rc As-1 Unit 310 [id number] Other: Voiding Method External Catheter # Voids 0 0 - Labs CBC & Chem 7: 09/09/21 07:33 09/09/21 07:33 Labs: Abnormal Lab Results - Last 24 Hours (Table) 09/08/21 09/08/21 09/08/21 Range/Units 10:01 11:51 16:34 WBC (3.8-10.6) k/uL RBC (3.80-5.40) m/uL Hgb (11.4-16.0) gm/dL Hct (34.0-46.0) % MCHC (31.0-37.0) g/dL RDW (11.5-15.5) % Neutrophils # (1.3-7.7) k/uL BUN (7-17) mg/dL Creatinine (0.52-1.04) mg/dL Glucose (74-99) mg/dL POC Glucose (mg/dL) 105 H 112 H (75-99) mg/dL Calcium (8.4-10.2) mg/dL Phosphorus (2.5-4.5) mg/dL Albumin (3.5-5.0) g/dL Crossmatch See Detail 09/08/21 09/09/21 09/09/21 Range/Units 20:25 05:22 07:33 WBC (3.8-10.6) k/uL RBC (3.80-5.40) m/uL Hgb (11.4-16.0) gm/dL Hct (34.0-46.0) % MCHC (31.0-37.0) g/dL RDW (11.5-15.5) % Neutrophils # (1.3-7.7) k/uL BUN 30 H (7-17) mg/dL Creatinine 3.23 H (0.52-1.04) mg/dL Glucose 111 H (74-99) mg/dL POC Glucose (mg/dL) 118 H 129 H (75-99) mg/dL Calcium 7.5 L (8.4-10.2) mg/dL Phosphorus 5.4 H (2.5-4.5) mg/dL Albumin 2.2 L (3.5-5.0) g/dL Crossmatch 09/09/21 Range/Units 07:33 WBC 10.9 H (3.8-10.6) k/uL RBC 2.43 L (3.80-5.40) m/uL Hgb 7.2 L (11.4-16.0) gm/dL Hct 23.7 L (34.0-46.0) % MCHC 30.6 L (31.0-37.0) g/dL RDW 18.5 H (11.5-15.5) % Neutrophils # 8.8 H (1.3-7.7) k/uL BUN (7-17) mg/dL Creatinine (0.52-1.04) mg/dL Glucose (74-99) mg/dL POC Glucose (mg/dL) (75-99) mg/dL Calcium (8.4-10.2) mg/dL Phosphorus (2.5-4.5) mg/dL Albumin (3.5-5.0) g/dL Crossmatch Microbiology - Last 24 Hours (Table) 09/02/21 08:48 Blood Culture - Final Blood No Growth after 144 hours Assessment and Plan Plan: Assessment: 1. Acute kidney injury secondary to ATN secondary to cardiorenal syndrome, infection, gentamicin, and contrast-induced acute kidney injury. Patient received IV contrast on 09/02/2021. Oliguric. Baseline creatinine near 1. Started on hemodialysis September 08. 2. Enterococcus bacteremia on antibiotics. BELKYS negative. 3. Volume overload. 4. Acute on chronic diastolic CHF with severe tricuspid regurgitation and moderate pulmonary hypertension. 5. Recent TAVR. Plan: Femoral catheter placed 09/07/2021. Currently seen while undergoing hemodialysis - try for 2 L UF. Third treatment on Tuesday. Monitor for renal recovery. Case discussed with the family present at bedside. Phosphorus 5.4. Add midodrine.
[2021-09-09 11:08] VITALS: BMI 52.2
[2021-09-09 11:46] LABS: Glucose,Whole Blood 144 mg/dL (75-99)
[2021-09-09] MEDS: MIDODRINE 5 MG TAB PO SCH ×2 (14:03→17:17)
[2021-09-09 15:09] VITALS: BP 110/49; PULSE 58; TEMP 98.1
[2021-09-09 16:43] LABS: Glucose,Whole Blood 148 mg/dL (75-99)
== END 2021-09-09 17:34 | disposition hospice, inpatient (51) | DRG 871 ==
LOC: EC 18:31 → 3SCARD 21:52
PROVIDERS: ADMIT Family Medicine; ATTEND Family Medicine
PROC: B24BZZ4 Ultrasonography of Heart with Aorta, Transesophageal (ICD-10-PCS; principal; 2021-09-01 08:00)
PROC: 02HV33Z Insertion of Infusion Device into Superior Vena Cava, Percutaneous Approach (ICD-10-PCS; 2021-09-07 12:25)
PROC: 06HY33Z Insertion of Infusion Device into Lower Vein, Percutaneous Approach (ICD-10-PCS; 2021-09-07 15:10)
PROC: B548ZZA Ultrasonography of Superior Vena Cava, Guidance (ICD-10-PCS; 2021-09-07 15:10)
PROC: 5A1D70Z Performance of Urinary Filtration, Intermittent, Less than 6 Hours Per Day (ICD-10-PCS; 2021-09-08)
DX: A41.81 Sepsis due to Enterococcus (principal); N17.0 Acute kidney failure with tubular necrosis; J96.21 Acute and chronic respiratory failure with hypoxia; G93.41 Metabolic encephalopathy; I50.33 Acute on chronic diastolic (congestive) heart failure; I13.0 Hypertensive heart and chronic kidney disease with heart failure and stage 1 through stage 4 chronic kidney disease, or unspecified chronic kidney disease; B37.49 Other urogenital candidiasis; Z68.42 Body mass index [BMI] 45.0-49.9, adult; E87.3 Alkalosis; T82.897A Other specified complication of cardiac prosthetic devices, implants and grafts, initial encounter; Z66 Do not resuscitate; Z51.5 Encounter for palliative care; E11.22 Type 2 diabetes mellitus with diabetic chronic kidney disease; N18.9 Chronic kidney disease, unspecified; T50.8X5A Adverse effect of diagnostic agents, initial encounter; E66.01 Morbid (severe) obesity due to excess calories; E78.5 Hyperlipidemia, unspecified; D64.9 Anemia, unspecified; I48.0 Paroxysmal atrial fibrillation; I25.10 Atherosclerotic heart disease of native coronary artery without angina pectoris; Z20.822 Contact with and (suspected) exposure to COVID-19; I07.1 Rheumatic tricuspid insufficiency; I27.20 Pulmonary hypertension, unspecified; J44.9 Chronic obstructive pulmonary disease, unspecified; R13.10 Dysphagia, unspecified; R47.02 Dysphasia; S20.01XA Contusion of right breast, initial encounter; W01.0XXA Fall on same level from slipping, tripping and stumbling without subsequent striking against object, initial encounter; Y83.1 Surgical operation with implant of artificial internal device as the cause of abnormal reaction of the patient, or of later complication, without mention of misadventure at the time of the procedure; I25.2 Old myocardial infarction; Z79.01 Long term (current) use of anticoagulants; Z79.02 Long term (current) use of antithrombotics/antiplatelets; Z79.4 Long term (current) use of insulin; Z79.82 Long term (current) use of aspirin; Z79.899 Other long term (current) drug therapy; Z86.73 Personal history of transient ischemic attack (TIA), and cerebral infarction without residual deficits; Z87.440 Personal history of urinary (tract) infections; Z95.3 Presence of xenogenic heart valve; Z95.5 Presence of coronary angioplasty implant and graft; Z83.3 Family history of diabetes mellitus; Z80.9 Family history of malignant neoplasm, unspecified
CPT/HCPCS: 36410; 36415; 36556; 70450; 71045; 71046; 72125; 72170; 74177; 76937; 77001; 80048; 80053; 80170; 81001; 82550; 83605; 83880; 84100; 84145; 84484; 85025; 85027; 85610; 85652; 85730; 86140; 86706; 86850; 86900; 86901; 86920; 87040; 87077; 87086; 87186; 87340; 87635; 90935; 93005; 93308; 93312; 93320; 93325; 94660; 94760; 99285

== ENCOUNTER 2021-09-09 16:55 | Inpatient (IN) | payer MEDICAID ==
[2021-09-09] MEDS ORDERED: ONDANSETRON 4 MG/2 ML VIAL IVP PRN (17:00)
[2021-09-09] MEDS ORDERED: SCOPOLAMINE 1.5MG/72HR PATCH TRANSDERM SCH (17:00)
[2021-09-09] MEDS ORDERED: LORazepam 2 MG/ML INJ IV PRN (17:00)
[2021-09-09] MEDS ORDERED: ATROPINE OPHTH SOLN 1% 5ML BTL SUBLINGUAL PRN (17:00)
[2021-09-09] MEDS ORDERED: MORPHINE SULFATE 2 MG/ML SYRINGE IV PRN (17:00)
[2021-09-09] MEDS ORDERED: ACETAMINOPHEN SUPPOSITORY 650 MG SUPP RECTAL PRN (17:00)
[2021-09-09] MEDS: MORPHINE SULFATE (100 MG/2 ML) 100 MG in SODIUM CHLORIDE 0.9% 100 ML IV SCH (18:26)
[2021-09-09] MEDS: GLYCOPYRROLATE 0.2 MG/ML 2 ML VIAL IVP SCH (18:28)
[2021-09-10] MEDS: GLYCOPYRROLATE 0.2 MG/ML 2 ML VIAL IVP SCH ×4 (00:17→17:17)
[2021-09-10 09:12] VITALS: BP 101/42
--- NOTE | 2021-09-10 12:40 | P.HPIM ---
History of Present Illness Patient is presently under hospice care patient to was being followed by Dr. Rodriguez her primary care physician. Patient is comfortable at this time it appears patient had bacteremia with Enterococcus faecalis and patient was evaluated for endocarditis no vegetation was evident. Patient's family is at bedside at this time. REVIEW OF SYSTEMS: Unable to assess PHYSICAL EXAMINATION: GENERAL: Comfortable not in pain HEENT: Pupils constricted CARDIOVASCULAR: S1 and S2 present. No murmurs, rubs, or gallops. PULMONARY: Shallow breathing ABDOMEN: Soft, nontender, nondistended, normoactive bowel sounds. No palpable organomegaly. MUSCULOSKELETAL: No joint swelling or deformity. EXTREMITIES: No cyanosis, clubbing, or pedal edema. NEUROLOGICAL: Able to assess. SKIN: No rashes. Assessment and plan -Inpatient hospice care patient to is comfortable at this time continue with present medications -Patient was treated for following during this hospital physician and enterococcus faecalis bacteremia -Acute renal failure -Diabetes mellitus -History of aortic valvular disease -Paroxysmal atrial fibrillation Past Medical History Past Medical History: Atrial Fibrillation, Coronary Artery Disease (CAD), Heart Failure, CVA/TIA, Diabetes Mellitus Additional Past Medical History / Comment(s): has home O2 @ 2L [place],IDDM type II, CVA with some vision changes and difficulty swallowing (eat soft foods)., murmur., states fall April 13, aortic stenosis post TAVR, paroxysmal AFIB History of Any Multi-Drug Resistant Organisms: None Reported Past Surgical History: Heart Catheterization With Stent, Orthopedic Surgery, Tonsillectomy Additional Past Surgical History / Comment(s): Esophageal surgery 2003 pt thinks this was dilation ; Venous graft leg to left arm., right hip fx surgery (11/2018) Past Anesthesia/Blood Transfusion Reactions: No Reported Reaction Date of Last Stent Placement:: 06/2021 Past Psychological History: No Psychological Hx Reported Smoking Status: Never smoker Past Alcohol Use History: None Reported Past Drug Use History: None Reported - Past Family History Mother Family Medical History: Cancer Additional Family Medical History / Comment(s): "Female cancer" father Family Medical History: Diabetes Mellitus Medications and Allergies Home Medications Medication Instructions Recorded Confirmed Type Insulin Detemir [Levemir Flextouch 12 units SQ AC-SUPPER 04/09/16 09/09/21 History Pen] Acetaminophen Tab [Tylenol] 650 mg PO Q6HR PRN tab 06/24/21 09/09/21 Rx Aspirin 81 mg PO DAILY #90 06/24/21 09/09/21 Rx Clopidogrel [Plavix] 75 mg PO DAILY #30 tab 06/24/21 09/09/21 Rx Metoprolol Tartrate [Lopressor] 25 mg PO BID #60 tab 06/24/21 09/09/21 Rx Nitroglycerin Sl Tabs [Nitrostat] 0.4 mg SUBLINGUAL Q5M PRN #60 tab 06/24/21 09/09/21 Rx Escitalopram [Lexapro] 10 mg PO DAILY 07/09/21 09/09/21 History Amiodarone [Cordarone] 200 mg PO BID #60 tab 07/14/21 09/09/21 Rx Apixaban [Eliquis] 2.5 mg PO BID #60 tablet 07/14/21 09/09/21 Rx Atorvastatin [Lipitor] 40 mg PO HS 07/30/21 09/09/21 History Furosemide [Lasix] 20 mg PO DAILY 07/30/21 09/09/21 History Insulin Aspart [NovoLOG] See Protocol SQ TID-W/MEALS PRN 07/30/21 09/09/21 History Pantoprazole [Protonix] 40 mg PO DAILY 07/30/21 09/09/21 History Sennosides-Docusate Sodium 2 tab PO HS PRN 08/26/21 09/09/21 History [Senokot-S] Allergies Allergy/AdvReac Type Severity Reaction Status Date / Time No Known Allergies Allergy Verified 09/09/21 18:41 Physical Exam Vitals: Vital Signs Pulse Resp BP Pulse Ox 09/10/21 12:00 58 L 8 L 09/10/21 08:00 10 L 101/42 09/10/21 03:37 9 L 09/10/21 01:13 12 09/09/21 23:10 17 95 09/09/21 19:36 16 94 L Intake and Output 09/09/21 09/10/21 09/10/21 22:59 06:59 14:59 Other: # Voids 0 Weight 121.4 kg
[2021-09-10] MEDS: MORPHINE SULFATE (100 MG/2 ML) 100 MG in SODIUM CHLORIDE 0.9% 100 ML IV SCH (18:35)
[2021-09-10 22:06] VITALS: RESP 4
[2021-09-11 00:37] VITALS: PULSE 24
[2021-09-11] MEDS: GLYCOPYRROLATE 0.2 MG/ML 2 ML VIAL IVP SCH (00:41)
== END 2021-09-11 04:05 | disposition expired | DRG 951 ==
LOC: 3SCARD 17:33
PROVIDERS: ADMIT Family Medicine; ATTEND Family Medicine
DX: Z51.5 Encounter for palliative care (principal); R78.81 Bacteremia; N17.9 Acute kidney failure, unspecified; I50.9 Heart failure, unspecified; Z99.81 Dependence on supplemental oxygen; B95.2 Enterococcus as the cause of diseases classified elsewhere; E11.9 Type 2 diabetes mellitus without complications; H53.9 Unspecified visual disturbance; I25.10 Atherosclerotic heart disease of native coronary artery without angina pectoris; I48.0 Paroxysmal atrial fibrillation; Z79.4 Long term (current) use of insulin; Z66 Do not resuscitate; I69.391 Dysphagia following cerebral infarction; I69.398 Other sequelae of cerebral infarction; R13.10 Dysphagia, unspecified; I35.0 Nonrheumatic aortic (valve) stenosis; Z79.01 Long term (current) use of anticoagulants; Z79.82 Long term (current) use of aspirin; Z79.02 Long term (current) use of antithrombotics/antiplatelets; Z79.899 Other long term (current) drug therapy; Z95.4 Presence of other heart-valve replacement; Z95.5 Presence of coronary angioplasty implant and graft; Z87.81 Personal history of (healed) traumatic fracture; Z98.890 Other specified postprocedural states; Z83.3 Family history of diabetes mellitus; Z80.49 Family history of malignant neoplasm of other genital organs